=== PATIENT | female | born 1965 | race Caucasian/White ===

== ENCOUNTER → 2017-11-12 07:21 | Outpatient (CLI) | payer BC, SELFPAY ==
[2017-11-12 08:02] LABS: Absolute Lymphocyte Count 2.85 X10^3/ul (0.83-4.51); Absolute Neutrophil Count 4.4 X10^3/uL (2.0-7.7); Basophil# 0.03 X10^3/uL; Basophil% 0.4 % (0-1); Eosinophil# 0.11 X10^3/uL; Eosinophils% 1.4 % (0-5); Erythrocyte Sedimentation Rate 3 mm/hr (0-30); Hematocrit 36.1 % (37-47); Hemoglobin 11.1 g/dl (12.0-15.0); Lymphocyte # 2.85 X10^3/ul (4.0); Lymphocyte % 36.2 % (19-41); Mean Corp Hgb Conc 30.7 g/gl (32-36); Mean Corpuscular Volume 94.3 fL (81-99); Mean Platelet Vol. 9.6 fl (6.2-12.0); Monocyte# 0.49 X10^3/uL; Monocyte% 6.2 % (0-10); Neutrophil # 4.38 X10^3/uL (2.7-7.7); Neutrophil % 55.7 % (47-70); Platelet Count 258 K/mm3 (150-450); RBC Distribution Width CV 15.3 % (11.6-14.6); RBC Distribution Width SD 52.6 fl (35.1-43.9); Red Blood Count 3.83 M/mm3 (4.2-5.4); White Blood Count 7.9 K/mm3 (4.4-11.0)
[2017-11-12 08:04] LABS: POSITIVE COUNT NO; POSITIVE DIFFERENTIAL NO; POSITIVE MORPHOLOGY NO
[2017-11-12 08:12] LABS: Urea Nitrogen, Urine 1184 mg/dL (NO RANGE EST.)
[2017-11-12 08:36] LABS: AST(SGOT) 23 U/L (15-37); Alanine Aminotransfer ALT/SGPT 21 U/L (13-56); Albumin, Serum 3.6 g/dL (3.2-5.0); CRP < 2.90 mg/L (0.0-3.0); Creatinine, Serum 0.86 mg/dL (0.55-1.02); EST Glomerular Filtration Rate 73 mL/min (>60); Est Glom Filt Rate - Afr Amer 89 mL/min (>60)
[2017-11-13 10:38] LABS: BUN 12 mg/dL (7-18)
== END ==
PROVIDERS: Family Provider Family Medicine Geriatric Medicine; PCP Family Medicine Geriatric Medicine; Visit Provider Internal Medicine Rheumatology
DX: M30.0 Polyarteritis nodosa (principal)
CPT/HCPCS: 36415; 82040; 82565; 84450; 84460; 84520; 84540; 85025; 85652; 86140

== ENCOUNTER → 2017-12-04 16:24 | Outpatient (CLI) | payer BC, SELFPAY ==
[2017-12-04 16:50] LABS: Absolute Lymphocyte Count 1.26 X10^3/ul (0.83-4.51); Absolute Neutrophil Count 5.3 X10^3/uL (2.0-7.7); Basophil# 0.02 X10^3/uL; Basophil% 0.3 % (0-1); Eosinophil# 0.03 X10^3/uL; Eosinophils% 0.4 % (0-5); Hematocrit 36.9 % (37-47); Hemoglobin 11.3 g/dl (12.0-15.0); Lymphocyte # 1.26 X10^3/ul (4.0); Lymphocyte % 17.4 % (19-41); Mean Corp Hgb Conc 30.6 g/gl (32-36); Mean Corpuscular Hgb 28.6 pg (27.0-32.0); Mean Corpuscular Volume 93.4 fL (81-99); Mean Platelet Vol. 9.4 fl (6.2-12.0); Monocyte# 0.63 X10^3/uL; Monocyte% 8.7 % (0-10); Neutrophil # 5.29 X10^3/uL (2.7-7.7); Neutrophil % 73.2 % (47-70); Platelet Count 274 K/mm3 (150-450); RBC Distribution Width CV 15.4 % (11.6-14.6); RBC Distribution Width SD 52.7 fl (35.1-43.9); Red Blood Count 3.95 M/mm3 (4.2-5.4); White Blood Count 7.2 K/mm3 (4.4-11.0)
[2017-12-04 16:51] LABS: POSITIVE COUNT NO; POSITIVE DIFFERENTIAL NO; POSITIVE MORPHOLOGY NO
[2017-12-04 17:04] LABS: ALB/GLOB Ratio 1.1 RATIO (0.9-2.4); AST(SGOT) 20 U/L (15-37); Alanine Aminotransfer ALT/SGPT 21 U/L (13-56); Albumin, Serum 3.6 g/dL (3.2-5.0); Alkaline Phosphatase 74 U/L (45-117); Amylase 48 U/L (25-115); Anion Gap 10 (5-15); BUN 13 mg/dL (7-18); BUN/Creat Ratio 14.1 RATIO (10-20); Calcium,Total 8.8 mg/dL (8.5-10.1); Chloride 108 mmol/L (98-107); Creatinine, Serum 0.92 mg/dL (0.55-1.02); EST Glomerular Filtration Rate 68 mL/min (>60); Est Glom Filt Rate - Afr Amer 82 mL/min (>60); Globulin 3.4 g/dL (2.2-4.2); Glucose 95 mg/dL (74-106); Lipase 138 U/L (73-393); Potassium 4.1 mmol/L (3.5-5.1); Sodium Level 144 mmol/L (136-145)
== END ==
PROVIDERS: Family Provider Family Medicine Geriatric Medicine; PCP Family Medicine Geriatric Medicine; Visit Provider Family Medicine Geriatric Medicine
DX: R10.9 Unspecified abdominal pain (principal)
CPT/HCPCS: 36415; 80053; 82150; 83690; 85025

== ENCOUNTER → 2017-12-04 16:46 | Outpatient (CLI) | payer BC, SELFPAY | PROVIDERS: Family Provider Family Medicine Geriatric Medicine; PCP Family Medicine Geriatric Medicine; Visit Provider Family Medicine Geriatric Medicine | DX: R10.9 Unspecified abdominal pain (principal) | CPT/HCPCS: 74177; Q9967 ==

== ENCOUNTER → 2018-03-06 07:13 | Outpatient (CLI) | payer BC, SELFPAY ==
[2018-01-08 14:00] VITALS: BMI 31.7
[2018-03-06 09:00] LABS: Absolute Lymphocyte Count 2.29 X10^3/ul (0.83-4.51); Absolute Neutrophil Count 4.9 X10^3/uL (2.0-7.7); Basophil# 0.03 X10^3/uL; Basophil% 0.4 % (0-1); Eosinophil# 0.14 X10^3/uL; Eosinophils% 1.8 % (0-5); Lymphocyte # 2.29 X10^3/ul (4.0); Lymphocyte % 28.8 % (19-41); Mean Corp Hgb Conc 30.6 g/gl (32-36); Mean Corpuscular Hgb 29.3 pg (27.0-32.0); Mean Corpuscular Volume 95.7 fL (81-99); Mean Platelet Vol. 8.8 fl (6.2-12.0); Monocyte# 0.56 X10^3/uL; Neutrophil # 4.92 X10^3/uL (2.7-7.7); Neutrophil % 61.9 % (47-70); Platelet Count 315 K/mm3 (150-450); RBC Distribution Width CV 16.3 % (11.6-14.6); RBC Distribution Width SD 56.4 fl (35.1-43.9); Red Blood Count 3.76 M/mm3 (4.2-5.4)
[2018-03-06 09:04] LABS: POSITIVE COUNT NO; POSITIVE DIFFERENTIAL NO; POSITIVE MORPHOLOGY NO
[2018-03-06 09:20] LABS: BUN 15 mg/dL (7-18); Creatinine, Serum 0.84 mg/dL (0.55-1.02)
[2018-03-06 09:21] LABS: AST(SGOT) 22 U/L (15-37); Alanine Aminotransfer ALT/SGPT 22 U/L (13-56); Albumin, Serum 3.7 g/dL (3.2-5.0); EST Glomerular Filtration Rate 75 mL/min (>60); Est Glom Filt Rate - Afr Amer 91 mL/min (>60)
--- OUTSIDE RECORDS SUMMARY | 2018-05-01 11:48 | XMS RPT_ITS ---
:1965 Author Organization OHIP Care Team Providers Name Role Phone Jd Gonzalez Attending Unavailable Jd Gonzalez Referring Unavailable Clement, Shaw Chi Primary Care Unavailable Clement, Shaw Chi Attending Unavailable Clement, Shaw Chi Primary Care Unavailable Clement, Shaw Chi Attending Unavailable Clement, Shaw Chi Referring Unavailable Clement, Shaw Chi Primary Care Unavailable Terrence Garcia Attending Unavailable Inez, Fabiana Referring Unavailable Jd Gonzalez Attending Unavailable Jd Gonzalez Referring Unavailable Miedel, Fabiana Primary Care Unavailable PROBLEMS PROBLEMS DATE TYPE CONDITION / CODE ATTENDING STATUS SOURCE 01/08/2018 Unknown K28.7 - Chronic [place], Active [place] gastrojejunal ulcer [facility] without hemorrhage Hospital or perforation / Repository K28.7(ICD-10) 12/07/2017 Unknown R10.9 - Unspecified Clement, Shaw Chi Active [facility] abdominal pain / Community R10.9(ICD-10) Hospital Repository 11/12/2017 Unknown 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 / Hospital 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3 LAB L100.1820 35.1-43.9 fl High RDW SD 56.4 LAB L100.1900 150-450 K/mm3 Normal PLT 315 LAB L100.2000 6.2-12.0 fl Normal MPV 8.8 LAB L100.2100 47-70 % Normal NEUT% 61.9 LAB L100.2200 19-41 % Normal LY% 28.8 LAB L100.2300 0-10 % Normal MONO% 7.0 LAB L100.2400 0-5 % Normal EO% 1.8 LAB L100.2500 0-1 % Normal BASO% 0.4 LAB L100.2550 0.0-0.9 % Normal IM GRAN % 0.100 Result Comment: IG% - Immature Granulocytes (promyelocytes, myelocytes and metamyelocytes) > 1% indicates that a LEFT SHIFT is Present. LAB L100.2620 2.0-7.7 X10 3/uL Normal Absolute Neut 4.9 LAB L100.2720 0.83-4.51 X10 3/ul Normal Absolute Lymph 2.29 Performed By: #### L100.0100 #### [facility] [address] [place], [address] BUN Collected: 03/06/2018 Status: F Source: [place] 7:19 AM [facility] REPOSITORY TYPE CODE TESTS RESULT OUT OF RANGE REFERENCE UNITS LAB L501.1000 7-18 mg/dL Normal BUN 15 Performed By: #### L501.1000, L501.1105, L501.1800, L501.4100, L501.4405 #### [facility] [address] [place], [place], [address] SERUM CREATININE AND Collected: 03/06/2018 Status: F Source: [place] GFR 7:19 AM [facility] REPOSITORY TYPE CODE TESTS RESULT OUT OF RANGE REFERENCE UNITS LAB L501.1100 0.55-1.02 mg/dL Normal 0.84 CREAT,SERUM Result Comment: The validity of the calculated GFR AND GFRAA in patients over 70 years has not been determined. Clinical correlation is essential. LAB L501.1110 >60 mL/min Normal EST GFR 75 Result Comment: Non- GFR Calc LAB L501.1115 >60 mL/min Normal EST GFR - AA 91 Result Comment: GFR Calc Performed By: #### L501.1000, L501.1105, L501.1800, L501.4100, L501.4405 #### [facility] [address] [place], [address] ALBUMIN, SERUM Collected: 03/06/2018 Status: F Source: [place] 7:19 AM [facility] REPOSITORY TYPE CODE TESTS RESULT OUT OF RANGE REFERENCE UNITS LAB L501.1800 3.2-5.0 g/dL Normal ALB 3.7 Performed By: #### L501.1000, L501.1105, L501.1800, L501.4100, L501.4405 #### [facility] [address] [place], [address] AST(SGOT) Collected: 03/06/2018 Status: F Source: [place] 7:19 AM [facility] REPOSITORY TYPE CODE TESTS RESULT OUT OF RANGE REFERENCE UNITS LAB L501.4100 15-37 U/L Normal AST 22 Performed By: #### L501.1000, L501.1105, L501.1800, L501.4100, L501.4405 #### [facility] [address] [place], [address] ALANINE AMINOTRANSFERAS Collected: 03/06/2018 Status: F Source: [place] (SGPT) 7:19 AM [facility] REPOSITORY TYPE CODE TESTS RESULT OUT OF RANGE REFERENCE UNITS LAB L501.4405 13-56 U/L Normal ALT 22 Performed By: #### L501.1000, L501.1105, L501.1800, L501.4100, L501.4405 #### [facility] [address] [place], [address] SURGERY VISIT REPORT Observed: 01/08/2018 Status: F Source: [place] 2:29 PM [facility] REPOSITORY [facility] [address] [place] [address] OFFICE VISIT Date of Service: 01/08/18 MR#: [id number] Acct: [id number] Name: LAILA HENSLEY Joy Rep #: [id number] : 1965 Provider: Terrence Garcia MD Age/Sex: 52/F Location: [facility] Status: Signed Intake Vital Signs01/08/18 Height 5 ft 4 in 01/08/18 Weight: 185 lb 01/08/18 Body Mass Index (BMI) 31.7 Intake Visit Reasons: Gastric Ulcer/CT [facility] 12/04 Cutter Hand Required: No Is patient in pain?: Yes (epigsatric) Allergies No Known Allergies Allergy (Verified 01/08/18 14:01) Medications Multivitamin [Daily Multiple Vitamin] 1 ea PO DAILY 08/09/15 [History Confirmed 01/08/18] Plexus Biocleanse 2 tab PO DAILY 08/09/15 [History Confirmed 01/08/18] Plexus Probio 1 tab PO DAILY 08/09/15 [History Confirmed 01/08/18] Plexus Slim 1 PO DAILY 08/09/15 [History Confirmed 01/08/18] Premium Ultra Pure 3 tab PO DAILY 08/09/15 [History Confirmed 01/08/18] azathioprine 50 mg tablet 50 mg PO DAILY 01/08/18 [History Confirmed 01/08/18] colchicine 0.6 mg tablet 0.6 mg PO BID 01/08/18 [History Confirmed 01/08/18] dexlansoprazole 60 mg capsule,biphase delayed release 60 mg PO DAILY 01/08/18 [History Confirmed 01/08/18] prednisone 2.5 mg tablet 5 mg PO DAILY tab 01/08/18 [History Confirmed 01/08/18] PFSH Medical History Gastric ulcer (Acute) Vasculitis of skin (Acute) Surgical History Heel spur (Acute) S/P gastric bypass (Acute) S/P hammer toe correction (Acute) Family History Mother Hypertension Thyroid disorder Brother Seizures Social History Smoking Status: Never smoker alcohol intake: current alcohol intake frequency: holidays/special occasions only HPI HPI HPI: LAILA HENSLEY, is a 52 F who presents to the office today for epigastric pain. The patient reports that she had epigastric pain a long time ago and was noted to have a ulcer on upper GI. She has been on Dexilant for over a year. She reports the pain has been waxing and waning but got worse a month ago and had a repeat CT. The patient reports that when she has an empty stomach the pain is worse. ROS General General: Yes fatigue Cardio Cardiovascular: No murmur, pacemaker, heart disease, atrial fibrillation, high blood pressure, heart attack, heart stent, palpitations, shortness of breat with exertion or chest pain Psych Psychiatric: Yes depression and anxiety Resp Respiratory: No shortness of breath, Yes sleep apnea, No cough, No COPD, No asthma, No emphysema, No wheezing Gastro Gastrointestinal: Yes abdominal pain, No nausea or vomiting, No diarrhea, Yes constipation, No blood in stool, No acid reflux, Yes hemorrhoids, Yes ulcers, No gallbladder problem, No black,tarry stools Reginaldo Hematologic: No blood thinners Exam Const General: cooperative Orientation: alert, oriented x3 Resp Effort AND Inspection: normal respiratory effort Auscultation: clear to auscultation bilaterally Cardio Rate: regular rate Rhythm: regular rhythm Heart Sounds: no murmurs GI Inspection: non-distended Palpation: soft, nontender Assessment AND Plan Problems 1. 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 The patient had upper GI in 2017 which showed a marginal ulcer at her gastrojejunal anastomosis. She has been on a PPI but she is still having epigastric pain. She is on chronic steroids daily. 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 He says while the steroids her legs are severely exacerbated. 2. I recommend continuing PPI and she will fill the prescription Dr. Vaughan gave her for a barrier medication. 3. I advised her that I would be able to do an EGD but this would be a diagnostic procedure only. If she would require any surgery I would send her back to her bariatric surgeon Dr. Mcmullen at [facility]. At this time the patient does not want an EGD if it will not help her symptoms. I believe if she were to come off of her steroids completely this would heal. 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 01/08/18 1429 <Electronically signed by Terrence Garcia MD> Date Terrence Garcia MD Cosigner Signature: Date (if applicable) CC: Fabiana Wiley MD ABDOMEN/PELVIS WITH Observed: 12/04/2017 Status: F Source: [place] CONTRAST 4:51 PM [facility] REPOSITORY [facility] Imaging Services [address] [place] [address] [place] [address] Abdomen/Pelvis WITH Contrast MR#: [id number] Acct: [id number] Name: LAILA HENSLEY Rep #: [id number] : 1965 F 51 From: Azael Gutierrez MD PCP: Shaw Vaughan MD, Chi Status: REG CLI Study: Abdomen/Pelvis WITH Contrast Date of Exam: 12/04/17 Exam# [id number] Ordering Dr: Shaw Vaughan MD STUDY: CT ABDOMEN AND PELVIS WITH CONTRAST REASON FOR EXAM: Female, 51 years old. Mid abdominal pain times several months, status post gastric bypass surgery 2012 RADIATION DOSAGE (If Supplied By Facility): CTDIvol = ( 19.21 ) mGy, DLP = ( 1075.99 ) mGycm TECHNIQUE: Transaxial images were obtained from the dome of the diaphragm to the symphysis pubis with oral contrast. 100ML ml of Isovue 300 contrast was administered. Sagittal and coronal images were reconstructed. Individualized dose optimization techniques were used for this CT. COMPARISON: Prior study of June 06, 2016 FINDINGS: The visualized lung bases are unremarkable. The visualized portions of the heart are within normal limits. Normal liver. Normal gallbladder and extrahepatic biliary system. Normal spleen. Normal pancreas. Normal bilateral adrenal glands. Normal right kidney. There is a 1.3 cm hypodensity of the lower pole of left kidney indeterminate for solid versus cystic structure. This is stable in the interval. Status post gastric surgical changes are noted. There is a small hiatal hernia. Normal small intestine. Normal colon. The appendix is visualized and appears normal. There are calcified plaques of the abdominal aorta. Normal inferior vena cava. Normal retroperitoneum. Normal urinary bladder. The uterus and adnexal structures appear normal. Normal abdominal wall. There mild diffuse degenerative changes of the visualized thoracolumbar spine. CT/Abdomen/Pelvis WITH Contrast IMPRESSION: 1. 1.3 cm hypodensity of the lower pole of left kidney indeterminate for solid versus cystic structure, stable in the interval. This most likely represents a cyst. Ultrasound correlation is recommended. 2. Status post gastric surgical changes are noted. There is a small hiatal hernia. 3. Mild diffuse degenerative changes of the visualized thoracolumbar spine. 4. There is no evidence of free intra-abdominal or intrapelvic air, fluid, or inflammatory process. Electronically Signed: Azael Gutierrez MD at 19:35 EDT , Service support , CC: Shaw Vaughan MD Terrazzo Polisher Helper: Signed CBC W/DIFF, AUTOMATED Collected: 12/04/2017 Status: F Source: [place] 4:26 PM [facility] REPOSITORY TYPE CODE TESTS RESULT OUT OF RANGE REFERENCE UNITS LAB L100.1000 4.4-11.0 K/mm3 Normal WBC 7.2 LAB L100.1200 4.2-5.4 M/mm3 Low RBC 3.95 LAB L100.1300 12.0-15.0 g/dl Low HGB 11.3 LAB L100.1400 37-47 % Low HCT 36.9 LAB L100.1500 81-99 fL Normal MCV 93.4 LAB L100.1600 27.0-32.0 pg Normal MCH 28.6 LAB L100.1700 32-36 g/gl Low MCHC 30.6 LAB L100.1810 11.6-14.6 % High RDW CV 15.4 LAB L100.1820 35.1-43.9 fl High RDW SD 52.7 LAB L100.1900 150-450 K/mm3 Normal PLT 274 LAB L100.2000 6.2-12.0 fl Normal MPV 9.4 LAB L100.2100 47-70 % High NEUT% 73.2 LAB L100.2200 19-41 % Low LY% 17.4 LAB L100.2300 0-10 % Normal MONO% 8.7 LAB L100.2400 0-5 % Normal EO% 0.4 LAB L100.2500 0-1 % Normal BASO% 0.3 LAB L100.2550 0.0-0.9 % Normal IM GRAN % 0.000 Result Comment: IG% - Immature Granulocytes (promyelocytes, myelocytes and metamyelocytes) > 1% indicates that a LEFT SHIFT is Present. LAB L100.2620 2.0-7.7 X10 3/uL Normal Absolute Neut 5.3 LAB L100.2720 0.83-4.51 X10 3/ul Normal Absolute Lymph 1.26 Performed By: #### L100.0100 #### [facility] [address] [place], [address] COMPREHENSIVE METABOLIC Collected: 12/04/2017 Status: F Source: [place] [facility] 4:26 PM [facility] REPOSITORY TYPE CODE TESTS RESULT OUT OF RANGE REFERENCE UNITS LAB L501.0100 74-106 mg/dL Normal GLU 95 Result Comment: Please note revised GLUCOSE reference range effective 2017. LAB L501.1000 7-18 mg/dL Normal BUN 13 LAB L501.1100 0.55-1.02 mg/dL Normal CREAT,SERUM 0.92 Result Comment: The validity of the calculated GFR AND GFRAA in patients over 70 years has not been determined. Clinical correlation is essential. LAB L501.1110 >60 mL/min Normal EST GFR 68 Result Comment: Non- GFR Calc LAB L501.1115 >60 mL/min Normal EST GFR - AA 82 Result Comment: GFR Calc LAB L501.1300 10-20 RATIO Normal BUN/CRE 14.1 LAB L501.1500 6.4-8.2 g/dL T Normal PROT 7.0 LAB L501.1800 3.2-5.0 g/dL Normal ALB 3.6 LAB L501.1950 2.2-4.2 g/dL Normal GLOB 3.4 LAB L501.2000 0.9-2.4 RATIO Normal A/G 1.1 LAB L501.2200 8.5-10.1 mg/dL CA Normal 8.8 LAB L501.4100 15-37 U/L Normal AST 20 LAB L501.4305 45-117 U/L Normal ALK P 74 LAB L501.4405 13-56 U/L Normal ALT 21 LAB L501.4600 0.20-1.00 mg/dL T Normal BILI 0.50 LAB L501.5300 136-145 mmol/L NA Normal 144 LAB L501.5600 3.5-5.1 mmol/L K Normal 4.1 LAB L501.5900 98-107 mmol/L High CL 108 LAB L501.6100 21.0-32.0 mmol/L Normal CO2 26.0 LAB L501.6200 5-15 Normal GAP 10 Performed By: #### L500.4050, L501.2400, L501.2450 #### [facility] [address] [place], [address] AMYLASE Collected: 12/04/2017 Status: F Source: [place] 4:26 PM [facility] REPOSITORY TYPE CODE TESTS RESULT OUT OF RANGE REFERENCE UNITS LAB L501.2400 25-115 U/L Normal JOSE MIGUEL 48 Performed By: #### L500.4050, L501.2400, L501.2450 #### [facility] [address] [place], [address] LIPASE Collected: 12/04/2017 Status: F Source: [place] 4:26 PM [facility] REPOSITORY TYPE CODE TESTS RESULT OUT OF RANGE REFERENCE UNITS LAB L501.2450 73-393 U/L Normal LIPASE 138 Performed By: #### L500.4050, L501.2400, L501.2450 #### [facility] [address] [place], [address] ERYTHROCYTE SED RATE Collected: 11/12/2017 Status: F Source: [place] 7:26 AM [facility] REPOSITORY TYPE CODE TESTS RESULT OUT OF RANGE REFERENCE UNITS LAB L102.0000 0-30 mm/hr Normal SED RATE 3 Performed By: #### L101.9900, L100.0100 #### [facility] [address] [place], [address] CBC W/DIFF, AUTOMATED Collected: 11/12/2017 Status: F Source: [place] 7:26 AM [facility] REPOSITORY TYPE CODE TESTS RESULT OUT OF RANGE REFERENCE UNITS LAB L100.1000 4.4-11.0 K/mm3 Normal WBC 7.9 LAB L100.1200 4.2-5.4 M/mm3 Low RBC 3.83 LAB L100.1300 12.0-15.0 g/dl Low HGB 11.1 LAB L100.1400 37-47 % Low HCT 36.1 LAB L100.1500 81-99 fL Normal MCV 94.3 LAB L100.1600 27.0-32.0 pg Normal MCH 29.0 LAB L100.1700 32-36 g/gl Low MCHC 30.7 LAB L100.1810 11.6-14.6 % High RDW CV 15.3 LAB L100.1820 35.1-43.9 fl High RDW SD 52.6 LAB L100.1900 150-450 K/mm3 Normal PLT 258 LAB L100.2000 6.2-12.0 fl Normal MPV 9.6 LAB L100.2100 47-70 % Normal NEUT% 55.7 LAB L100.2200 19-41 % Normal LY% 36.2 LAB L100.2300 0-10 % Normal MONO% 6.2 LAB L100.2400 0-5 % Normal EO% 1.4 LAB L100.2500 0-1 % Normal BASO% 0.4 LAB L100.2550 0.0-0.9 % Normal IM GRAN % 0.100 Result Comment: IG% - Immature Granulocytes (promyelocytes, myelocytes and metamyelocytes) > 1% indicates that a LEFT SHIFT is Present. LAB L100.2620 2.0-7.7 X10 3/uL Normal Absolute Neut 4.4 LAB L100.2720 0.83-4.51 X10 3/ul Normal Absolute Lymph 2.85 Performed By: #### L101.9900, L100.0100 #### [facility] [address] [place], [address] UREA NITROGEN, URINE Collected: 11/12/2017 Status: F Source: [place] 7:26 AM [facility] REPOSITORY TYPE CODE TESTS RESULT OUT OF RANGE REFERENCE UNITS LAB L502.0715 NO RANGE EST. mg/dL Normal URINE 1184 UREA Performed By: #### L502.0715 #### [facility] [address] [place], [address] SERUM CREATININE AND Collected: 11/12/2017 Status: F Source: [place] GFR 7:26 AM [facility] REPOSITORY Order Comment: PLEASE ADD BUN TO BLOOD FROM 11-12-17 TYPE CODE TESTS RESULT OUT OF RANGE REFERENCE UNITS LAB L501.1100 0.55-1.02 mg/dL Normal 0.86 CREAT,SERUM Result Comment: The validity of the calculated GFR AND GFRAA in patients over 70 years has not been determined. Clinical correlation is essential. LAB L501.1110 >60 mL/min Normal EST GFR 73 Result Comment: Non- GFR Calc LAB L501.1115 >60 mL/min Normal EST GFR - AA 89 Result Comment: GFR Calc Performed By: #### L501.1105, L501.1800, L501.4100, L501.4405, L501.6710, L501.1000 #### [facility] [address] [place], [place], [address] ALBUMIN, SERUM Collected: 11/12/2017 Status: F Source: [place] 7:26 AM [facility] REPOSITORY Order Comment: PLEASE ADD BUN TO BLOOD FROM 11-12-17 TYPE CODE TESTS RESULT OUT OF RANGE REFERENCE UNITS LAB L501.1800 3.2-5.0 g/dL Normal ALB 3.6 Performed By: #### L501.1105, L501.1800, L501.4100, L501.4405, L501.6710, L501.1000 #### [facility] [address] [place], [address] AST(SGOT) Collected: 11/12/2017 Status: F Source: [place] 7:26 AM [facility] REPOSITORY Order Comment: PLEASE ADD BUN TO BLOOD FROM 11-12-17 TYPE CODE TESTS RESULT OUT OF RANGE REFERENCE UNITS LAB L501.4100 15-37 U/L Normal AST 23 Performed By: #### L501.1105, L501.1800, L501.4100, L501.4405, L501.6710, L501.1000 #### [facility] [address] [place], [address] ALANINE AMINOTRANSFERAS Collected: 11/12/2017 Status: F Source: [place] (SGPT) 7:26 AM [facility] REPOSITORY Order Comment: PLEASE ADD BUN TO BLOOD FROM 11-12-17 TYPE CODE TESTS RESULT OUT OF RANGE REFERENCE UNITS LAB L501.4405 13-56 U/L Normal ALT 21 Performed By: #### L501.1105, L501.1800, L501.4100, L501.4405, L501.6710, L501.1000 #### [facility] [address] [place], [place], [address] CRP Collected: 11/12/2017 Status: F Source: [place] 7:26 AM [facility] REPOSITORY Order Comment: PLEASE ADD BUN TO BLOOD FROM 818 TYPE CODE TESTS RESULT OUT OF RANGE REFERENCE UNITS LAB L501.6710 0.0-3.0 mg/L Normal < 2.90 C-REACTIVE PROT Result Comment: C-Reactive Protein (CRP) provides useful information for the diagnosis, therapy and monitoring of inflammatory processes and associated diseases. For the evaluation of Relative Risk for Cardiovascular Disease, a High Sensitivity CRP (HSCRP) should be ordered. Performed By: #### L501.1105, L501.1800, L501.4100, L501.4405, L501.6710, L501.1000 #### [facility] [address] [place], [address] BUN Collected: 11/12/2017 Status: F Source: [place] 7:26 [facility] REPOSITORY Order Comment: PLEASE ADD BUN TO BLOOD FROM 818 TYPE CODE TESTS RESULT OUT OF RANGE REFERENCE UNITS LAB L501.1000 7-18 mg/dL Normal BUN 12 Performed By: #### L501.1105, L501.1800, L501.4100, L501.4405, L501.6710, L501.1000 #### [facility] [address] [place], [address] ALLERGIES ALLERGIES DATE TYPE / CODE NAME / CODE REACTION SEVERITY SOURCE 01/08/2018 Drug No Known Unknown [facility] Allergy/4160 Allergies/F00 [facility] 00974(SNOMED [id number](RXNOR Repository CT) M) ENCOUNTERS ENCOUNTERS ADMIT/DISCHARGE ACCOUNT ADMITTING ENCOUNTER LOCATION SOURCE NUMBER CLASS 03/06/2018 [id number] Ambulatory [address] ing:LAB Repository 01/08/2018/10/02 [id number] Ambulatory BMSBuilding:B [place] 8 0 [place].[facility] Repository 12/04/2017 [id number] Ambulatory [place] 9 [facility] ing:CT Repository 12/04/2017 [id number] Ambulatory [place] 2 [facility] ing:POLAB3 Repository 11/12/2017 [id number] Ambulatory [place] 7 [facility] ing:LAB Repository PAYERS PAYERS ENCOUNTER GUARANTOR PAYER SUBSCRIBER SOURCE 03/06/2018 LAILA A Primary LAILA A [place] [id number] JAVID Insurance:ANTHEMPolic TROYERDOB: [facility], y Number: [id number] [id number]: [id number] Repository Date:1221-79-32OZ [address] () [address], [place] [address]MK: 03/06/2018 Secondary NOT GIVENUNK [place] Insurance:SELF PAY [facility] Number: Effective Repository Date:2018-03-06 01/08/2018 LAILA A Primary LAILA A [place] [id number] JAVID Insurance:ANTHEMPolic TROYERDOB: [facility], y Number: [id number] [facility] Services [address]Oqo: [id number] Repository Date:3083-12-70UV [address] () [address], [place] [address]VP: 01/08/2018 Secondary NOT GIVENUNK [place] Insurance:SELF PAY [facility] Number: Effective Repository Date:2018-01-08 12/04/2017 Laila A Primary Laila A [place] [id number] Insurance:ANTHEMPolic TroyerDOB: [facility], y Number: [id number] Behavioral Health Services [id number]: [id number] Repository Date:3827-05-49YD [address] () [address], [place] [address]QJ: 12/04/2017 Secondary NOT GIVENUNK [place] Insurance:SELF PAY [facility] Number: Effective Repository Date:2017-12-04 12/04/2017 Laila Hamilton Primary Laila Hamilton [place] [id number] Javid Insurance:ANTHEMPolic TroyerDOB: [facility], y Number: [id number] Behavioral Health Services [id number]: [id number] Repository Date:8758-68-03YA [address] () [id number] [place] [address]QN: 12/04/2017 Secondary NOT GIVENUNK [place] Insurance:SELF PAY [facility] Number: Effective Repository Date:2017-12-04 11/12/2017 Laila Hamilton Primary Laila Dodgeoster [id number] Javid Insurance:ANTHEMPolic TroyerDOB: [facility], y Number: [id number] [facility]al [facility] Services [id number]: [id number] Repository Date:9421-57-82BB [address] () [address], [place] [address]LX: 11/12/2017 Secondary NOT GIVENUNK [place] Insurance:SELF PAY [facility] Number: Effective Repository Date:2017-11-12
== END ==
PROVIDERS: Family Provider Family Medicine; PCP Family Medicine; Referring Provider Internal Medicine Rheumatology; Visit Provider Internal Medicine Rheumatology
DX: M30.0 Polyarteritis nodosa (principal)
CPT/HCPCS: 36415; 82040; 82565; 84450; 84460; 84520; 85025

== ENCOUNTER 2018-06-03 07:10 | Outpatient (RCR) | payer BC, SELFPAY ==
[2018-06-03 08:37] LABS: Absolute Lymphocyte Count 1.77 X10^3/ul (0.83-4.51); Absolute Neutrophil Count 4.7 X10^3/uL (2.0-7.7); Basophil# 0.03 X10^3/uL; Basophil% 0.4 % (0-1); Eosinophil# 0.13 X10^3/uL; Eosinophils% 1.8 % (0-5); Hematocrit 35.9 % (37-47); Lymphocyte # 1.77 X10^3/ul (4.0); Lymphocyte % 24.5 % (19-41); Mean Corp Hgb Conc 30.6 g/gl (32-36); Mean Corpuscular Hgb 29.1 pg (27.0-32.0); Mean Platelet Vol. 9.6 fl (6.2-12.0); Monocyte# 0.58 X10^3/uL; Neutrophil # 4.68 X10^3/uL (2.7-7.7); Platelet Count 315 K/mm3 (150-450); RBC Distribution Width CV 15.3 % (11.6-14.6); RBC Distribution Width SD 50.3 fl (35.1-43.9); Red Blood Count 3.78 M/mm3 (4.2-5.4); White Blood Count 7.2 K/mm3 (4.4-11.0)
[2018-06-03 08:39] LABS: POSITIVE COUNT NO; POSITIVE DIFFERENTIAL NO; POSITIVE MORPHOLOGY NO
== END 2018-06-06 15:01 | disposition home or self-care (01) ==
LOC: LAB 07:10
PROVIDERS: Referring Provider Internal Medicine Rheumatology; Visit Provider Internal Medicine Rheumatology
DX: M30.0 Polyarteritis nodosa (principal); M79.3 Panniculitis, unspecified; Z79.899 Other long term (current) drug therapy
CPT/HCPCS: 36415; 85025

== ENCOUNTER → 2018-08-27 | Outpatient (CLI) | payer BC, SELFPAY ==
[2018-08-27 17:39] LABS: Absolute Lymphocyte Count 1.25 X10^3/ul (0.83-4.51); Absolute Neutrophil Count 4.9 X10^3/uL (2.0-7.7); Basophil# 0.02 X10^3/uL; Basophil% 0.3 % (0-1); Eosinophil# 0.07 X10^3/uL; Hematocrit 34.9 % (37-47); Hemoglobin 10.8 g/dl (12.0-15.0); Lymphocyte # 1.25 X10^3/ul (4.0); Lymphocyte % 18.5 % (19-41); Mean Corp Hgb Conc 30.9 g/gl (32-36); Mean Corpuscular Hgb 27.8 pg (27.0-32.0); Mean Corpuscular Volume 89.7 fL (81-99); Mean Platelet Vol. 9.6 fl (6.2-12.0); Monocyte% 7.4 % (0-10); Neutrophil # 4.92 X10^3/uL (2.7-7.7); Neutrophil % 72.7 % (47-70); Platelet Count 287 K/mm3 (150-450); RBC Distribution Width CV 15.9 % (11.6-14.6); RBC Distribution Width SD 51.7 fl (35.1-43.9); Red Blood Count 3.89 M/mm3 (4.2-5.4); White Blood Count 6.8 K/mm3 (4.4-11.0)
[2018-08-27 18:00] LABS: POSITIVE COUNT NO; POSITIVE DIFFERENTIAL NO; POSITIVE MORPHOLOGY NO; Vitamin B12 680 pg/mL (211-911)
[2018-08-27 18:05] LABS: Thyroid Stim Hormone (TSH) 2.45 uIU/mL (0.358-3.74)
== END | disposition home or self-care (01) ==
LOC: BFHLAB 15:42
PROVIDERS: Family Provider Family Medicine; PCP Family Medicine; Visit Provider Family Medicine
DX: F32.9 Major depressive disorder, single episode, unspecified (principal); R53.83 Other fatigue
CPT/HCPCS: 36415; 82607; 84443; 85025

== ENCOUNTER 2018-09-12 07:16 | Outpatient (RCR) | payer BC, SELFPAY ==
[2018-01-08 14:00] VITALS: BMI 31.7
[2018-09-12 07:57] LABS: Absolute Lymphocyte Count 2.47 X10^3/ul (0.83-4.51); Absolute Neutrophil Count 4.2 X10^3/uL (2.0-7.7); Basophil# 0.02 X10^3/uL; Basophil% 0.3 % (0-1); Eosinophil# 0.12 X10^3/uL; Eosinophils% 1.6 % (0-5); Hematocrit 33.8 % (37-47); Hemoglobin 10.4 g/dl (12.0-15.0); Lymphocyte # 2.47 X10^3/ul (4.0); Lymphocyte % 33.2 % (19-41); Mean Corp Hgb Conc 30.8 g/gl (32-36); Mean Corpuscular Hgb 27.5 pg (27.0-32.0); Mean Corpuscular Volume 89.4 fL (81-99); Mean Platelet Vol. 9.5 fl (6.2-12.0); Monocyte# 0.66 X10^3/uL; Monocyte% 8.9 % (0-10); Neutrophil # 4.15 X10^3/uL (2.7-7.7); Neutrophil % 55.7 % (47-70); Platelet Count 282 K/mm3 (150-450); RBC Distribution Width CV 15.9 % (11.6-14.6); RBC Distribution Width SD 51.4 fl (35.1-43.9); Red Blood Count 3.78 M/mm3 (4.2-5.4); White Blood Count 7.4 K/mm3 (4.4-11.0)
[2018-09-12 08:01] LABS: POSITIVE COUNT NO; POSITIVE DIFFERENTIAL NO; POSITIVE MORPHOLOGY NO
== END 2018-10-06 12:00 | disposition home or self-care (01) ==
LOC: LAB 07:16
PROVIDERS: Family Provider Family Medicine; PCP Family Medicine; Referring Provider Internal Medicine Rheumatology; Visit Provider Internal Medicine Rheumatology
DX: M30.0 Polyarteritis nodosa (principal); M79.3 Panniculitis, unspecified; Z79.899 Other long term (current) drug therapy
CPT/HCPCS: 36415; 85025

== ENCOUNTER → 2018-10-23 | Outpatient (CLI) | payer BC, SELFPAY ==
[2018-01-08 14:00] VITALS: BMI 31.7
[2018-10-23 16:35] LABS: Bacteria 0 SEEN /hpf (None Seen); Mucous, Urine 0 SEEN /hpf (<or=2+); Red Blood Cells-Urine 0 SEEN /hpf (0-5)
[2018-10-23 17:14] LABS: Absolute Lymphocyte Count 1.47 X10^3/uL (0.83-4.51); Basophil# 0.03 X10^3/uL; Basophil% 0.4 % (0-1); Eosinophil# 0.12 X10^3/uL; Eosinophils% 1.7 % (0-5); Hematocrit 35.8 % (37-47); Hemoglobin 10.7 g/dL (12.0-15.0); Lymphocyte # 1.47 X10^3/ul (4.0); Lymphocyte % 20.7 % (19-41); Mean Corp Hgb Conc 29.9 g/dL (32-36); Mean Corpuscular Hgb 27.4 pg (27.0-32.0); Mean Corpuscular Volume 91.8 fL (81-99); Mean Platelet Vol. 9.1 fl (6.2-12.0); Monocyte# 0.45 X10^3/uL; Monocyte% 6.3 % (0-10); NRBC Flagged by Analyzer 0 % (0-5); Neutrophil % 70.6 % (47-70); Platelet Count 261 K/mm3 (150-450); RBC Distribution Width CV 16.5 % (11.6-14.6); RBC Distribution Width SD 54.9 fl (35.1-43.9); White Blood Count 7.1 K/mm3 (4.4-11.0)
[2018-10-23 17:30] LABS: Erythrocyte Sedimentation Rate 7 mm/hr (0-30)
[2018-10-23 17:35] LABS: AST(SGOT) 15 U/L (15-37); Alanine Aminotransfer ALT/SGPT 14 U/L (13-56); Albumin, Serum 3.7 g/dL (3.2-5.0); BUN 13 mg/dL (7-18); CRP 4.29 mg/L (0.0-3.0); Creatinine, Serum 0.86 mg/dL (0.55-1.02); EST Glomerular Filtration Rate 73 mL/min (>60); Est Glom Filt Rate - Afr Amer 88 mL/min (>60); Iron 44 ug/dL (50-170)
[2018-10-23 17:39] LABS: Color, Urine Yellow (Yellow); Glucose, Dipstick Normal (Normal); Ketone-Dipstick Negative (Negative); Leukocyte Esterase-Dipstick Negative /ul (Negative); Nitrite-Dipstick Negative (Negative); Occult Blood-Urine Negative /ul (Negative); Protein-Dipstick Negative (Negative); Urine Bilirubin Dipstick Negative (Negative); Urine Clarity Clear (Clear); Urine Urobilinogen Normal (Normal)
[2018-10-23 17:42] LABS: Squamous Epithelial Cells - UA 0-5 SEEN /hpf (5-10); White Blood Cells 0-5 SEEN /hpf (0-5)
[2018-10-24 09:47] LABS: Iron Binding Capacity,Total 491 ug/dL (250-450)
== END | disposition home or self-care (01) ==
LOC: LAB 16:33
PROVIDERS: Family Provider Family Medicine; PCP Family Medicine; Referring Provider Internal Medicine Rheumatology; Visit Provider Internal Medicine Rheumatology
DX: M30.0 Polyarteritis nodosa (principal)
CPT/HCPCS: 36415; 81001; 82040; 82565; 83540; 83550; 84450; 84460; 84520; 85025; 85652; 86140

== ENCOUNTER → 2018-12-20 13:11 | Outpatient (CLI) | payer BC, SELFPAY ==
[2018-01-08 14:00] VITALS: BMI 31.7
[2018-12-20 14:55] LABS: Absolute Lymphocyte Count 1.31 X10^3/uL (0.83-4.51); Absolute Neutrophil Count 4.7 X10^3/uL (2.0-7.7); Basophil# 0.04 X10^3/uL; Basophil% 0.6 % (0-1); Eosinophil# 0.17 X10^3/uL; Eosinophils% 2.5 % (0-5); Hematocrit 35.6 % (37-47); Hemoglobin 10.5 g/dL (12.0-15.0); Lymphocyte # 1.31 X10^3/ul (4.0); Lymphocyte % 19.4 % (19-41); Mean Corp Hgb Conc 29.5 g/dL (32-36); Mean Corpuscular Hgb 27.2 pg (27.0-32.0); Mean Corpuscular Volume 92.2 fL (81-99); Mean Platelet Vol. 9.6 fl (6.2-12.0); Monocyte# 0.55 X10^3/uL; Monocyte% 8.1 % (0-10); NRBC Flagged by Analyzer 0 % (0-5); Neutrophil # 4.69 X10^3/uL (2.7-7.7); Neutrophil % 69.3 % (47-70); Platelet Count 287 K/mm3 (150-450); RBC Distribution Width CV 16.1 % (11.6-14.6); RBC Distribution Width SD 54.5 fl (35.1-43.9); Red Blood Count 3.86 M/mm3 (4.2-5.4); White Blood Count 6.8 K/mm3 (4.4-11.0)
[2018-12-20 15:22] LABS: AST(SGOT) 16 U/L (15-37); Alanine Aminotransfer ALT/SGPT 14 U/L (13-56); Albumin, Serum 3.7 g/dL (3.2-5.0); BUN 13 mg/dL (7-18); Creatinine, Serum 0.78 mg/dL (0.55-1.02); EST Glomerular Filtration Rate 81 mL/min (>60); Est Glom Filt Rate - Afr Amer 99 mL/min (>60)
== END ==
PROVIDERS: Family Provider Family Medicine; PCP Family Medicine; Referring Provider Internal Medicine Rheumatology; Visit Provider Internal Medicine Rheumatology
DX: M30.0 Polyarteritis nodosa (principal)
CPT/HCPCS: 36415; 82040; 82565; 84450; 84460; 84520; 85025

== ENCOUNTER → 2019-01-20 07:35 | Outpatient (CLI) | payer BC, SELFPAY ==
--- NOTE | 2019-01-20 07:38 | BI_ITS ---
MAMMOGRAPHY - BILATERAL SCREENING REASON FOR EXAM: Female, 53 years old. Routine annual screening examination. PERTINENT HISTORY: Non-contributory. TECHNIQUE: Digital bilateral breast casey (3D mammographic acquisition) in the CC and MLO projections. 2-D mediolateral oblique (MLO) and craniocaudad (CC) views of both breasts were obtained. CAD: Full Field Digital Mammography with Computer Added Detection was performed. COMPARISON: Comparison is made with prior study of February 01, 2017 and April 10, 2013. FINDINGS: Breast Composition: The breasts are almost entirely fatty. There are no dominant masses or suspicious calcifications. Benign-appearing fat-containing left axillary lymph node. No other significant abnormalities are identified. There has been no significant change since the prior study. BI/SCREEN MAMM (CAD) W/CASEY BILAT IMPRESSION: Stable bilateral screening mammogram. Yearly follow-up mammogram recommended. (A) ASSESSMENT CATEGORY: BIRADS Category 2: Benign. A letter regarding these results will be sent to the patient by the facility within 30 days. Approximately 10% of breast cancers are not detected by mammography. A normal mammogram should not delay biopsy of a clinically suspicious abnormality. [id number] Electronically Signed: Omari Salcido, at 8:48 EDT , Service support ,
== END ==
PROVIDERS: Family Provider Family Medicine; PCP Family Medicine; Referring Provider Family Medicine; Visit Provider Family Medicine
DX: Z12.31 Encounter for screening mammogram for malignant neoplasm of breast (principal)
CPT/HCPCS: 77063; 77067

== ENCOUNTER → 2019-02-07 15:50 | Outpatient (CLI) | payer BC, SELFPAY ==
[2019-02-07 19:01] LABS: Chlamydia Trachomatis by PCR Negative (Negative); Neisserai gonorrhoeae by PCR Negative (Negative); Probe Check PASS; Sample Adequacy Control PASS; Specimen Processing Control PASS
[2019-02-10 09:56] LABS: HIV - WCH Non-Reactive (Nonreactive); Hepatitis B Surface Antigen Non-Reactive (Nonreactive)
[2019-02-10 12:46] LABS: HSV 2 IgG < 0.91 index (0.00-0.90)
[2019-02-13 02:20] LABS: Rapid Plasmin Reagin (RPR) NONREACTIVE (NONREACTIVE)
== END ==
PROVIDERS: Family Provider Family Medicine; PCP Family Medicine; Visit Provider Family Medicine
DX: Z20.9 Contact with and (suspected) exposure to unspecified communicable disease (principal)
CPT/HCPCS: 36415; 86592; 86695; 86696; 86703; 87340; 87491; 87591

== ENCOUNTER 2019-03-31 15:29 | Outpatient (RCR) | payer BC, SELFPAY ==
[2018-01-08 14:00] VITALS: BMI 31.7
[2019-03-31 16:43] LABS: Absolute Lymphocyte Count 1.34 X10^3/uL (0.83-4.51); Absolute Neutrophil Count 5.6 X10^3/uL (2.0-7.7); Basophil# 0.04 X10^3/uL; Basophil% 0.5 % (0-1); Eosinophil# 0.06 X10^3/uL; Eosinophils% 0.8 % (0-5); Hematocrit 34.5 % (37-47); Hemoglobin 10.5 g/dL (12.0-15.0); Lymphocyte # 1.34 X10^3/ul (4.0); Lymphocyte % 17.8 % (19-41); Mean Corp Hgb Conc 30.4 g/dL (32-36); Mean Corpuscular Hgb 27.5 pg (27.0-32.0); Mean Corpuscular Volume 90.3 fL (81-99); Mean Platelet Vol. 9.5 fl (6.2-12.0); Monocyte# 0.45 X10^3/uL; NRBC Flagged by Analyzer 0 % (0-5); Neutrophil # 5.62 X10^3/uL (2.7-7.7); Neutrophil % 74.8 % (47-70); Platelet Count 302 K/mm3 (150-450); RBC Distribution Width CV 15.8 % (11.6-14.6); RBC Distribution Width SD 51.8 fl (35.1-43.9); Red Blood Count 3.82 M/mm3 (4.2-5.4); White Blood Count 7.5 K/mm3 (4.4-11.0)
[2019-03-31 17:03] LABS: AST(SGOT) 13 U/L (15-37); Alanine Aminotransfer ALT/SGPT 12 U/L (13-56); Albumin, Serum 3.8 g/dL (3.2-5.0); BUN 11 mg/dL (7-18); Creatinine, Serum 0.94 mg/dL (0.55-1.02); EST Glomerular Filtration Rate 66 mL/min (>60); Est Glom Filt Rate - Afr Amer 79 mL/min (>60)
== END 2019-03-31 18:00 | disposition home or self-care (01) ==
LOC: LAB 15:29
PROVIDERS: Family Provider Family Medicine; PCP Family Medicine; Referring Provider Internal Medicine Rheumatology; Visit Provider Internal Medicine Rheumatology
DX: M30.0 Polyarteritis nodosa (principal)
CPT/HCPCS: 36415; 82040; 82565; 84450; 84460; 84520; 85025

== ENCOUNTER → 2019-08-18 07:01 | Outpatient (CLI) | payer BC, SELFPAY ==
[2018-01-08 14:00] VITALS: BMI 31.7
[2019-08-18 07:13] LABS: Mucous, Urine 0 SEEN /hpf (<or=2+); Red Blood Cells-Urine 0 SEEN /hpf (0-5)
[2019-08-18 07:39] LABS: Absolute Neutrophil Count 5.2 X10^3/uL (2.0-7.7); Basophil# 0.03 X10^3/uL; Basophil% 0.4 % (0-1); Eosinophil# 0.07 X10^3/uL; Eosinophils% 0.9 % (0-5); Hematocrit 33.3 % (37-47); Hemoglobin 10.4 g/dL (12.0-15.0); Mean Corp Hgb Conc 31.2 g/dL (32-36); Mean Corpuscular Hgb 27.4 pg (27.0-32.0); Mean Corpuscular Volume 87.9 fL (81-99); Mean Platelet Vol. 8.9 fl (6.2-12.0); Monocyte# 0.41 X10^3/uL; Monocyte% 5.5 % (0-10); NRBC Flagged by Analyzer 0 % (0-5); Neutrophil # 5.18 X10^3/uL (2.7-7.7); Neutrophil % 70.1 % (47-70); Platelet Count 290 K/mm3 (150-450); RBC Distribution Width CV 16.7 % (11.6-14.6); RBC Distribution Width SD 53.2 fl (35.1-43.9); Red Blood Count 3.79 M/mm3 (4.2-5.4); White Blood Count 7.4 K/mm3 (4.4-11.0)
[2019-08-18 07:41] LABS: Color, Urine Yellow (Yellow); Glucose, Dipstick Normal (Normal); Ketone-Dipstick 5 mg/dl (Negative); Leukocyte Esterase-Dipstick 25 /ul (Negative); Nitrite-Dipstick Negative (Negative); Occult Blood-Urine Negative /ul (Negative); Protein-Dipstick Negative (Negative); Urine Bilirubin Dipstick Negative (Negative); Urine Clarity Sl. Cloudy (Clear); Urine Urobilinogen Normal (Normal)
[2019-08-18 07:47] LABS: Erythrocyte Sedimentation Rate 15 mm/hr (0-30)
[2019-08-18 07:50] LABS: Bacteria RARE /hpf (None Seen); Squamous Epithelial Cells - UA 0-5 SEEN /hpf (5-10); White Blood Cells 0-5 SEEN /hpf (0-5)
[2019-08-18 08:18] LABS: AST(SGOT) 16 U/L (15-37); Alanine Aminotransfer ALT/SGPT 13 U/L (13-56); Albumin, Serum 3.8 g/dL (3.2-5.0); BUN 20 mg/dL (7-18); CRP 3.42 mg/L (0.0-3.0); Creatinine, Serum 0.81 mg/dL (0.55-1.02); EST Glomerular Filtration Rate 78 mL/min (>60); Est Glom Filt Rate - Afr Amer 94 mL/min (>60); Rheumatoid Factor < 10.0 IU/mL (<15)
[2019-08-19 20:02] LABS: ANTINUCLEAR ANTIBODIES DIRECT Positive (Negative)
[2019-08-22 16:07] LABS: Cytoplasmic Ab (C-ANCA) <1:20 titer (Neg:<1:20)
[2019-08-22 18:11] LABS: CCP IgG Antibodies 8 units (0-19); Perinuclear Ab (P-ANCA) <1:20 titer (Neg:<1:20)
== END ==
PROVIDERS: PCP Family Medicine; Referring Provider Internal Medicine Rheumatology; Visit Provider Internal Medicine Rheumatology
DX: M30.0 Polyarteritis nodosa (principal)
CPT/HCPCS: 36415; 81001; 82040; 82565; 82595; 84450; 84460; 84520; 84550; 85025; 85652; 86038; 86140; 86200; 86256; 86431

== ENCOUNTER → 2019-12-10 09:04 | Outpatient (CLI) | payer BC, SELFPAY ==
[2018-01-08 14:00] VITALS: BMI 31.7
[2019-12-10 09:16] LABS: Bacteria 0 SEEN /hpf (None Seen); Mucous, Urine 0 SEEN /hpf (<or=2+); Red Blood Cells-Urine 0 SEEN /hpf (0-5); Squamous Epithelial Cells - UA 0 SEEN /hpf (5-10); White Blood Cells 0 SEEN /hpf (0-5)
[2019-12-10 09:59] LABS: Erythrocyte Sedimentation Rate 6 mm/hr (0-30)
[2019-12-10 10:01] LABS: Color, Urine Yellow (Yellow); Glucose, Dipstick Normal (Normal); Ketone-Dipstick Negative (Negative); Leukocyte Esterase-Dipstick 25 /ul (Negative); Nitrite-Dipstick Negative (Negative); Occult Blood-Urine Negative /ul (Negative); Protein-Dipstick Negative (Negative); Urine Bilirubin Dipstick Negative (Negative); Urine Clarity Clear (Clear); Urine Urobilinogen Normal (Normal)
[2019-12-10 10:02] LABS: Absolute Lymphocyte Count 1.34 X10^3/uL (0.83-4.51); Absolute Neutrophil Count 6.4 X10^3/uL (2.0-7.7); Basophil# 0.03 X10^3/uL; Basophil% 0.4 % (0-1); Eosinophil# 0.15 X10^3/uL; Eosinophils% 1.8 % (0-5); Hematocrit 33.1 % (37-47); Hemoglobin 9.9 g/dL (12.0-15.0); Lymphocyte # 1.34 X10^3/ul (4.0); Lymphocyte % 15.8 % (19-41); Mean Corp Hgb Conc 29.9 g/dL (32-36); Mean Corpuscular Hgb 26.7 pg (27.0-32.0); Mean Corpuscular Volume 89.2 fL (81-99); Mean Platelet Vol. 9.2 fl (6.2-12.0); Monocyte# 0.56 X10^3/uL; Monocyte% 6.6 % (0-10); NRBC Flagged by Analyzer 0 % (0-5); Neutrophil # 6.35 X10^3/uL (2.7-7.7); Platelet Count 298 K/mm3 (150-450); RBC Distribution Width CV 17.8 % (11.6-14.6); RBC Distribution Width SD 56.9 fl (35.1-43.9); Red Blood Count 3.71 M/mm3 (4.2-5.4); White Blood Count 8.5 K/mm3 (4.4-11.0)
[2019-12-10 10:08] LABS: AST(SGOT) 15 U/L (15-37); Alanine Aminotransfer ALT/SGPT 14 U/L (13-56); Albumin, Serum 3.7 g/dL (3.2-5.0); BUN 15 mg/dL (7-18); CRP < 2.90 mg/L (0.0-3.0); Creatinine, Serum 0.87 mg/dL (0.55-1.02); EST Glomerular Filtration Rate 72 mL/min (>60); Est Glom Filt Rate - Afr Amer 87 mL/min (>60)
[2019-12-11 16:08] LABS: Anti-Scleroderma-70 AB <0.2 AI (0.0-0.9); Complement C3 119 mg/dL (82-167); RNP Ab 2.4 AI (0.0-0.9); SJOGREN'S Anti-SS-A test < 0.2 AI (0.0-0.9); SJOGREN'S Anti-SS-B test < 0.2 AI (0.0-0.9); Smith Ab <0.2 AI (0.0-0.9)
[2019-12-11 20:01] LABS: ANTINUCLEAR ANTIBODIES DIRECT Positive (Negative); Anti-Mitochondrial AB <20.0 Units (0.0-20.0); Anti-Parietal Cell AB, QN 123.6 Units (0.0-20.0); Anti-Smooth Muscle ABS 5 Units (0-19); Anti-dsDNA Ab 2 IU/mL (0-9); Thyroid Peroxidase AB 322 IU/mL (0-34)
== END ==
PROVIDERS: PCP Family Medicine; Referring Provider Internal Medicine Rheumatology; Visit Provider Internal Medicine Rheumatology
DX: M30.0 Polyarteritis nodosa (principal)
CPT/HCPCS: 81001; 82040; 82565; 83516; 84450; 84460; 84520; 85025; 85652; 86038; 86140; 86160; 86225; 86235; 86376

== ENCOUNTER → 2020-03-09 10:07 | Outpatient (CLI) | payer BC, SELFPAY ==
[2018-01-08 14:00] VITALS: BMI 31.7
[2020-03-09 11:22] LABS: Absolute Lymphocyte Count 1.56 X10^3/uL (0.83-4.51); Absolute Neutrophil Count 3.8 X10^3/uL (2.0-7.7); Basophil# 0.04 X10^3/uL; Basophil% 0.7 % (0-1); Eosinophil# 0.15 X10^3/uL; Eosinophils% 2.6 % (0-5); Hematocrit 35.3 % (37-47); Hemoglobin 10.8 g/dL (12.0-15.0); Lymphocyte # 1.56 X10^3/ul (4.0); Lymphocyte % 26.5 % (19-41); Mean Corp Hgb Conc 30.6 g/dL (32-36); Mean Corpuscular Hgb 28.3 pg (27.0-32.0); Mean Corpuscular Volume 92.4 fL (81-99); Mean Platelet Vol. 9.4 fl (6.2-12.0); Monocyte# 0.28 X10^3/uL; Monocyte% 4.8 % (0-10); NRBC Flagged by Analyzer 0 % (0-5); Neutrophil # 3.84 X10^3/uL (2.7-7.7); Neutrophil % 65.2 % (47-70); Platelet Count 300 K/mm3 (150-450); RBC Distribution Width CV 16.5 % (11.6-14.6); RBC Distribution Width SD 56.1 fl (35.1-43.9); Red Blood Count 3.82 M/mm3 (4.2-5.4); White Blood Count 5.9 K/mm3 (4.4-11.0)
[2020-03-09 11:29] LABS: Erythrocyte Sedimentation Rate 7 mm/hr (0-30)
[2020-03-09 11:56] LABS: AST(SGOT) 13 U/L (15-37); Alanine Aminotransfer ALT/SGPT 13 U/L (13-56); Albumin, Serum 3.6 g/dL (3.2-5.0); BUN 11 mg/dL (7-18); CRP < 2.90 mg/L (0.0-3.0); Creatinine, Serum 0.87 mg/dL (0.55-1.02); EST Glomerular Filtration Rate 72 mL/min (>60); Est Glom Filt Rate - Afr Amer 87 mL/min (>60)
[2020-03-09 12:39] LABS: Vitamin B12 455 pg/mL (211-911)
== END ==
PROVIDERS: PCP Family Medicine; Referring Provider Internal Medicine Rheumatology; Visit Provider Internal Medicine Rheumatology
DX: M30.0 Polyarteritis nodosa (principal)
CPT/HCPCS: 36415; 82040; 82565; 82607; 82746; 84450; 84460; 84520; 85025; 85652; 86140

== ENCOUNTER → 2020-06-08 17:20 | Outpatient (CLI) | payer OTHER, SELFPAY ==
--- NOTE | 2020-06-08 17:05 | BI_ITS ---
MAMMOGRAPHY - BILATERAL SCREENING REASON FOR EXAM: Female, 54 years old. Routine annual screening examination. PERTINENT HISTORY: Non-contributory. TECHNIQUE: Digital bilateral breast casey (3D mammographic acquisition) in the CC and MLO projections. 2-D mediolateral oblique (MLO) and craniocaudad (CC) views of both breasts were obtained. CAD: Full Field Digital Mammography with Computer Added Detection was performed. COMPARISON: Comparison is made with prior study dated 01/20/2019 and 02/01/2017. FINDINGS: Breast Composition: The breasts are almost entirely fatty. There are no dominant masses or suspicious calcifications. Stable benign-appearing bilateral axillary lymph nodes. No other significant abnormalities are identified. There has been no significant change since the prior study. BI/SCRN MAMM (CAD)W/CASEY BILAT IMPRESSION: Stable bilateral screening mammogram. Yearly follow-up mammogram recommended. (A) ASSESSMENT CATEGORY: BIRADS Category 2: Benign. A letter regarding these results will be sent to the patient by the facility within 30 days. Approximately 10% of breast cancers are not detected by mammography. A normal mammogram should not delay biopsy of a clinically suspicious abnormality. [id number] Electronically Signed: Omari Salcido MD at 8:30 EST , Service support ,
== END ==
PROVIDERS: PCP Family Medicine; Referring Provider Family Medicine; Visit Provider Family Medicine
DX: Z12.31 Encounter for screening mammogram for malignant neoplasm of breast (principal)
CPT/HCPCS: 77063; 77067

== ENCOUNTER → 2020-08-05 11:12 | Outpatient (CLI) | payer OTHER, SELFPAY ==
[2020-08-05 11:36] LABS: Erythrocyte Sedimentation Rate 14 mm/hr (0-30)
[2020-08-05 11:39] LABS: Absolute Lymphocyte Count 1.08 X10^3/uL (0.83-4.51); Absolute Neutrophil Count 5.8 X10^3/uL (2.0-7.7); Basophil# 0.05 X10^3/uL; Basophil% 0.7 % (0-1); Eosinophil# 0.07 X10^3/uL; Eosinophils% 0.9 % (0-5); Hematocrit 37.7 % (37-47); Hemoglobin 11.4 g/dL (12.0-15.0); Lymphocyte # 1.08 X10^3/ul (0.83-4.51); Lymphocyte % 14.5 % (19-41); Mean Corp Hgb Conc 30.2 g/dL (32-36); Mean Corpuscular Hgb 27.9 pg (27.0-32.0); Mean Corpuscular Volume 92.4 fL (81-99); Mean Platelet Vol. 9.4 fl (6.2-12.0); Monocyte# 0.42 X10^3/uL; Monocyte% 5.6 % (0-10); NRBC Flagged by Analyzer 0 % (0-5); Neutrophil # 5.81 X10^3/uL (2.7-7.7); Platelet Count 269 K/mm3 (150-450); RBC Distribution Width CV 16.9 % (11.6-14.6); RBC Distribution Width SD 57.5 fl (35.1-43.9); Red Blood Count 4.08 M/mm3 (4.2-5.4); White Blood Count 7.5 K/mm3 (4.4-11.0)
[2020-08-05 11:56] LABS: AST(SGOT) 18 U/L (15-37); Alanine Aminotransfer ALT/SGPT 15 U/L (13-56); Albumin, Serum 3.5 g/dL (3.2-5.0); BUN 16 mg/dL (7-18); Creatinine, Serum 0.86 mg/dL (0.55-1.02); EST Glomerular Filtration Rate 73 mL/min (>60); Est Glom Filt Rate - Afr Amer 88 mL/min (>60)
== END ==
PROVIDERS: PCP Family Medicine; Visit Provider Internal Medicine Rheumatology
DX: M30.0 Polyarteritis nodosa (principal)
CPT/HCPCS: 36415; 82040; 82565; 84450; 84460; 84520; 85025; 85652; 86140

== ENCOUNTER → 2020-10-18 07:30 | Outpatient (CLI) | payer OTHER, SELFPAY ==
[2018-01-08 14:00] VITALS: BMI 31.7
[2020-10-18 08:49] LABS: AST(SGOT) 21 U/L (15-37); Alanine Aminotransfer ALT/SGPT 14 U/L (13-56); Albumin, Serum 3.8 g/dL (3.2-5.0); BUN 16 mg/dL (7-18); CRP 5.23 mg/L (0.0-3.0); Creatinine, Serum 0.83 mg/dL (0.55-1.02); EST Glomerular Filtration Rate 75 mL/min (>60); Est Glom Filt Rate - Afr Amer 91 mL/min (>60)
[2020-10-18 09:30] LABS: Erythrocyte Sedimentation Rate 11 mm/hr (0-30)
[2020-10-18 09:32] LABS: Absolute Lymphocyte Count 2.33 X10^3/uL (0.83-4.51); Absolute Neutrophil Count 5.1 X10^3/uL (2.0-7.7); Basophil# 0.03 X10^3/uL; Basophil% 0.4 % (0-1); Eosinophil# 0.11 X10^3/uL; Eosinophils% 1.3 % (0-5); Hematocrit 38.6 % (37-47); Hemoglobin 12.3 g/dL (12.0-15.0); Lymphocyte # 2.33 X10^3/ul (0.83-4.51); Lymphocyte % 28.2 % (19-41); Mean Corp Hgb Conc 31.9 g/dL (32-36); Mean Corpuscular Hgb 30.6 pg (27.0-32.0); Mean Platelet Vol. 9.3 fl (6.2-12.0); Monocyte# 0.64 X10^3/uL; Monocyte% 7.7 % (0-10); NRBC Flagged by Analyzer 0 % (0-5); Neutrophil # 5.12 X10^3/uL (2.7-7.7); Platelet Count 268 K/mm3 (150-450); RBC Distribution Width SD 60.2 fl (35.1-43.9); Red Blood Count 4.02 M/mm3 (4.2-5.4); White Blood Count 8.3 K/mm3 (4.4-11.0)
== END ==
PROVIDERS: PCP Family Medicine; Referring Provider Internal Medicine Rheumatology; Visit Provider Internal Medicine Rheumatology
DX: M30.0 Polyarteritis nodosa (principal)
CPT/HCPCS: 36415; 82040; 82565; 84450; 84460; 84520; 85025; 85652; 86140

== ENCOUNTER → 2021-01-28 17:01 | Outpatient (CLI) | payer OTHER, SELFPAY ==
[2021-01-28 17:35] LABS: Absolute Lymphocyte Count 1.46 X10^3/uL (0.83-4.51); Absolute Neutrophil Count 3.3 X10^3/uL (2.0-7.7); Basophil# 0.02 X10^3/uL; Basophil% 0.4 % (0-1); Eosinophil# 0.12 X10^3/uL; Eosinophils% 2.2 % (0-5); Hematocrit 40.1 % (37-47); Hemoglobin 12.8 g/dL (12.0-15.0); Lymphocyte # 1.46 X10^3/ul (0.83-4.51); Lymphocyte % 27.2 % (19-41); Mean Corp Hgb Conc 31.9 g/dL (32-36); Mean Corpuscular Hgb 32.7 pg (27.0-32.0); Mean Corpuscular Volume 102.3 fL (81-99); Mean Platelet Vol. 9.1 fl (6.2-12.0); Monocyte# 0.41 X10^3/uL; Monocyte% 7.6 % (0-10); NRBC Flagged by Analyzer 0 % (0-5); Neutrophil # 3.34 X10^3/uL (2.7-7.7); Neutrophil % 62.2 % (47-70); Platelet Count 220 K/mm3 (150-450); RBC Distribution Width CV 13.3 % (11.6-14.6); Red Blood Count 3.92 M/mm3 (4.2-5.4); White Blood Count 5.4 K/mm3 (4.4-11.0)
[2021-01-28 18:05] LABS: Erythrocyte Sedimentation Rate 5 mm/hr (0-30)
[2021-01-28 18:13] LABS: AST(SGOT) 25 U/L (15-37); Alanine Aminotransfer ALT/SGPT 19 U/L (13-56); Albumin, Serum 3.9 g/dL (3.2-5.0); BUN 17 mg/dL (7-18); CRP < 2.90 mg/L (0.0-3.0); Creatinine, Serum 0.78 mg/dL (0.55-1.02); EST Glomerular Filtration Rate 81 mL/min (>60); Est Glom Filt Rate - Afr Amer 98 mL/min (>60)
== END ==
PROVIDERS: PCP Family Medicine; Visit Provider Internal Medicine Rheumatology
DX: M30.0 Polyarteritis nodosa (principal)
CPT/HCPCS: 36415; 82040; 82565; 84450; 84460; 84520; 85025; 85652; 86140

== ENCOUNTER 2021-04-20 16:51 | Outpatient (RCR) | payer BC, SELFPAY ==
[2021-04-20 17:08] LABS: Mucous, Urine 0 SEEN /hpf (<or=2+); Red Blood Cells-Urine 0 SEEN /hpf (0-5)
[2021-04-20 17:44] LABS: Erythrocyte Sedimentation Rate 8 mm/hr (0-30)
[2021-04-20 17:46] LABS: Absolute Lymphocyte Count 1.79 X10^3/uL (0.83-4.51); Absolute Neutrophil Count 4.9 X10^3/uL (2.0-7.7); Basophil# 0.04 X10^3/uL; Basophil% 0.5 % (0-1); Eosinophil# 0.08 X10^3/uL; Eosinophils% 1.1 % (0-5); Hematocrit 39.2 % (37-47); Hemoglobin 12.8 g/dL (12.0-15.0); Lymphocyte # 1.79 X10^3/ul (0.83-4.51); Lymphocyte % 24.3 % (19-41); Mean Corp Hgb Conc 32.7 g/dL (32-36); Mean Corpuscular Hgb 32.8 pg (27.0-32.0); Mean Corpuscular Volume 100.5 fL (81-99); Mean Platelet Vol. 9.4 fl (6.2-12.0); Monocyte# 0.51 X10^3/uL; Monocyte% 6.9 % (0-10); NRBC Flagged by Analyzer 0 % (0-5); Neutrophil # 4.93 X10^3/uL (2.7-7.7); Neutrophil % 66.9 % (47-70); Platelet Count 283 K/mm3 (150-450); RBC Distribution Width CV 12.6 % (11.6-14.6); RBC Distribution Width SD 46.3 fl (35.1-43.9); White Blood Count 7.4 K/mm3 (4.4-11.0)
[2021-04-20 18:07] LABS: Color, Urine Yellow (Yellow); Glucose, Dipstick Normal (Normal); Ketone-Dipstick Negative (Negative); Leukocyte Esterase-Dipstick 100 /ul (Negative); Nitrite-Dipstick Negative (Negative); Occult Blood-Urine 10 /ul (Negative); Protein-Dipstick Negative (Negative); Specific Gravity, Urine 1.025 (1.002-1.030); Urine Bilirubin Dipstick Negative (Negative); Urine Clarity Clear (Clear); Urine Urobilinogen Normal (Normal)
[2021-04-20 18:27] LABS: Bacteria RARE /hpf (None Seen); Squamous Epithelial Cells - UA 0-5 SEEN /hpf (5-10); White Blood Cells 0-5 SEEN /hpf (0-5)
[2021-04-20 18:58] LABS: AST(SGOT) 16 U/L (15-37); Alanine Aminotransfer ALT/SGPT 20 U/L (13-56); Albumin, Serum 3.9 g/dL (3.2-5.0); BUN 21 mg/dL (7-18); CPK Total, Creatine Kinase 92 U/L (26-192); CRP 7.13 mg/L (0.0-3.0); Calcium,Total 8.8 mg/dL (8.5-10.1); Creatinine, Serum 0.86 mg/dL (0.55-1.02); EST Glomerular Filtration Rate 73 mL/min (>60); Est Glom Filt Rate - Afr Amer 88 mL/min (>60)
[2021-04-21 09:17] LABS: Hepatitis B Surface Antibody Reactive; Hepatitis B Surface Antigen Non-Reactive (Nonreactive); Hepatitis C Antibody Non-Reactive (Nonreactive); Vitamin B12 1213 pg/mL (211-911); Vitamin D,25 Hydroxy 30.6 ng/mL
[2021-04-23 00:06] LABS: PROEL- A/G Ratio 1.5 (0.7-1.7); PROEL- Albumin 4.3 g/dL (2.9-4.4); PROEL- Alpha-1 Globulin 0.2 g/dL (0.0-0.4); PROEL- Alpha-2 Globulin 0.8 g/dL (0.4-1.0); PROEL- Beta Globulin 1.1 g/dL (0.7-1.3); PROEL- Gamma Globulin 0.8 g/dL (0.4-1.8); PROEL- Globulin, Total 2.9 g/dL (2.2-3.9); PROEL- TOTAL PROTEIN 7.2 g/dL (6.0-8.5); QNTFERON TB Mitogen Value > 10.00 IU/mL (.); QNTFERON TB Nil Value 0 IU/mL (.); QNTFERON TB1+ Ag Value 0.01 IU/mL (.); QNTFERON TB2+ Ag Value 0.02 IU/mL (.)
[2021-04-23 16:18] LABS: Hepatitis B Core AB IgM Negative (Negative); QNTIFERON TB Positive Criteria Negative (Negative)
== END 2021-05-09 18:00 | disposition home or self-care (01) ==
LOC: LAB 16:51
PROVIDERS: PCP Family Medicine; Visit Provider Internal Medicine Rheumatology
DX: D50.9 Iron deficiency anemia, unspecified (principal); L95.9 Vasculitis limited to the skin, unspecified; Z79.899 Other long term (current) drug therapy
CPT/HCPCS: 36415; 81001; 82040; 82306; 82310; 82550; 82565; 82607; 82746; 84165; 84450; 84460; 84520; 85025; 85652; 86140; 86480; 86705; 86706; 86803; 87340

== ENCOUNTER 2021-06-10 09:54 | Observation (INO) | payer BC, SELFPAY ==
--- NOTE | 2021-06-06 15:59 | EKG12_ITS ---
Test Reason : PRE OP Blood Pressure : / mmHG Vent. Rate : 057 BPM Atrial Rate : 057 BPM P-R Int : 158 ms QRS Dur : 106 ms QT Int : 456 ms P-R-T Axes : 024 030 020 degrees QTc Int : 443 ms Sinus bradycardia Nonspecific T wave abnormality Abnormal ECG Confirmed by LAZARO LEVINE, ELZBIETA ([id number]), editorial director GUILLERMO ALFONSO ([id number]) on 06/07/2021 10:42:03 AM Referred By: Vicenta Yost Confirmed By:ELZBIETA WILLIS MD
[2021-06-06 17:07] LABS: Absolute Lymphocyte Count 1.67 X10^3/uL (0.83-4.51); Absolute Neutrophil Count 4.6 X10^3/uL (2.0-7.7); Basophil# 0.04 X10^3/uL; Basophil% 0.6 % (0-1); Eosinophils% 1.5 % (0-5); Hematocrit 37.2 % (37-47); Hemoglobin 12.5 g/dL (12.0-15.0); Lymphocyte # 1.67 X10^3/ul (0.83-4.51); Lymphocyte % 24.2 % (19-41); Mean Corp Hgb Conc 33.6 g/dL (32-36); Mean Corpuscular Hgb 33.7 pg (27.0-32.0); Mean Corpuscular Volume 100.3 fL (81-99); Mean Platelet Vol. 9.3 fl (6.2-12.0); Monocyte# 0.49 X10^3/uL; Monocyte% 7.1 % (0-10); NRBC Flagged by Analyzer 0 % (0-5); Neutrophil # 4.57 X10^3/uL (2.7-7.7); Neutrophil % 66.3 % (47-70); Platelet Count 251 K/mm3 (150-450); RBC Distribution Width CV 13.2 % (11.6-14.6); RBC Distribution Width SD 48.8 fl (35.1-43.9); Red Blood Count 3.71 M/mm3 (4.2-5.4); White Blood Count 6.9 K/mm3 (4.4-11.0)
[2021-06-06 17:36] LABS: ALB/GLOB Ratio 1.1 RATIO (0.9-2.4); AST(SGOT) 20 U/L (15-37); Alanine Aminotransfer ALT/SGPT 17 U/L (13-56); Albumin, Serum 3.7 g/dL (3.2-5.0); Alkaline Phosphatase 72 U/L (45-117); Anion Gap 3 (5-15); BUN 11 mg/dL (7-18); BUN/Creat Ratio 13.6 RATIO (10-20); Calcium,Total 8.9 mg/dL (8.5-10.1); Chloride 110 mmol/L (98-107); Creatinine, Serum 0.81 mg/dL (0.55-1.02); EST Glomerular Filtration Rate 78 mL/min (>60); Est Glom Filt Rate - Afr Amer 94 mL/min (>60); Globulin 3.3 g/dL (2.2-4.2); Glucose 92 mg/dL (74-106); Magnesium 2.1 mg/dL (1.6-2.6); Potassium 3.7 mmol/L (3.5-5.1); Sodium Level 140 mmol/L (136-145)
[2021-06-10] VITALS (14 sets, daily range): BP systolic 83–110; BP diastolic 48–79; PULSE 43–63; RESP 16; TEMP 36.1–36.8; O2SAT 92–100; BMI 35.1; BMI 34.9
--- NOTE | 2021-06-10 | HYST_PTH ---
PATIENT: LAILA HENSLEY LOC: [facility]3 U#:[id number] AGE/SX: 55/F ROOM: MT313 RE06/10/[address]: Dr. Vicenta Yost MD : 1965 BED: 1 DIS: 06/11/2021 SPEC #: [id number] RECD: 06/10/21 13:15 STATUS: KACIE PIÑA #: [id number] CE: 06/10/21 00:[address]: Vicenta Yost DEPT: SURGICAL PATHOLOGY RECD BY: Giovani Merida ENTERED: 06/13/21 09:10 SP TYPE: HYSTERECT OTHR DR: MD Dr. Jazmine Vieira MD Tissues: Uterus, NOS Procedures: Surgery Specimen Level V HEADER OPERATION: ERAS, laparoscopic assisted vaginal hysterectomy, bilateral salpingo-oophorectomy PRE-OP DIAGNOSIS: Cystocele TISSUE SUBMITTED: Cervix, uterus, bilateral fallopian tubes and ovaries MICROSCOPIC DIAGNOSIS Cervix, uterus, bilateral fallopian tubes and ovaries, vaginal hysterectomy and bilateral salpingo-oophorectomy: Cervix ? chronic inflammation. Endometrium ? proliferative endometrium. Myometrium ? intramural leiomyomas (largest measuring 1.5 cm in greatest dimension). - Adenomyosis. Bilateral fallopian tubes - no pathologic diagnosis. Bilateral ovaries ? serous cystadenoma (multiloculated). See comment. SJ:manda 06/14/2021 COMMENT Both ovaries are replaced by multiple simple cysts consistent with serous cystadenoma. Case has been reviewed in consultation with Dr. Crouch who concurs with the above diagnosis. IDC:AM MICROSCOPIC DESCRIPTION Slides are reviewed. GROSS DESCRIPTION Received in fixative is one container labeled with the patient's name and designated cervix, uterus, bilateral fallopian tubes and bilateral ovaries. The specimen consists of a hysterectomy specimen consisting of detached bilateral fallopian tubes and ovaries. The uterus with cervix weighs 87 gm and measures 10 x 5 x 5 cm. The serosal surface is smooth. The ectocervical mucosa is unremarkable. The external os is oval in contour. The endocervical canal measures 4 cm in length and the endocervical mucosa is whitmore, glistening and unremarkable. The triangular endometrial cavity measures up to 4 cm in length and up to 3 cm in width. The endometrium is congested, focally hemorrhagic and measures <0.1 cm in thickness. Sections of the uterine wall reveal multiple nodular masses. The largest mass measures 1.5 cm in greatest dimension. Sections of these masses reveal whitmore whorled cut surfaces without areas of hemorrhage, necrosis or cystic degeneration. The uninvolved uterine wall measures up to 2.5 cm in thickness. One of the detached fallopian tubes measure 3.5 cm in length and 0.5 cm in diameter. The fimbrial end is identified. Sections reveal unremarkable cut surfaces. One ovary, detached and measures 4 x 2 x 1.5 cm. Sections reveal multiple cysts filled with clear fluid. The largest cyst measures 1.5 cm in greatest dimension. The cyst de la torre are thin. The second fallopian tube measures 6 cm in length and 0.6 cm in diameter. The fimbrial end is identified. Focal tubo-ovarian adhesions are noted. The adjacent soft to cystic second ovary measures 6 x 3 x 3 cm. The outer surface is inked with black ink. Sections reveal multiple cysts filled with clear fluid. The?largest cyst measures up to 3.5 cm in greatest dimension. The cyst de la torre are thin without any papillations. Automobile Or Truck Rental Dispatcher sections are submitted in 14 cassettes as follows: 1 - anterior cervix, 2??posterior cervix, 3 & 4 - anterior uterine wall, 5 & 6 - posterior uterine wall, 7 & 8 - nodular masses, 9?&?10 - detached one fallopian tube and detached ovary, detached (9 contains fallopian tube and ovary, 10 contains ovary), 11-14 - second fallopian tube and adjacent ovary showing tubo-ovarian adhesions (11 ? fallopian tube and ovary, 12-14 - ovary). / CHEVY:manda 06/13/2021 TC:1 CPT: 04755
--- NOTE | 2021-06-10 05:59 | HP.PCM_ITS ---
History and Physical Date of Admission: 06/10/21 Vital Signs 05/23/21 14:21 Height 5 ft 4.5 in Weight: 207 lb BMI 34.9 Intake Visit Reasons: DIANA REFERRAL Chief Complaint: diana referral combo case Archeology Faculty Member Required: No Is patient in pain?: No Allergies No Known Allergies Allergy (Verified 01/08/18 14:01) Medications multivitamin 1 ea PO DAILY 08/09/15 [History Confirmed 01/08/18] azathioprine 50 mg tablet 50 mg PO DAILY 01/08/18 [History Confirmed 05/23/21] prednisone 2.5 mg tablet 5 mg PO DAILY tab 01/08/18 [History Confirmed 05/23/21] omeprazole 40 mg capsule,delayed release 40 mg PO DAILY 05/23/21 [History Confirmed 05/23/21] Is last menstrual period known: No Post menopausal: Yes Patient : No : No PFSH Medical History (Updated 05/23/21 @ 15:[address] Vicenta Yost MD) Depression Gastric ulcer Vasculitis of skin Surgical History (Updated 05/23/21 @ 14:[address] 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 she has bladder prolapse and has been evaluated by dr zamora and is planning a bladder repair. she feels vaginal bulge and pressure and was recommend to have surgeyr for that. she has symptoms when she uses the bathroom and sees a bulge and feels it coming out which is worse than it has been in the past. she denies any bleeding or discharge. Female Reproductive History Questions: metorrhagia: No, sexually active: Yes, dyspareunia: No and PCB: No Menopausal Symptoms: No hot flashes, No night sweats, No weight change, No mood changes, No difficulty concentrating, No sleep problems and No change in libido Pregancy History 2 Elective abortions Hx Para 2 Spontaneous abortions Hx # Term Pregnancies Ectopic pregnancies Hx # Pregnancies Multiple births # of living children ROS Const Constitutional: Denies fatigue, night sweats, weight gain or weight loss ENT ENT: Reports system reviewed and no additional complaints, except as documented Cardio Card: Denies chest pain Resp Resp: Denies cough or dyspnea GI GI: Reports as per HPI; Denies constipation, nausea or vomiting : Reports as per HPI; Denies hot flashes, nipple discharge, vaginal discharge, vaginal dryness, vaginal odor or vaginal pruritus Musc Musc: Denies arthralgias, back pain or muscle weakness Skin Skin/Breast: Denies alopecia, change in hair, dry skin, breast mass, breast pain, breast skin changes or nipple discharge Neuro Neuro: Reports system reviewed and no additional complaints, except as documented Psych Psych: Reports system reviewed and no additional complaints, except as documented; Denies change in libido or difficulty concentrating Endo Endo: Denies cold intolerance, excessive sweating, heat intolerance or polydipsia Reginaldo/Lymph Hematologic/Lymphatic: Denies easy bleeding, Denies easy bruising and Denies lymphadenopathy Exam Const General: cooperative, healthy appearing, comfortable, no acute distress and well developed Orientation: alert [facility] Head: normal to inspection and normocephalic Ears: hearing grossly normal bilaterally and external ears normal Nose: external nose normal and nares normal Face and sinus: normal facial exam Neck Neck: normal visual inspection and no lymphadenopathy Thyroid: thyroid normal Chest Chest palpation & inspection: normal inspection of the chest Resp Effort & Inspection: normal respiratory effort Auscultation: clear to auscultation bilaterally Cardio Rate: regular rate Rhythm: regular rhythm Heart Sounds: S1 normal and S2 normal GI Inspection: normal to inspection and non-distended Palpation: soft and no hepatosplenomegaly General: bladder normal to palpation External Female Exam: normal external appearance and normal appearance of the urethra Urethra: normal appearance of the urethra, normal palpation and no discharge Speculum Exam - Vagina: normal appearance of the vagina and normal vaginal discharge Speculum Exam - Cervix: normal appearance of the cervix and nontender Bimanual Exam- Vagina & Uterus: normal bimanual exam, uterine size normal, bladder normal to palpation, uterine shape normal, No tender, uterine mobility normal, consistency normal, normal palpation and non-tender Bimanual Exam- Adnexa, other: normal adnexae, adnexae mobile and no masses Pelvic Support: cystocele severe (grade III), rectocele (enlarged introitus) moderate (II) and vaginal apex descent moderate (II) Musc Other: gross motor intact no deficits, full bilateral strength Skin General: no rashes or lesions noted Neuro General: patient alert, patient awake, moves all extremities and no focal motor deficits Motor: muscle tone normal throughout Extrem General: normal to inspection and no pedal edema Psych Appearance: grossly normal Mental Status: mental status grossly normal Affect: normal affect Speech and Movement: speech and movement normal Coding Level of Care Code Off vis,new,level 5 Diagnoses Cystocele Assessment and Plan Assessment and Plan (1) Cystocele: Status: Acute Comment: plan TVHBSO combo case [facility] Plan - Dr. Vicenta Yost MD: After discussing the patient's diagnosis and treatment plan options, patient wishes to proceed with surgical management. I have discussed with the patient the risks, benefits, and alternatives of the procedure which include but are not limited to risks of anesthesia, bleeding, infection, possible damage to bowel, bladder, or surrounding vasculature which could lead to additional surgery to evaluate any complications. Patient agrees to procedure and wishes to proceed. ACOG/uptodate references given for additional information regarding procedure. UPDATE- I have seen the patient and performed any clinically relevant updates to the history and physical exam. Vicenta Yost MD
[2021-06-10 06:41] LABS: Bedside Glucose 77 mg/dL (74-106)
[2021-06-10] MEDS: Lactated Ringers 1,000 ML 40 ML IV (06:48)
[2021-06-10] MEDS: Celecoxib 200 MG Capsule 400 MG PO (06:50)
[2021-06-10] MEDS: Acetaminophen 500 MG Tablet 1000 MG PO (06:50)
[2021-06-10] MEDS: Enoxaparin 40 MG/0.4 ML Syringe SC ×2 (06:51→17:25)
[2021-06-10] MEDS: Gabapentin 600 MG Tablet PO (06:51)
[2021-06-10] MEDS: dexAMETHasone 10 MG/ML Vial 8 MG IV (06:51)
[2021-06-10] MEDS: Scopolamine 1mg/72hr Patch 1 PATCH TD (06:53)
[2021-06-10] MEDS: Cefazolin 2 GM in 0.9% Normal Saline 100 ML IV (07:58)
--- NOTE | 2021-06-10 09:47 | PCM.OPRPT ---
Problems Associated Problem List Diagnoses (1) Cystocele: (2) CLAUDETTE (stress urinary incontinence, female): Report of Operation Date of Procedure: 06/10/21 Pre-Operative Diagnosis: Incomplete uterovaginal prolapse, stress urinary incontinence Post-Operative Diagnosis: Same Surgery/Procedure Performed:: Anterior repair with dermis, bilateral sacrospinous ligament fixation, mid urethral sling insertion, posterior repair, cystoscopy with bilateral ureteral stent insertion Surgeon: Jazmine Stacy Type of Anesthesia: General Specimen's removed: none Drains: Stafford catheter Estimated Blood Loss (mL): 25cc Description of Procedure: The patient is a 55-year-old female with pelvic organ prolapse and stress urinary incontinence that presents for surgical intervention after a work-up with urodynamics and cystoscopy in the office. Informed consent was obtained. The patient was taken to the operating room and placed on the operating room table. Anesthesia monitored the head, neck, airway, IV access and vital signs throughout the case. Once anesthesia was appropriately administered, the patient was prepped and draped in usual sterile fashion. Her Stafford catheter was inserted in sterile condition. Dr. Yost performed her portion of the case and close the vaginal cuff. At this time I took over the case. Her anterior vaginal wall was isolated and injected submucosally with vasopressin for hydrostatic dissection and hemostatic control. A vertical incision approximately 2 cm in length was then made in the midline. Sharp and blunt dissection was performed on either side until the ischial spines were isolated and the sacrospinous ligaments were dissected free from surrounding tissues. The Capio device was then used to pass an Ethibond suture through the ligament, through the dermis and through full-thickness vaginal mucosa at the apex. On the left side the ureter was palpable along the sacrospinous ligament and care was taken to avoid placing the suture to close to the ureter. The dermis was cut to fit and sutured into position bilaterally at the area of the white line and in the tissues around the bladder neck. It was also attached at the apex using Vicryl. Once the dermis was well secured, the midline incision was closed using running interlocking 2-0 Vicryl. At this time the Ethibond sutures were tied into position effectively reducing the apical prolapse. The posterior wall also had a significant defect and support distally. The submucosa was once again injected with vasopressin for hydrostatic dissection and hemostatic control. Sharp and blunt dissection was performed on either side until the fascia rectovaginal fascia was identified. It was brought together in a 2 layer closure using 2-0 Vicryl interrupted sutures. The mucosa was then closed over it using running interlocking 2-0 Vicryl. The mid urethra was isolated and injected submucosally. An incision vertically in the midline of the urethra was made approximately 1.5 cm in length. Sharp and blunt dissection was performed on either side of the urethra with care being taken to avoid entry into the urethra. At this time using the trochars for the sling, the mesh was positioned into the obturator complexes bilaterally. The tensioning suture was used to position the mesh against the urethra without tension. Once it was positioned appropriately, the tensioning suture was cut. The midline incision was closed using running interlocking 2-0 Vicryl. At this time the Stafford catheter was removed and the cystoscope was inserted through the urethra under direct visualization into the urinary bladder. The bladder mucosa and the urethral mucosa were visualized and found to be without evidence of injury, hemorrhage or foreign body. Each ureteral orifice was intubated with a 5 Angolan whistle-tip catheter which extended to 20 cm without evidence of obstruction or injury. At this time the cystoscope was removed and the Stafford catheter was replaced. 10 cc were placed into the Stafford balloon. The vagina was then packed with vaginal cream and packing. The patient was awakened and taken to the recovery room in good condition. There were no complications during this procedure. Grafts/Implants Used: Dermis, Altis mid urethral sling Complications None Admit VTE Documentation VTE Present on Admission: Yes VTE Mechan Device Prophylaxis: SCD's VTE Pharm Prophylaxis ordered?: Yes
--- NOTE | 2021-06-10 09:59 | PCM.DC ---
Discharge Instructions Diet Discharge Diet: No restrictions Activity Discharge Activity: May Not Drive (for 2 weeks) and May Shower May resume sexual activity in: 8 weeks Lifting Restrictions: No lifting over 5 pounds Additional Activity Instructions:: No strenuous activity, no exercise, no sexual activity, no swimming, no tub bathing, no hot tubs Dressing / Incision Call your doctor if your incision/area has: Continuous Slow Oozing, Sudden Increased Bleeding, Increased Pain/ Swelling, Increased Redness, Foul Smelling Discharge and Swelling at the incision site Call your doctor if you observe: Fever of 101 or Higher, Inability to urinate and Inability to have a bowel movement Follow Up Care Please Follow Up With: Jazmine Stacy MD When: In 2 weeks, call the office for appointment Test Results: Test results from this visit will be discussed in further detail at your follow-up appointment, if applicable. Discharge Plan Admission Attending Provider: Vicenta Yost Primary Care Provider: Fabiana Wiley Consulting Providers: Jazmine Stacy Discharge Orders/Prescriptions Prescriptions: New oxycodone-acetaminophen [oxycodone-acetaminophen] 1 TABLET tablet 2 tab PO Q8H PRN PRN (Reason: Pain) 7 Days Qty: 20 RF: 0 cephalexin [cephalexin] 500 MG capsule 500 mg PO Q12 3 Days Qty: 6 RF: 0 Continued azathioprine [Imuran] 50 mg tablet 50 mg PO DAILY RF: 0 multivitamin 1 EACH tablet 1 ea PO DAILY RF: 0 prednisone 2.5 mg tablet 2.5 mg PO DAILY RF: 0 esomeprazole magnesium 20 mg capsule,delayed release(DR/EC) 20 mg PO DAILY RF: 0 Referrals / Follow Up: Fabiana Wiley MD [Primary Care Provider] - Disposition Disposition (needs filled in before D/C Order can be placed): Home, Self Care
[2021-06-10] MEDS: Estrogens,Conj. 1 Tube 1 DOSE (10:39)
[2021-06-10] MEDS: Vasopressin 20 UNITS/ML Vial (12:31)
[2021-06-10] MEDS: Ondansetron 4 MG/2 ML Vial IV (12:35)
[2021-06-10] MEDS: Dextrose 5%-Lactated Ringers 1,000 ML 100 ML IV ×2 (13:26→18:02)
[2021-06-10] MEDS: Lactated Ringers 1,000 ML 999 ML IV (16:23)
--- NOTE | 2021-06-10 16:36 | OP.PCM_ITS ---
Problems Associated Problem List Diagnoses (1) Ovarian cyst, complex: (2) Cystocele: (3) S/P laparoscopic assisted vaginal hysterectomy (LAVH): Report of Operation Pre-Operative Diagnosis: see PL Post-Operative Diagnosis: same Surgery/Procedure Performed:: LAVH BSO Description of Surgical Findings:: nl uterus tubes complex cystic ovaries right larger than left encased in right ovarian fossa Type of Anesthesia: General Specimen's removed: uterus, tubes, ovaries Drains: thompson Fluids Replaced: crystalloid Description of Procedure: Patient was taken to the operating room and was placed under general anesthesia was prepped and draped in normal sterile fashion in the dorsal lithotomy position. Preoperative antibiotics and SCDs and Thompson catheter was placed inside the bladder. Weighted speculum was placed in the vagina and the anterior and posterior lip of the cervix was grasped with 2 Mishel clamps and circumferentially injected with dilute vasopressin. A circumferential incision was made with a scalpel and the posterior cul-de-sac was entered into sharply and a longneck speculum was placed. The anterior cul-de-sac was also dissected down and entered into sharply and the uterosacral ligaments were clamped cut and suture ligated bilaterally followed by the cardinal ligaments which were Clamped cut and suture ligated bilaterally with 0 Monocryl. The uterus serially descended and progressive bites were taken bilaterally up to the level of the utero-ovarian ligament bilaterally which was clamped transected and double ligated with 0 Monocryl suture and 0 Vicryl free tie. Clamped at the base and transected and tied with 0 Vicryl. The right ovary was then visualized and noted to be enlarged and complex in 6 stuck with a very wide base and encased in the ovarian fossa. Decision was then made to convert to laparoscopic to be able to remove it completely. At this time I spoke with her sister about the decision to remove 1 versus both ovaries and I first choice was to remove both ovaries due to the likelihood of having bilateral abnormalities. I think the most likely diagnosis is a serous cystadenoma which can be bilateral in many cases. Recent evidence there is no significant benefit leaving both of the ovaries when there is an abnormality seen, Sobia gave consent for me to remove both of them. Patient was sterilely prepped and draped for the laparoscopic portion of the procedure. The Veress needle was entered into the abdomen and the umbilical site and a 5 mm ports were dropped replaced in the right and left lower quadrant after the umbilical port was placed. Using the LigaSure device the left ovary was removed by transecting across the infundibulopelvic ligament and then the right ovary was dissected out carefully on the ovarian fossa bluntly and sharply using the ligasure device and the scissors in it. Visuali zation of the bilateral ureters were made and noted to be inferior lateral to the area of transection. Hemostasis was noted. Attention was then paid back to the vaginal portion of the procedure. Ovaries were removed through the vagina and the posterior peritoneal edge was reapproximated with 2-0 Vicryl and then the vaginal cuff was reapproximated with 0 Vicryl pop-off interrupted [id number] sutures. Attention was then paid back to the abdominal portion and abdomen was reinsufflated to check for hemostasis. The left IP ligament was noted to have some oozing which was treated with the LigaSure device. Some additional oozing was noted over the cuff which was treated with the LigaSure device and then Darrell and FloSeal. Pressure was taken off multiple times in the area was checked and excellent hemostasis noted. All port sites were removed and Dr. Stacy began her portion of the procedure. port sites were Closed by the SOLAR ENERGY SYSTEMS ENGINEER with 4-[address] Stacy finished her portion of the procedure. Grafts/Implants Used: none Complications none Admit VTE Documentation VTE Present on Admission: No VTE Mechan Device Prophylaxis: SCD's VTE Pharm Prophylaxis ordered?: Yes Multi Select Codes Urinary/Genital Urinary/Genital CPT Codes: 43178 LAVH+BS/O <250gr Uterus
[2021-06-10 16:59] LABS: Absolute Lymphocyte Count 0.51 X10^3/uL (0.83-4.51); Absolute Neutrophil Count 10.7 X10^3/uL (2.0-7.7); Basophil# 0.01 X10^3/uL; Basophil% 0.1 % (0-1); Hemoglobin 12.1 g/dL (12.0-15.0); Lymphocyte # 0.51 X10^3/ul (0.83-4.51); Lymphocyte % 4.4 % (19-41); Mean Corp Hgb Conc 32.7 g/dL (32-36); Mean Corpuscular Hgb 32.9 pg (27.0-32.0); Mean Corpuscular Volume 100.5 fL (81-99); Monocyte# 0.21 X10^3/uL; Monocyte% 1.8 % (0-10); NRBC Flagged by Analyzer 0 % (0-5); Neutrophil # 10.71 X10^3/uL (2.7-7.7); Neutrophil % 93.4 % (47-70); POSITIVE DIFFERENTIAL YES; Platelet Count 202 K/mm3 (150-450); RBC Distribution Width CV 13.2 % (11.6-14.6); RBC Distribution Width SD 48.8 fl (35.1-43.9); Red Blood Count 3.68 M/mm3 (4.2-5.4); White Blood Count 11.5 K/mm3 (4.4-11.0)
--- NOTE | 2021-06-10 17:09 | PCM.DC ---
Discharge Instructions Diet Discharge Diet: No restrictions Activity May resume sexual activity in: 8 weeks Weight Bearing Status: Full weight bearing Additional Activity Instructions:: No strenuous activity, no exercise, no sexual activity, no swimming, no tub bathing, no hot tubs Dressing / Incision Call your doctor if your incision/area has: Continuous Slow Oozing, Sudden Increased Bleeding, Increased Pain/ Swelling, Increased Redness, Foul Smelling Discharge and Swelling at the incision site Call your doctor if you observe: Fever of 101 or Higher, Inability to urinate and Inability to have a bowel movement Suture Line Care: Avoid Pulling/Pushing and Avoid Pinching/Bending Remove Dressing in: 1 week (if present) Cleanse incision/area with: Soap & Water and Keep Dressing Clean & Dry Follow Up Care Please Follow Up With: Jazmine Stacy MD When: Call to make an appointment with your doctor for a postop visit in 2 and 6 weeks. Test Results: Test results from this visit will be discussed in further detail at your follow-up appointment, if applicable. Discharge Plan Admission Admit Date/Time: 06/10/21 09:54 Attending Provider: Vicenta Yost Primary Care Provider: Fabiana Wiley Consulting Providers: Jazmine Stacy Discharge Orders/Prescriptions Prescriptions: New oxycodone-acetaminophen [oxycodone-acetaminophen] 1 TABLET tablet 2 tab PO Q8H PRN PRN (Reason: Pain) 7 Days Qty: 20 RF: 0 cephalexin [cephalexin] 500 MG capsule 500 mg PO Q12 3 Days Qty: 6 RF: 0 Continued azathioprine [Imuran] 50 mg tablet 50 mg PO DAILY RF: 0 multivitamin 1 EACH tablet 1 ea PO DAILY RF: 0 prednisone 2.5 mg tablet 2.5 mg PO DAILY RF: 0 esomeprazole magnesium 20 mg capsule,delayed release(DR/EC) 20 mg PO DAILY RF: 0 Referrals / Follow Up: Fabiana Wiley MD [Primary Care Provider] -
[2021-06-10 17:13] LABS: Differential Indicated SCAN CRITERIA MET
[2021-06-10] MEDS: Cephalexin 500 MG Capsule PO ×2 (17:16→21:15)
[2021-06-10] MEDS: Docusate Sodium 100 MG Capsule PO ×2 (17:16→21:15)
[2021-06-10] MEDS: azaTHIOprine 50 MG Tablet PO (17:16)
[2021-06-10] MEDS: Pantoprazole Sodium 20 MG Tablet PO (17:17)
[2021-06-10 17:50] LABS: Anisocytosis 1+; Macrocytosis 1+; Ovalocyte RARE; Platelet Estimate ADEQUATE (ADEQ); Red Cell Morphology N CHROM NORMAL (NORM C&C)
[2021-06-10] MEDS: Hydrocortisone Sod Succinate 100 MG/2 ML Vial IV (17:54)
[2021-06-11 03:53] VITALS: BP 108/48; PULSE 53; RESP 16; TEMP 36.8; O2SAT 95
[2021-06-11] MEDS: Dextrose 5%-Lactated Ringers 1,000 ML 100 ML IV (04:04)
[2021-06-11] MEDS: Hydrocortisone Sod Succinate 100 MG/2 ML Vial IV (05:31)
[2021-06-11] MEDS: HYDROcodone Bitartrate/Apap 5/325 Tablet PO (05:37)
--- NOTE | 2021-06-11 07:02 | PCM.PN.GU ---
Subjective Subjective Awake in bed. Feeling well, no specific complaints except dry mouth. Ate soup and some grilled cheese for dinner, passing gas. Sat up last night, not yet ambulating. No dizziness, headache or nausea. Objective Data Objective Data Vital Signs: Vital Signs Temp Pulse Resp BP Pulse Ox 98.3 F 53 L 16 108/48 L 95 06/11/21 03:53 06/11/21 03:53 06/11/21 03:53 06/11/21 03:53 06/11/21 03:53 Oxygen Flow Rate (L/min) 4 Oxygen Delivery Method Room Air Weight: 92.71 kg Body Mass Index (BMI) 34.9 Intake & Output: Intake and Output for Last 24 Hours 06/09/21 06/10/21 06/11/21 23:59 23:59 23:59 Intake Total 4763.83 / 4763.83 1000 / 1000 Output Total 300 / 1300 1600 / 1600 Balance 4463.83 / 3463.83 -600 / -600 Lab / Micro Data Result Diagrams: 06/10/21 16:42 06/06/21 16:15 Labs: Laboratory Results - last 24 hr 06/10/21 16:42: WBC 11.5 H, RBC 3.68 L, Hgb 12.1, Hct 37.0, MCV 100.5 H, MCH 32.9 H, MCHC 32.7, RDW Std Deviation 48.8 H, RDW Coeff of Lorie 13.2, Plt Count 202, MPV 9.0, Immature Gran % (Auto) 0.300, Neut % (Auto) 93.4 H, Lymph % (Auto) 4.4 L, [place] % (Auto) 1.8, Eos % (Auto) 0.0, Baso % (Auto) 0.1, Absolute Neuts (auto) 10.7 H, Absolute Lymphs (auto) 0.51 L, Nucleated RBC % 0, Differential Comment SEE COMMENT, Platelet Estimate ADEQUATE, RBC Morphology N CHROM, Anisocytosis 1+, Macrocytosis 1+, Ovalocytes RARE Physical Exam Narrative alert, oriented, no distress Resp normal respiratory effort, normal air movement, no retractions and no use of accessory muscles Effort and Inspection: able to speak in complete sentences and symmetric chest movement Cardio regular rhythm Cardio Narrative: mild bradycardia GI soft to palpation, non-tender and non-distended no CVA tenderness Narrative: thompson catheter and packing removed. urine clear yellow Extremity normal to inspection Extremity Narrative: SCD's in place Skin no rashes or lesions noted, skin turgor normal, no jaundice, no petechiae and no mottling Neuro oriented x3, CN's II-XII intact bilaterally and moves all extremities Psych mental status grossly normal, thought process normal, cooperative and affect normal Assessment & Plan Assessment/Plan (1) S/P laparoscopic assisted vaginal hysterectomy (LAVH): (2) Ovarian cyst, complex: (3) CLAUDETTE (stress urinary incontinence, female): (4) Cystocele: PLAN: saline lock IV, ambulation trial of void continue steroid stress dose as ordered planning discharge after lunch and voiding, with or without thompson depending on voiding
--- NOTE | 2021-06-11 07:33 | PCM.PN.OB ---
Subjective Subjective Patient doing well without complaints. Tolerating PO. sitting up without difficulty, will ambulate today. Denies chest pain, shortness of breath, calf pain/swelling, fevers, chills, lightheadedness. Objective Data Objective Data Vital Signs: Vital Signs Temp Pulse Resp BP Pulse Ox 98.3 F 53 L 16 108/48 L 95 06/11/21 03:53 06/11/21 03:53 06/11/21 03:53 06/11/21 03:53 06/11/21 03:53 Oxygen Flow Rate (L/min) 4 Oxygen Delivery Method Room Air Weight: 204 lb 6.249 oz Body Mass Index (BMI) 34.9 Intake & Output: Intake and Output for Last 24 Hours 06/09/21 06/10/21 06/11/21 23:59 23:59 23:59 Intake Total 4763.83 / 4763.83 1000 / 1000 Output Total 300 / 1300 1600 / 1600 Balance 4463.83 / 3463.83 -600 / -600 Lab / Micro Data Result Diagrams: 06/10/21 16:42 06/06/21 16:15 Labs: Laboratory Results - last 24 hr 06/10/21 16:42: WBC 11.5 H, RBC 3.68 L, Hgb 12.1, Hct 37.0, MCV 100.5 H, MCH 32.9 H, MCHC 32.7, RDW Std Deviation 48.8 H, RDW Coeff of Lorie 13.2, Plt Count 202, MPV 9.0, Immature Gran % (Auto) 0.300, Neut % (Auto) 93.4 H, Lymph % (Auto) 4.4 L, [place] % (Auto) 1.8, Eos % (Auto) 0.0, Baso % (Auto) 0.1, Absolute Neuts (auto) 10.7 H, Absolute Lymphs (auto) 0.51 L, Nucleated RBC % 0, Differential Comment SEE COMMENT, Platelet Estimate ADEQUATE, RBC Morphology N CHROM, Anisocytosis 1+, Macrocytosis 1+, Ovalocytes RARE ROS Constitutional Constitutional: Reports systems reviewed and no addt'l complaints, except as documented Cardiovascular Cardiovascular: Reports systems reviewed and no addt'l complaints, except as documented Respiratory/Chest Respiratory/Chest: Reports systems reviewed and no addt'l complaints, except as documented Gastrointestinal Gastrointestinal: Reports systems reviewed and no addt'l complaints, except as documented Physical Exam Const alert, oriented x3 and no apparent distress HEENT Head and Scalp: atraumatic Resp normal respiratory effort GI soft to palpation and non-tender Assessment & Plan (1) S/P laparoscopic assisted vaginal hysterectomy (LAVH): COMMENT: initial TVH turned laparoscopic for ovarian removal due to ovarian pathology (2) Ovarian cyst, complex: COMMENT: decision to proceed with laparoscopic BSO at time of hysterectomy due to abnormal appearance of right ovary. discussed with Sobia her sister and permission given for removal. PLAN: patient is s/p lavhbso POD 1 1. routine ERAS protocol postop care- increase ambulation, encourage oral intake and oral control of pain. lovenox and scds for dvt prophylaxis, patient stable for discharge to home.
[2021-06-11 08:18] VITALS: BP 99/52; PULSE 56; RESP 18; TEMP 36.9; O2SAT 95
[2021-06-11] MEDS: Docusate Sodium 100 MG Capsule PO (10:17)
[2021-06-11] MEDS: azaTHIOprine 50 MG Tablet PO (10:18)
[2021-06-11] MEDS: 0.9% Saline Lock 10 ML Syringe IV (10:18)
[2021-06-11] MEDS: Cephalexin 500 MG Capsule PO (10:19)
[2021-06-11] MEDS: Pantoprazole Sodium 20 MG Tablet PO (10:19)
[2021-06-11] MEDS: Enoxaparin 40 MG/0.4 ML Syringe SC (10:19)
[2021-06-11 11:02] VITALS: BP 106/58; PULSE 62; RESP 18; TEMP 36.6; O2SAT 95
== END 2021-06-11 11:02 | disposition home or self-care (01) ==
LOC: MS3 06-11 07:02
PROVIDERS: Admitting Provider Obstetrics & Gynecology; PCP Family Medicine; Referring Provider Obstetrics & Gynecology; Visit Provider Obstetrics & Gynecology
PROC: (CPT 58260; principal; 2021-06-10 07:40)
DX: N81.2 Incomplete uterovaginal prolapse (principal); N39.46 Mixed incontinence; D27.0 Benign neoplasm of right ovary; D25.1 Intramural leiomyoma of uterus; D27.1 Benign neoplasm of left ovary; N95.2 Postmenopausal atrophic vaginitis; N32.81 Overactive bladder; Z79.899 Other long term (current) drug therapy; Z98.84 Bariatric surgery status; Z79.52 Long term (current) use of systemic steroids
CPT/HCPCS: 58550; 57288; 00840; 57260; 36415; 80053; 82962; 83735; 85025; 86850; 86900; 86901; 88307; 93005; 96361; 96372; 96374; 96376; 99218; 99251; J7120; A4216; C1758; G0378; G0463; J2405

== ENCOUNTER 2021-07-14 17:00 | Outpatient (CLI) | payer BC, SELFPAY ==
--- NOTE | 2021-07-14 16:48 | BI_ITS ---
MAMMOGRAPHY - BILATERAL SCREENING REASON FOR EXAM: Female, 55 years old. Routine annual screening examination. PERTINENT HISTORY: Non-contributory. TECHNIQUE: Digital bilateral breast casey (3D mammographic acquisition) in the CC and MLO projections. 2-D mediolateral oblique (MLO) and craniocaudad (CC) views of both breasts were obtained. CAD: Full Field Digital Mammography with Computer Added Detection was performed. COMPARISON: Comparison is made with prior study 06/08/2020 and 01/20/2019. FINDINGS: Breast Composition: There are scattered areas of fibroglandular density. There are no dominant masses or suspicious calcifications. Stable fat-containing lymph node in the left axilla. No other significant abnormalities are identified. There has been no significant change since the prior study. BI/SCRN MAMM (CAD)W/CASEY BILAT IMPRESSION: Stable bilateral screening mammogram. Yearly follow-up mammogram recommended. (A) ASSESSMENT CATEGORY: BIRADS Category 2: Benign. A letter regarding these results will be sent to the patient by the facility within 30 days. Approximately 10% of breast cancers are not detected by mammography. A normal mammogram should not delay biopsy of a clinically suspicious abnormality. [id number] Electronically Signed: Omari Salcido MD at 8:43 EDT ,
== END 2021-07-14 23:59 | disposition home or self-care (01) ==
LOC: OPBI 07-15 07:47
PROVIDERS: PCP Family Medicine; Visit Provider Family Medicine
DX: Z12.31 Encounter for screening mammogram for malignant neoplasm of breast (principal)
CPT/HCPCS: 77063; 77067

== ENCOUNTER 2021-07-19 15:25 | Outpatient (CLI) | payer BC, SELFPAY ==
[2021-07-19 15:37] LABS: Mucous, Urine 0 SEEN /hpf (<or=2+)
[2021-07-19 15:53] LABS: Absolute Lymphocyte Count 1.92 X10^3/uL (0.83-4.51); Absolute Neutrophil Count 5.4 X10^3/uL (2.0-7.7); Basophil# 0.04 X10^3/uL; Basophil% 0.5 % (0-1); Eosinophil# 0.13 X10^3/uL; Eosinophils% 1.6 % (0-5); Hematocrit 40.8 % (37-47); Hemoglobin 13.1 g/dL (12.0-15.0); Lymphocyte # 1.92 X10^3/ul (0.83-4.51); Lymphocyte % 24.1 % (19-41); Mean Corp Hgb Conc 32.1 g/dL (32-36); Mean Corpuscular Hgb 32.2 pg (27.0-32.0); Mean Corpuscular Volume 100.2 fL (81-99); Mean Platelet Vol. 9.3 fl (6.2-12.0); Monocyte# 0.49 X10^3/uL; Monocyte% 6.1 % (0-10); NRBC Flagged by Analyzer 0 % (0-5); Neutrophil # 5.36 X10^3/uL (2.7-7.7); Neutrophil % 67.3 % (47-70); Platelet Count 281 K/mm3 (150-450); RBC Distribution Width CV 13.1 % (11.6-14.6); RBC Distribution Width SD 48.5 fl (35.1-43.9); Red Blood Count 4.07 M/mm3 (4.2-5.4)
[2021-07-19 15:57] LABS: Color, Urine Yellow (Yellow); Glucose, Dipstick Normal (Normal); Ketone-Dipstick 5 mg/dl (Negative); Leukocyte Esterase-Dipstick 500 /ul (Negative); Nitrite-Dipstick Negative (Negative); Occult Blood-Urine 25 /ul (Negative); Protein-Dipstick 30 mg/dl (Negative); Specific Gravity, Urine 1.025 (1.002-1.030); Urine Bilirubin Dipstick Negative (Negative); Urine Clarity Cloudy (Clear); Urine Urobilinogen 1 mg/dl (Normal)
[2021-07-19 16:05] LABS: Erythrocyte Sedimentation Rate 15 mm/hr (0-30)
[2021-07-19 16:14] LABS: White Blood Cells 50-100 SEEN /hpf (0-5)
[2021-07-19 16:15] LABS: Bacteria 1+ /hpf (None Seen); Red Blood Cells-Urine 0-5 SEEN /hpf (0-5); Squamous Epithelial Cells - UA 10-25 SEEN /hpf (5-10)
[2021-07-19 16:24] LABS: AST(SGOT) 18 U/L (15-37); Alanine Aminotransfer ALT/SGPT 19 U/L (13-56); BUN 15 mg/dL (7-18); CRP 5.15 mg/L (0.0-3.0); Creatinine, Serum 0.82 mg/dL (0.55-1.02); EST Glomerular Filtration Rate 76 mL/min (>60); Est Glom Filt Rate - Afr Amer 92 mL/min (>60)
== END 2021-07-19 23:59 | disposition home or self-care (01) ==
PROVIDERS: PCP Family Medicine; Referring Provider Internal Medicine Rheumatology; Visit Provider Internal Medicine Rheumatology
DX: Z79.899 Other long term (current) drug therapy (principal)
CPT/HCPCS: 36415; 81001; 82565; 84450; 84460; 84520; 85025; 85652; 86140

== ENCOUNTER 2021-10-13 15:41 | Outpatient (RCR) | payer BC, SELFPAY ==
[2021-10-13 15:47] LABS: Bacteria 0 SEEN /hpf (None Seen); Mucous, Urine 0 SEEN /hpf (<or=2+)
[2021-10-13 17:16] LABS: Absolute Lymphocyte Count 1.83 X10^3/uL (0.83-4.51); Absolute Neutrophil Count 4.5 X10^3/uL (2.0-7.7); Basophil# 0.03 X10^3/uL; Basophil% 0.4 % (0-1); Eosinophil# 0.09 X10^3/uL; Eosinophils% 1.3 % (0-5); Hematocrit 37.4 % (37-47); Hemoglobin 12.3 g/dL (12.0-15.0); Lymphocyte # 1.83 X10^3/ul (0.83-4.51); Lymphocyte % 26.1 % (19-41); Mean Corp Hgb Conc 32.9 g/dL (32-36); Mean Corpuscular Hgb 31.8 pg (27.0-32.0); Mean Corpuscular Volume 96.6 fL (81-99); Mean Platelet Vol. 9.6 fl (6.2-12.0); Monocyte# 0.51 X10^3/uL; Monocyte% 7.3 % (0-10); NRBC Flagged by Analyzer 0 % (0-5); Neutrophil # 4.54 X10^3/uL (2.7-7.7); Neutrophil % 64.6 % (47-70); Platelet Count 273 K/mm3 (150-450); RBC Distribution Width CV 14.1 % (11.6-14.6); RBC Distribution Width SD 49.4 fl (35.1-43.9); Red Blood Count 3.87 M/mm3 (4.2-5.4)
[2021-10-13 17:37] LABS: Color, Urine Yellow (Yellow); Glucose, Dipstick Normal (Normal); Ketone-Dipstick 5 mg/dl (Negative); Leukocyte Esterase-Dipstick 25 /ul (Negative); Nitrite-Dipstick Negative (Negative); Occult Blood-Urine Negative /ul (Negative); Protein-Dipstick 15 mg/dl (Negative); Specific Gravity, Urine 1.025 (1.002-1.030); Urine Bilirubin Dipstick Negative (Negative); Urine Clarity Clear (Clear); Urine Urobilinogen 1 mg/dl (Normal)
[2021-10-13 17:46] LABS: Red Blood Cells-Urine 0-5 SEEN /hpf (0-5); Squamous Epithelial Cells - UA 0-5 SEEN /hpf (5-10); White Blood Cells 0-5 SEEN /hpf (0-5)
[2021-10-13 18:25] LABS: AST(SGOT) 17 U/L (15-37); Alanine Aminotransfer ALT/SGPT 16 U/L (13-56); Albumin, Serum 3.9 g/dL (3.2-5.0); BUN 18 mg/dL (7-18); CRP 3.57 mg/L (0.0-3.0); Creatinine, Serum 0.76 mg/dL (0.55-1.02); EST Glomerular Filtration Rate 83 mL/min (>60); Est Glom Filt Rate - Afr Amer 100 mL/min (>60)
[2021-10-13 19:40] LABS: Erythrocyte Sedimentation Rate 9 mm/hr (0-30)
== END 2021-11-06 03:12 | disposition home or self-care (01) ==
LOC: LAB 15:41
PROVIDERS: PCP Family Medicine; Visit Provider Internal Medicine Rheumatology
DX: D50.9 Iron deficiency anemia, unspecified (principal); L95.9 Vasculitis limited to the skin, unspecified; Z79.899 Other long term (current) drug therapy
CPT/HCPCS: 36415; 81001; 82040; 82565; 84450; 84460; 84520; 85025; 85652; 86140

== ENCOUNTER → 2022-02-03 | Outpatient (CLI) | payer BC, SELFPAY ==
[2022-02-03 15:52] LABS: Bacteria 0 SEEN /hpf (None Seen); Mucous, Urine 0 SEEN /hpf (<or=2+)
[2022-02-03 17:22] LABS: Color, Urine Yellow (Yellow); Glucose, Dipstick Normal (Normal); Ketone-Dipstick 5 mg/dl (Negative); Leukocyte Esterase-Dipstick 500 /ul (Negative); Nitrite-Dipstick Negative (Negative); Occult Blood-Urine 10 /ul (Negative); Protein-Dipstick Negative (Negative); Urine Bilirubin Dipstick Negative (Negative); Urine Clarity Clear (Clear); Urine Urobilinogen 1 mg/dl (Normal)
[2022-02-03 17:23] LABS: Erythrocyte Sedimentation Rate 12 mm/hr (0-30)
[2022-02-03 17:34] LABS: Absolute Lymphocyte Count 1.56 X10^3/uL (0.83-4.51); Basophil# 0.03 X10^3/uL; Basophil% 0.4 % (0-1); Eosinophil# 0.15 X10^3/uL; Eosinophils% 2.1 % (0-5); Hematocrit 37.9 % (37-47); Hemoglobin 12.5 g/dL (12.0-15.0); Lymphocyte # 1.56 X10^3/ul (0.83-4.51); Lymphocyte % 21.4 % (19-41); Mean Corpuscular Hgb 32.4 pg (27.0-32.0); Mean Corpuscular Volume 98.2 fL (81-99); Mean Platelet Vol. 9.5 fl (6.2-12.0); Monocyte# 0.54 X10^3/uL; Monocyte% 7.4 % (0-10); NRBC Flagged by Analyzer 0 % (0-5); Neutrophil # 5.01 X10^3/uL (2.7-7.7); Neutrophil % 68.6 % (47-70); Platelet Count 256 K/mm3 (150-450); RBC Distribution Width CV 13.5 % (11.6-14.6); RBC Distribution Width SD 48.3 fl (35.1-43.9); Red Blood Count 3.86 M/mm3 (4.2-5.4); White Blood Count 7.3 K/mm3 (4.4-11.0)
[2022-02-03 17:51] LABS: Red Blood Cells-Urine 0-5 SEEN /hpf (0-5); Squamous Epithelial Cells - UA 0-5 SEEN /hpf (5-10); White Blood Cells 10-25 SEEN /hpf (0-5)
[2022-02-03 18:07] LABS: AST(SGOT) 19 U/L (15-37); Alanine Aminotransfer ALT/SGPT 18 U/L (13-56); BUN 20 mg/dL (7-18); CRP < 2.90 mg/L (0.0-3.0); Creatinine, Serum 0.69 mg/dL (0.55-1.02); EST Glomerular Filtration Rate 94 mL/min (>60); Est Glom Filt Rate - Afr Amer 113 mL/min (>60)
== END | disposition home or self-care (01) ==
LOC: LAB 15:44
PROVIDERS: PCP Family Medicine
DX: Z79.899 Other long term (current) drug therapy (principal)
CPT/HCPCS: 36415; 81001; 81002; 82565; 84450; 84460; 84520; 85025; 85652; 86140

== ENCOUNTER → 2022-03-21 | Outpatient (CLI) | payer BC, SELFPAY ==
--- NOTE | 2022-03-21 16:00 | BD_ITS ---
STUDY: DUAL ENERGY X-RAY ABSORPTIOMETRY / DXA REASON FOR EXAM: Female, 56 years old. M85.88 TECHNIQUE: Bone Mineral Density (BMD) measurements of lumbar spine and bilateral hips were obtained. COMPARISON: Comparison is made with prior study dated 08/01/2016. FINDINGS: Lumbar Spine (L1-L4): g/cm2 (0.869) / T-score (-1.4) / Z-score (-0.1) Findings are suggestive of osteopenia with a low fracture risk. Left Femur Total: g/cm2 (0.965) / T-score (0.2) / Z-score (1.0) Left Femoral Neck: g/cm2 (0.790) / T-score (-0.5) / Z-score (0.7) Right Femur Total: g/cm2 (0.945) / T-score (0.0) / Z-score (0.9) Right Femoral Neck: g/cm2 (0.745) / T-score (-0.9) / Z-score (0.3) The T-Scores on the most recent prior examination were: Lumbar Spine (L1-L4): There has been worsening of bone density since the previous examination. Left Femur Total: which represents a worsening of 2.9%. Right Femur Total: which represents a worsening of 3.7%. BD/Dexa Bone Density Study IMPRESSION: The patient is considered osteopenic as outlined below according to World [place] Organization (WHO) criteria with a low fracture risk. There has been worsening of bone density since the previous examination. Reference Information: The T-score is the number of standard deviations above or below the standard which is normal for young adults at their peak bone mineral density. The World Health Organization (WHO) interprets the T-scores as follows: Above -1 Normal bone density Between -1 and -2.5 Osteopenia Equal to / or below -2.5 Osteoporosis As a practical clinical guideline, osteopenia may be graded as follows: Mild -1 through -1.5 Moderate -1.6 through -2.0 Severe -2.1 through -2.4 The Z-score is the number of standard deviations above or below age-matched controls. A Z-score of less than -1.5 would be considered abnormal. References: 1. NIH Osteoporosis and Related Bone Diseases www osteo.org 2. International Society for Clinical Densitometry www iscd.org 3. National Osteoporosis Foundation www nof.org Electronically Signed: Omari Salcido MD at 9:26 EST ,
== END | disposition home or self-care (01) ==
LOC: OPBD 15:53
PROVIDERS: PCP Family Medicine; Referring Provider Internal Medicine Rheumatology; Visit Provider Internal Medicine Rheumatology
DX: M85.88 Other specified disorders of bone density and structure, other site (principal)
CPT/HCPCS: 77080

== ENCOUNTER → 2022-06-14 | Outpatient (CLI) | payer BC, SELFPAY ==
[2022-06-14 15:59] LABS: Bacteria 0 SEEN /hpf (None Seen); Mucous, Urine 0 SEEN /hpf (<or=2+); Red Blood Cells-Urine 0 SEEN /hpf (0-5); Squamous Epithelial Cells - UA 0 SEEN /hpf (5-10)
[2022-06-14 16:39] LABS: Absolute Lymphocyte Count 2.05 X10^3/uL (0.83-4.51); Absolute Neutrophil Count 6.9 X10^3/uL (2.0-7.7); Basophil# 0.03 X10^3/uL; Basophil% 0.3 % (0-1); Eosinophil# 0.09 X10^3/uL; Eosinophils% 0.9 % (0-5); Hematocrit 37.3 % (37-47); Hemoglobin 12.1 g/dL (12.0-15.0); Lymphocyte # 2.05 X10^3/ul (0.83-4.51); Lymphocyte % 21.1 % (19-41); Mean Corp Hgb Conc 32.4 g/dL (32-36); Mean Corpuscular Hgb 30.4 pg (27.0-32.0); Mean Corpuscular Volume 93.7 fL (81-99); Mean Platelet Vol. 9.2 fl (6.2-12.0); Monocyte# 0.62 X10^3/uL; Monocyte% 6.4 % (0-10); NRBC Flagged by Analyzer 0 % (0-5); Neutrophil # 6.91 X10^3/uL (2.7-7.7); Platelet Count 297 K/mm3 (150-450); RBC Distribution Width CV 14.3 % (11.6-14.6); RBC Distribution Width SD 49.2 fl (35.1-43.9); Red Blood Count 3.98 M/mm3 (4.2-5.4); White Blood Count 9.7 K/mm3 (4.4-11.0)
[2022-06-14 16:49] LABS: Color, Urine Yellow (Yellow); Glucose, Dipstick Normal (Normal); Ketone-Dipstick 5 mg/dl (Negative); Leukocyte Esterase-Dipstick 25 /ul (Negative); Nitrite-Dipstick Negative (Negative); Occult Blood-Urine Negative /ul (Negative); Protein-Dipstick 15 mg/dl (Negative); Specific Gravity, Urine 1.025 (1.002-1.030); Urine Bilirubin Dipstick Negative (Negative); Urine Clarity Clear (Clear); Urine Urobilinogen Normal (Normal)
[2022-06-14 16:54] LABS: Erythrocyte Sedimentation Rate 9 mm/hr (0-30)
[2022-06-14 17:17] LABS: White Blood Cells 0-5 SEEN /hpf (0-5)
[2022-06-14 17:25] LABS: AST(SGOT) 17 U/L (15-37); Alanine Aminotransfer ALT/SGPT 18 U/L (13-56); BUN 24 mg/dL (7-18); CRP < 2.90 mg/L (0.0-3.0); Creatinine, Serum 0.77 mg/dL (0.55-1.02); EST Glomerular Filtration Rate 82 mL/min (>60); Est Glom Filt Rate - Afr Amer 99 mL/min (>60)
== END | disposition home or self-care (01) ==
LOC: LAB 15:56
PROVIDERS: PCP Family Medicine; Referring Provider Internal Medicine Rheumatology; Visit Provider Internal Medicine Rheumatology
DX: Z79.899 Other long term (current) drug therapy (principal)
CPT/HCPCS: 36415; 81001; 82565; 84450; 84460; 84520; 85025; 85652; 86140

== ENCOUNTER 2022-09-11 15:42 | Outpatient (RCR) | payer BC, SELFPAY ==
[2022-09-11 16:33] LABS: Absolute Lymphocyte Count 2.01 X10^3/uL (0.83-4.51); Absolute Neutrophil Count 6.1 X10^3/uL (2.0-7.7); Basophil# 0.04 X10^3/uL; Basophil% 0.4 % (0-1); Eosinophils% 1.1 % (0-5); Hematocrit 36.5 % (37-47); Hemoglobin 11.5 g/dL (12.0-15.0); Lymphocyte # 2.01 X10^3/ul (0.83-4.51); Lymphocyte % 22.6 % (19-41); Mean Corp Hgb Conc 31.5 g/dL (32-36); Mean Corpuscular Hgb 29.8 pg (27.0-32.0); Mean Corpuscular Volume 94.6 fL (81-99); Monocyte# 0.62 X10^3/uL; NRBC Flagged by Analyzer 0 % (0-5); Neutrophil % 68.7 % (47-70); Platelet Count 274 K/mm3 (150-450); RBC Distribution Width CV 15.1 % (11.6-14.6); RBC Distribution Width SD 51.5 fl (35.1-43.9); Red Blood Count 3.86 M/mm3 (4.2-5.4); White Blood Count 8.9 K/mm3 (4.4-11.0)
[2022-09-11 16:41] LABS: Erythrocyte Sedimentation Rate 9 mm/hr (0-30)
[2022-09-11 17:16] LABS: AST(SGOT) 16 U/L (15-37); Alanine Aminotransfer ALT/SGPT 17 U/L (13-56); BUN 23 mg/dL (7-18); CRP < 2.90 mg/L (0.0-3.0); Creatinine, Serum 0.78 mg/dL (0.55-1.02); EST Glomerular Filtration Rate 80 mL/min (>60); Est Glom Filt Rate - Afr Amer 97 mL/min (>60)
== END 2022-09-11 18:00 | disposition home or self-care (01) ==
LOC: LAB 15:42
PROVIDERS: PCP Family Medicine
DX: M30.0 Polyarteritis nodosa (principal); Z79.899 Other long term (current) drug therapy
CPT/HCPCS: 36415; 82565; 84450; 84460; 84520; 85025; 85652; 86140

== ENCOUNTER → 2023-01-01 | Outpatient (CLI) | payer BC, SELFPAY ==
[2023-01-01 16:28] LABS: Absolute Lymphocyte Count 2.03 X10^3/uL (0.83-4.51); Absolute Neutrophil Count 6.3 X10^3/uL (2.0-7.7); Basophil# 0.04 X10^3/uL; Basophil% 0.4 % (0-1); Eosinophil# 0.05 X10^3/uL; Eosinophils% 0.5 % (0-5); Hematocrit 39.2 % (37-47); Lymphocyte # 2.03 X10^3/ul (0.83-4.51); Lymphocyte % 22.1 % (19-41); Mean Corp Hgb Conc 30.6 g/dL (32-36); Mean Corpuscular Hgb 29.8 pg (27.0-32.0); Mean Corpuscular Volume 97.3 fL (81-99); Mean Platelet Vol. 9.1 fl (6.2-12.0); Monocyte# 0.69 X10^3/uL; Monocyte% 7.5 % (0-10); NRBC Flagged by Analyzer 0 % (0-5); Neutrophil # 6.34 X10^3/uL (2.7-7.7); Neutrophil % 69.3 % (47-70); Platelet Count 307 K/mm3 (150-450); RBC Distribution Width CV 15.8 % (11.6-14.6); Red Blood Count 4.03 M/mm3 (4.2-5.4); White Blood Count 9.2 K/mm3 (4.4-11.0)
[2023-01-01 16:57] LABS: AST(SGOT) 18 U/L (15-37); Alanine Aminotransfer ALT/SGPT 20 U/L (13-56); BUN 19 mg/dL (7-18); CRP < 2.90 mg/L (0.0-3.0); Creatinine, Serum 0.71 mg/dL (0.55-1.02); EST Glomerular Filtration Rate 90 mL/min (>60); Est Glom Filt Rate - Afr Amer 109 mL/min (>60)
[2023-01-01 17:11] LABS: Erythrocyte Sedimentation Rate 7 mm/hr (0-30)
== END | disposition home or self-care (01) ==
LOC: LAB 15:43
PROVIDERS: PCP Family Medicine; Referring Provider Internal Medicine Rheumatology; Visit Provider Internal Medicine Rheumatology
DX: M30.0 Polyarteritis nodosa (principal)
CPT/HCPCS: 36415; 82565; 84450; 84460; 84520; 85025; 85652; 86140

== ENCOUNTER 2023-05-11 15:55 | Outpatient (RCR) | payer BC, SELFPAY ==
[2023-05-11 16:06] LABS: Mucous, Urine 0 SEEN /hpf (<or=2+)
[2023-05-11 16:19] LABS: Absolute Lymphocyte Count 1.98 X10^3/uL (0.83-4.51); Absolute Neutrophil Count 4.8 X10^3/uL (2.0-7.7); Basophil# 0.03 X10^3/uL; Basophil% 0.4 % (0-1); Eosinophils% 1.3 % (0-5); Hematocrit 36.3 % (37-47); Hemoglobin 11.3 g/dL (12.0-15.0); Lymphocyte # 1.98 X10^3/ul (0.83-4.51); Lymphocyte % 26.5 % (19-41); Mean Corp Hgb Conc 31.1 g/dL (32-36); Mean Corpuscular Hgb 29.4 pg (27.0-32.0); Mean Corpuscular Volume 94.3 fL (81-99); Mean Platelet Vol. 8.7 fl (6.2-12.0); Monocyte# 0.54 X10^3/uL; Monocyte% 7.2 % (0-10); NRBC Flagged by Analyzer 0 % (0-5); Neutrophil # 4.77 X10^3/uL (2.7-7.7); Neutrophil % 64.1 % (47-70); Platelet Count 307 K/mm3 (150-450); RBC Distribution Width SD 51.2 fl (35.1-43.9); Red Blood Count 3.85 M/mm3 (4.2-5.4); White Blood Count 7.5 K/mm3 (4.4-11.0)
[2023-05-11 16:20] LABS: Color, Urine Yellow (Yellow); Glucose, Dipstick Normal (Normal); Ketone-Dipstick 5 mg/dl (Negative); Leukocyte Esterase-Dipstick 100 /ul (Negative); Nitrite-Dipstick Negative (Negative); Occult Blood-Urine 10 /ul (Negative); Protein-Dipstick 15 mg/dl (Negative); Specific Gravity, Urine 1.025 (1.002-1.030); Urine Bilirubin Dipstick Negative (Negative); Urine Clarity Sl. Cloudy (Clear); Urine Urobilinogen 1 mg/dl (Normal)
[2023-05-11 16:21] LABS: Dohle Bodies 7.5
[2023-05-11 16:26] LABS: Erythrocyte Sedimentation Rate 8 mm/hr (0-30)
[2023-05-11 16:27] LABS: Squamous Epithelial Cells - UA 0-5 SEEN /hpf (5-10); White Blood Cells 5-10 SEEN /hpf (0-5)
[2023-05-11 16:28] LABS: Bacteria RARE /hpf (None Seen); Red Blood Cells-Urine 0-5 SEEN /hpf (0-5)
[2023-05-11 16:59] LABS: AST(SGOT) 22 U/L (15-37); Alanine Aminotransfer ALT/SGPT 22 U/L (13-56); BUN 19 mg/dL (7-18); CRP < 2.90 mg/L (0.0-3.0); Creatinine, Serum 0.81 mg/dL (0.55-1.02); EST Glomerular Filtration Rate 77 mL/min (>60); Est Glom Filt Rate - Afr Amer 93 mL/min (>60)
== END 2023-06-07 18:00 | disposition home or self-care (01) ==
LOC: LAB 15:55
PROVIDERS: PCP Family Medicine; Referring Provider Internal Medicine Rheumatology; Visit Provider Internal Medicine Rheumatology
DX: Z79.899 Other long term (current) drug therapy (principal)
CPT/HCPCS: 36415; 81001; 82565; 84450; 84460; 84520; 85025; 85652; 86140

== ENCOUNTER → 2023-05-28 | Outpatient (CLI) | payer BC, SELFPAY ==
--- NOTE | 2023-05-28 15:52 | BI_ITS ---
MAMMOGRAPHY - BILATERAL SCREENING REASON FOR EXAM: Female, 57 years old. Routine annual screening examination. PERTINENT HISTORY: Non-contributory. TECHNIQUE: Digital bilateral breast casey (3D mammographic acquisition) in the CC and MLO projections. 2-D mediolateral oblique (MLO) and craniocaudad (CC) views of both breasts were obtained. CAD: Full Field Digital Mammography with Computer Added Detection was performed. COMPARISON: Comparison is made with prior study dated July 14, 2021 and June 08, 2020. FINDINGS: Breast Composition: There are scattered areas of fibroglandular density. There are no dominant masses or suspicious calcifications. Stable fat-containing lymph node in the left axillary region. No other significant abnormalities are identified. There has been no significant change since the prior study. BI/SCRN MAMM (CAD)W/CASEY BILAT IMPRESSION: Stable bilateral screening mammogram. Yearly follow-up mammogram recommended. (A) ASSESSMENT CATEGORY: BIRADS Category 2: Benign. A letter regarding these results will be sent to the patient by the facility within 30 days. Approximately 10% of breast cancers are not detected by mammography. A normal mammogram should not delay biopsy of a clinically suspicious abnormality. [id number] Electronically Signed: Omari Salcido MD at 8:20 EST ,
== END | disposition home or self-care (01) ==
LOC: OPBI 15:51
PROVIDERS: PCP Family Medicine; Referring Provider Family Medicine; Visit Provider Family Medicine
DX: Z12.31 Encounter for screening mammogram for malignant neoplasm of breast (principal)
CPT/HCPCS: 77063; 77067

== ENCOUNTER 2023-08-06 08:10 | Day surgery (SDC) | payer BC, SELFPAY ==
--- NOTE | 2023-08-06 | COLBX_PTH ---
PATIENT: LAILA HENSLEY LOC: EN U#:[id number] AGE/SX: 57/F ROOM: RE08/06/[address]: Dr. Amanda Robertson MD : 1965 BED: DIS: 08/06/2023 SPEC #: [id number] RECD: 08/06/23 12:50 STATUS: KACIE WANG #: [id number] CE: 08/06/23 00:[address]: Amanda Robertson DEPT: SURGICAL PATHOLOGY RECD BY: Giovani Merida ENTERED: 08/06/23 12:51 SP TYPE: COLON BX OTHR DR: Dr. Fabiana Wiley MD Tissues: A - Descending colon B - Sigmoid colon biopsy C - Rectum, NOS Procedures: Surgery Specimen Level IV HEADER OPERATION: Colonoscopy with biopsy PRE-OP DIAGNOSIS: Family history of colon cancer, history of colonic polyp TISSUE SUBMITTED: A- Descending colon polyp biopsy, B- Sigmoid colon polyp biopsy x2, C- Rectum polyp biopsy MICROSCOPIC DIAGNOSIS A. Descending colon polyp, biopsy: Colonic mucosa with focal hyperplastic change. B. Sigmoid colon polyp, biopsy: Fragment of tubular adenoma. Fragments of hyperplastic polyp. C. Rectal polyp, biopsy: Fragments of hyperplastic polyp. / 08/07/2023 MICROSCOPIC DESCRIPTION Slides are reviewed. GROSS DESCRIPTION A. Received in fixative is one container labeled with the patient's name and designated Descending colon polyp biopsy. The specimen consists of one irregular fragment of light whit[place] soft tissue that measures 0.25 x 0.25 x 0.25 cm. The specimen is totally submitted in one cassette. B. Received in fixative is one container labeled with the patient's name and designated Sigmoid colon polyp biopsy x2. The specimen consists of multiple irregular fragments of light whit[place] soft tissue that in aggregate measure 0.75 x 0.5 x 0.25 cm. The specimen is totally submitted in one cassette. C. Received in fixative is one container labeled with the patient's name and designated Rectum polyp biopsy. The specimen consists of two irregular fragments of light [place] soft tissue that in aggregate measure 0.75 x 0.25 x 0.25 cm. The specimen is totally submitted in one cassette. 08/06/2023 TC:5 CPT:80445c3
--- NOTE | 2023-08-06 08:21 | H&P.OPEN ---
HPI - General General Date of Service: 08/06/23 HPI Narrative LAILA HENSLEY, is a 57 F who presents for a surveillance colonoscopy due to history of colon polyps patient's last colonoscopy was in 2015. Patient had small polyp and hemorrhoids at that time?due in 2020. Patient's brother is also diagnosed with colon cancer?at age 55. Patient has bowel movements daily denies any blood. denies any chronic abdominal pain/nausea/vomiting/reflux. Patient does state that on one of her gluteal cheek she does have possible cyst as it does get smaller or larger patient denies any drainage. FORMERLY [facility], 1928–1983 Medical History (Updated 08/06/23 @ 08:[address] Amanda Robertson MD) Alcohol use Anxiety Cystocele Depression Depression Family hx of colon cancer Gastric reflux Gastric ulcer History of edema History of steroid therapy History of ulceration Hx of colonic polyp Injury of head and neck Leg cramps Nodular vasculitis Non-smoker Ovarian cyst, complex Post-menopausal Rheumatoid arthritis Shortness of breath on exertion CLAUDETTE (stress urinary incontinence, female) Vasculitis of skin Wears glasses Home Medications azathioprine 50 mg tablet (Imuran) 50 mg PO DAILY 01/08/18 [History Last Taken Unknown] prednisone 2.5 mg tablet 5 mg PO DAILY 01/08/18 [History Last Taken Unknown] esomeprazole magnesium 20 mg capsule,delayed release 20 mg PO DAILY 06/06/21 [History Last Taken Unknown] cholecalciferol (vitamin D3) 50 mcg (2,000 unit) capsule 50 mcg PO DAILY 05/25/23 [History Last Taken Unknown] multivitamin with minerals-folic acid 200 mcg chewable tablet 1 tab PO DAILY 05/25/23 [History Last Taken Unknown] venlafaxine 150 mg capsule,extended release 24 hr (Effexor XR) 150 mg PO DAILY 05/25/23 [History Last Taken Unknown] Allergy/AdvReac Type Severity Reaction Status Date / Time No Known Allergies Allergy Verified 08/06/23 08:27 Family History (Updated 05/25/23 @ 10:47 by Shea Sandoval) Mother Hypertension Thyroid disorder Brother Seizures Cerebral palsy Brother Colon cancer Surgical History (Updated 05/25/23 @ 10:46 by Shea Sandoval) Heel spur History of appendectomy History of ovarian cystectomy Hx of colonoscopy Hx of foot surgery S/P gastric bypass S/P hammer toe correction S/P laparoscopic assisted vaginal hysterectomy (LAVH) Social History (Updated 05/25/23 @ 10:48 by Shea Sandoval) household members: none current occupational status: employed current occupation: [employer] Smoking Status: Never smoker alcohol intake: current alcohol intake frequency: holidays/special occasions only substance use type: does not use caffeine: Yes do you feel safe at home: Yes 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 Past Medical/Surgical History Planned Operation Planned Operative Procedure/s: COLONOSCOPY S.O.S: No Previous Hospitalizations/Surgeries HX Hospitalizations: No HX of Surgeries: GASTRIC BYPASS 2012 HEEL SPURS BILAT CYST REMOVED FROM OVARY APPENDECTOMY WISDOM TEETH REMOVED HEMMORHOIDECTOMY COLONOSCOPY Any Problems With Anesthesia: No You/Your Family Experience Fever (Hyperthermia) With Anes: No Cholinesterase deficiency: No Cardiovascular Hx Chest Pain within Last 2 months: No Hx of Irregular Heartbeat and/or Afib: No Hx Heart Attack: No Hx Congestive Heart Failure: No Hx Rheumatic Fever: No Hx Hypertension: No Hx Internal Defibrillator: No Hx Pacemaker: No Hx Cardiac Catheterization: No Hx Cardiac Surgery/Stents/Etc.: No Hx Stress Test: Yes ([facility] 08/09/15) Hx Pain in Legs when Walking/Leg Cramps: Yes (LEFT LEG FROM NODULAR VASCULITIS) Respiratory Chronic Cough: No HX of Shortness of Breath: Yes (WITH EXERTION) Hoarseness: No Hx Chronic Obstructive Pulmonary Disease (COPD): No Hx Asthma: No Hx Emphysema: No Hx Sleep Apnea: No Hx Respiratory Tract Infection/Cold (presently): No Do You Snore Loudly (louder than talking or can be heard): No Do You Often Feel Tired/ Fatigued/ Sleepy Dring Daytime?: No Has Anyone Observed You Stop Breathing During Sleep?: No Result (for STOP score): Negative Hx Smoking: No Smoking Status: Never smoker Gastrointestinal Hx Gastrointestinal Disorders: No (HAD GASTRIC BYPASS 2012) Hx Gastrointestinal Bleed: No Hx Ulcer: No Hx Hiatal Hernia: No Difficulty Chewing/Swallowing: No Special diet followed at home: No Hx Unplanned Weight Loss of 20#: No HX Unplanned Weight Gain of 20#: No Neurological Hx Seizures: No HX Syncope/Blackout Spells/Unconsciousness: No Hx Transient Ischemic Attacks (TIA): No Hx Multiple Sclerosis: No Hx Parkinson's Disease: No Hx Head/Neck Injury: No Hx Headaches: No Hx Back Injury/Pain: No Recent Onset of Speech Difficulty: No Restless Legs: No Does patient have nerve stimulator: Yes (INSTRUCTED TO NOT WEAR DOS) Blood Disorder Hx Leukemia: No Bleeding Tendencies: No Hx Deep Vein Thrombosis: No Hx High Cholesterol: No Blood Transmitted Disease: No Hx Hepatitis: No Hx Cirrhosis: No Hx Anemia: No Hx Blood Disorders: No Reproduction : No Is Patient Lactating: No Hx Hysterectomy: No Hx Tubal Ligation: No Are You Post Menopause: Yes Genitourinary Hx Renal Disease: No Musculoskeletal Hx Arthritis: No Hx Rheumatoid Arthritis: No Hx Gout: No Recent Onset of an Orthopedic Problem: Yes (LEFT FOOT) Endocrine Hx Diabetes: No Thyroid Disease: No Hx Steroid Therapy: Yes (DAILY FOR NODULAR VASCULITIS) Psycho/Social Hx Substance Use: No Hx Alcohol Use: No Hx Anxiety: Yes Hx Depression: Yes Mental Illness: No Hx Dementia: No Miscellaneous Hx Cancer: No Recent Exposure to Contagious Disease: No Hx of C-Diff: No Any Loose Teeth: No Allergies No Known Allergies Allergy (Verified 08/06/23 08:27) Discharge Is Pt Admitted From a Intermediate, or a Retirement: No Who Could Help: FAMILY After D/C, Where Do you Plan to Go: Return Home Physical Exam Const alert, oriented x3 and no apparent distress HEENT normocephalic and head/scalp atraumatic Resp normal respiratory effort Cardio regular rate GI soft to palpation and non-tender; Negative for non-distended Palpation: Negative for guarding Extremity no clubbing, cyanosis or edema Skin no rashes or lesions noted Neuro CN's II-XII intact bilaterally Psych mental status grossly normal Assessment & Plan Assessment/Plan (1) Hx of colonic polyp: (2) Family hx of colon cancer: Surgery Risks - Colonoscopy I discussed with the patient the risks of the procedure: Yes Risks Include but are not Limited To: Risks include but are not limited to: Bleeding, perforation requiring further surgery, inability to complete colonoscopy requiring barium enema.
[2023-08-06] MEDS: Lactated Ringers 1,000 ML 15 ML IV (08:39)
[2023-08-06 08:41] VITALS: BP 133/87; PULSE 72; RESP 16; TEMP 37; O2SAT 98; BMI 35.5
[2023-08-06 09:28] VITALS: BP 111/75; BP 133/87; PULSE 69; RESP 16; TEMP 36.6; O2SAT 100
--- NOTE | 2023-08-06 09:30 | OP.COLON_ITS ---
Patient Name: Cori Fu Procedure Date: 08/06/2023 8:56 AM Date of : 1965 Age: 57 Procedure: Colonoscopy Indications: High risk colon cancer surveillance: Personal history of colonic polyps, Family history of colon cancer in a first-degree relative before age 60 years Providers: Amanda Robertson MD Medicines: Monitored Anesthesia Care Patient Profile: This is a 57 year old female. Last Colonoscopy: 2015. Complications: No immediate complications. Procedure: Pre-Anesthesia Assessment: - Prior to the procedure, a History and Physical was performed, and patient medications and allergies were reviewed. The patient's tolerance of previous anesthesia was also reviewed. The risks and benefits of the procedure and the sedation options and risks were discussed with the patient. All questions were answered, and informed consent was obtained. Prior Anticoagulants: The patient has taken no anticoagulant or antiplatelet agents. ASA Grade Assessment: Per anesthesia. After reviewing the risks and benefits, the patient was deemed in satisfactory condition to undergo the procedure. After I obtained informed consent, the scope was passed under direct vision. Throughout the procedure, the patient's blood pressure, pulse, and oxygen saturations were monitored continuously. The colonoscope was introduced through the anus and advanced to the cecum, identified by the appendiceal orifice, ileocecal valve and palpation. The colonoscopy was performed without difficulty. The patient tolerated the procedure well. The quality of the bowel preparation was good. Scope In: 9:05:36 AM Scope Withdrawal Time 0 hours 14 minutes 24 seconds Scope Out: 9:24:15 AM Total Procedure Duration Time 0 hours 18 minutes 39 seconds Findings: Hemorrhoids were found on perianal exam. Non-bleeding internal hemorrhoids were found. The hemorrhoids were Grade I (internal hemorrhoids that do not prolapse). Four sessile polyps were found in the rectum, sigmoid colon and descending colon. The polyps were less than 5 mm in size. These polyps were removed with a cold biopsy forceps. Resection and retrieval were complete. The exam was otherwise without abnormality. Impression: - Hemorrhoids found on perianal exam. - Non-bleeding internal hemorrhoids. - Four less than 5 mm polyps in the rectum, in the sigmoid colon and in the descending colon, removed with a cold biopsy forceps. Resected and retrieved. - The examination was otherwise normal. Recommendation: - Discharge patient to home. - Resume previous diet. - Continue present medications. - Await pathology results. - Repeat colonoscopy in 3 years for surveillance of multiple polyps. Procedure Code(s): --- Professional --- 81384, PT, Colonoscopy, flexible; with biopsy, single or multiple Diagnosis Code(s): --- Professional --- Z86.010, Personal history of colonic polyps K64.0, First degree hemorrhoids D12.8, Benign neoplasm of rectum D12.5, Benign neoplasm of sigmoid colon D12.4, Benign neoplasm of descending colon Z80.0, Family history of malignant neoplasm of digestive organs CPT copyright 2021 [employer]. All rights reserved. The codes documented in this report are preliminary and upon button machine operator review may be revised to meet current compliance requirements. MD Amanda Murphy MD 08/06/2023 9:29:40 AM This report has been signed electronically. Number of Addenda: 0 Note Initiated On: 08/06/2023 8:56 AM
--- NOTE | 2023-08-06 09:30 | OP.CCLET_ITS ---
08/06/2023 Fabiana Wiley [place] [id number] [address] Re : Colonoscopy procedure for Cori Fu Dear Dr. Wiley This procedure was performed on Sunday, August 06, 2023. My impressions and recommendations are as follows: Impressions : - Hemorrhoids found on perianal exam. - Non-bleeding internal hemorrhoids. - Four less than 5 mm polyps in the rectum, in the sigmoid colon and in the descending colon, removed with a cold biopsy forceps. Resected and retrieved. - The examination was otherwise normal. Recommendations : - Discharge patient to home. - Resume previous diet. - Continue present medications. - Await pathology results. - Repeat colonoscopy in 3 years for surveillance of multiple polyps. My findings are described in the full procedure note, which is enclosed. If I can be of further assistance, please feel free to contact me at Doctor phone number(s): , Work: . Sincerely, MD Amanda Murphy MD 08/06/2023 9:29:40 AM This report has been signed electronically.
[2023-08-06 09:35] VITALS: BP 117/77; BP 133/87; PULSE 61; RESP 16; O2SAT 96
[2023-08-06 09:40] VITALS: BP 127/80; BP 133/87; PULSE 59; RESP 16; TEMP 36.3; O2SAT 99
== END 2023-08-06 09:59 | disposition home or self-care (01) ==
LOC: EN 08:10 → AC 08:11
PROVIDERS: PCP Family Medicine; Referring Provider Family Medicine; Visit Provider Surgery
PROC: 0DJD8ZZ Inspection of Lower Intestinal Tract, Via Natural or Artificial Opening Endoscopic (ICD-10-PCS; CPT 45378; principal; 2023-08-06 09:40)
DX: Z12.11 Encounter for screening for malignant neoplasm of colon (principal); K64.0 First degree hemorrhoids; Z86.010 Personal history of colon polyps; Z80.0 Family history of malignant neoplasm of digestive organs; Z90.49 Acquired absence of other specified parts of digestive tract; D12.8 Benign neoplasm of rectum; D12.4 Benign neoplasm of descending colon; D12.5 Benign neoplasm of sigmoid colon; Z98.84 Bariatric surgery status
CPT/HCPCS: 45380; 88305; J7120

== ENCOUNTER 2023-08-13 15:42 | Outpatient (RCR) | payer BC, SELFPAY ==
[2023-08-13 15:54] LABS: Mucous, Urine 0 SEEN /hpf (<or=2+); Red Blood Cells-Urine 0 SEEN /hpf (0-5)
[2023-08-13 16:53] LABS: Absolute Lymphocyte Count 2.15 X10^3/uL (0.83-4.51); Absolute Neutrophil Count 5.9 X10^3/uL (2.0-7.7); Basophil# 0.02 X10^3/uL; Basophil% 0.2 % (0-1); Eosinophil# 0.09 X10^3/uL; Hematocrit 34.8 % (37-47); Hemoglobin 10.7 g/dL (12.0-15.0); Lymphocyte # 2.15 X10^3/ul (0.83-4.51); Lymphocyte % 24.5 % (19-41); Mean Corp Hgb Conc 30.7 g/dL (32-36); Mean Corpuscular Hgb 28.5 pg (27.0-32.0); Mean Corpuscular Volume 92.6 fL (81-99); Mean Platelet Vol. 8.8 fl (6.2-12.0); Monocyte# 0.64 X10^3/uL; Monocyte% 7.3 % (0-10); NRBC Flagged by Analyzer 0 % (0-5); Neutrophil # 5.86 X10^3/uL (2.7-7.7); Neutrophil % 66.7 % (47-70); Platelet Count 350 K/mm3 (150-450); RBC Distribution Width CV 15.3 % (11.6-14.6); Red Blood Count 3.76 M/mm3 (4.2-5.4); White Blood Count 8.8 K/mm3 (4.4-11.0)
[2023-08-13 17:12] LABS: Erythrocyte Sedimentation Rate 10 mm/hr (0-30)
[2023-08-13 17:17] LABS: Color, Urine Yellow (Yellow); Glucose, Dipstick Normal (Normal); Ketone-Dipstick 15 mg/dl (Negative); Leukocyte Esterase-Dipstick 100 /ul (Negative); Nitrite-Dipstick Negative (Negative); Occult Blood-Urine 10 /ul (Negative); Protein-Dipstick Negative (Negative); Urine Bilirubin Dipstick Negative (Negative); Urine Clarity Clear (Clear); Urine Urobilinogen Normal (Normal)
[2023-08-13 17:21] LABS: AST(SGOT) 24 U/L (15-37); Alanine Aminotransfer ALT/SGPT 19 U/L (13-56); BUN 20 mg/dL (7-18); CRP < 2.90 mg/L (0.0-3.0); Creatinine, Serum 0.77 mg/dL (0.55-1.02); EST Glomerular Filtration Rate 81 mL/min (>60); Est Glom Filt Rate - Afr Amer 98 mL/min (>60)
[2023-08-13 17:25] LABS: Bacteria RARE /hpf (None Seen); Squamous Epithelial Cells - UA 0-5 SEEN /hpf (5-10); White Blood Cells 0-5 SEEN /hpf (0-5)
== END 2023-08-13 18:00 | disposition home or self-care (01) ==
LOC: LAB 15:42
PROVIDERS: PCP Family Medicine; Referring Provider Internal Medicine Rheumatology; Visit Provider Internal Medicine Rheumatology
DX: Z79.899 Other long term (current) drug therapy (principal)
CPT/HCPCS: 36415; 81001; 81002; 82565; 84450; 84460; 84520; 85025; 85652; 86140

== ENCOUNTER 2023-10-03 17:46 | Outpatient (RCR) | payer BC, SELFPAY ==
--- NOTE | 2023-10-03 18:41 | HP.PTEVAL_ITS ---
Patient's Visit Information Visit Information Visit Information: LAILA HENSLEY is a 57 year old F referred to Physical Therapy by ELIZABETH RHODES with a diagnosis of Achilles Tendonitis. Date of Evaluation: 10/03/23 Physical Therapist: Deborah Torres DPT Visit Plan Frequency: 1x/Week Duration: 4 Weeks Plan: Hold 2-3 weeks- pt to get new shoes, stretch, compression stockings. Subjective Subjective: Left Achilles tendonitis- about 4 months- it started coming up the back- she started to wear heel lifts that helped a little bit then it started to swell and is now going all the way around to the other side. So she went to urgent care at the [facility] and had x-rays and they wanted her to do PT- she was doing exercises and then she did some without her shoes on and she had so much pain- so she went back to see the MD. She then saw the othro and put her in the air cast- she wears that to work everyday and see her in 4 weeks. She feels that the peroneal tendonitis is getting better but the one in the back is still sore. The pain is currently in the back. Worst: 7/10 Agg: being on it. Eases: rest, ice, stretches. Best: Ibuprofen. 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 She does not feel that its getting better its more just staying the same. Sometimes it worse in the AM sometimes its not. No pain that radiates up the leg- the pain is more sharp. No N/T in the achilles. Sleep: not disturbed. PMHx/Meds: see list in chart. Objective Objective: Posture: fair throughout Gait: pes planus Observation: pes planus in standing HR/TR: able with UE A SLS: increased pes planus- muscle activation- no pain Palpation: tender along Achilles Edema: moderate around left ankle ROM: DF: 8 degrees, PF/Inver/Ever: WNL Strength: Ankle: 5/5, Knee: 5/5 Flex: Gastroc:mod, Soleus: mod Balance/Special Test Scores Lower Extremity Functional Score: 55 Goals Goal 1:: Patient will be I with HEP and progression Goal Time Frame: 4-6 Weeks Rehabilitation Potential Physical Therapy Diagnosis: Patient presents with pes planus and decreased flexibility leading to increased pain with ADL's. Anticipated Interventions Patient/Client Instruction: Educate patient on: Benefits of Fitness Program Therapeutic Exercise to Include: Strength training, Endurance training, Balance training, Agility training, Body mechanics, Postural training, Flexibilty training, Gait and locomotor training, Neuromotor development, Dynamic Lumbar Stabilization and Scapular Strength/Stabilization Text: Thank you for the opportunity to evaluate your patient. For Medicare and Medicare HMO plans, please review the plan of care and approve it. It will need to be FAXED BACK to us at [phone] for Medicare purposes. For Medicare only, by signing this I certify the plan of care. Please let me know if there are questions or concerns regarding this plan of care. Physician Signature: Date:
--- NOTE | 2023-12-11 18:07 | HP.PT.NRP ---
Patient Information Patient Information: LAILA HENSLEY was seen in my office for initial evaluation on 10/03/23. The following Plan of Care was established for this patient: POC Established Initial Frequency: 1x/Week Initial Duration: 4 Weeks Anticipated Interventions Patient/Client Instruction: Educate patient on: Benefits of Fitness Program Therapeutic Exercise to Include: Strength training, Endurance training, Balance training, Agility training, Body mechanics, Postural training, Flexibilty training, Gait and locomotor training, Neuromotor development, Dynamic Lumbar Stabilization and Scapular Strength/Stabilization Last Seen Last Seen: This patient was last seen in our office . Pertinent comments regarding their Physical therapy will appear below: Patient was to follow up after MRI- d/c at this time. At this point I will be discontinuing this patient from physical therapy. I would be happy to see this patient again in the future if found appropriate by the physician. Thank you! Deborah Torres, GLORIAT Balance/Gait/Functional tests Balance/Special Test Scores Lower Extremity Functional Score: 55
== END 2023-10-03 19:00 | disposition home or self-care (01) ==
LOC: PT 17:46
PROVIDERS: PCP Family Medicine
DX: M76.72 Peroneal tendinitis, left leg (principal); M76.62 Achilles tendinitis, left leg
CPT/HCPCS: 97162

== ENCOUNTER 2023-11-05 15:42 | Outpatient (RCR) | payer BC, SELFPAY ==
[2023-11-05 16:05] LABS: Bacteria 0 SEEN /hpf (None Seen); Mucous, Urine 0 SEEN /hpf (<or=2+); Red Blood Cells-Urine 0 SEEN /hpf (0-5); Squamous Epithelial Cells - UA 0 SEEN /hpf (5-10)
[2023-11-05 16:40] LABS: Absolute Lymphocyte Count 1.94 X10^3/uL (0.83-4.51); Absolute Neutrophil Count 6.2 X10^3/uL (2.0-7.7); Basophil# 0.06 X10^3/uL; Basophil% 0.7 % (0-1); Eosinophil# 0.14 X10^3/uL; Eosinophils% 1.6 % (0-5); Hematocrit 34.2 % (37-47); Hemoglobin 10.5 g/dL (12.0-15.0); Lymphocyte # 1.94 X10^3/ul (0.83-4.51); Lymphocyte % 21.7 % (19-41); Mean Corp Hgb Conc 30.7 g/dL (32-36); Mean Corpuscular Hgb 26.9 pg (27.0-32.0); Mean Corpuscular Volume 87.7 fL (81-99); Mean Platelet Vol. 8.9 fl (6.2-12.0); Monocyte# 0.62 X10^3/uL; Monocyte% 6.9 % (0-10); NRBC Flagged by Analyzer 0 % (0-5); Neutrophil # 6.17 X10^3/uL (2.7-7.7); Neutrophil % 68.8 % (47-70); Platelet Count 301 K/mm3 (150-450); RBC Distribution Width CV 16.5 % (11.6-14.6); RBC Distribution Width SD 52.8 fl (35.1-43.9)
[2023-11-05 16:48] LABS: Color, Urine Yellow (Yellow); Glucose, Dipstick Normal (Normal); Ketone-Dipstick Negative (Negative); Leukocyte Esterase-Dipstick 100 /ul (Negative); Nitrite-Dipstick Negative (Negative); Occult Blood-Urine Negative /ul (Negative); Protein-Dipstick Negative (Negative); Specific Gravity, Urine 1.025 (1.002-1.030); Urine Bilirubin Dipstick Negative (Negative); Urine Clarity Clear (Clear); Urine Urobilinogen Normal (Normal)
[2023-11-05 16:53] LABS: Urea Nitrogen, Urine 1357 mg/dL (NO RANGE EST.)
[2023-11-05 16:54] LABS: White Blood Cells 0-5 SEEN /hpf (0-5)
[2023-11-05 16:56] LABS: AST(SGOT) 23 U/L (15-37); Alanine Aminotransfer ALT/SGPT 19 U/L (13-56); CRP < 2.90 mg/L (0.0-3.0); Creatinine, Serum 0.79 mg/dL (0.55-1.02); EST Glomerular Filtration Rate 79 mL/min (>60); Est Glom Filt Rate - Afr Amer 96 mL/min (>60)
[2023-11-05 17:00] LABS: Erythrocyte Sedimentation Rate 3 mm/hr (0-30)
[2023-11-07 09:34] LABS: BUN 23 mg/dL (7-18)
== END 2023-11-07 18:00 | disposition home or self-care (01) ==
LOC: LAB 15:42
PROVIDERS: PCP Family Medicine; Referring Provider Internal Medicine Rheumatology; Visit Provider Internal Medicine Rheumatology
DX: Z79.899 Other long term (current) drug therapy (principal)
CPT/HCPCS: 36415; 81001; 82565; 84450; 84460; 84520; 84540; 85025; 85652; 86140

== ENCOUNTER 2023-12-12 15:42 | Outpatient (RCR) | payer BC, SELFPAY ==
[2023-12-12 17:09] LABS: Color, Urine Yellow (Yellow); Glucose, Dipstick Normal (Normal); Ketone-Dipstick Negative (Negative); Leukocyte Esterase-Dipstick 100 /ul (Negative); Nitrite-Dipstick Negative (Negative); Occult Blood-Urine Negative /ul (Negative); Protein-Dipstick 15 mg/dl (Negative); Urine Bilirubin Dipstick Negative (Negative); Urine Clarity Clear (Clear); Urine Urobilinogen Normal (Normal)
[2023-12-12 17:12] LABS: Absolute Lymphocyte Count 1.88 X10^3/uL (0.83-4.51); Absolute Neutrophil Count 5.7 X10^3/uL (2.0-7.7); Basophil# 0.03 X10^3/uL; Basophil% 0.4 % (0-1); Eosinophils% 1.2 % (0-5); Hematocrit 33.6 % (37-47); Hemoglobin 10.4 g/dL (12.0-15.0); Lymphocyte # 1.88 X10^3/ul (0.83-4.51); Lymphocyte % 22.7 % (19-41); Mean Corpuscular Volume 87.3 fL (81-99); Monocyte# 0.56 X10^3/uL; Monocyte% 6.8 % (0-10); NRBC Flagged by Analyzer 0 % (0-5); Neutrophil % 68.7 % (47-70); Platelet Count 368 K/mm3 (150-450); RBC Distribution Width CV 16.8 % (11.6-14.6); RBC Distribution Width SD 53.3 fl (35.1-43.9); Red Blood Count 3.85 M/mm3 (4.2-5.4); White Blood Count 8.3 K/mm3 (4.4-11.0)
[2023-12-12 17:21] LABS: Erythrocyte Sedimentation Rate 6 mm/hr (0-30)
[2023-12-12 17:38] LABS: AST(SGOT) 16 U/L (15-37); Alanine Aminotransfer ALT/SGPT 14 U/L (13-56); BUN 24 mg/dL (7-18); Creatinine, Serum 0.75 mg/dL (0.55-1.02); EST Glomerular Filtration Rate 84 mL/min (>60); Est Glom Filt Rate - Afr Amer 102 mL/min (>60)
== END 2023-12-12 18:00 | disposition home or self-care (01) ==
LOC: LAB 15:42
PROVIDERS: PCP Family Medicine; Referring Provider Internal Medicine Rheumatology; Visit Provider Internal Medicine Rheumatology
DX: Z79.899 Other long term (current) drug therapy (principal)
CPT/HCPCS: 36415; 81002; 82565; 84450; 84460; 84520; 85025; 85652; 86140

== ENCOUNTER 2024-03-10 15:42 | Outpatient (RCR) | payer BC, SELFPAY ==
[2024-03-10 15:50] LABS: Mucous, Urine 0 SEEN /hpf (<or=2+)
[2024-03-10 17:08] LABS: Absolute Lymphocyte Count 1.64 X10^3/uL (0.83-4.51); Absolute Neutrophil Count 6.2 X10^3/uL (2.0-7.7); Basophil# 0.02 X10^3/uL; Basophil% 0.2 % (0-1); Eosinophil# 0.08 X10^3/uL; Eosinophils% 0.9 % (0-5); Hematocrit 35.2 % (37-47); Hemoglobin 10.7 g/dL (12.0-15.0); Lymphocyte # 1.64 X10^3/ul (0.83-4.51); Lymphocyte % 19.2 % (19-41); Mean Corp Hgb Conc 30.4 g/dL (32-36); Mean Corpuscular Volume 88.7 fL (81-99); Mean Platelet Vol. 8.9 fl (6.2-12.0); Monocyte% 5.8 % (0-10); NRBC Flagged by Analyzer 0 % (0-5); Neutrophil # 6.23 X10^3/uL (2.7-7.7); Neutrophil % 72.8 % (47-70); Platelet Count 340 K/mm3 (150-450); RBC Distribution Width SD 54.8 fl (35.1-43.9); Red Blood Count 3.97 M/mm3 (4.2-5.4); White Blood Count 8.6 K/mm3 (4.4-11.0)
[2024-03-10 17:17] LABS: Erythrocyte Sedimentation Rate 9 mm/hr (0-30)
[2024-03-10 17:26] LABS: Color, Urine Yellow (Yellow); Glucose, Dipstick Normal (Normal); Ketone-Dipstick Negative (Negative); Leukocyte Esterase-Dipstick 25 /ul (Negative); Nitrite-Dipstick Negative (Negative); Occult Blood-Urine 10 /ul (Negative); Protein-Dipstick Negative (Negative); Specific Gravity, Urine 1.025 (1.002-1.030); Urine Bilirubin Dipstick Negative (Negative); Urine Clarity Clear (Clear); Urine Urobilinogen Normal (Normal)
[2024-03-10 17:34] LABS: AST(SGOT) 23 U/L (15-37); Alanine Aminotransfer ALT/SGPT 20 U/L (13-56); BUN 27 mg/dL (7-18); CRP 3.16 mg/L (0.0-3.0); Creatinine, Serum 0.92 mg/dL (0.55-1.02); EST Glomerular Filtration Rate 66 mL/min (>60); Est Glom Filt Rate - Afr Amer 80 mL/min (>60)
[2024-03-10 18:13] LABS: Red Blood Cells-Urine 0-5 SEEN /hpf (0-5); White Blood Cells 5-10 SEEN /hpf (0-5)
[2024-03-10 18:14] LABS: Hyaline Cast 0-5 SEEN /lpf (0-5); Squamous Epithelial Cells - UA 0-5 SEEN /hpf (5-10)
[2024-03-10 18:15] LABS: Bacteria 1+ /hpf (None Seen)
== END 2024-03-10 18:00 | disposition home or self-care (01) ==
LOC: LAB 15:42
PROVIDERS: PCP Family Medicine; Referring Provider Internal Medicine Rheumatology; Visit Provider Internal Medicine Rheumatology
DX: Z79.899 Other long term (current) drug therapy (principal)

== ENCOUNTER → 2024-03-25 | Outpatient (CLI) | payer BC, SELFPAY ==
--- NOTE | 2024-03-27 15:45 | BD_ITS ---
STUDY: DUAL ENERGY X-RAY ABSORPTIOMETRY / DXA REASON FOR EXAM: Female, 58 years old. [id number] TECHNIQUE: Bone Mineral Density (BMD) measurements of lumbar spine and bilateral hips were obtained. COMPARISON: Comparison is made with prior study dated March 21, 2022. FINDINGS: Lumbar Spine (L1-L4): g/cm2 (0.927) / T-score (-0.8) / Z-score (0.6) Findings are suggestive of normal bone density with a low fracture risk. Left Femur Total: g/cm2 (0.946) / T-score (0.0) / Z-score (1.0) Left Femoral Neck: g/cm2 (0.748) / T-score (-0.9) / Z-score (0.4) Right Femur Total: g/cm2 (0.921) / T-score (-0.2) / Z-score (0.8) Right Femoral Neck: g/cm2 (0.708) / T-score (-1.3) / Z-score (0.0) The T-Scores on the most recent prior examination were: Lumbar Spine (L1-L4): There has been improvement of bone density since the previous examination. Left Femur Total: which represents a worsening of 1.9%. Right Femur Total: which represents a worsening of 2.5%. BD/Dexa Bone Density Study IMPRESSION: The patient is considered osteopenic as outlined below according to World [place] Organization (WHO) criteria with a low fracture risk. There has been worsening of bone density since the previous examination. Reference Information: The T-score is the number of standard deviations above or below the standard which is normal for young adults at their peak bone mineral density. The World Health Organization (WHO) interprets the T-scores as follows: Above -1 Normal bone density Between -1 and -2.5 Osteopenia Equal to / or below -2.5 Osteoporosis As a practical clinical guideline, osteopenia may be graded as follows: Mild -1 through -1.5 Moderate -1.6 through -2.0 Severe -2.1 through -2.4 The Z-score is the number of standard deviations above or below age-matched controls. A Z-score of less than -1.5 would be considered abnormal. References: 1. NIH Osteoporosis and Related Bone Diseases www osteo.org 2. International Society for Clinical Densitometry www iscd.org 3. National Osteoporosis Foundation www nof.org Electronically Signed: Omari Salcido MD at 9:49 EST ,
== END | disposition home or self-care (01) ==
LOC: OPBD 15:47
PROVIDERS: PCP Family Medicine; Referring Provider Internal Medicine Rheumatology; Visit Provider Internal Medicine Rheumatology
DX: M85.88 Other specified disorders of bone density and structure, other site (principal)
CPT/HCPCS: 77080

== ENCOUNTER → 2024-03-27 | Outpatient (CLI) | payer BC, SELFPAY ==
[2024-03-27 16:41] LABS: Color, Urine Yellow (Yellow); Glucose, Dipstick Normal (Normal); Ketone-Dipstick Negative (Negative); Leukocyte Esterase-Dipstick 500 /ul (Negative); Nitrite-Dipstick Negative (Negative); Occult Blood-Urine 25 /ul (Negative); Protein-Dipstick Negative (Negative); Urine Bilirubin Dipstick Negative (Negative); Urine Clarity Clear (Clear); Urine Urobilinogen Normal (Normal)
[2024-03-27 17:00] LABS: Vitamin B12 743 pg/mL (211-911)
[2024-03-27 17:09] LABS: Ferritin 7 ng/mL (8-252); Iron 28 ug/dL (50-170); Iron Binding Capacity,Total 484 ug/dL (250-450); PERCENT IRON SATURATION 5.8 % (15.0-55.0)
== END | disposition home or self-care (01) ==
LOC: LAB 16:00
PROVIDERS: PCP Family Medicine; Referring Provider Family Medicine; Visit Provider Family Medicine
DX: D64.9 Anemia, unspecified (principal); R31.9 Hematuria, unspecified
CPT/HCPCS: 36415; 81002; 82306; 82607; 82728; 82746; 83540; 83550

== ENCOUNTER 2024-06-09 07:25 | Day surgery (SDC) | payer BC, SELFPAY ==
[2024-06-09] VITALS (7 sets, daily range): BP systolic 82–132; BP diastolic 59–80; PULSE 56–68; RESP 16; TEMP 36.2–37; O2SAT 93–98; BMI 34.3
--- NOTE | 2024-06-09 08:05 | PCM.PRE.AN2 ---
ASA Classification* ASA Classification ASA Classification: 2 Assessment & Plan Anesthesia* Anesthesia Assessment Anesthesia Assessment: Discussed sedation and/or anesthesia options, risks, benefits, and alternatives with patient/parents/legal guardian/POA. Questions invited. The patient/parents/legal guardian/POA seems to understand and agrees to proceed with anesthesia plan. Reviewed the physical assessment, medical history, allergy history and patient home medications list prior to surgery/procedure/anesthetic and documented any changes. Performed airway and anesthesia risk assessments. Anesthesia Type Anesthesia Type: MAC Anesthesia Focused Assessment* Airway Assessment Mouth opens: >3 cm Mallampati Score: II Focused Labs Anesthesia Preop lab: CBC WBC 8.6 K/mm3 (4.4-11.0) 03/10/24 15:48 03/10/24 RBC 3.97 M/mm3 (4.2-5.4) L 03/10/24 15:48 03/10/24 Hgb 10.7 g/dL (12.0-15.0) L 03/10/24 15:48 03/10/24 Hct 35.2 % (37-47) L 03/10/24 15:48 03/10/24 Plt Count 340 K/mm3 (150-450) 03/10/24 15:48 03/10/24 CHEMISTRY Potassium 3.7 mmol/L (3.5-5.1) 06/06/21 16:15 06/06/21 Sodium 140 mmol/L (136-145) 06/06/21 16:15 06/06/21 Magnesium 2.1 mg/dL (1.6-2.6) 06/06/21 16:15 06/06/21 BUN 27 mg/dL (7-18) H 03/10/24 15:48 03/10/24 Creatinine 0.92 mg/dL (0.55-1.02) 03/10/24 15:48 03/10/24 Glucose 92 mg/dL (74-106) 06/06/21 16:15 06/06/21 POC Glucose 77 mg/dL (74-106) 06/10/21 06:34 06/10/21 TSH 2.45 uIU/mL (0.358-3.74) 08/27/18 15:42 08/27/18 COAG Pre-Assessment Diagnosis/Proposed Procedure Planned Operative Procedure(s): EGD Anesthesia History 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 When Was Last Pacemaker Check QUESTION #4 FULL TEXT: You/Your Family Experience fever (hyperthermia) with Anesthesia Last Oral Intake Last Oral intake: Last Oral Intake NPO since Meds taken in AM with sips of water? Meds patient instructed to take am of surgery PONV PONV - water softener service supervisor: PONV - water softener service supervisor Female Yes 06/05/24 11:56 HX of Motion Sickness No 06/05/24 11:56 HX of N/V After Surgery No 06/05/24 11:56 Non-Smoker Yes 06/05/24 11:56 Duration of Surgery greater No 06/05/24 11:56 than 60 minutes Number of Risk Factors 2 06/05/24 11:56 PONV Score Moderate Risk 06/05/24 11:56 Height & Weight Height & Weight: Anesthesia: Height & Weight Height 5 ft 4 in 04/17/24 09:09 Respiratory Assessment Respiratory Assessment - water softener service supervisor: Respiratory Tract Infection Hx - water softener service supervisor Hx Respiratory Tract Infection No 06/05/24 11:56 STOP Sleep Apnea STOP Sleep Apnea - water softener service supervisor: STOP Sleep Apnea - water softener service supervisor Hx Hypertension No 06/05/24 11:56 Hx Sleep Apnea No 06/05/24 11:56 CPAP No 08/06/23 09:28 BIPAP Do you snore loudly (louder No 06/05/24 11:56 than talking or can be heard Do you often feel tired/ No 06/05/24 11:56 fatigued/ sleepy during daytime? Has anyone observed you stop No 06/05/24 11:56 breathing during sleep? STOP Results Negative 06/05/24 11:56 QUESTION #5 FULL TEXT : Do you snore loudly (louder than talking or can be heard through closed doors)? 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 Specify any problems Hx of Preganancy in last 3 No 06/05/24 11:56 Months Nurse Filling Out Transfusion MGRIFFITH 06/05/24 11:56 & Questions: Date: 06/05/24 06/05/24 11:56 Time: 11:58 06/05/24 11:56 Patient unable to answer at this time (ie. confused, unrespo /Reproduction History /Reproductive History - water softener service supervisor: /Reproductive Hx- water softener service supervisor Hx Now No 06/05/24 11:56 Gestational Age (in weeks): EDC: Hx Hx Para Hx Section SAB No 06/05/24 11:56 PFSH Medical History Low iron Easy bruising Acid reflux Link blood in stool Anemia Hemorrhoids Anxiety Rheumatoid arthritis History of ulceration Gastric reflux Non-smoker Family hx of colon cancer Hx of colonic polyp Ovarian cyst, complex CLAUDETTE (stress urinary incontinence, female) Wears glasses Post-menopausal Depression Alcohol use History of steroid therapy Injury of head and neck Shortness of breath on exertion Nodular vasculitis Cystocele Gastric ulcer Vasculitis of skin Home Medications ?Medication ?Instructions ?Recorded ?Last Taken ?Type prednisone 2.5 mg tablet 5 mg PO DAILY 01/08/18 Unknown History esomeprazole magnesium 20 mg 20 mg PO DAILY 06/06/21 06/09/24 05:00 History capsule,delayed release venlafaxine 150 mg 150 mg PO DAILY 05/25/23 Unknown History capsule,extended release 24 hr (Effexor XR) azathioprine 50 mg tablet 50 mg PO QDAY 04/17/24 Unknown History ferrous fumarate 324 mg (106 mg 324 mg PO QODAY 04/17/24 Unknown History iron) tablet phentermine 37.5 mg capsule 37.5 mg PO QDAY 04/17/24 04/15/24 History Held on 06/05/24. Instructions: on hold Allergy/AdvReac Type Severity Reaction Status Date / Time No Known Allergies Allergy Verified 06/09/24 07:56 Family History Mother Hypertension Thyroid disorder Brother Seizures Cerebral palsy Brother Colon cancer Surgical History History of bladder surgery H/O gastric bypass Hx of colonoscopy S/P laparoscopic assisted vaginal hysterectomy (LAVH) Hx of foot surgery History of appendectomy History of ovarian cystectomy Heel spur S/P hammer toe correction S/P gastric bypass Social History household members: none current occupational status: employed current occupation: [employer] Smoking Status: Never smoker alcohol intake: current alcohol intake frequency: holidays/special occasions only substance use type: does not use caffeine: Yes do you feel safe at home: Yes 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
--- NOTE | 2024-06-09 08:06 | H&P.OPEN ---
HPI - General General Date of Service: 06/09/24 HPI Narrative LAILA HENSLEY, is a 58 F who presents for an EGD due to reflux and epigastric discomfort. Patient states it has been well-controlled this weekend. Otherwise denies any changes. Office visit 04/17/2024 HPI HPI: 58-year-old female presents due to reflux and epigastric discomfort. Patient states she has had this for about a year patient has been on generic Nexium 20 mg daily and occasionally twice daily when she has symptoms. Patient denies having EGD however patient did have a gastric bypass in [address] [facility] with Dr. Dowling. Patient states she has bowel moods about every other day denies any blood. Patient did have a recent colonoscopy in July 2023-patient had several tubular adenomas of the recommended 3 years for history of colon cancer. [facility] Medical History Low iron Easy bruising Acid reflux Link blood in stool Anemia Hemorrhoids Anxiety Rheumatoid arthritis History of ulceration Gastric reflux Non-smoker Family hx of colon cancer Hx of colonic polyp Ovarian cyst, complex CLAUDETTE (stress urinary incontinence, female) Wears glasses Post-menopausal Depression Alcohol use History of steroid therapy Injury of head and neck Shortness of breath on exertion Nodular vasculitis Cystocele Gastric ulcer Vasculitis of skin Home Medications ?Medication ?Instructions ?Recorded ?Last Taken ?Type prednisone 2.5 mg tablet 5 mg PO DAILY 01/08/18 Unknown History esomeprazole magnesium 20 mg 20 mg PO DAILY 06/06/21 06/09/24 05:00 History capsule,delayed release venlafaxine 150 mg 150 mg PO DAILY 05/25/23 Unknown History capsule,extended release 24 hr (Effexor XR) azathioprine 50 mg tablet 50 mg PO QDAY 04/17/24 Unknown History ferrous fumarate 324 mg (106 mg 324 mg PO QODAY 04/17/24 Unknown History iron) tablet phentermine 37.5 mg capsule 37.5 mg PO QDAY 04/17/24 04/15/24 History Held on 06/05/24. Instructions: on hold Allergy/AdvReac Type Severity Reaction Status Date / Time No Known Allergies Allergy Verified 06/09/24 07:56 Family History Mother Hypertension Thyroid disorder Brother Seizures Cerebral palsy Brother Colon cancer Surgical History History of bladder surgery H/O gastric bypass Hx of colonoscopy S/P laparoscopic assisted vaginal hysterectomy (LAVH) Hx of foot surgery History of appendectomy History of ovarian cystectomy Heel spur S/P hammer toe correction S/P gastric bypass Social History household members: none current occupational status: employed current occupation: [employer] Smoking Status: Never smoker alcohol intake: current alcohol intake frequency: holidays/special occasions only substance use type: does not use caffeine: Yes do you feel safe at home: Yes 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 Past Medical/Surgical History Planned Operation Planned Operative Procedure(s): EGD S.O.S: No Previous Hospitalizations/Surgeries HX Hospitalizations: No HX of Surgeries: GASTRIC BYPASS 2012 HEEL SPURS BILAT CYST REMOVED FROM OVARY APPENDECTOMY WISDOM TEETH REMOVED HEMMORHOIDECTOMY COLONOSCOPY Any Problems With Anesthesia: No You/Your Family Experience Fever (Hyperthermia) With Anes: No Cholinesterase deficiency: No Cardiovascular Hx Chest Pain within Last 2 months: No Hx of Irregular Heartbeat and/or Afib: No Hx Heart Attack: No Hx Congestive Heart Failure: No Hx Rheumatic Fever: No Hx Hypertension: No Hx Internal Defibrillator: No Hx Pacemaker: No Hx Cardiac Catheterization: No Hx Cardiac Surgery/Stents/Etc.: No Hx Stress Test: Yes ([facility] 08/09/15) Hx Pain in Legs when Walking/Leg Cramps: Yes (LEFT LEG FROM NODULAR VASCULITIS) Respiratory Chronic Cough: No HX of Shortness of Breath: Yes (WITH EXERTION) Hoarseness: No Hx Chronic Obstructive Pulmonary Disease (COPD): No Hx Asthma: No Hx Emphysema: No Hx Sleep Apnea: No CPAP: No Hx Respiratory Tract Infection/Cold (presently): No Do You Snore Loudly (louder than talking or can be heard): No Do You Often Feel Tired/ Fatigued/ Sleepy Dring Daytime?: No Has Anyone Observed You Stop Breathing During Sleep?: No Result (for STOP score): Negative Hx Smoking: No Smoking Status: Never smoker Gastrointestinal Hx Gastrointestinal Disorders: No (HAD GASTRIC BYPASS 2012) Hx Gastrointestinal Bleed: No Hx Ulcer: No Hx Hiatal Hernia: No Difficulty Chewing/Swallowing: No Special diet followed at home: No Hx Unplanned Weight Loss of 20#: No HX Unplanned Weight Gain of 20#: No Neurological Hx Seizures: No HX Syncope/Blackout Spells/Unconsciousness: No Hx Transient Ischemic Attacks (TIA): No Hx Multiple Sclerosis: No Hx Parkinson's Disease: No Hx Head/Neck Injury: No Hx Headaches: No Hx Back Injury/Pain: No Recent Onset of Speech Difficulty: No Restless Legs: No Does patient have nerve stimulator: No Blood Disorder Hx Leukemia: No Bleeding Tendencies: No Hx Deep Vein Thrombosis: No Hx High Cholesterol: No Blood Transmitted Disease: No Hx Hepatitis: No Hx Cirrhosis: No Hx Anemia: No Hx Blood Disorders: No Reproduction : No Is Patient Lactating: No Hx Hysterectomy: No Hx Tubal Ligation: No Are You Post Menopause: Yes Genitourinary Hx Renal Disease: No Musculoskeletal Hx Arthritis: No Hx Rheumatoid Arthritis: No Hx Gout: No Recent Onset of an Orthopedic Problem: Yes (LEFT FOOT) Endocrine Hx Diabetes: No Thyroid Disease: No Hx Steroid Therapy: Yes (DAILY FOR NODULAR VASCULITIS) Psycho/Social Hx Substance Use: No Hx Alcohol Use: No Hx Anxiety: Yes Hx Depression: Yes Mental Illness: No Hx Dementia: No Miscellaneous Hx Cancer: No Recent Exposure to Contagious Disease: No Hx of C-Diff: No Any Loose Teeth: No Allergies No Known Allergies Allergy (Verified 06/09/24 07:56) Discharge Is Pt Admitted From a Halfway, or a Assisted: No Who Could Help: family After D/C, Where Do you Plan to Go: Return Home Vital Signs Vital Signs Vital Signs: 06/09/24 07:57 06/09/24 07:57 Temperature 98.6 F Temperature Source Temporal Pulse Rate 62 Respiratory Rate 16 Respiratory Pattern Normal Blood Pressure 132/80 H Blood Pressure Mean 97 Blood Pressure Source Monitor Blood Pressure Position Sitting Blood Pressure Location Left Arm Pulse Ox 98 Oxygen Delivery Method Room Air Weight Weight: 199 lb 15.348 oz Body Mass Index (BMI) 34.3 Physical Exam Const alert, oriented x3 and no apparent distress HEENT normocephalic and head/scalp atraumatic Resp normal respiratory effort Cardio regular rate GI soft to palpation and non-tender; Negative for non-distended Palpation: Negative for guarding Extremity no clubbing, cyanosis or edema Skin no rashes or lesions noted Neuro CN's II-XII intact bilaterally Psych mental status grossly normal Assessment & Plan Assessment/Plan (1) Acid reflux: (2) H/O gastric bypass: Surgery Risks - Colonoscopy I discussed with the patient the risks of the procedure: Yes Risks Include but are not Limited To: Plan for an EGD risks include but are not limited to: Bleeding, perforation requiring further surgery, inability to complete.
--- NOTE | 2024-06-09 08:45 | EGD_PTH ---
PATIENT: LAILA HENSLEY LOC: EN U#:[id number] AGE/SX: 58/F ROOM: RE06/09/[address]: Dr. Amanda Robertson MD : [id number] BED: DIS: 06/09/2024 SPEC #: [id number] RECD: 06/09/24 11:21 STATUS: KACIE WANG #: [id number] CE: 06/09/24 08:[address]: Amanda Robertson DEPT: SURGICAL PATHOLOGY RECD BY: Sobia Lazaro ENTERED: 06/09/24 11:49 SP TYPE: EGD BIOPSY DES DR: Dr. Fabiana Wiley MD Tissues: A - Gastric mucous membrane B - Gastric mucous membrane C - Gastric mucous membrane Procedures: Surgery Specimen Level IV HEADER OPERATION: EGD PRE-OP DIAGNOSIS: Acid reflux, history of gastric bypass TISSUE SUBMITTED: A- Antrum biopsy, B- Jejunal anastomosis biopsy *history of bypass*, C- Gastroesophageal junction biopsy MICROSCOPIC DIAGNOSIS A. Stomach, antrum, biopsy: * Chronic gastritis with features of reactive gastropathy. * IHC is negative for H pylori organisms. B. Jejunal anastomosis, biopsy: * Oxyntic gastric mucosa with features of reactive gastropathy. C. Esophagus, GE junction, biopsy: * Squamous mucosa with mild reactive change, negative for eosinophils. * Columnar mucosa with reactive change, negative for goblet cell metaplasia. * Negative for dysplasia. MICROSCOPIC DESCRIPTION Slides are reviewed. These tests were developed and their performance characteristics determined by [facility]. They may not have been cleared or approved by the U.S. Food and Drug Administration. The FDA has determined that such clearance or approval is not necessary. The above immunohistochemical/dualISH markers are ordered and reviewed by the Pathologist. GROSS DESCRIPTION A. Received in fixative is one container labeled with the patient's name and designated Antrum biopsy. The specimen consists of one irregular fragment of light whitmore soft tissue that measures 0.4 x 0.3 x 0.2 cm. The specimen is totally submitted in one cassette. B. Received in fixative is one container labeled with the patient's name and designated Jejunal anastomosis biopsy. The specimen consists of one irregular fragment of light whitmore soft tissue that measures 0.8 x 0.2 x 0.2 cm. The specimen is totally submitted in one cassette. C. Received in fixative is one container labeled with the patient's name and designated GE junction biopsy. The specimen consists of one irregular fragment of light whitmore soft tissue that measures 0.5 x 0.3 x 0.2 cm. The specimen is totally submitted in one cassette. LYSSA/ 06/09/2024 TC: CPT:26300z1, [id number]
--- NOTE | 2024-06-09 09:05 | PCM.POST.ANE ---
Anesthesia: Postop Eval I Current Vital Signs Temperature: 97.2 F Pulse Rate: 68 Blood Pressure: 82/59 Respiratory Rate: 16 Pulse Ox: 95 Oxygen Delivery Method: Room Air Assessment Airway patent: Yes Spontaneous unlabored respirations: Yes Mental status: Awake and Calm nausea: No Vomiting: No Anesthesia Complication: No Fluid Hydration Crystalloid volume administer (ml): 30 Total IV fluid infused: 30 Progress Note Anesthesia document: Postop Eval 1 completed: Yes
--- NOTE | 2024-06-09 09:07 | OP.CCLET_ITS ---
06/09/2024 Fabiana Wiley [place] [id number] [address] Re : Upper GI endoscopy procedure for Cori Nickie Dear Dr. Wiley This procedure was performed on Sunday, June 09, 2024. My impressions and recommendations are as follows: Impressions : - Z-line irregular, 44 cm from the incisors. Biopsied. - Erythematous mucosa in the gastric body. Biopsied. Recommendations : - Discharge patient to home. - Resume previous diet. - Continue present medications. - Await pathology results. My findings are described in the full procedure note, which is enclosed. If I can be of further assistance, please feel free to contact me at Doctor phone number(s): , Work: . Sincerely, MD Amanda Murphy MD 06/09/2024 9:06:42 AM This report has been signed electronically.
--- NOTE | 2024-06-09 09:07 | OP.EGD_ITS ---
Patient Name: Cori Fu Procedure Date: 06/09/2024 8:38 AM Date of : 1965 Age: 58 Procedure: Upper GI endoscopy Indications: Heartburn Providers: Amanda Robertson MD Medicines: Monitored Anesthesia Care Patient Profile: This is a 58 year old female. She is status post laparoscopic gastric bypass. Complications: No immediate complications. Procedure: Pre-Anesthesia Assessment: - Prior to the procedure, a History and Physical was performed, and patient medications and allergies were reviewed. The patient's tolerance of previous anesthesia was also reviewed. The risks and benefits of the procedure and the sedation options and risks were discussed with the patient. All questions were answered, and informed consent was obtained. Prior Anticoagulants: The patient has taken no anticoagulant or antiplatelet agents. ASA Grade Assessment: Per anesthesia. After reviewing the risks and benefits, the patient was deemed in satisfactory condition to undergo the procedure. After obtaining informed consent, the endoscope was passed under direct vision. Throughout the procedure, the patient's blood pressure, pulse, and oxygen saturations were monitored continuously. The gastroscope was introduced through the mouth, and advanced to the anastomosis site of gastric bypass. The upper GI endoscopy was accomplished without difficulty. The patient tolerated the procedure well. Scope In: 8:49:39 AM Scope Out: 8:54:29 AM Total Procedure Duration Time 0 hours 4 minutes 50 seconds Findings: The Z-line was irregular and was found 44 cm from the incisors. Biopsies were taken with a cold forceps for histology. Mildly erythematous mucosa without bleeding was found in the gastric body near jejunal anastomosis. Biopsies were taken with a cold forceps for histology. Biopsies were taken with a cold forceps for Helicobacter pylori cultures. Normal/patent jejunal limbs Impression: - Z-line irregular, 44 cm from the incisors. Biopsied. - Erythematous mucosa in the gastric body. Biopsied. Recommendation: - Discharge patient to home. - Resume previous diet. - Continue present medications. - Await pathology results. Procedure Code(s): --- Professional --- 64781, PT, Esophagogastroduodenoscopy, flexible, transoral; with biopsy, single or multiple Diagnosis Code(s): --- Professional --- K22.89, Other specified disease of esophagus K31.89, Other diseases of stomach and duodenum R12, Heartburn CPT copyright 2021 [employer]. All rights reserved. The codes documented in this report are preliminary and upon child day care center worker review may be revised to meet current compliance requirements. MD Amanda Murphy MD 06/09/2024 9:06:42 AM This report has been signed electronically. Number of Addenda: 1 Note Initiated On: 06/09/2024 8:38 AM Addendum Number: 1 Addendum Date: 06/09/2024 9:07:28 AM Patient was noted to have a small marginal ulcer biopsy was taken of this area with cold forceps. Will also place on Carafate x 2 weeks MD Amanda Murphy MD 06/09/2024 9:08:01 AM This report has been signed electronically.
--- NOTE | 2024-06-09 10:39 | PCM.POSTANE2 ---
Anesthesia Postop Eval I Sum Postop Eval Completion status Anesthesia document: Postop Eval 1 completed: Yes Anesthesia Postop Eval I Summary Anesthesia Postop Eval I Summary: Anesthesia Postop Eval I: Assessment Summary Airway patent Yes 06/09/24 09:06 [email or web address] Spontaneous unlabored Yes 06/09/24 09:06 [email or web address] respirations Mental status Awake,Calm 06/09/24 09:06 [email or web address] nausea No 06/09/24 09:06 [email or web address] Vomiting No 06/09/24 09:06 [email or web address] Anesthesia Postop Eval I: Fluid Summary Crystalloid volume administer 30 06/09/24 09:06 [email or web address] (ml) Colloids volume administered ( ml) Blood Product volume administered (ml) Total IV fluid infused 30 06/09/24 09:06 [email or web address] Anesthesia Postop Eval I: Summary Notes Anesthesia Complication No 06/09/24 09:06 [email or web address] Anesthesia Complication Comment: Post-operative progress note Anesthesia: Postop Eval II Evaluation Mental status: Awake Pain Level: 0 nausea: No Vomiting: No
== END 2024-06-09 09:32 | disposition home or self-care (01) ==
LOC: EN 07:26 → AC 07:27
PROVIDERS: PCP Family Medicine; Referring Provider Family Medicine; Visit Provider Surgery
PROC: 0DJ08ZZ Inspection of Upper Intestinal Tract, Via Natural or Artificial Opening Endoscopic (ICD-10-PCS; CPT 43235; principal; 2024-06-09 08:40)
DX: K21.9 Gastro-esophageal reflux disease without esophagitis (principal); Z80.0 Family history of malignant neoplasm of digestive organs; K22.89 Other specified disease of esophagus; Z90.710 Acquired absence of both cervix and uterus; Z79.899 Other long term (current) drug therapy; Z86.0101 Personal history of adenomatous and serrated colon polyps; F32.A Depression, unspecified; F41.9 Anxiety disorder, unspecified; Z90.49 Acquired absence of other specified parts of digestive tract; Z90.6 Acquired absence of other parts of urinary tract; Z98.84 Bariatric surgery status; K31.89 Other diseases of stomach and duodenum; K29.50 Unspecified chronic gastritis without bleeding
CPT/HCPCS: 43239; 88305; 88342; A4216; J2405

== ENCOUNTER 2024-06-11 15:43 | Outpatient (RCR) | payer BC, SELFPAY ==
[2024-06-11 15:49] LABS: Bacteria 0 SEEN /hpf (None Seen); Mucous, Urine 0 SEEN /hpf (<or=2+)
[2024-06-11 16:05] LABS: Absolute Lymphocyte Count 2.46 X10^3/uL (0.83-4.51); Absolute Neutrophil Count 6.1 X10^3/uL (2.0-7.7); Basophil# 0.05 X10^3/uL; Basophil% 0.5 % (0-1); Eosinophil# 0.08 X10^3/uL; Eosinophils% 0.9 % (0-5); Hematocrit 37.1 % (37-47); Hemoglobin 11.7 g/dL (12.0-15.0); Lymphocyte # 2.46 X10^3/ul (0.83-4.51); Lymphocyte % 26.4 % (19-41); Mean Corp Hgb Conc 31.5 g/dL (32-36); Mean Corpuscular Hgb 28.5 pg (27.0-32.0); Mean Corpuscular Volume 90.3 fL (81-99); Mean Platelet Vol. 8.5 fl (6.2-12.0); Monocyte# 0.65 X10^3/uL; NRBC Flagged by Analyzer 0 % (0-5); Neutrophil # 6.05 X10^3/uL (2.7-7.7); Platelet Count 339 K/mm3 (150-450); RBC Distribution Width CV 17.8 % (11.6-14.6); Red Blood Count 4.11 M/mm3 (4.2-5.4); White Blood Count 9.3 K/mm3 (4.4-11.0)
[2024-06-11 16:06] LABS: Color, Urine Yellow (Yellow); Glucose, Dipstick Normal (Normal); Ketone-Dipstick Negative (Negative); Leukocyte Esterase-Dipstick 100 /ul (Negative); Nitrite-Dipstick Negative (Negative); Occult Blood-Urine 10 /ul (Negative); Protein-Dipstick 15 mg/dl (Negative); Specific Gravity, Urine 1.025 (1.002-1.030); Urine Bilirubin Dipstick Negative (Negative); Urine Clarity Clear (Clear); Urine Urobilinogen Normal (Normal)
[2024-06-11 16:13] LABS: Erythrocyte Sedimentation Rate 8 mm/hr (0-30)
[2024-06-11 16:19] LABS: Red Blood Cells-Urine 0-5 SEEN /hpf (0-5); Squamous Epithelial Cells - UA 0-5 SEEN /hpf (5-10); White Blood Cells 5-10 SEEN /hpf (0-5)
[2024-06-11 16:45] LABS: AST(SGOT) 20 U/L (<=31); Alanine Aminotransfer ALT/SGPT 14 U/L (<=34); BUN 31 mg/dL (4-19); Creatinine, Serum 0.88 mg/dL (0.70-1.20); EST Glomerular Filtration Rate 75 (>60)
[2024-06-11 19:33] LABS: CRP < 3.00 mg/L (0.0-3.0)
== END 2024-06-11 18:00 | disposition home or self-care (01) ==
LOC: LAB 15:43
PROVIDERS: PCP Family Medicine; Referring Provider Internal Medicine Rheumatology; Visit Provider Internal Medicine Rheumatology
DX: Z79.899 Other long term (current) drug therapy (principal); M30.0 Polyarteritis nodosa
CPT/HCPCS: 36415; 81001; 82565; 84450; 84460; 84520; 85025; 85652; 86140

== ENCOUNTER 2024-09-09 15:43 | Outpatient (RCR) | payer BC, SELFPAY ==
[2024-09-09 15:54] LABS: Bacteria 0 SEEN /hpf (None Seen); Mucous, Urine 0 SEEN /hpf (<or=2+)
[2024-09-09 16:46] LABS: Color, Urine Straw (Yellow); Glucose, Dipstick Normal (Normal); Ketone-Dipstick Negative (Negative); Leukocyte Esterase-Dipstick Negative /ul (Negative); Nitrite-Dipstick Negative (Negative); Occult Blood-Urine Negative /ul (Negative); Protein-Dipstick Negative (Negative); Urine Bilirubin Dipstick Negative (Negative); Urine Clarity Clear (Clear); Urine Urobilinogen Normal (Normal)
[2024-09-09 16:53] LABS: Absolute Lymphocyte Count 1.85 X10^3/uL (0.83-4.51); Absolute Neutrophil Count 4.5 X10^3/uL (2.0-7.7); Basophil# 0.04 X10^3/uL; Basophil% 0.6 % (0-1); Eosinophil# 0.13 X10^3/uL; Eosinophils% 1.9 % (0-5); Hematocrit 35.1 % (37-47); Hemoglobin 11.3 g/dL (12.0-15.0); Lymphocyte # 1.85 X10^3/ul (0.83-4.51); Lymphocyte % 26.5 % (19-41); Mean Corp Hgb Conc 32.2 g/dL (32-36); Mean Corpuscular Hgb 29.8 pg (27.0-32.0); Mean Corpuscular Volume 92.6 fL (81-99); Mean Platelet Vol. 9.6 fl (6.2-12.0); Monocyte# 0.47 X10^3/uL; Monocyte% 6.7 % (0-10); NRBC Flagged by Analyzer 0 % (0-5); Neutrophil # 4.48 X10^3/uL (2.7-7.7); Neutrophil % 64.2 % (47-70); Platelet Count 280 K/mm3 (150-450); RBC Distribution Width CV 17.1 % (11.6-14.6); RBC Distribution Width SD 58.1 fl (35.1-43.9); Red Blood Count 3.79 M/mm3 (4.2-5.4)
[2024-09-09 16:55] LABS: Erythrocyte Sedimentation Rate 3 mm/hr (0-30)
[2024-09-09 17:09] LABS: AST(SGOT) 23 U/L (<=31); Alanine Aminotransfer ALT/SGPT 13 U/L (<=34); BUN 19 mg/dL (4-19); EST Glomerular Filtration Rate 85 (>60)
[2024-09-09 17:11] LABS: CRP < 3.00 mg/L (0.0-3.0)
[2024-09-09 17:36] LABS: Red Blood Cells-Urine 0-5 SEEN /hpf (0-5); Squamous Epithelial Cells - UA 5-10 SEEN /hpf (5-10); White Blood Cells 0-5 SEEN /hpf (0-5)
== END 2024-09-09 18:00 | disposition home or self-care (01) ==
LOC: LAB 15:43
PROVIDERS: PCP Family Medicine; Referring Provider Internal Medicine Rheumatology; Visit Provider Internal Medicine Rheumatology
DX: M30.0 Polyarteritis nodosa (principal); Z79.899 Other long term (current) drug therapy
CPT/HCPCS: 36415; 81001; 82565; 84450; 84460; 84520; 85025; 85652; 86140; 87086; 87088

== ENCOUNTER → 2024-11-10 | Outpatient (CLI) | payer BC, SELFPAY ==
[2024-11-10 16:27] LABS: Hematocrit 35.9 % (37-47); Hemoglobin 11.7 g/dL (12.0-15.0); Mean Corp Hgb Conc 32.6 g/dL (32-36); Mean Corpuscular Volume 92.8 fL (81-99); Mean Platelet Vol. 8.8 fl (6.2-12.0); Platelet Count 328 K/mm3 (150-450); RBC Distribution Width CV 16.1 % (11.6-14.6); RBC Distribution Width SD 55.3 fl (35.1-43.9); Red Blood Count 3.87 M/mm3 (4.2-5.4); White Blood Count 8.2 K/mm3 (4.4-11.0)
[2024-11-10 17:20] LABS: Cholesterol 176 mg/dL (<=200); Low Density Lipoprotein Calc. 95 mg/dL; Triglycerides 113 mg/dL; Very Low Density Lipoprotein 23 mg/dL (5-40); cholesterol:hdl ratio screen 3.03
[2024-11-10 17:29] LABS: AST(SGOT) 25 U/L (<=31); Alanine Aminotransfer ALT/SGPT 15 U/L (<=34); Albumin, Serum 4.4 g/dL (3.4-4.8); Alkaline Phosphatase 73 U/L (35-104); Anion Gap 11 (5-15); BUN 23 mg/dL (4-19); BUN/Creat Ratio 26.7 RATIO (10-20); Calcium,Total 9.4 mg/dL (7.6-11.0); Carbon Dioxide 23.7 mmol/L (21.0-32.0); Chloride 104 mmol/L (98-108); Ferritin 9 ng/mL (22-378); Globulin 2.5 g/dL (2.2-4.2); Glucose 104 mg/dL (70-99); Iron 27 ug/dL (50-170); Magnesium 2.4 mg/dL (1.5-2.2); Potassium 4.7 mmol/L (3.3-5.1); Vitamin B12 1606 pg/mL (180-914); Vitamin D,25 Hydroxy 35.7 ng/mL (30-100)
[2024-11-10 17:31] LABS: FOLATES,SERUM (FOLIC ACID) 18.40 ng/mL (4.60-34.80)
[2024-11-14 23:07] LABS: Vitamin B1, Thiamine 94.3 nmol/L (66.5-200.0); Zinc, Plasma or Serum 62 ug/dL (44-115)
== END | disposition home or self-care (01) ==
LOC: LAB 15:47
PROVIDERS: PCP Family Medicine
DX: Z98.84 Bariatric surgery status (principal)
CPT/HCPCS: 36415; 80053; 80061; 82306; 82607; 82728; 82746; 83540; 83735; 84425; 84630; 85027

== ENCOUNTER → 2024-11-20 | Outpatient (CLI) | payer BC, SELFPAY ==
--- NOTE | 2024-11-20 07:01 | US_ITS ---
PROCEDURE: ABDOMEN COMPLETE 11/20/2024 REASON FOR EXAM: RUQ PAIN TECHNIQUE: ABDOMEN COMPLETE COMPARISON: None FINDINGS: Liver: Hepatomegaly. The liver measures 18.4 cm. Normal echotexture. Gallbladder: No stones sludge wall thickening or tenderness. Common bile duct: Normal measuring 4 mm . Pancreas: Normal Kidneys: The right kidney measures 10.9 cm 5.3 cm 4.4 cm. The left kidney measures 11.5 cm 5.6 cm 5.8 cm. Renal parenchymal thicknesses and echotextures are preserved. No hydronephrosis. Spleen: Normal in size and echotexture measuring . Aorta: Visualized abdominal aorta is of normal size. IVC: Visualized inferior vena cava is unremarkable. Peritoneal Findings: No ascites identified. US/Abdomen Complete IMPRESSION: Mild hepatomegaly. Reading Location: [place] [id number]
--- OUTSIDE RECORDS SUMMARY | 2024-11-20 07:01 | XMS RPT_ITS | CCD ---
Author Organization [facility] Care Team Providers Care Plate Straightener Name Role Phone Dr. Fabiana Wiley Primary Care Provider [phone] Dr. Fabiana Wiley Referring Provider Dr. Vicenta Yost Attending Provider Dr. Vicenta Yost Referring Provider Dr. Vicenta Yost Other Provider Dr. Jazmine Stacy Other Provider Dr. Vicenta Yost Admit Provider Dr. Fabiana Wiley Primary Care Provider [phone] Shea Sandoval Attending Provider Unavailable Dr. Fabiana Wiley Primary Care Provider [phone] Shea Sandoval Attending Provider Unavailable Dr. Fabiana Wiley Referring Provider Dr. Amanda Robertson Attending Provider Dr. Amanda Robertson Other Provider Dr. Fabiana Wiley MD Primary Care Provider SANJUANA GERMAN MD Attending Provider SANJUANA GERMAN MD Referring Provider Dr. Fabiana Wiley MD Attending Provider Dr. Fabiana Wiley MD Referring Provider Dr. Amanda Robertson MD Attending Provider Dr. Amanda Robertson MD Other Provider Dr. Fabiana Wiley MD Primary Care Provider Dr. Fabiana Wiley MD Referring Provider Dr. Amanda Robertson MD Attending Provider SANJUANA GERMAN MD Attending Provider SANJUANA GERMAN MD Referring Provider Inez LEVINE, Fabiana Primary Care Provider CHRISTY PEACOCK Attending Unavailable MIEDEL, FABIANA Primary Care Unavailable MONSERRAT, RALLIS Attending Unavailable MONSERRAT, RALLIS Referring Unavailable Miedel, Fabiana Primary Care Unavailable MONSERRAT, RALLIS Attending Unavailable MONSERRAT, RALLIS Referring Unavailable Miedel, Fabiana Primary Care Unavailable MONSERRAT, RALLIS Attending Unavailable MONSERRAT, RALLIS Referring Unavailable Miedel, Fabiana Primary Care Unavailable MONSERRAT, RALLIS Attending Unavailable MONSERRAT, RALLIS Referring Unavailable Miedel, Fabiana Primary Care Unavailable VOSLER MAR Attending Unavailable VOSLER, MAR Referring Unavailable Miedel, Fabiana Primary Care Unavailable VOSLER, MAR Attending Unavailable VOSLER, MAR Referring Unavailable Miedel, Fabiana Primary Care Unavailable Robotham, Amanda Attending Unavailable Miedel, Fabiana Referring Unavailable Miedel, Fabiana Primary Care Unavailable Robotham, Amanda Consulting Unavailable MONSERRAT, RALLIS Attending Unavailable MONSERRAT, RALLIS Referring Unavailable Miedel, Fabiana Primary Care Unavailable Miedel, Fabiana Attending Unavailable Miedel, Fabiana Primary Care Unavailable Miedel, Fabiana Referring Unavailable MONSERRAT, RALLIS Attending Unavailable MONSERRAT, RALLIS Referring Unavailable Miedel, Fabiana Primary Care Unavailable Robotham, Amanda Attending Unavailable Miedel, Fabiana Primary Care Unavailable Miedel, Fabiana Referring Unavailable MONSERRAT, RALLIS Attending Unavailable MONSERRAT, RALLIS Referring Unavailable Miedel, Fabiana Primary Care Unavailable Robotham, Amanda Attending Unavailable Miedel, Fabiana Referring Unavailable Miedel, Fabiana Primary Care Unavailable Miedel MD, Dr. Jung Primary Care Provider SANJUANA GERMAN MD Attending Provider SANJUANA GERMAN MD Referring Provider Regis LEVINE, Dr. Lucero Attending Provider CHRISTY PEACOCK Attending Provider CHRISTY PEACOCK Referring Provider Medications Current Medications Medication Drug Class(es) Dates Sig (Normalized) Sig (Original) azaTHIOprine 50 mg oral tablet (17 sources) Purine Antimetabolite Start: 01-08-2018 End: 04-17-2024 take 1 tablet by mouth once daily Azathioprine 50 mg tablet Active 50 mg PO daily April 17, 2024 1:00am take 1 tablet by mouth twice daniel ly azaTHIOprine (Imuran) 50 MG tablet Indications: nodular vascilitis Take 50 mg by mouth 2 times daily. Active esomeprazole 20 mg delayed release oral capsule (14 sources) Proton Pump Inhibitor Start: 06-06-2021 take 1 capsule by mouth once daily Esomeprazole Magnesium 20 mg capsule,delayed release(DR/EC) Active 20 mg PO DAILY June 06, 2021 1:00am ferrous fumarate 324 mg oral tablet (3 sources) Start: 04-17-2024 take 1 tablet by mouth every other day Ferrous Fumarate 324 mg (106 mg iron) tablet Active 324 mg PO EVERY OTHER DAY April 17, 2024 1:00am Multivit With Min-Folic Acid (3 sources) Start: 05-25-2023 take 1 tablet by mouth once daily Multivit With Min-Folic Acid Active 1 TABLET PO DAILY May 25, 2023 1:00am GUMMY Start: 05-25-2023 take 1 tablet by mouth once Mu ltivit With Min-Folic Acid Active TABLET PO May 25, 2023 12:00am GUMMY Multivitamin preparation (9 sources) Start: 08-09-2015 Multivitamin A ctive 1 EACH PO DAILY August 09, 2015 9:43am Start: 08-09-2015 End: 05-25-2023 Multivitamin Discontinued 1 EACH PO DAILY August 09, 2015 12:00am May 25, 2023 11:57am Start: 08-09-2015 End: 05-25-2023 Multivitamin Discontinued 1 EACH PO DAILY August 08, 2015 11:00pm May 25, 2023 10:57am Start: 08-09-2015 Multivitamin A ctive 1 EACH PO DAILY August 08, 2015 11:00pm Start: 08-09-2015 Multivitamin A ctive 1 EACH PO DAILY August 09, 2015 12:00am phentermine hydrochloride 37.5 mg oral capsule (3 sources) Sympathomimetic Amine Anorectic Start: 04-17-2024 take 1 capsule by mouth once daily 30 minutes after breakfast Phentermine 37.5 mg capsule Active 37.5 mg PO daily April 17, 2024 1:00am must administer 30 minutes before or 1-2 hours after breakfast sucralfate 1000 mg oral tablet (3 sources) Aluminum Complex Start: 06-09-2024 take 1 tablet by mouth four times daily 1 hour(s) before bedtime Sucralfate 1 gram tablet Active 1 g PO 4 TIMES DAILY 56 0 June 09, 2024 1:00am Take 1 hour before meals and at bedtime 24 hr venlafaxine 150 mg extended release oral capsule (8 sources) Serotonin and Norepinephrine Reuptake Inhibitor Start: 05-25-2023 take 1 capsule by mouth once daily Venlafaxine (Effexor Xr) 150 mg capsule,extended release 24hr Active 150 mg PO DAILY May 25, 2023 1:00am Completed/Discontinued Medications Medication Drug Class(es) Dates Sig (Normalized) Sig (Original) acetaminophen 300 mg / HYDROcodone bitartrate 5 mg oral tablet (12 sources) Opioid Agonist Start: 08-13-2015 End: 01-08-2018 Hydrocodone-Acetami nophen 1 EACH tablet Discontinued 1 - 2 {tbl} PO EVERY 6 HOURS NEEDED as needed for Pain August 13, 2015 12:00am January 08, 2018 2:02pm Start: 08-13-2015 End: 01-08-2018 take 1 tablet by mouth every six hours as needed Hydrocodone-Acetaminophen Discontinued 1 - 2 TABLET PO EVERY 6 HOURS NEEDED August 13, 2015 12:00am January 08, 2018 2:02pm acetaminophen 325 mg / oxyCODONE hydrochloride 5 mg oral tablet (12 sources) Opioid Agonist Start: 06-10-2021 End: 03-17-2022 Oxycodone-Acetaminophen 1 TABLET tablet Discontinued 2 {tbl} PO EVERY 8 HOURS NEEDED as needed for Pain 20 7 0 June 10, 2021 June 23, 2021 2:47pm Stress incontinence in female Cystocele Stress incontinence (female) (male) Start: 06-10-2021 End: 06-23-2021 take 2 tablets by mouth every eight hours as needed Oxycodone-Acetaminophen Discontinued 2 TABLET PO EVERY 8 HOURS NEEDED 20 7 June 10, 2021 June 23, 2021 2:47pm alendronic acid 70 mg oral tablet (12 sources) Bisphosphonate Start: 08-09-2015 End: 01-08-2018 take 1 tablet by mouth every week Alendronate 70 MG tablet Discontinued 70 mg PO Q7D@0700 August 09, 2015 12:00am January 08, 2018 2:01pm cephalexin 500 mg oral capsule (12 sources) Cephalosporin Antibacterial Start: 06-10-2021 End: 06-23-2021 take 1 capsule by mouth every twelve hours Cephalexin 500 MG capsule Discontinued 500 mg PO EVERY 12 HOURS 6 3 0 June 10, 2021 1:00am June 23, 2021 2:46pm post-operative cholecalciferol 0.05 mg oral capsule (6 sources) Vitamin D Start: 05-25-2023 End: 04-17-2024 take 1 capsule by mouth once daily Cholecalciferol (Vitamin D3) 50 mcg (2,000 unit) capsule Discontinued 50 ug PO DAILY May 25, 2023 1:00am April 17, 2024 10:11am GUMMY clobetasol propionate 0.5 mg/ml topical lotion (6 sources) Corticosteroid Start: 05-25-2023 End: 08-03-2023 Clobetasol 0.05 % lotion Discontinued 1 NMA TOPICAL AT BEDTIME May 25, 2023 1:00am August 03, 2023 11:38am Start: 05-25-2023 End: 08-03-2023 Clobetasol Discontinued 1 AP PLIC TOPICAL AT BEDTIME May 25, 2023 1:00am August 03, 2023 11:38am colchicine 0.6 mg oral tablet (12 sources) Start: 01-08-2018 End: 05-23-2021 take 1 tablet by mouth twice daily Colchicine 0.6 mg tablet Discontinued 0.6 mg PO TWICE A DAY January 08, 2018 12:00am May 23, 2021 3:24pm dapsone 100 mg oral tablet (12 sources) Sulfone Start: 08-09-2015 End: 01-08-2018 take 1 tablet by mouth once daily Dapsone 100 MG tablet Discontinued 100 mg PO DAILY August 09, 2015 12:00am January 08, 2018 2:02pm dexlansoprazole 60 mg delayed release oral capsule (12 sources) Proton Pump Inhibitor Start: 01-08-2018 End: 05-23-2021 take 1 capsule by mouth once daily Dexlansoprazole (Dexilant) 60 mg capsule,biphase delayed releas Discontinued 60 mg PO DAILY January 08, 2018 12:00am May 23, 2021 3:23pm docusate sodium 50 mg oral capsule (6 sources) Start: 05-25-2023 End: 08-03-2023 take 2 capsules by mouth once daily Docusate Sodium 50 mg capsule Discontinued 100 mg PO DAILY May 25, 2023 1:00am August 03, 2023 11:38am Start: 05-25-2023 End: 08-03-2023 take 100 mg by mouth once daily Docusate Sodium Discontinued 100 MG PO DAILY May 25, 2023 1:00am August 03, 2023 11:38am ergocalciferol 1.25 mg oral capsule (12 sources) Provitamin D2 Compound Start: 08-09-2015 End: 01-08-2018 Ergocalciferol (Vitamin D2) 50,000 UNIT capsule Discontinued 65703 U PO EVERY MONTH August 09, 2015 12:00am January 08, 2018 2:02pm FLUoxetine 20 mg oral capsule (6 sources) Serotonin Reuptake Inhibitor Start: 05-25-2023 End: 06-18-2023 take 3 capsules by mouth once daily Fluoxetine (Prozac) 20 mg capsule Discontinued 60 mg PO DAILY May 25, 2023 1:00am June 18, 2023 11:29am Multivit With Min-Folic Acid 200 mcg tablet,chewable (3 sources) Start: 05-25-2023 End: 04-17-2024 Multivit With Min-Folic Acid 200 mcg tablet,chewable Discontinued 1 {tbl} PO DAILY May 25, 2023 1:00am April 17, 2024 10:13am GUMMY Multivitamin 1 EACH tablet (3 sources) Start: 08-09-2015 End: 05-25-2023 Multivitamin 1 EACH tablet Discontinued 1 NMA PO DAILY August 09, 2015 12:00am May 25, 2023 11:57am Plexus Biocleanse (12 sources) Start: 08-09-2015 End: 05-23-2021 take 2 tablets by mouth once daily Plexus Biocleanse Discontinued 2 TABLET PO DAILY August 09, 2015 9:43am May 23, 2021 3:23pm Start: 08-09-2015 End: 05-23-2021 Plexus Biocleanse Discontinu ed 2 {tbl} PO DAILY August 09, 2015 12:00am May 23, 2021 3:23pm Start: 08-09-2015 End: 05-23-2021 take 2 tablets by mouth once daily Plexus Biocleanse Discontinued 2 TABLET PO DAILY August 08, 2015 11:00pm May 23, 2021 2:23pm Start: 08-09-2015 End: 05-23-2021 take 2 tablets by mouth once daily Plexus Biocleanse Discontinued 2 TABLET PO DAILY August 09, 2015 12:00am May 23, 2021 3:23pm Plexus Probio (12 sources) Start: 08-09-2015 End: 05-23-2021 take 1 tablet by mouth once daily Plexus Probio Discontinued 1 TABLET PO DAILY August 09, 2015 9:43am May 23, 2021 3:23pm Start: 08-09-2015 End: 05-23-2021 Plexus Probio Discontinued 1 {tbl} PO DAILY August 09, 2015 12:00am May 23, 2021 3:23pm Start: 08-09-2015 End: 05-23-2021 take 1 tablet by mouth once daily Plexus Probio Discontinued 1 TABLET PO DAILY August 08, 2015 11:00pm May 23, 2021 2:23pm Start: 08-09-2015 End: 05-23-2021 take 1 tablet by mouth once daily Plexus Probio Discontinued 1 TABLET PO DAILY August 09, 2015 12:00am May 23, 2021 3:23pm Plexus Slim (12 sources) Start: 08-09-2015 End: 05-23-2021 Plexus Slim Discontinued 1 P O DAILY August 09, 2015 9:43am May 23, 2021 3:23pm Start: 08-09-2015 End: 05-23-2021 Plexus Slim Discontinued 1 P O DAILY August 08, 2015 11:00pm May 23, 2021 2:23pm Start: 08-09-2015 End: 05-23-2021 Plexus Slim Discontinued 1 P O DAILY August 09, 2015 12:00am May 23, 2021 3:23pm predniSONE 10 mg oral tablet (20 sources) Start: 06-10-2021 End: 06-23-2021 Prednisone 10 mg tablet Discontinued 10 mg PO EVERY OTHER DAY 3 0 June 10, 2021 1:00am June 23, 2021 2:47pm take 20 mg one day and then 10 mg the next day and then back to your daily dose 2.5 mg daily from then on Start: 01-08-2018 take 2 tablets by mo uth once daily Prednisone 2.5 mg tablet Active 5 mg PO DAILY January 08, 2018 2:02pm Start: 01-08-2018 take 2.5 mg by mouth once michael y Prednisone Active 2.5 MG PO DAILY January 08, 2018 1:02pm Start: 01-08-2018 take 5 mg by mouth once daily Prednisone Active 5 MG PO DAILY January 08, 2018 2:02pm Start: 08-09-2015 End: 01-08-2018 take 4 mg by mouth once daily Prednisone 2.5 MG tablet Discontinued 4 mg PO DAILY August 09, 2015 12:00am January 08, 2018 2:04pm Start: 08-09-2015 End: 01-08-2018 take 4 mg by mouth once daily Prednisone Discontinued 4 MG PO DAILY August 09, 2015 12:00am January 08, 2018 2:04pm Premium Ultra Pure (12 sources) Start: 08-09-2015 End: 05-23-2021 take 3 tablets by mouth once daily Premium Ultra Pure Discontinued 3 TABLET PO DAILY August 09, 2015 9:43am May 23, 2021 3:23pm Start: 08-09-2015 End: 05-23-2021 Premium Ultra Pure Discontin ued 3 {tbl} PO DAILY August 09, 2015 12:00am May 23, 2021 3:23pm Start: 08-09-2015 End: 05-23-2021 take 3 tablets by mouth once daily Premium Ultra Pure Discontinued 3 TABLET PO DAILY August 08, 2015 11:00pm May 23, 2021 2:23pm Start: 08-09-2015 End: 05-23-2021 take 3 tablets by mouth once daily Premium Ultra Pure Discontinued 3 TABLET PO DAILY August 09, 2015 12:00am May 23, 2021 3:23pm 72 hr scopolamine 0.0139 mg/hr transdermal system (6 sources) Anticholinergic Start: 05-25-2023 End: 08-03-2023 Scopolamine Base (Transderm-Scop) 1 mg over 3 days patch 3 day Discontinued 1 NMA TD Every 3 Days as needed May 25, 2023 1:00am August 03, 2023 11:39am sertraline 100 mg oral tablet (12 sources) Serotonin Reuptake Inhibitor Start: 08-09-2015 End: 01-08-2018 take 1 tablet by mouth once daily Sertraline 100 MG tablet Discontinued 100 mg PO DAILY August 09, 2015 12:00am January 08, 2018 2:02pm vitamin b12 1 mg extended release oral tablet (12 sources) Vitamin B12 Start: 08-09-2015 End: 01-08-2018 take 1 tablet by mouth once daily Cyanocobalamin (Vitamin B-12) 1,000 MCG tablet extended release Discontinued 1000 ug PO DAILY August 09, 2015 12:00am January 08, 2018 2:02pm vitamin e 180 mg oral capsule (12 sources) Start: 08-09-2015 End: 01-08-2018 take 1 capsule by mouth twice daily Vitamin E 400 UNIT capsule Discontinued 400 U PO TWICE A DAY August 09, 2015 12:00am January 08, 2018 2:02pm Problems Active Problems Problem Classification Problem Date Documented Da te Episodic/Chronic Abdominal pain (9 sources) Epigastric pain; Translations: [Epigastric pain] Onset: 5 11-07-2024 Episodic Deficiency and other anemia (3 sources) Anemia; Translations: [Anemia, unspecified] 04-17-2024 Episodic Esophageal disorders (8 sources) Gastroesophageal reflux disease; Translations: [Gastro-esophageal reflux disease without esophagitis] Onset: 5 04-17-2024 Chronic Gastrointestinal hemorrhage (3 sources) Hematochezia; Translations: [Melena] 04-17-2024 Episodic Genitourinary symptoms and ill-defined conditions (13 sources) Female stress incontinence; Translations: [Stress incontinence (female) (male)] Chronic Hemorrhoids (3 sources) Hemorrhoids; Translations: [Unspecified hemorrhoids] 04-17-2024 Episodic Other aftercare (1 source) Other fci (current) drug therapy; Translations: [Other fci (current) drug therapy] Onset: Episodic Other and unspecified benign neoplasm (4 sources) History of polyp of colon; Translations: [Personal history of colonic polyps] 08-06-2023 Episodic Other and unspecified benign neoplasm (1 source) Personal history of colonic polyps; Translations: [Personal history of colonic polyps] 08-06-2023 Episodic Other congenital anomalies (3 sources) Herniated urinary bladder 06-13-2021 Chronic Comment on above: plan TVHBSO combo ca se stacy Other gastrointestinal disorders (8 sources) History of bypass of stomach; Translations: [Bariatric surgery status] 04-17-2024 Episodic Comment on above: 2013 at [facility] Other gastrointestinal disorders (3 sources) Bariatric surgery status; Translations: [Bariatric surgery status] Onset: Episodic Other nutritional; endocrine; and metabolic disorders (2 sources) Obesity caused by energy imbalance; Translations: [Class 1 obesity due to excess calories without serious comorbidity with body mass index (BMI) of 34.0 to 34.9 in adult] 11-07-2024 Chronic Other nutritional; endocrine; and metabolic disorders (2 sources) Other obesity due to excess calories; Translations: [Other obesity due to excess calories] Onset: Chronic Other nutritional; endocrine; and metabolic disorders (2 sources) Body mass index (BMI) 34.0-34.9, adult; Translations: [Body mass index (BMI) 34.0-34.9, adult] Onset: Chronic Other screening for suspected conditions (not mental disorders or infectious disease) (6 sources) Patient encounter status; Translations: [Encounter for screening for malignant neoplasm of colon] 05-25-2023 Episodic Ovarian cyst (12 sources) Complex ovarian cyst; Translations: [Other ovarian cyst, unspecified side] 06-13-2021 Episodic Comment on above: decision to proceed with laparoscopic BSO at time of hysterectomy due to abnormal appearance of right ovary. discussed with Sobia her sister and permission given for removal. Residual codes; unclassified (12 sources) History of vaginal hysterectomy; Translations: [Acquired absence of both cervix and uterus] 06-13-2021 Episodic Comment on above: initial TVH turned l aparoscopic for ovarian removal due to ovarian pathology Residual codes; unclassified (4 sources) Family history of cancer of colon; Translations: [Family history of malignant neoplasm of digestive organs] 08-06-2023 Episodic Residual codes; unclassified (1 source) Family history of malignant neoplasm of digestive organs; Translations: [Family history of malignant neoplasm of gastrointestinal tract] 08-06-2023 Episodic Systemic lupus erythematosus and connective tissue disorders (1 source) Polyarteritis nodosa; 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: 5 Chronic Unclassified (1 source) Obesity, class 1; Translations: [Obesity, class 1] Onset: 5 Past or Other Problems Problem Classification Problem Date Documented Da te Episodic/Chronic Deficiency and other anemia (1 source) Anemia, unspecified; Translations: [Anemia, unspecified] Onset: 05-01-2024 Episodic Other bone disease and musculoskeletal deformities (1 source) Other specified disorders of bone density and structure, other site; Translations: [Other specified disorders of bone density and structure, other site] Onset: 04-25-2024 Episodic Unclassified (9 sources) Herniated urinary bladder; Translations: [Cystocele] 06-13-2021 Unclassified (1 source) Obesity, class 1; Translations: [Obesity, class 1] Onset: 11-07-2024 Results Test Name Value Interpretation Reference Range Facility Vitamin B1, Thiamineon 11-14 VIT B1 THIAMINE 94.3 nmol/L Normal 66.5-200.0 [facility] Comment on above: Order Comment: Test( s) [id number]. B1, Whole Bloodwas developed and its performance characteristicsdetermined by [email or web address]. It has not been cleared or approvedby the Food and Drug Administration. Performed By: #### L [id number], L503.6030, L503.0105, L506.0250, L400.2011, L506.1000 #### [facility] [place], [address] Zinc, Plasma or Serumon ZINC,PLASMA/SER 62 ug/dL Normal 44-115 [facility] Comment on above: Order Comment: Test( s) [id number]. B1, Whole Bloodwas developed and its performance characteristicsdetermined by [facility]. It has not been cleared or approvedby the Food and Drug Administration. Result Comment: Dete ction Limit = 5 Performed at: [address] [id number] [place] Driver: Celina Anne MD, Phone: [phone] Performed By: #### L [id number], L503.6030, L503.0105, L506.0250, L400.2010, L506.1000 #### [facility] [address] [place], [place], [address] Anion gap in Serum or Plasma on 11-10-2024 Anion gap [Moles/Vol] 11 mmol/L 5-15 [facility] BUN/creatinine ratioon 11-10 Urea nitrogen/Creatinine [Mass ratio] 26.7 mg/mg High 10- [facility] Comment on above: Previous reported re sult: 26.3 RATIOEdited by: ROGERIO on 11/10/24:1729 AMENDED REPORT 11/10/24 1729 BUN/CRE previously reported as: 26.3 H RATIO Bilirubin, totalon Bilirubin [Mass/Vol] 0.16 mg/dL 0.00-1.30 [facility] CBC-Complete Blood Cnt No Di ffon 11-10-2024 Erythrocyte distribution width (RBC) [Ratio] 16.1 % High 11.6-14.6 [facility] Comment on above: Performed By: #### L [id number], [id number], L503.0105, L506.0250, L400.2010, L506.1000 #### [facility] [address] [place], [address] Hematocrit (Bld) [Volume fraction] 35.9 % Low 37-47 [facility] Comment on above: Performed By: #### L [id number], [id number], L503.0105, L506.0250, L400.2010, L506.1000 #### [facility] [address] [place], [address] Hemoglobin (Bld) [Mass/Vol] 11.7 g/dL Low 12.0-15.0 [facility] Comment on above: Performed By: #### L [id number], [id number], L503.0105, L506.0250, L400.2010, L506.1000 #### [facility] [address] [place], [address] MCH (RBC) [Entitic mass] 30.2 pg Normal 27.0-32.0 [facility] Comment on above: Performed By: #### L [id number], [id number], L503.0105, L506.0250, L400.2010, L506.1000 #### [facility] [address] [place], [address] MCHC (RBC) [Mass/Vol] 32.6 g/dL Normal 32-36 [facility] Comment on above: Performed By: #### L [id number], [id number], L503.0105, L506.0250, L400.2010, L506.1000 #### [facility] [address] [place], [address] MCV (RBC) [Entitic vol] 92.8 fL Normal 81-99 [facility] Comment on above: Performed By: #### L [id number], L503.6030, L503.0105, L506.0250, L400.2010, L506.1000 #### [facility] [address] [place], [address] Platelet mean volume (Bld) [Entitic vol] 8.8 fL Normal 6.2-12.0 [facility] Comment on above: Performed By: #### L [id number], [id number], L503.0105, L506.0250, L400.2010, L506.1000 #### [facility] [address] [place], [address] Platelets (Bld) [#/Vol] 328 10*3/uL Normal 150-450 [facility] Comment on above: Performed By: #### L [id number], [id number], L503.0105, L506.0250, L400.2010, L506.1000 #### [facility] [address] [place], [address] RBC (Bld) [#/Vol] 3.87 10*6/uL Low 4.2-5.4 [facility] Comment on above: Performed By: #### L [id number], L503.6030, L503.0105, L506.0250, L400.2010, L506.1000 #### [facility] [address] [place], [address] RDW SD 55.3 fl High 35.1-43.9 [facility] Comment on above: Performed By: #### L [id number], [id number], L503.0105, L506.0250, L400.2010, L506.1000 #### [facility] [address] [place], [address] WBC (Bld) [#/Vol] 8.2 10*3/uL Normal 4.4-11.0 [facility] Comment on above: Performed By: #### L [id number], [id number], L503.0105, L506.0250, L400.2010, L506.1000 #### [facility] [address] [place], [address] Calculated very low density lipoprotein (VLDL) cholesterol measurementon 11-10-2024 Calculated very low density lipoprotein (VLDL) cholesterol measurement 23 mg/dL 5-40 [facility] Carbon dioxide, total [Moles /volume] in Central venous bloodon 11-10-2024 CO2 [Moles/Vol] 23.7 mmol/L 21.0-32.0 [facility] Chloride assayon 11-10-2024 Chloride [Moles/Vol] 104 mmol/L 98-108 [facility] Comprehensive Metabolic Prof ilon 11-10-2024 Albumin [Mass/Vol] 4.4 g/dL Normal 3.4-4.8 [facility] Comment on above: Result Comment: AMENDED REPORT 11/10/241728 ALB previously reported as: 4.3 g/dL Performed By: #### L [id number], L503.6030, L503.0105, L506.0250, L400, L506.1000 #### [facility] [address] [place], [address] Albumin/Globulin [Mass ratio] 1.8 {ratio} Normal 0.9-2.4 [facility] Comment on above: Performed By: #### L [id number], [id number], L503.0105, L506.0250, L400.2010, L506.1000 #### [facility] [address] [place], [address] ALK PHOS 73 U/L Normal 35-104 [facility] Comment on above: Performed By: #### L 503.6550, L503.6030, L503.0105, L506.0250, L400.2010, L506.1000 #### [facility] [address] [place], [address] ALT [Catalytic activity/Vol] 15 U/L Normal <=34 [facility] Comment on above: Result Comment: AMENDED REPORT 11/10/241728 ALT previously reported as: 16 U/L Performed By: #### L 503.6550, L503.6030, L503.0105, L506.0250, L400, L506.1000 #### [facility] [address] [place], [address] AST [Catalytic activity/Vol] 25 U/L Normal <=31 [facility] Comment on above: Result Comment: AMENDED REPORT 11/10/241728 AST previously reported as: 24 U/L Performed By: #### L 503.6550, L503.6030, L503.0105, L506.0250, L400.2010, L506.1000 #### [facility] [address] [place], [address] Bilirubin [Mass/Vol] 0.16 mg/dL Normal 0.00-1.30 [facility] Comment on above: Performed By: #### L 503.6550, L503.6030, L503.0105, L506.0250, L400.2010, L506.1000 #### [facility] [address] [place], [address] BUN/CRE 26.7 RATIO High 10-20 [facility] Comment on above: Result Comment: AMENDED REPORT 11/10/241728 BUN/CRE previously reported as: 26.3 H RATIO Performed By: #### L 503.6550, L503.6030, L503.0105, L506.0250, L400.2010, L506.1000 #### [facility] [address] [place], [address] Calcium [Mass/Vol] 9.4 mg/dL Normal 7.6-11.0 [facility] Comment on above: Result Comment: AMENDED REPORT 11/10/241728 CA previously reported as: 9.5 mg/dL Performed By: #### L 503.6550, L503.6030, L503.0105, L506.0250, L400.2010, L506.1000 #### [facility] [address] [place], [address] Chloride [Moles/Vol] 104 mmol/L Normal 98-108 [facility] Comment on above: Performed By: #### L 503.6550, L503.6030, L503.0105, L506.0250, L400.2010, L506.1000 #### [facility] [address] [place], [address] CO2 [Moles/Vol] 23.7 mmol/L Normal 21.0-32.0 [facility] Comment on above: Performed By: #### L 503.6550, L503.6030, L503.0105, L506.0250, L400.2010, L506.1000 #### [facility] [address] [place], [address] Creatinine [Mass/Vol] 0.87 mg/dL Normal 0.70-1.20 [facility] Comment on above: Result Comment: AMENDED REPORT 11/10/24 1729 CREAT,SERUM previously reported as: 0.84 mg/dL Performed By: #### L 503.6550, L503.6030, L503.0105, L506.0250, L400.2010, L506.1000 #### [facility] [address] [place], [address] GAP 11 Normal 5-15 [facility] Comment on above: Performed By: #### L 503.6550, L503.6030, L503.0105, L506.0250, L400.2010, L506.1000 #### [facility] [address] [place], [address] Globulin (S) [Mass/Vol] 2.5 g/dL Normal 2.2-4.2 [facility] Comment on above: Performed By: #### L 503.6550, L503.6030, L503.0105, L506.0250, L400.2010, L506.1000 #### [facility] [address] [place], [address] Glucose [Mass/Vol] 104 mg/dL High 70-99 [facility] Comment on above: Performed By: #### L 503.6550, L503.6030, L503.0105, L506.0250, L400.2010, L506.1000 #### [facility] [address] [place], [address] Potassium [Moles/Vol] 4.7 mmol/L Normal 3.3-5.1 [facility] Comment on above: Performed By: #### L 503.6550, L503.6030, L503.0105, L506.0250, L400.2010, L506.1000 #### [facility] [address] [place], [address] Sodium [Moles/Vol] 139 mmol/L Normal 133-145 [facility] Comment on above: Performed By: #### L 503.6550, L503.6030, L503.0105, L506.0250, L400.2010, L506.1000 #### [facility] [address] [place], [address] T PROT 6.9 g/dL Normal 5.9-8.4 [facility] Comment on above: Performed By: #### L 503.6550, L503.6030, L503.0105, L506.0250, L4.2010, L506.1000 #### [facility] [address] [place], [address] Urea nitrogen [Mass/Vol] 23 mg/dL High 4-19 [facility] Comment on above: Result Comment: AMENDED REPORT 11/10/24 1729 BUN previously reported as: 22 H mg/dL Performed By: #### L 503.6550, L503.6030, L503.0105, L506.0250, L400.2010, L506.1000 #### [facility] [address] [place], [place], [address] Erythrocyte distribution wid th ratioon 11-10-2024 Erythrocyte distribution width (RBC) [Ratio] 16.1 % High 11.6-14.6 [facility] Erythrocyte distribution wid th standard deviationon 11-10-2024 Erythrocyte distribution width (RBC) [Ratio] 55.3 fl High 35.1-43.9 [facility] Ferritinon 11-10-2024 Ferritin [Mass/Vol] 9 ng/mL Low 22-378 [facility] Comment on above: Performed By: #### L 503.6550, L503.6030, L503.0105, L506.0250, L400.2010, L506.1000 #### [facility] [address] [place], [place], [address] Folate [Mass/volume] in Seru m or Plasmaon 11-10-2024 Folate [Mass/Vol] 18.40 ng/mL 4.60-34.80 [facility] Comment on above: Hemolysis, Results w ill be affected, Requires Recollection. Folates,Serum (Folic Acid)on 11-10-2024 FOLATES,SERUM 18.40 ng/mL Normal 4.60-34.80 [facility] Comment on above: Order Comment: N Result Comment: Hemo lysis, Results will be affected, Requires Recollection. Performed By: #### L 503.6550, L503.6030, L503.0105, L506.0250, L400.2010, L506.1000 #### [facility] [address] [place], [place], [address] Glomerular filtration rate ( GFR) estimation/1.73 sq m using serum, plasma, or whole bon 11-10-2024 GFR/1.73 sq M.predicted among non-blacks MDRD (S/P/Bld) [Vol rate/Area] 80 mL/min/{1.73_m2} >60 [facility] Comment on above: mL/min/1.73m2 CKD-EP I Creatinine Equation (2020) Hematocrit Auto (Bld) [Volum e fraction]on 08-04-2025 Hematocrit (Bld) [Volume fraction] 35.9 % Low 37-47 [facility] Hemoglobin measurementon Hemoglobin (Bld) [Mass/Vol] 11.7 g/dL Low 12.0-15.0 [facility] Ironon 11-10-2024 Iron [Mass/Vol] 27 ug/dL Low 50-170 [facility] Comment on above: Performed By: #### L 503.6550, L503.6030, L503.0105, L506.0250, L400.2010, L506.1000 #### [facility] [address] [place], [address] Iron measurement (mass/mass) on 11-10-2024 Iron (Unsp spec) [Mass/Mass] 27 ug/dL Low 50-170 [facility] LDL calc ser/plason 11-11-19 25 Cholesterol in LDL [Mass/Vol] 95 mg/dL [facility] Comment on above: Lgwodvjwzj=571-445 m g/dL & Higher Igri=625 mg/dL or greaterFriedwald Equation for LDL-C Laboratory - Chemistry and C hemistry - challengeon 11-10-2024 AST [Catalytic activity/Vol] 25 U/L <32 [facility] Comment on above: Previous reported re sult: 24 U/LEdited by: ROGERIO on 11/10/24:1729 AMENDED REPORT 11/10/24 1729 AST previously reported as: 24 U/L Lipid Profileon 11-10-2024 CHOL:HDL 3.03 Normal [facility] Comment on above: Performed By: #### L 503.6550, L503.6030, L503.0105, L506.0250, L400.2010, L506.1000 #### [facility] [address] [place], [address] Cholesterol [Mass/Vol] 176 mg/dL Normal <=200 [facility] Comment on above: Result Comment: Chol esterol level, Desirable <200 mg/dL Borderline high cholesterol 200-239 mg/dL High cholesterol >=240 mg/dL Recommendations of the NCEP Adult Treatment Panel for the following risk-cutoff thresholds for the [place] population. Performed By: #### L 503.6550, L503.6030, L503.0105, L506.0250, L4.2010, L506.1000 #### [facility] [address] [place], [address] Cholesterol in HDL [Mass/Vol] 58 mg/dL Normal [facility] Comment on above: Result Comment: Rand onal Cholesterol Education Program (NCEP) guidelines: <40 mg/dL: Low HDL-cholesterol (major risk factor for CHD) >= 60 mg/dL: High HDL-cholesterol (negative risk factor for CHD) HDL-cholesterol is affected by a number of factors, e.g. smoking, exercise, hormones, sex and age. Performed By: #### L 503.6550, L503.6030, L503.0105, L506.0250, L4, L506.1000 #### [facility] [address] [place], [address] Cholesterol in LDL [Mass/Vol] 95 mg/dL Normal [facility] Comment on above: Result Comment: Bord qcojpx=502-292 mg/dL Higher Ohzm=736 mg/dL or greater Friedwald Equation for LDL-C Performed By: #### L 503.6550, L503.6030, L503.0105, L506.0250, L4.2010, L506.1000 #### [facility] [address] [place], [address] Cholesterol in VLDL [Mass/Vol] 23 mg/dL Normal 5-40 [facility] Comment on above: Performed By: #### L 503.6550, L503.6030, L503.0105, L506.0250, L400.2010, L506.1000 #### [facility] [address] [place], [address] Triglyceride [Mass/Vol] 113 mg/dL Normal [facility] Comment on above: Result Comment: The drugs N-Acetylcysteine and Metamizole may falsely depress this assay. Normal range: <150 mg/dL Borderline High: 150-199 mg/dL High: 200-499 mg/dL Very High: >500 mg/dL Performed By: #### L 503.6550, L503.6030, L503.0105, L506.0250, L400.2010, L506.1000 #### [facility] [address] [place], [address] MCV (mean corpuscular volume ) determinationon 11-10-2024 MCV (RBC) [Entitic vol] 92.8 fL 81-99 [facility] Magnesiumon 11-10-2024 Magnesium [Mass/Vol] 2.4 mg/dL High 1.5-2.2 [facility] Comment on above: Performed By: #### L 503.6550, L503.6030, L503.0105, L506.0250, L400, L506.1000 #### [facility] [address] [place], [place], [address] Magnesium measurement (mass/ volume)on 11-10-2024 Magnesium (Unsp spec) [Mass/Vol] 2.4 mg/dL High 1.5-2.2 [facility] Mean corpuscular hemoglobin (MCH) determinationon 11-10-2024 MCH (RBC) [Entitic mass] 30.2 pg 27.0-32.0 [facility] Mean corpuscular hemoglobin concentration (MCHC) determinationon 11-10-2024 MCHC (RBC) [Mass/Vol] 32.6 g/dL 32-36 [facility] Mean platelet volume determi nationon 11-10-2024 Platelet mean volume (Bld) [Entitic vol] 8.8 fL 6.2-12.0 [facility] Platelet counton 11-10-2024 Platelets (Bld) [#/Vol] 328 10*3/uL 150-450 [facility] Potassium measurement (mass/ volume)on 11-10-2024 Potassium (Unsp spec) [Mass/Vol] 4.7 mmol/L 3.3-5.1 [facility] RBC Auto (Bld) [#/Vol]on RBC (Bld) [#/Vol] 3.87 10*6/uL Low 4.2-5.4 [facility] Screening total cholesterol/ high density lipoprotein (HDL) cholesterol ratioon 11-10-2024 Cholesterol.total/Cho lesterol in HDL [Mass ratio] 3.03 {ratio} [facility] Serum creatinine measurement (mass/volume)on 11-10-2024 Creatinine [Mass/Vol] 0.87 mg/dL 0.70-1.20 [facility] Comment on above: Previous reported re sult: 0.84 mg/dLEdited by: ROGERIO on 11/10/24:1729 AMENDED REPORT 11/10/241728 CREAT,SERUM previously reported as: 0.84 mg/dL Serum globulin measurementon 11-10-2024 Globulin (S) [Mass/Vol] 2.5 g/dL 2.2-4.2 [facility] Serum glucose measurement (m ass/volume)on 11-10-2024 Glucose [Mass/Vol] 104 mg/dL High 70-99 [facility] Serum or plasma alanine zafar otransferase (ALT) measurementon 11-10-2024 ALT [Catalytic activity/Vol] 15 U/L <35 [facility] Comment on above: Previous reported re sult: 16 U/LEdited by: ROGERIO on 11/10/24:1729 AMENDED REPORT 11/10/241728 ALT previously reported as: 16 U/L Serum or plasma albumin jose urement (mass/volume)on 11-10-2024 Albumin [Mass/Vol] 4.4 g/dL 3.4-4.8 [facility] Comment on above: Previous reported re sult: 4.3 g/dLEdited by: ROGERIO on 11/10/24:1729 AMENDED REPORT 11/10/241728 ALB previously reported as: 4.3 g/dL Serum or plasma albumin/glob ulin mass ratioon 11-10-2024 Albumin/Globulin [Mass ratio] 1.8 {ratio} 0.9-2.4 [facility] Serum or plasma alkaline mendoza sphatase measurementon 08-04-2025 ALP [Catalytic activity/Vol] 73 U/L 35-104 [facility] Serum or plasma calcium jose urement (mass/volume)on 11-10-2024 Calcium [Mass/Vol] 9.4 mg/dL 7.6-11.0 [facility] Comment on above: Previous reported re sult: 9.5 mg/dLEdited by: AUTOINS on 11/10/24:1729 AMENDED REPORT 11/10/241728 CA previously reported as: 9.5 mg/dL Serum or plasma cholesterol in HDL measurement (mass/volume)on 11-10-2024 Cholesterol in HDL [Mass/Vol] 58 mg/dL >40 [facility] Comment on above: National Cholesterol Education Program (NCEP) guidelines:<40 mg/dL: Low HDL-cholesterol (major risk factor for CHD)>= 60 mg/dL: High HDL-cholesterol (negative risk factor for CHD)HDL-cholesterol is affected by a number of factors, e.g. smoking, exercise, hormones, sex and age. Serum or plasma cholesterol measurement (mass/volume)on 11-10-2024 Cholesterol [Mass/Vol] 176 mg/dL <201 [facility] Comment on above: Cholesterol level, D esirable <200 mg/dLBorderline high cholesterol 200-239 mg/dLHigh cholesterol >=240 mg/dLRecommendations of the NCEP Adult Treatment Panel for the following risk-cutoff thresholds for the [place] population. Serum or plasma ferritin esteban surement (mass/volume)on 11-10-2024 Ferritin [Mass/Vol] 9 ng/mL Low 22-378 [facility] Serum or plasma thiamine esteban surement (mass/volume)on 11-10-2024 Thiamine [Mass/Vol] 94.3 nmol/L 66.5-200.0 [facility] Serum or plasma urea nitroge n measurement (mass/volume)on 11-10-2024 Urea nitrogen [Mass/Vol] 23 mg/dL High 4-19 [facility] Comment on above: Previous reported re sult: 22 mg/dLEdited by: AUTOINS on 11/10/24:1729 AMENDED REPORT 11/10/241728 BUN previously reported as: 22 H mg/dL Serum or plasma zinc measure ment (mass/volume)on 11-10-2024 Zinc [Mass/Vol] 62 ug/dL 44-115 [facility] Comment on above: Detection Limit = 5P erformed at: [facility] [place] [address] [place], [place] [id number] Director: Celina Anne MD, Phone: [phone] Sodium levelon 11-10-2024 Sodium [Moles/Vol] 139 mmol/L 133-145 [facility] Total proteinon 11-10-2024 Protein [Mass/Vol] 6.9 g/dL 5.9-8.4 [facility] Triglycerides measurementon 11-10-2024 Triglyceride [Mass/Vol] 113 mg/dL <199 [facility] Comment on above: The drugs N-Acetylcy steine and Metamizole may falsely depress this assay. Normal range: <150 mg/dLBorderline High: 150-199 mg/dLHigh: 200-499 mg/dLVery High: >500 mg/dL Vitamin B12on 11-10-2024 Cobalamin (Vitamin B12) [Mass/Vol] 1606 pg/mL High 180-914 [facility] Comment on above: Result Comment: AMENDED REPORT 11/10/24 172 Vitamin B12 previously reported as: 1720 H pg/mL Performed By: #### L 503.6550, L503.6030, L503.0105, L506.0250, L400.2011, L506.1000 #### [facility] [address] [place] [address], [address] Vitamin B12 ser/plason 11-10 Cobalamin (Vitamin B12) [Mass/Vol] 1606 pg/mL High 180-914 [facility] Comment on above: Previous reported re sult: 1720 pg/mLEdited by: ROGERIO on 11/10/24:1729 AMENDED REPORT 11/10/24 1729 Vitamin B12 previously reported as: 1720 H pg/mL Vitamin D,25 Hydroxyon 11-10 Vitamin D 25-OH 35.7 ng/mL Normal 30-100 [facility] Comment on above: Result Comment: Ester min D Status Deficiency: <20 ng/mL (50nmol/L) Insufficiency: 20-30 ng/mL (50-75 nmol/L) Sufficiency: 30-100 ng/mL (75-250 nmol/L) Toxicity: >100 ng/mL (>250 nmol/L) AMENDED REPORT 11/10/24 1729 Vitamin D 25-OH previously reported as: 34.7 ng/mL Vitamin D Status Deficiency: <20 ng/mL (50nmol/L) Insufficiency: 20-30 ng/mL (50-75 nmol/L) Sufficiency: 30-100 ng/mL (75-250 nmol/L) Toxicity: >100 ng/mL (>250 nmol/L) Performed By: #### L 503.6550, L503.6030, L503.0105, L506.0250, L400.2010, L506.1000 #### [facility] [address] [place], [address] White blood cell (WBC) count on 11-10-2024 WBC (Bld) [#/Vol] 8.2 10*3/uL 4.4-11.0 [facility] Office Visiton 11-07-2024 Follow-up visit [id number] Cori Fu 1965 F Date Provider Department Center 11/07/2024 9485-[facility] None Family History Problem Relation Age of Onset High Blood Pressure Father Prostate cancer Brother Family Status - Relation Status Age at Mother Alive Father Sister Alive Brother Alive Level of Service:12037 [place] OFFICE/OUTPATIENT ESTABLISHED LOW MDM 20 MIN Reason for Visit and Comments: Bariatrics Post Op Follow-up [884] - Possible ulcer Normal [facility] Progress Noteon 11-07-2024 Progress Note HPI, PHYSICAL EXAMIN ATION & PLAN Post-Op HPI: Patient here for possible ulcer in stomach. Patient has history of gastric bypass 2012. Medications verified with patient this visit. She is taking oral steroid daily, for nodular vasculitis. She noted she has epigastric discomfort, she has to vomit to feel better. She does vomit food. This occurs with eating any kind of meat. She notes pain sometime to right upper quadrant to back as well. Review of Systems Constitutional: Negative. HENT: Negative. Respiratory: Negative. Cardiovascular: Negative. Gastrointestinal: Positive for abdominal pain. Negative for abdominal distention, anal bleeding, blood in stool, constipation, diarrhea, nausea, rectal pain and vomiting. Genitourinary: Negative. Musculoskeletal: Negative. Skin: Negative. Psychiatric/Behavioral: Negative. Physical Examination: BP 129/82 Pulse 72 Temp 36.4 ?C (97.5 ?F) Resp 16 Ht 5' 3 (1.6 m) Comment: bcc Wt 195 lb 3.2 oz (88.5 kg) BMI 34.58 kg/m? Physical Exam Constitutional: Appearance: Normal appearance. HENT: Head: Normocephalic and atraumatic. Cardiovascular: Comments: Denies chest pain Pulmonary: Comments: Denies shortness of breath Abdominal: Tenderness: There is abdominal tenderness. Comments: Epigastric abdominal pain radiating to right upper quadrant to back Musculoskeletal: General: Normal range of motion. Skin: General: Skin is warm. Neurological: General: No focal deficit present. Mental Status: She is alert and oriented to person, place, and time. Mental status is at baseline. Psychiatric: Mood and Affect: Mood normal. Behavior: Behavior normal. Thought Content: Thought content normal. Judgment: Judgment normal. Assessment: tenderness felt on exam. Patient to have ultrasound for right upper quadrant pain. Ordered UGI for epigastric pain. Plan: offered medical weight loss this visit. No orders of the defined types were placed in this encounter. Medications ordered during this encounter: Encounter Medications[1] Visit Diagnoses: No diagnosis found. Current Medications: Patient's Medications New Prescriptions No medications on file Previous Medications AZATHIOPRINE (IMURAN) 50 MG TABLET Take 50 mg by mouth 2 times daily. ESOMEPRAZOLE (NEXIUM) [address] CAPSULE Take 20 mg by mouth every morning (before breakfast). Do not open capsule. PREDNISONE (DELTASONE) 2.5 MG TABLET Take 2.5 mg by mouth daily. VENLAFAXINE XR (EFFEXOR XR) 150 MG 24 HR CAPSULE Take 150 mg by mouth daily. Do not crush or chew. Modified Medications No medications on file Discontinued Medications No medications on file [1] Outpatient Encounter Medications as of 11/07/2024 Medication Sig Dispense Refill ? azaTHIOprine (Imuran) 50 MG tablet Take 50 mg by mouth 2 times daily. ? esomeprazole (NexIUM) [address] capsule Take 20 mg by mouth every morning (before breakfast). Do not open capsule. ? predniSONE (Deltasone) 2.5 MG tablet Take 2.5 mg by mouth daily. ? venlafaxine XR (Effexor XR) 150 MG 24 hr capsule Take 150 mg by mouth daily. Do not crush or chew. No facility-administered encounter medications on file as of 11/07/2024. [facility] 36on 10-29-2024 36 Late entry: Pt did call back and left message that surgery was gastric bypass by [facility]. Pt states she is having abdominal pain and wants to be seen by [facility] for an EGD. Message already sent to ET and [facility] for scheduling. [place] [address] Spoke with this irma ent who has been scheduled on 11.07. [place] [address] Attempted to contact pt and left message for return call. Pt will need appt w ET to re est and eval for possible ulcer. Please bring copies of any testing that has been completed w her to appt for review. If any CT was done, will need to bring disk to the office for uploading. [facility] 36 Hx states gastric by pass in Mar 2013 but does not indicate who or where. Unable to locate this hx in [place] or [place]. [facility] 36on 10-28-2024 36 Name of Caller: Cori Contact Reason for Appointment: Patient called in requesting to get an appointment scheduled with Dr. Dowling regarding their stomach and states that they believe they have an ulcer but they would like to see if they can be checked out with a scope. Patient states that they have previously seen Dr. Dowling with [facility] and this was around 2012. Patient is requesting a call back and states they prefer to be reached after 3:30 PM. Please advise. Office Name: [facility] Medication Refills need, if any: N/A Medication Name: N/A [facility] Urine Cultureon 09-11-2024 URC Mixed Gram Pos Gram Neg Org [place] Count 25,000-50,000 MIXC Mixed contaminants. Submit a new specimen if indicated. Normal [facility] Comment on above: Performed By: #### L 503.6550, L503.6030, L503.0105, L506.0250, L400.2010, L506.1000 #### [facility] [address] [place], [address] AST(SGOT)on 09-09-2024 AST [Catalytic activity/Vol] 23 U/L Normal <=31 [facility] Comment on above: Performed By: #### L 503.6550, L503.6030, L503.0105, L506.0250, L400.2010, L506.1000 #### [facility] [address] [place], [address] Absolute lymphocyte countOrd ered By: SANJUANA GERMAN on 09-09-2024 Lymphocytes Auto (Unsp spec) [#/Vol] 1.85 10*3/uL 0.83-4.51 [facility] Absolute neutrophil countOrd ered By: SANJUANA GERMAN on 09-09-2024 Neutrophils (Bld) [#/Vol] 4.5 10*3/uL 2.0-7.7 [facility] Alanine Aminotransferas (SGP T)on 09-09-2024 ALT [Catalytic activity/Vol] 13 U/L Normal <=34 [facility] Comment on above: Performed By: #### L 503.6550, L503.6030, L503.0105, L506.0250, L400.2010, L506.1000 #### [facility] [address] [place], [address] Automated lymphocyte count a s percentage of total leukocytesOrdered By: SANJUANA GERMAN on 09-09-2024 Lymphocytes/100 WBC Auto (Unsp spec) 26.5 % 19-41 [facility] BUNon 09-09-2024 Urea nitrogen [Mass/Vol] 19 mg/dL Normal 4-19 [facility] Comment on above: Performed By: #### L 503.6550, L503.6030, L503.0105, L506.0250, L400.2010, L506.1000 #### [facility] [address] [place], [address] Basophil percentageOrdered B y: SANJUANA RUIZAN on 09-09-2024 Basophils/100 WBC (Bld) 0.6 % 0-1 [facility] Bilirubin Test strip Ql (U)O rdered By: SANJUANA RUIZAN on 09-09-2024 Bilirubin Ql (U) Negative Negative [facility] CBC W/Diff, Automatedon Absolute Lymph 1.85 X10 3/uL Normal 0.83-4.51 [facility] Comment on above: Performed By: #### L 503.6550, L503.6030, L503.0105, L506.0250, L400.2010, L506.1000 #### [facility] [address] [place], [address] Absolute Neut 4.5 X10 3/uL Normal 2.0-7.7 [facility] Comment on above: Performed By: #### L 503.6550, L503.6030, L503.0105, L506.0250, L400.2010, L506.1000 #### [facility] [address] [place], [address] Basophils/100 WBC (Bld) 0.6 % Normal 0-1 [facility] Comment on above: Performed By: #### L 503.6550, L503.6030, L503.0105, L506.0250, L400.2010, L506.1000 #### [facility] [address] [place], [address] Eosinophils/100 WBC (Bld) 1.9 % Normal 0-5 [facility] Comment on above: Performed By: #### L 503.6550, L503.6030, L503.0105, L506.0250, L400.2010, L506.1000 #### [facility] [address] [place], [address] Erythrocyte distribution width (RBC) [Ratio] 17.1 % High 11.6-14.6 [facility] Comment on above: Performed By: #### L 503.6550, L503.6030, L503.0105, L506.0250, L400.2010, L506.1000 #### [facility] [address] [place], [address] Hematocrit (Bld) [Volume fraction] 35.1 % Low 37-47 [facility] Comment on above: Performed By: #### L 503.6550, L503.6030, L503.0105, L506.0250, L4, L506.1000 #### [facility] [address] [facility] [place], [address] Hemoglobin (Bld) [Mass/Vol] 11.3 g/dL Low 12.0-15.0 [facility] Comment on above: Performed By: #### L 503.6550, L503.6030, L503.0105, L506.0250, L4.2010, L506.1000 #### [facility] [address] [place], [address] IG% 0.100 Normal 0.0-0.9 [facility] Comment on above: Result Comment: IG% - Immature Granulocytes (promyelocytes, myelocytes and metamyelocytes) > 1% indicates that a LEFT SHIFT is Present. Performed By: #### L 503.6550, L503.6030, L503.0105, L506.0250, L400.2010, L506.1000 #### [facility] [address] [place], [address] Lymphocytes/100 WBC (Bld) 26.5 % Normal 19-41 [facility] Comment on above: Performed By: #### L 503.6550, L503.6030, L503.0105, L506.0250, L400.2010, L506.1000 #### [facility] [address] [place], [address] MCH (RBC) [Entitic mass] 29.8 pg Normal 27.0-32.0 [facility] Comment on above: Performed By: #### L 503.6550, L503.6030, L503.0105, L506.0250, L400.2010, L506.1000 #### [facility] [address] [place], [address] MCHC (RBC) [Mass/Vol] 32.2 g/dL Normal 32-36 [facility] Comment on above: Performed By: #### L 503.6550, L503.6030, L503.0105, L506.0250, L400.2010, L506.1000 #### [facility] [address] [place], [address] MCV (RBC) [Entitic vol] 92.6 fL Normal 81-99 [facility] Comment on above: Performed By: #### L 503.6550, L503.6030, L503.0105, L506.0250, L4.2010, L506.1000 #### [facility] [address] [place], [address] Monocytes/100 WBC (Bld) 6.7 % Normal 0-10 [facility] Comment on above: Performed By: #### L 503.6550, L503.6030, L503.0105, L506.0250, L400.2010, L506.1000 #### [facility] [address] [place], [address] Neutrophils/100 WBC (Bld) 64.2 % Normal 47-70 [facility] Comment on above: Performed By: #### L 503.6550, L503.6030, L503.0105, L506.0250, L400.2010, L506.1000 #### [facility] [address] [place], [address] Nucleated RBC (Bld) [#/Vol] 0 10*3/uL Normal 0-5 [facility] Comment on above: Performed By: #### L 503.6550, L503.6030, L503.0105, L506.0250, L400.2010, L506.1000 #### [facility] [address] [place], [address] Platelet mean volume (Bld) [Entitic vol] 9.6 fL Normal 6.2-12.0 [facility] Comment on above: Performed By: #### L 503.6550, L503.6030, L503.0105, L506.0250, L400.2010, L506.1000 #### [facility] [address] [place], [address] Platelets (Bld) [#/Vol] 280 10*3/uL Normal 150-450 [facility] Comment on above: Performed By: #### L 503.6550, L503.6030, L503.0105, L506.0250, L400.2010, L506.1000 #### [facility] [address] [place], [address] RBC (Bld) [#/Vol] 3.79 10*6/uL Low 4.2-5.4 [facility] Comment on above: Performed By: #### L 503.6550, L503.6030, L503.0105, L506.0250, L400.2010, L506.1000 #### [facility] [address] [place], [address] RDW SD 58.1 fl High 35.1-43.9 [facility] Comment on above: Performed By: #### L 503.6550, L503.6030, L503.0105, L506.0250, L400.2010, L506.1000 #### [facility] [address] [place], [address] WBC (Bld) [#/Vol] 7.0 10*3/uL Normal 4.4-11.0 [facility] Comment on above: Performed By: #### L 503.6550, L503.6030, L503.0105, L506.0250, L400.2010, L506.1000 #### [facility] [address] [place], [address] CRPon 09-09-2024 C-REACTIVE PROT < 3.00 Normal 0.0-3.0 [facility] Comment on above: Performed By: #### L 503.6550, L503.6030, L503.0105, L506.0250, L400.2010, L506.1000 #### [facility] [address] [place], [address] Eosinophil percentageOrdered By: SANJUANA GERMAN on 09-09-2024 Eosinophils/100 WBC (Bld) 1.9 % 0-5 [facility] Erythrocyte Sed Rateon 09-09 SED RATE 3 mm/hr Normal 0-30 [facility] Comment on above: Performed By: #### L 503.6550, L503.6030, L503.0105, L506.0250, L400.2010, L506.1000 #### [facility] [address] [place], [address] Erythrocyte distribution wid th ratioOrdered By: SANJUANA GERMAN on 09-09-2024 Erythrocyte distribution width (RBC) [Ratio] 17.1 % High 11.6-14.6 [facility] Erythrocyte distribution wid th standard deviationOrdered By: SANJUANA GERMAN on 09-09-2024 Erythrocyte distribution width (RBC) [Ratio] 58.1 fl High 35.1-43.9 [facility] Erythrocyte sedimentation ra teOrdered By: SANJUANA GERMAN on 09-09-2024 ESR (Bld) [Velocity] 3 mm/h 0-30 [facility] Glomerular filtration rate ( GFR) estimation/1.73 sq m using serum, plasma, or whole bOrdered By: SANJUANA GERMAN on 09-09-2024 GFR/1.73 sq M.predicted among non-blacks MDRD (S/P/Bld) [Vol rate/Area] 85 mL/min/{1.73_m2} >60 [facility] Comment on above: mL/min/1.73m2 CKD-EP I Creatinine Equation (2020) Hematocrit Auto (Bld) [Volum e fraction]Ordered By: SANJUANA GERMAN on 09-09-2024 Hematocrit (Bld) [Volume fraction] 35.1 % Low 37-47 [facility] Hemoglobin measurementOrdere d By: SANJUANA GERMAN on 09-09-2024 Hemoglobin (Bld) [Mass/Vol] 11.3 g/dL Low 12.0-15.0 [facility] Immature granulocytes/100 WB C Auto (Bld)Ordered By: SANJUANA GERMAN on 09-09-2024 Immature granulocytes/100 WBC (Bld) 0.100 % 0.0-0.9 [facility] Comment on above: IG% - Immature Granu locytes (promyelocytes, myelocytes and metamyelocytes) > 1% indicates that a LEFT SHIFT is Present. Ketones Test strip Ql (U)Ord ered By: SANJUANA GERMAN on 09-09-2024 Ketones Ql (U) Negative Negative [facility] - Chemistry and C hemistry - challengeOrdered By: SANJUANA GERMAN on 09-09-2024 AST [Catalytic activity/Vol] 23 U/L <32 [facility] MCV (mean corpuscular volume ) determinationOrdered By: SANJUANA GERMAN on 09-09-2024 MCV (RBC) [Entitic vol] 92.6 fL 81-99 [facility] Mean corpuscular hemoglobin (MCH) determinationOrdered By: SANJUANA GERMAN on 09-09-2024 MCH (RBC) [Entitic mass] 29.8 pg 27.0-32.0 [facility] Mean corpuscular hemoglobin concentration (MCHC) determinationOrdered By: SANJUANA GERMAN on 09-09-2024 MCHC (RBC) [Mass/Vol] 32.2 g/dL 32-36 [facility] Mean platelet volume determi nationOrdered By: SAJNUANA GERMAN on 09-09-2024 Platelet mean volume (Bld) [Entitic vol] 9.6 fL 6.2-12.0 [facility] Microscopic analysis of urin e for red blood cells (RBC)Ordered By: SANJUANA GERMAN on 09-09-2024 Microscopic analysis of urine for red blood cells (RBC) 0-5 SEEN /hpf 0-5 [facility] Monocyte percentageOrdered B y: SANJUANA GERMAN on 09-09-2024 Monocytes/100 WBC (Bld) 6.7 % 0-10 [facility] Mucus LM Ql (Urine sed)Order ed By: SANJUANA GERMAN on 09-09-2024 Mucus Ql (Urine sed) 0 SEEN /hpf [facility] Neutrophil percentageOrdered By: SANJUANA GERMAN on 09-09-2024 Neutrophils/100 WBC (Bld) 64.2 % 47-70 [facility] Nitrite Test strip Ql (U)Ord ered By: SANJUANA GERMAN on 09-09-2024 Nitrite Ql (U) Negative Negative [facility] Nucleated red blood cell per centageOrdered By: SANJUANA GERMAN on 09-09-2024 Nucleated RBC/100 WBC (Bld) [Ratio] 0 % 0-5 [facility] Platelet countOrdered By: RA WAQAR GERMAN on 09-09-2024 Platelets (Bld) [#/Vol] 280 10*3/uL 150-450 [facility] Protein Test strip Ql (U)Ord ered By: SANJUANA GERMAN on 09-09-2024 Protein Ql (U) Negative Negative [facility] RBC Auto (Bld) [#/Vol]Ordere d By: SANJUANA GERMAN on 09-09-2024 RBC (Bld) [#/Vol] 3.79 10*6/uL Low 4.2-5.4 [facility] Serum Creatinine AND GFRon 0 09-09-2024 Creatinine [Mass/Vol] 0.80 mg/dL Normal 0.70-1.20 [facility] Comment on above: Performed By: #### L 503.6550, L503.6030, L503.0105, L506.0250, L400.2010, L506.1000 #### [facility] [address] [place], [address] GFR/1.73 sq M.predicted among non-blacks MDRD (S/P/Bld) [Vol rate/Area] 85 mL/min/{1.73_m2} Normal >60 [facility] Comment on above: Result Comment: mL/m in/1.73m2 CKD-EPI Creatinine Equation (2020) Performed By: #### L 503.6550, L503.6030, L503.0105, L506.0250, L400.2010, L506.1000 #### [facility] [address] [facility]. [place], [place], [id number] Serum creatinine measurement (mass/volume)Ordered By: SANJUANA GERMAN on 09-09-2024 Creatinine [Mass/Vol] 0.80 mg/dL 0.70-1.20 [facility] Serum or plasma C reactive p rotein measurement (mass/volume)Ordered By: SANJUANA GERMAN on 09-09-2024 CRP [Mass/Vol] mg/L 0.0-3.0 [facility] Serum or plasma alanine zafar otransferase (ALT) measurementOrdered By: SANJUANA GERMAN on 09-09-2024 ALT [Catalytic activity/Vol] 13 U/L <35 [facility] Serum or plasma urea nitroge n measurement (mass/volume)Ordered By: SANJUANA GERMAN on 09-09-2024 Urea nitrogen [Mass/Vol] 19 mg/dL 4-19 [facility] Squamous epithelial cells de tection in urine sediment by light microscopyOrdered By: SANJUANA GERMAN on 09-09-2024 Epithelial cells.squamous LM Ql (Urine sed) 5-10 SEEN /hpf 5-10 [facility] Urinalysis, Completeon 09-09 EPI,SQUAMOUS 5-10 SEEN Normal 5-10 [facility] Comment on above: Order Comment: CLEAN CATCH Performed By: #### L 503.6550, L503.6030, L503.0105, L506.0250, L400.2010, L506.1000 #### [facility] [address] [place], [address] RBC 0-5 SEEN Normal 0-5 [facility] Comment on above: Order Comment: CLEAN CATCH Performed By: #### L 503.6550, L503.6030, L503.0105, L506.0250, L400.2010, L506.1000 #### [facility] [address] [place], [address] WBC 0-5 SEEN Normal 0-5 [facility] Comment on above: Order Comment: CLEAN CATCH Performed By: #### L 503.6550, L503.6030, L503.0105, L506.0250, L400.2010, L506.1000 #### [facility] [address] [place], [address] BACTERIA 0 SEEN Normal None Seen [facility] Comment on above: Order Comment: CLEAN CATCH Performed By: #### L 503.6550, L503.6030, L503.0105, L506.0250, L400.2010, L506.1000 #### [facility] [address] [place], [address] Mucus Ql (Urine sed) 0 SEEN Normal [facility] Comment on above: Order Comment: CLEAN CATCH Performed By: #### L 503.6550, L503.6030, L503.0105, L506.0250, L400.2010, L506.1000 #### [facility] [address] [place], [address] Urine clarityOrdered By: MITCHELL GERMAN on 09-09-2024 Clarity (U) Clear Clear [facility] Urine color determinationOrd ered By: SANJUANA GERMAN on 09-09-2024 Color (U) Straw Yellow [facility] Urine cultureOrdered By: MITCHELL GERMAN on 09-09-2024 Bacteria identified Cx Nom (U) Mixed Gram Pos & Gram Neg Org Abnormal [facility] Urine glucose detectionOrder ed By: SANJUANA GERMAN on 09-09-2024 Glucose Ql (U) Normal mg/dl Normal [facility] Urine leukocyte esterase det ection by dipstickOrdered By: SANJUANA GERMAN on 09-09-2024 Leukocyte esterase Test strip Ql (U) Negative Negative [facility] Urine pHOrdered By: SANJUANA GRAHAM on 09-09-2024 pH (U) 6.0 [pH] 5.0 - 8.0 [facility] Urine sediment bacteria coun t by microscopy (number/high power field)Ordered By: SANJUANA GERMAN on 09-09-2024 Bacteria LM.HPF (Urine sed) [#/Area] 0 /[HPF] None Seen [facility] Urine specific gravity measu rementOrdered By: SANJUANA GERMAN on 09-09-2024 Specific gravity (U) [Rel density] 1.010 1.002-1.030 [facility] Urine urobilinogen measureme ntOrdered By: SANJUANA GERMAN on 09-09-2024 Urobilinogen Ql (U) Normal mg/dl Normal [facility] White blood cell (WBC) count Ordered By: SANJUANA GERMAN on 09-09-2024 WBC (Bld) [#/Vol] 7.0 10*3/uL 4.4-11.0 [facility] White blood cell countOrdere d By: SANJUANA GERMAN on 09-09-2024 White blood cell count 0-5 SEEN /hpf 0-5 [facility] AST(SGOT)on 06-11-2024 AST [Catalytic activity/Vol] 20 U/L Normal <=31 [facility] Comment on above: Performed By: #### L 501.6710, L101.9900, L501.1105, L501.1000, L501.4405, L100.0100, L501.4100, L400.0001 ####[facility] [address] [place], [address] Absolute lymphocyte countOrd ered By: SANJUANA GERMAN on 06-11-2024 Lymphocytes Auto (Unsp spec) [#/Vol] 2.46 10*3/uL 0.83-4.51 [facility] Absolute neutrophil countOrd ered By: SANJUANA GERMAN on 06-11-2024 Neutrophils (Bld) [#/Vol] 6.1 10*3/uL 2.0-7.7 [facility] Alanine Aminotransferas (SGP T)on 06-11-2024 ALT [Catalytic activity/Vol] 14 U/L Normal <=34 [facility] Comment on above: Performed By: #### L 501.6710, L101.9900, L501.1105, L501.1000, L501.4405, L100.0100, L501.4100, L400.0001 ####[facility] [id number] [place], [place], [id number] Automated lymphocyte count a s percentage of total leukocytesOrdered By: SANJUANA GERMAN on 06-11-2024 Lymphocytes/100 WBC Auto (Unsp spec) 26.4 % 19-41 [facility] BUNon 06-11-2024 Urea nitrogen [Mass/Vol] 31 mg/dL High 4-19 [facility] Comment on above: Performed By: #### L 501.6710, L101.9900, L501.1105, L501.1000, L501.4405, L100.0100, L501.4100, L400.0001 ####[facility] [address] [place], [address] Basophil percentageOrdered B y: SANJUANA GERMAN on 06-11-2024 Basophils/100 WBC (Bld) 0.5 % 0-1 [facility] Bilirubin Test strip Ql (U)O rdered By: SANJUANA GERMAN on 06-11-2024 Bilirubin Ql (U) Negative Negative [facility] CBC W/Diff, Automatedon Absolute Lymph 2.46 X10 3/uL Normal 0.83-4.51 [facility] Comment on above: Performed By: #### L 501.6710, L101.9900, L501.1105, L501.1000, L501.4405, L100.0100, L501.4100, L400.0001 #### [facility] [address] [place], [address] Absolute Neut 6.1 X10 3/uL Normal 2.0-7.7 [facility] Comment on above: Performed By: #### L 501.6710, L101.9900, L501.1105, L501.1000, L501.4405, L100.0100, L501.4100, L400.0001 #### [facility] [address] [place], [address] Basophils/100 WBC (Bld) 0.5 % Normal 0-1 [facility] Comment on above: Performed By: #### L 501.6710, L101.9900, L501.1105, L501.1000, L501.4405, L100.0100, L501.4100, L400.0001 #### [facility] [address] [place], [address] Eosinophils/100 WBC (Bld) 0.9 % Normal 0-5 [facility] Comment on above: Performed By: #### L 501.6710, L101.9900, L501.1105, L501.1000, L501.4405, L100.0100, L501.4100, L400.0001 #### [facility] [address] [place], [address] Erythrocyte distribution width (RBC) [Ratio] 17.8 % High 11.6-14.6 [facility] Comment on above: Performed By: #### L 501.6710, L101.9900, L501.1105, L501.1000, L501.4405, L100.0100, L501.4100, L400.0001 #### [facility] [address] [place], [address] Hematocrit (Bld) [Volume fraction] 37.1 % Normal 37-47 [facility] Comment on above: Performed By: #### L 501.6710, L101.9900, L501.1105, L501.1000, L501.4405, L100.0100, L501.4100, L400.0001 #### [facility] [address] [place], [address] Hemoglobin (Bld) [Mass/Vol] 11.7 g/dL Low 12.0-15.0 [facility] Comment on above: Performed By: #### L 501.6710, L101.9900, L501.1105, L501.1000, L501.4405, L100.0100, L501.4100, L400.0001 #### [facility] [address] [facility] [place], [address] IG% 0.200 Normal 0.0-0.9 [facility] Comment on above: Result Comment: IG% - Immature Granulocytes (promyelocytes, myelocytes and metamyelocytes) > 1% indicates that a LEFT SHIFT is Present. Performed By: #### L 501.6710, L101.9900, L501.1105, L501.1000, L501.4405, L100.0100, L501.4100, L400.0001 #### [facility] [address] [facility] [address] [place], [address] Lymphocytes/100 WBC (Bld) 26.4 % Normal 19-41 [facility] Comment on above: Performed By: #### L 501.6710, L101.9900, L501.1105, L501.1000, L501.4405, L100.0100, L501.4100, L400.0001 #### [facility] [address] [facility] [address] [place], [address] MCH (RBC) [Entitic mass] 28.5 pg Normal 27.0-32.0 [facility] Comment on above: Performed By: #### L 501.6710, L101.9900, L501.1105, L501.1000, L501.4405, L100.0100, L501.4100, L400.0001 #### [facility] [address] [place], [address] MCHC (RBC) [Mass/Vol] 31.5 g/dL Low 32-36 [facility] Comment on above: Performed By: #### L 501.6710, L101.9900, L501.1105, L501.1000, L501.4405, L100.0100, L501.4100, L400.0001 #### [facility] [address] [place], [address] MCV (RBC) [Entitic vol] 90.3 fL Normal 81-99 [facility] Comment on above: Performed By: #### L 501.6710, L101.9900, L501.1105, L501.1000, L501.4405, L100.0100, L501.4100, L400.0001 #### [facility] [address] [place], [address] Monocytes/100 WBC (Bld) 7.0 % Normal 0-10 [facility] Comment on above: Performed By: #### L 501.6710, L101.9900, L501.1105, L501.1000, L501.4405, L100.0100, L501.4100, L400.0001 #### [facility] [address] [place], [address] Neutrophils/100 WBC (Bld) 65.0 % Normal 47-70 [facility] Comment on above: Performed By: #### L 501.6710, L101.9900, L501.1105, L501.1000, L501.4405, L100.0100, L501.4100, L400.0001 #### [facility] [address] [place], [address] Nucleated RBC (Bld) [#/Vol] 0 10*3/uL Normal 0-5 [facility] Comment on above: Performed By: #### L 501.6710, L101.9900, L501.1105, L501.1000, L501.4405, L100.0100, L501.4100, L400.0001 #### [facility] [address] [place], [address] Platelet mean volume (Bld) [Entitic vol] 8.5 fL Normal 6.2-12.0 [facility] Comment on above: Performed By: #### L 501.6710, L101.9900, L501.1105, L501.1000, L501.4405, L100.0100, L501.4100, L400.0001 #### [facility] [address] [place], [address] Platelets (Bld) [#/Vol] 339 10*3/uL Normal 150-450 [facility] Comment on above: Performed By: #### L 501.6710, L101.9900, L501.1105, L501.1000, L501.4405, L100.0100, L501.4100, L400.0001 #### [facility] [address] [place], [address] RBC (Bld) [#/Vol] 4.11 10*6/uL Low 4.2-5.4 [facility] Comment on above: Performed By: #### L 501.6710, L101.9900, L501.1105, L501.1000, L501.4405, L100.0100, L501.4100, L400.0001 #### [facility] [address] [place], [address] RDW SD 59.0 fl High 35.1-43.9 [facility] Comment on above: Performed By: #### L 501.6710, L101.9900, L501.1105, L501.1000, L501.4405, L100.0100, L501.4100, L400.0001 #### [facility] [address] [facility] [place], [place], [id number] WBC (Bld) [#/Vol] 9.3 10*3/uL Normal 4.4-11.0 [facility] Comment on above: Performed By: #### L 501.6710, L101.9900, L501.1105, L501.1000, L501.4405, L100.0100, L501.4100, L400.0001 #### [facility] [address] [facility] [place], [address] CRPon 06-11-2024 C-REACTIVE PROT < 3.00 Normal 0.0-3.0 [facility] Comment on above: Performed By: #### L 501.6710, L101.9900, L501.1105, L501.1000, L501.4405, L100.0100, L501.4100, L400.0001 ####[facility] [address] [facility] [place], [address] CRP [Mass/Vol]Ordered By: RA WAQAR GERMAN on 06-11-2024 C-Reactive Protein Extended Range < 3.00 mg/L 0.0-3.0 [facility] Eosinophil percentageOrdered By: SANJUANA GERMAN on 06-11-2024 Eosinophils/100 WBC (Bld) 0.9 % 0-5 [facility] Epithelial cells.squamous LM Ql (Urine sed)Ordered By: SANJUANA GERMAN on 06-11-2024 Epithelial cells.squamous LM.HPF (Urine sed) [#/Area] 0 /[HPF] 5-10 [facility] Erythrocyte Sed Rateon 06-11 SED RATE 8 mm/hr Normal 0-30 [facility] Comment on above: Performed By: #### L 501.6710, L101.9900, L501.1105, L501.1000, L501.4405, L100.0100, L501.4100, L400.0001 ####[facility] [address] [place], [place], [id number] Erythrocyte distribution wid th ratioOrdered By: SANJUANA GERMAN on 06-11-2024 Erythrocyte distribution width (RBC) [Ratio] 17.8 % High 11.6-14.6 [facility] Erythrocyte distribution wid th standard deviationOrdered By: SANJUANA GERMAN on 06-11-2024 Erythrocyte distribution width (RBC) [Entitic vol] 59.0 fL High 35.1-43.9 [facility] Erythrocyte distribution width (RBC) [Ratio] 59.0 fl High 35.1-43.9 [facility] Erythrocyte sedimentation ra teOrdered By: SANJUANA GERMAN on 06-11-2024 ESR (Bld) [Velocity] 8 mm/h 0-30 [facility] GFR/1.73 sq M.predicted skyla g non-blacks MDRD (S/P/Bld) [Vol rate/Area]Ordered By: SANJUANA GERMAN on 06-11-2024 Estimated GFR (MDRD) Non-Af Amer 75 >60 [facility] Comment on above: mL/min/1.73m2 CKD-EP I Creatinine Equation (2020) Glomerular filtration rate ( GFR) estimation/1.73 sq m using serum, plasma, or whole bOrdered By: SANJAUNA GERMAN on 06-11-2024 GFR/1.73 sq M.predicted among non-blacks MDRD (S/P/Bld) [Vol rate/Area] 75 mL/min/{1.73_m2} >60 [facility] Comment on above: mL/min/1.73m2 CKD-EP I Creatinine Equation (2020) Glucose Ql (U)Ordered By: RA WAQAR GERMAN on 06-11-2024 Urine Glucose (UA) Normal mg/dl Normal [facility] Hematocrit Auto (Bld) [Volum e fraction]Ordered By: SANJUANA GERMAN on 06-11-2024 Hematocrit (Bld) [Volume fraction] 37.1 % 37-47 [facility] Hemoglobin measurementOrdere d By: SANJUANA GERMAN on 06-11-2024 Hemoglobin (Bld) [Mass/Vol] 11.7 g/dL Low 12.0-15.0 [facility] Immature granulocytes/100 WB C Auto (Bld)Ordered By: SANJUANA GERMAN on 06-11-2024 Immature granulocytes/100 WBC (Bld) 0.200 % 0.0-0.9 [facility] Comment on above: IG% - Immature Granu locytes (promyelocytes, myelocytes and metamyelocytes) > 1% indicates that a LEFT SHIFT is Present. Ketones Test strip Ql (U)Ord ered By: SANJUANA GERMAN on 06-11-2024 Ketones Ql (U) Negative Negative [facility] - Chemistry and C hemistry - challengeOrdered By: SANJUANA GERMAN on 06-11-2024 AST [Catalytic activity/Vol] 20 U/L <32 [facility] Lymphocytes Auto (Unsp spec) [#/Vol]Ordered By: SANJUANA GERMAN on 06-11-2024 Lymphocytes (Bld) [#/Vol] 2.46 10*3/uL 0.83-4.51 [facility] Lymphocytes/100 WBC Auto (Un sp spec)Ordered By: SANJUANA GERMAN on 06-11-2024 Lymphocytes/100 WBC (Bld) 26.4 % 19-41 [facility] MCV (mean corpuscular volume ) determinationOrdered By: SANJUANA GERMAN on 06-11-2024 MCV (RBC) [Entitic vol] 90.3 fL 81-99 [facility] Mean corpuscular hemoglobin (MCH) determinationOrdered By: SANJUANA GERMAN on 06-11-2024 MCH (RBC) [Entitic mass] 28.5 pg 27.0-32.0 [facility] Mean corpuscular hemoglobin concentration (MCHC) determinationOrdered By: SANJUANA GERMAN on 06-11-2024 MCHC (RBC) [Mass/Vol] 31.5 g/dL Low 32-36 [facility] Mean platelet volume determi nationOrdered By: SANJUANA GERMAN on 06-11-2024 Platelet mean volume (Bld) [Entitic vol] 8.5 fL 6.2-12.0 [facility] Microscopic analysis of urin e for red blood cells (RBC)Ordered By: SANJUANA GERMAN on 06-11-2024 Microscopic analysis of urine for red blood cells (RBC) 0-5 SEEN /hpf 0-5 [facility] Urine RBC 0-5 SEEN /hpf 0-5 [facility] Monocyte percentageOrdered B y: SANJUANA GERMAN on 06-11-2024 Monocytes/100 WBC (Bld) 7.0 % 0-10 [facility] Mucus LM Ql (Urine sed)Order ed By: SANJUANA GERMAN on 06-11-2024 Mucus Ql (Urine sed) 0 SEEN /hpf [facility] Neutrophil percentageOrdered By: SANJUANA GERMAN on 06-11-2024 Neutrophils/100 WBC (Bld) 65.0 % 47-70 [facility] Nitrite Test strip Ql (U)Ord ered By: SANJUANA GERMAN on 06-11-2024 Nitrite Ql (U) Negative Negative [facility] Nucleated red blood cell per centageOrdered By: SANJUANA GERMAN on 06-11-2024 Nucleated RBC/100 WBC (Bld) [Ratio] 0 % 0-5 [facility] Platelet countOrdered By: RA WAQAR GERMAN on 06-11-2024 Platelets (Bld) [#/Vol] 339 10*3/uL 150-450 [facility] Protein Test strip Ql (U)Ord ered By: SANJUANA GERMAN on 06-11-2024 Protein Ql (U) 15 mg/dl High Negative [facility] RBC Auto (Bld) [#/Vol]Ordere d By: SANJUANA GERMAN on 06-11-2024 RBC (Bld) [#/Vol] 4.11 10*6/uL Low 4.2-5.4 [facility] Serum Creatinine AND GFRon 0 06-11-2024 Creatinine [Mass/Vol] 0.88 mg/dL Normal 0.70-1.20 [facility] Comment on above: Performed By: #### L 501.6710, L101.9900, L501.1105, L501.1000, L501.4405, L100.0100, L501.4100, L400.0001 ####[facility] [address] [place], [place], [id number] GFR/1.73 sq M.predicted among non-blacks MDRD (S/P/Bld) [Vol rate/Area] 75 mL/min/{1.73_m2} Normal >60 [facility] Comment on above: Result Comment: mL/m in/1.73m2 CKD-EPI Creatinine Equation (2020) Performed By: #### L 501.6710, L101.9900, L501.1105, L501.1000, L501.4405, L100.0100, L501.4100, L400.0001 ####[facility] [address] [place], [place], [address] Serum creatinine measurement (mass/volume)Ordered By: SANJUANA GERMAN on 06-11-2024 Creatinine [Mass/Vol] 0.88 mg/dL 0.70-1.20 [facility] Serum or plasma C reactive p rotein measurement (mass/volume)Ordered By: SANJUANA GERMAN on 06-11-2024 CRP [Mass/Vol] mg/L 0.0-3.0 [facility] Serum or plasma alanine zafar otransferase (ALT) measurementOrdered By: SANJUANA GERMAN on 06-11-2024 ALT [Catalytic activity/Vol] 14 U/L <35 [facility] Serum or plasma urea nitroge n measurement (mass/volume)Ordered By: SANJUANA GERMAN on 06-11-2024 Urea nitrogen [Mass/Vol] 31 mg/dL High 4-19 [facility] Squamous epithelial cells de tection in urine sediment by light microscopyOrdered By: SANJUANA GERMAN on 06-11-2024 Epithelial cells.squamous LM Ql (Urine sed) 0-5 SEEN /hpf 5-10 [facility] Urinalysis, Completeon 06-11 EPI,SQUAMOUS 0-5 SEEN Normal 5-10 [facility] Comment on above: Order Comment: PER O RDER-UA MACROSCOPIC MICROSCOPIC Urine, Random Performed By: #### L 501.6710, L101.9900, L501.1105, L501.1000, L501.4405, L100.0100, L501.4100, L400.0001 #### [facility] [address] [place], [address] RBC 0-5 SEEN Normal 0-5 [facility] Comment on above: Order Comment: PER O RDER-UA MACROSCOPIC MICROSCOPIC Urine, Random Performed By: #### L 501.6710, L101.9900, L501.1105, L501.1000, L501.4405, L100.0100, L501.4100, L400.0001 #### [facility] [address] [place], [address] WBC 5-10 SEEN Normal 0-5 [facility] Comment on above: Order Comment: PER O RDER-UA MACROSCOPIC MICROSCOPIC Urine, Random Performed By: #### L 501.6710, L101.9900, L501.1105, L501.1000, L501.4405, L100.0100, L501.4100, L400.0001 #### [facility] [address] [place], [address] BACTERIA 0 SEEN Normal None Seen [facility] Comment on above: Order Comment: PER O RDER-UA MACROSCOPIC MICROSCOPIC Urine, Random Performed By: #### L 501.6710, L101.9900, L501.1105, L501.1000, L501.4405, L100.0100, L501.4100, L400.0001 #### [facility] [address] [place], [place], [address] (363) Mucus Ql (Urine sed) 0 SEEN Normal [facility] Comment on above: Order Comment: PER O RDER-UA MACROSCOPIC MICROSCOPIC Urine, Random Performed By: #### L 501.6710, L101.9900, L501.1105, L501.1000, L501.4405, L100.0100, L501.4100, L400.0001 #### [facility] [address] [place], [address] Urine blood detectionOrdered By: SANJUANA GERMAN on 06-11-2024 Urine Occult Blood 10 /ul High Negative [facility] Urine clarityOrdered By: MITCHELL GERMAN on 06-11-2024 Clarity (U) Clear Clear [facility] Urine color determinationOrd ered By: SANJUANA GERMAN on 06-11-2024 Color (U) Yellow Yellow [facility] Urine glucose detectionOrder ed By: SANJUANA GERMAN on 06-11-2024 Glucose Ql (U) Normal mg/dl Normal [facility] Urine leukocyte esterase det ection by dipstickOrdered By: SANJUANA GERMAN on 06-11-2024 Leukocyte esterase Test strip Ql (U) 100 /ul High Negative [facility] Urine pHOrdered By: SANJUANA GRAHAM on 06-11-2024 pH (U) 5.0 [pH] 5.0 - 8.0 [facility] Urine sediment bacteria coun t by microscopy (number/high power field)Ordered By: SANJUANA GERMAN on 06-11-2024 Bacteria LM.HPF (Urine sed) [#/Area] 0 /[HPF] None Seen [facility] Urine specific gravity measu rementOrdered By: SANJUANA GERMAN on 06-11-2024 Specific gravity (U) [Rel density] 1.025 1.002-1.030 [facility] Urine urobilinogen measureme ntOrdered By: SANJUANA GERMAN on 06-11-2024 Urobilinogen Ql (U) Normal mg/dl Normal [facility] Urobilinogen Ql (U)Ordered B y: SANJUANA GERMAN on 06-11-2024 Urine Urobilinogen Normal mg/dl Normal [facility] White blood cell (WBC) count Ordered By: SANJUANA GERMAN on 06-11-2024 WBC (Bld) [#/Vol] 9.3 10*3/uL 4.4-11.0 [facility] White blood cell countOrdere d By: SANJUANA GERMAN on 06-11-2024 Urine WBC 5-10 SEEN /hpf 0-5 [facility] White blood cell count 5-10 SEEN /hpf 0-5 [facility] EGD Reporton 06-09-2024 EGD Report [facility] Medical Records Department [address] [place] [address] EGD Report MR#: [id number] Acct: [id number] Name: CORI FU Rep #: [id number] : 1965 58 From: Amanda Robertson MD PCP: Dr. Fabiana Wiley MD Status:[facility] Patient Name: Cori Fu Procedure Date: 06/09/2024 8:38 AM Date of : 1965 Age: 58 Procedure: Upper GI endoscopy Indications: Heartburn Providers: Amanda Robertson MD Medicines: Monitored Anesthesia Care Patient Profile: This is a 58 year old female. She is status post laparoscopic gastric bypass. Complications: No immediate complications. Procedure: Pre-Anesthesia Assessment: - Prior to the procedure, a History and Physical was performed, and patient medications and allergies were reviewed. The patient's tolerance of previous anesthesia was also reviewed. The risks and benefits of the procedure and the sedation options and risks were discussed with the patient. All questions were answered, and informed consent was obtained. Prior Anticoagulants: The patient has taken no anticoagulant or antiplatelet agents. ASA Grade Assessment: Per anesthesia. After reviewing the risks and benefits, the patient was deemed in satisfactory condition to undergo the procedure. After obtaining informed consent, the endoscope was passed under direct vision. Throughout the procedure, the patient's blood pressure, pulse, and oxygen saturations were monitored continuously. The gastroscope was introduced through the mouth, and advanced to the anastomosis site of gastric bypass. The upper GI endoscopy was accomplished without difficulty. The patient tolerated the procedure well. Scope In: 8:49:39 AM Scope Out: 8:54:29 AM Total Procedure Duration Time 0 hours 4 minutes 50 seconds Findings: The Z-line was irregular and was found 44 cm from the incisors. Biopsies were taken with a cold forceps for histology. Mildly erythematous mucosa without bleeding was found in the gastric body near jejunal anastomosis. Biopsies were taken with a cold forceps for histology. Biopsies were taken with a cold forceps for Helicobacter pylori cultures. Normal/patent jejunal limbs Impression: - Z-line irregular, 44 cm from the incisors. Biopsied. - Erythematous mucosa in the gastric body. Biopsied. Recommendation: - Discharge patient to home. - Resume previous diet. - Continue present medications. - Await pathology results. Procedure Code(s): --- Professional --- 02253, PT, Esophagogastroduodenoscopy, flexible, transoral; with biopsy, single or multiple Diagnosis Code(s): --- Professional --- K22.89, Other specified disease of esophagus K31.89, Other diseases of stomach and duodenum R12, Heartburn CPT copyright 2021 [employer]. All rights reserved. The codes documented in this report are preliminary and upon sandwich board carrier review may be revised to meet current compliance requirements. MD Amanda Murphy MD 06/09/2024 9:06:42 AM This report has been signed electronically. Number of Addenda: 1 Note Initiated On: 06/09/2024 8:38 AM Addendum Number: 1 Addendum Date: 06/09/2024 9:07:28 AM Patient was noted to have a small marginal ulcer biopsy was taken of this area with cold forceps. Will also place on Carafate x 2 weeks MD Amanda Murphy MD 06/09/2024 9:08:01 AM This report has been signed electronically. 06/09/24907 Date Amanda Robertson MD Cosignmariza Signature: Date (if indicated) CC: Dr. Fabiana Wiley MD; Dr. Amanda Robertson MD Date Dictated: 06/09/24837 Date Transcribed: Scholarship Counselor: TR Signed [facility] MR/POSTOP.[facility] Medical Records Department [address] [place] [address] Anesthesia Postop Eval I 06/09/24 09 MR#: [id number] Acct: [id number] Name: CORI FU Rep #: [id number] : 1965 58 From: Palomo Granda PCP: Dr. Fabiana Wiley MD Status:REG SDC Y Race: C Location: [place] [address] Anesthesia: Postop Eval I Current Vital Signs Temperature: 97.2 F Pulse Rate: 68 Blood Pressure: 82/59 Respiratory Rate: 16 Pulse Ox: 95 Oxygen Delivery Method: Room Air Assessment Airway patent: Yes Spontaneous unlabored respirations: Yes Mental status: Awake and Calm nausea: No Vomiting: No Anesthesia Complication: No Fluid Hydration Crystalloid volume administer (ml): 30 Total IV fluid infused: 30 Progress Note Anesthesia document: Postop Eval 1 completed: Yes 06/09/24905 Date Palomo Granda Cosigner Signature: Date CC: Signed Normal [facility] MR/[id number] 06-09-2024 [facility] Medical Records Department [address] [place] [address] Anesthesia Postop Eval II 06/09/24 1039 MR#: [id number] Acct: [id number] Name: CORI FU Rep #: [id number] : 1965 58 From: Kristopher Calvillo MD PCP: Dr. Fabiana Wiley MD Status:REG SDC Y Race: C Location: [place] [address] Anesthesia Postop Eval I Sum Postop Eval Completion status Anesthesia document: Postop Eval 1 completed: Yes Anesthesia Postop Eval I Summary Anesthesia Postop Eval I Summary: Anesthesia Postop Eval I: Assessment Summary Airway patent Yes 06/09/24 09:06 [email or web address] Spontaneous unlabored Yes 06/09/24 09:06 [email or web address] respirations Mental status Awake,Calm 06/09/24 09:06 [email or web address] nausea No 06/09/24 09:06 [email or web address] Vomiting No 06/09/24 09:06 [email or web address] Anesthesia Postop Eval I: Fluid Summary Crystalloid volume administer 30 06/09/24 09:06 [email or web address] (ml) Colloids volume administered ( ml) Blood Product volume administered (ml) Total IV fluid infused 30 06/09/24 09:06 [email or web address] Anesthesia Postop Eval I: Summary Notes Anesthesia Complication No 06/09/24 09:06 [email or web address] Anesthesia Complication Comment: Post-operative progress note Anesthesia: Postop Eval II Evaluation Mental status: Awake Pain Level: 0 nausea: No Vomiting: No 06/09/24 1039 Date Kristopher Pan Signature: Date CC: Signed Normal [facility] Surgery Specimen Level Gab 06-09-2024 Surgery Specimen Level IV Patient Age/Sex Location Account Attending Physician CORI FU 58/F EN [id number] Dr. Amanda Robertson MD Specimen: [id number] Received: 06/09/24 Status: KACIE Hernandez Num: [id number] Spec Type: EGD BIOPSY Subm Dr: Dr. Amanda Robertson MD HEADER OPERATION: EGD PRE-OP DIAGNOSIS: Acid reflux, history of gastric bypass TISSUE SUBMITTED: A- Antrum biopsy, B- Jejunal anastomosis biopsy *history of bypass*, C- Gastroesophageal junction biopsy MICROSCOPIC DIAGNOSIS A. Stomach, antrum, biopsy: * Chronic gastritis with features of reactive gastropathy. * IHC is negative for H pylori organisms. B. Jejunal anastomosis, biopsy: * Oxyntic gastric mucosa with features of reactive gastropathy. C. Esophagus, GE junction, biopsy: * Squamous mucosa with mild reactive change, negative for eosinophils. * Columnar mucosa with reactive change, negative for goblet cell metaplasia. * Negative for dysplasia. MICROSCOPIC DESCRIPTION Slides are reviewed. GROSS DESCRIPTION A. Received in fixative is one container labeled with the patient's name and designated Antrum biopsy. The specimen consists of one irregular fragment of light whitmore soft tissue that measures 0.4 x 0.3 x 0.2 cm. The specimen is totally submitted in one cassette. B. Received in fixative is one container labeled with the patient's name and designated Jejunal anastomosis biopsy. The specimen consists of one irregular fragment of light whitmore soft tissue that measures 0.8 x 0.2 x 0.2 cm. The specimen is totally submitted in one cassette. C. Received in fixative is one container labeled with the patient's name and designated GE junction biopsy. The specimen consists of one irregular fragment of light whitmore soft tissue that measures 0.5 x 0.3 x 0.2 cm. The specimen is totally submitted in one cassette. LYSSA/mr 06/09/2024 TC: CPT:95692p2, 84782 Patient Age/Sex Location Account Attending Physician CORI FU 58/F EN [id number] Dr. Amanda Robertson MD Signed (signature on file) Dr. Trupti Bryant MD 06/10/24 1647 [facility] Comment on above: Performed By: #### L 503.6550, L503.6030, L503.0105, L506.0250, L400.2011, L506.1000 #### [facility] [address] [place], [address] Surgery Visit Reporton 04-17 Surgery Visit Report [facility] [address] [place] [address] OFFICE VISIT Date of Service: 04/17/24 MR#: [id number] Acct: [id number] Name: CORI FU Rep #: [id number] : 1965 Provider: Dr. Amanda cruz MD Age/Sex: 58/F Location: [facility] Status: Signed Intake Vital Signs 08/06/23 08:41 04/17/24 09:09 Height 5 ft 4 in 5 ft 4 in Weight: 200 lb BMI 34.3 BP 124/82 H Blood Pressure Location Rt brachial Position Sitting Respiration 18 Pulse 65 Pulse Source Monitor Temp 97.5 F L Temp Source Temporal Pulse Oximetry (%) 98 Oxygen Delivery Method room air Intake Visit Reasons: Esophagogastroduodenoscopy Chief Complaint: EGD Is patient in pain?: No Allergies No Known Allergies Allergy (Verified 08/06/23 08:27) Medications ???Medication ???Instructions ???Recorded ???Confirmed ???Type prednisone 2.5 mg tablet 5 mg PO DAILY 01/08/18 04/17/24 History esomeprazole magnesium 20 mg 20 mg PO DAILY 06/06/21 04/17/24 History capsule,delayed release venlafaxine 150 mg 150 mg PO DAILY 05/25/23 04/17/24 History capsule,extended release 24 hr (Effexor XR) azathioprine 50 mg tablet 50 mg PO QDAY 04/17/24 04/17/24 History ferrous fumarate 324 mg (106 mg 324 mg PO QDAY 04/17/24 04/17/24 History iron) tablet [facility] Medical History (Updated 04/17/24 @ 09:09 by Vernell Pope LPN) Acid reflux Link blood in stool Anemia Hemorrhoids Anxiety Rheumatoid arthritis History of ulceration Gastric reflux Non-smoker Leg cramps History of edema Family hx of colon cancer Hx of colonic polyp Ovarian cyst, complex CLAUDETTE (stress urinary incontinence, female) Wears glasses Post-menopausal Depression Alcohol use History of steroid therapy Injury of head and neck Shortness of breath on exertion Nodular vasculitis Cystocele Depression Gastric ulcer Vasculitis of skin Surgical History (Updated 04/17/24 @ 11:[address] Amanda Robertson MD) H/O gastric bypass Hx of colonoscopy S/P laparoscopic assisted vaginal hysterectomy (LAVH) Hx of foot surgery History of appendectomy History of ovarian cystectomy Heel spur S/P hammer toe correction S/P gastric bypass Family History Mother Hypertension Thyroid disorder Brother Seizures Cerebral palsy Brother Colon cancer Social History household members: none current occupational status: employed current occupation: [employer] Smoking Status: Never smoker alcohol intake: current alcohol intake frequency: holidays/special occasions only substance use type: does not use caffeine: Yes do you feel safe at home: Yes 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 HPI HPI HPI: 58-year-old female presents due to reflux and epigastric discomfort. Patient states she has had this for about a year patient has been on generic Nexium 20 mg daily and occasionally twice daily when she has symptoms. Patient denies having EGD however patient did have a gastric bypass in 2012 at [facility] with Dr. Dowling. Patient states she has bowel moods about every other day denies any blood. Patient did have a recent colonoscopy in July 2023-patient had several tubular adenomas of the recommended 3 years for history of colon cancer. ROS General General: Yes weight change (loss) HEENT HEENT: No difficulty swallowing, eye injury, eye surgery, swollen glands or hoarseness Endo Endocrine: No thyroid disease, diabetes mellitus, thyroid cancer, Hair loss, heat intolerance or cold intolerance Skin Skin: No rash or changing moles Musc Musculoskeletal: Yes arthritis; No back problems, rheumatoid arthritis, gout or joint pain Cardio Cardiovascular: No murmur, pacemaker, heart disease, atrial fibrillation, high blood pressure, heart attack, heart stent, palpitations, shortness of breat with exertion or chest pain Psych Psychiatric: Yes depression and anxiety; No hearing voices Resp Respiratory: No shortness of breath, No sleep apnea, Yes cough, No COPD, No asthma, No emphysema and No wheezing Gastro Gastrointestinal: No abdominal pain, Yes nausea or vomiting, No diarrhea, Yes constipation, Yes blood in stool, Yes acid reflux, Yes hemorrhoids, Yes ulcers, No gallbladder problem and No black,tarry stools Reginaldo Hematologic: No blood thinners, No blood disorders, No bleeding, Yes anemia and No blood clots Neuro Neurologic: No numbness and No tingling Exam Const General: cooperative, healthy appearing, comfortable and no acute distress [facility] Head: normocephalic and atraumatic Neck Neck: supple Resp Effort Inspection: normal respiratory effort Cardio Rate: r (more content not included)... Normal [facility] [id number] DOrdered By: Dedra Wiley on 03-27-2024 Vitamin D 25-Hydroxy 50.0 ng/mL [facility] Comment on above: Vitamin D 25(OH) Sta tus Range Deficiency <20 ng/mL (50nmol/L) Insufficiency 20 - 30 ng/mL (50 - 75 nmol/L) Sufficiency 30 - 100 ng/mL (75 - 250 nmol/L) Toxicity >100 ng/mL (>250 nmol/L) Bilirubin Test strip Ql (U)O rdered By: Fabiana Wiley on 03-27-2024 Bilirubin Ql (U) Negative Negative [facility] Dexa Bone Density Studyon Dexa Bone Density Study [facility] Imaging Services [address] [place] [address] Dexa Bone Density Study MR#: [id number] Acct: [id number] Name: CORI FU Rep #: [id number] : 1965 F 58 From: Omari ch MD PCP: Dr. Fabiana Wiley MD Status: REG CLI Study: Dexa Bone Density Study Date of Exam: 03/27/24 Exam# [id number] Ordering Dr: SANJUANA GERMAN MD [id number] STUDY: DUAL ENERGY X-RAY ABSORPTIOMETRY / DXA REASON FOR EXAM: Female, 58 years old. [id number] TECHNIQUE: Bone Mineral Density (BMD) measurements of lumbar spine and bilateral hips were obtained. COMPARISON: Comparison is made with prior study dated March 21, 2022. FINDINGS: Lumbar Spine (L1-L4): g/cm2 (0.927) / T-score (-0.8) / Z-score (0.6) Findings are suggestive of normal bone density with a low fracture risk. Left Femur Total: g/cm2 (0.946) / T-score (0.0) / Z-score (1.0) Left Femoral Neck: g/cm2 (0.748) / T-score (-0.9) / Z-score (0.4) Right Femur Total: g/cm2 (0.921) / T-score (-0.2) / Z-score (0.8) Right Femoral Neck: g/cm2 (0.708) / T-score (-1.3) / Z-score (0.0) The T-Scores on the most recent prior examination were: Lumbar Spine (L1-L4): There has been improvement of bone density since the previous examination. Left Femur Total: which represents a worsening of 1.9%. Right Femur Total: which represents a worsening of 2.5%. BD/Dexa Bone Density Study IMPRESSION: The patient is considered osteopenic as outlined below according to World [place] Organization (WHO) criteria with a low fracture risk. There has been worsening of bone density since the previous examination. Reference Information: The T-score is the number of standard deviations above or below the standard which is normal for young adults at their peak bone mineral density. The World Health Organization (WHO) interprets the T-scores as follows: Above -1 Normal bone density Between -1 and -2.5 Osteopenia Equal to / or below -2.5 Osteoporosis As a practical clinical guideline, osteopenia may be graded as follows: Mild -1 through -1.5 Moderate -1.6 through -2.0 Severe -2.1 through -2.4 The Z-score is the number of standard deviations above or below age-matched controls. A Z-score of less than -1.5 would be considered abnormal. References: 1. NIH Osteoporosis and Related Bone Diseases www osteo.org 2. International Society for Clinical Densitometry www iscd.org 3. National Osteoporosis Foundation www nof.org Electronically Signed: Omari Salcido MD at 9:49 EST , CC: Dr. Fabiana Wiley MD; SANJUANA GERMAN MD Scholarship Counselor: Signed Normal [facility] Ferritinon 03-27-2024 Ferritin [Mass/Vol] 7 ng/mL Low 8-252 [facility] Comment on above: Order Comment: N Performed By: #### L 503.6550, L503.6030, L503.0105, L506.0250, L400.2010, L506.1000 #### [facility] [address] [place], [place], [id number] Ferritin measurementOrdered By: Fabiana Wiley on 03-27-2024 Ferritin [Mass/Vol] 7 ng/mL Low 8-252 [facility] Folates, (Folic Acid)on 03-09 FOLATES 11.80 ng/mL Normal 3.1-55.4 [facility] Comment on above: Order Comment: N Performed By: #### L 503.6550, L503.6030, L503.0105, L506.0250, L400.2010, L506.1000 #### [facility] [address] [place], [place], [address] Folic acid measurementOrdere d By: Fabiana Wiley on 03-27-2024 Folate 11.80 ng/mL 3.1-55.4 [facility] Glucose Ql (U)Ordered By: Alvarado rasheed Inez on 03-27-2024 Urine Glucose (UA) Normal mg/dl Normal [facility] Iron (Unsp spec) [Mass/Mass] Ordered By: Fabianadedra Wiley on 03-27-2024 Iron [Mass/Vol] 28 ug/dL Low 50-170 [facility] Iron saturation [Mass fracti on]Ordered By: Fabiana Wiley on 03-27-2024 Iron Saturation 5.8 % Low 15.0-55.0 [facility] Iron+Iron Binding Capacityon 03-27-2024 Iron [Mass/Vol] 28 ug/dL Low 50-170 [facility] Comment on above: Order Comment: N Performed By: #### L 503.6550, L503.6030, L503.0105, L506.0250, L400.2010, L506.1000 #### [facility] [address] [place], [address] IRON SATURATION 5.8 Low 15.0-55.0 [facility] Comment on above: Order Comment: N Performed By: #### L 503.6550, L503.6030, L503.0105, L506.0250, L400.2010, L506.1000 #### [facility] [address] [place], [address] TIBC 484 ug/dL High 250-450 [facility] Comment on above: Order Comment: N Performed By: #### L 503.6550, L503.6030, L503.0105, L506.0250, L400.2010, L506.1000 #### [facility] [address] [place], [address] Ketones Test strip Ql (U)Ord ered By: Fabiana Wiley on 03-27-2024 Ketones Ql (U) Negative Negative [facility] Nitrite Test strip Ql (U)Ord ered By: Fabiana Wiley on 03-27-2024 Nitrite Ql (U) Negative Negative [facility] Protein Test strip Ql (U)Ord ered By: Fabiana Wiley on 03-27-2024 Protein Ql (U) Negative Negative [facility] TIBCOrdered By: Fabiana fox on 03-27-2024 Total Iron Binding Capacity 484 ug/dL High 250-450 [facility] Urinalysis, Routine (Dipstic k)on 03-27-2024 BILIRUBIN URINE Negative Normal Negative [facility] Comment on above: Order Comment: CLEAN CATCH Performed By: #### L 503.6550, L503.6030, L503.0105, L506.0250, L400.2010, L506.1000 #### [facility] [address] [place], [address] Clarity (U) Clear Normal Clear [facility] Comment on above: Order Comment: CLEAN CATCH Performed By: #### L 503.6550, L503.6030, L503.0105, L506.0250, L400.2010, L506.1000 #### [facility] [address] [place], [address] Color (U) Yellow Normal Yellow [facility] Comment on above: Order Comment: CLEAN CATCH Performed By: #### L 503.6550, L503.6030, L503.0105, L506.0250, L400.2010, L506.1000 #### [facility] [facility] [address] [place], [address] GLUCOSE, UR Normal Normal Normal [facility] Comment on above: Order Comment: CLEAN CATCH Performed By: #### L 503.6550, L503.6030, L503.0105, L506.0250, L400.2010, L506.1000 #### [facility] [address] [place], [address] KETONE UR Negative Normal Negative [facility] Comment on above: Order Comment: CLEAN CATCH Performed By: #### L 503.6550, L503.6030, L503.0105, L506.0250, L400.2010, L506.1000 #### [facility] [address] [place], [address] LEUK ESTERASE 500 /ul Abnormal Negative [facility] Comment on above: Order Comment: CLEAN CATCH Performed By: #### L 503.6550, L503.6030, L503.0105, L506.0250, L400.2010, L506.1000 #### [facility] [address] [place], [address] Nitrite Ql (U) Negative Normal Negative [facility] Comment on above: Order Comment: CLEAN CATCH Performed By: #### L 503.6550, L503.6030, L503.0105, L506.0250, L400.2010, L506.1000 #### [facility] [address] [place], [address] OCCULT BLOOD-UR 25 /ul Abnormal Negative [facility] Comment on above: Order Comment: CLEAN CATCH Performed By: #### L 503.6550, L503.6030, L503.0105, L506.0250, L400.2010, L506.1000 #### [facility] [address] [place], [address] pH UR 5.0 Normal 5.0 - 8.0 [facility] Comment on above: Order Comment: CLEAN CATCH Performed By: #### L 503.6550, L503.6030, L503.0105, L506.0250, L400.2010, L506.1000 #### [facility] [address] [place], [address] PROT DIPSTX Negative Normal Negative [facility] Comment on above: Order Comment: CLEAN CATCH Performed By: #### L 503.6550, L503.6030, L503.0105, L506.0250, L400.2010, L506.1000 #### [facility] [address] [place], [address] SP.GR. DIPSTX 1.020 Normal 1.002-1.030 [facility] Comment on above: Order Comment: CLEAN CATCH Performed By: #### L 503.6550, L503.6030, L503.0105, L506.0250, L400.2010, L506.1000 #### [facility] [address] [place], [address] UROBILI Normal Normal Normal [facility] Comment on above: Order Comment: CLEAN CATCH Performed By: #### L 503.6550, L503.6030, L503.0105, L506.0250, L400.2010, L506.1000 #### [facility] [address] [place], [address] Urine blood detectionOrdered By: Fabiana Wiley on 03-27-2024 Urine Occult Blood 25 /ul High Negative [facility] Urine clarityOrdered By: Oscar Wiley on 03-27-2024 Clarity (U) Clear Clear [facility] Urine color determinationOrd ered By: Fabiana Wiley on 03-27-2024 Color (U) Yellow Yellow [facility] Urine leukocyte esterase det ection by dipstickOrdered By: Fabiana Wiley on 03-27-2024 Leukocyte esterase Test strip Ql (U) 500 /ul High Negative [facility] Urine pHOrdered By: Fabiana adams on 03-27-2024 pH (U) 5.0 [pH] 5.0 - 8.0 [facility] Urine specific gravity measu rementOrdered By: Fabiana Wiley on 03-27-2024 Specific gravity (U) [Rel density] 1.020 1.002-1.030 [facility] Urobilinogen Ql (U)Ordered B y: Fabiana Wiley on 03-27-2024 Urine Urobilinogen Normal mg/dl Normal [facility] Vitamin B12 measurementOrder ed By: Fabiana Wiley on 03-27-2024 Cobalamin (Vitamin B12) [Mass/Vol] 743 pg/mL Normal 211-911 [facility] Comment on above: Performed By: #### L 503.6550, L503.6030, L503.0105, L506.0250, L400, L506.1000 #### [facility] [address] [place], [address] Vitamin D,25 Hydroxyon 03-27 Vitamin D 25-OH 50.0 ng/mL Normal [facility] Comment on above: Result Comment: Ester min D 25(OH) Status Range Deficiency <20 ng/mL (50nmol/L) Insufficiency 20 - 30 ng/mL (50 - 75 nmol/L) Sufficiency 30 - 100 ng/mL (75 - 250 nmol/L) Toxicity >100 ng/mL (>250 nmol/L) Performed By: #### L 503.6550, L503.6030, L503.0105, L506.0250, L4, L506.1000 #### [facility] [address] [place], [address] AST(SGOT)on 03-10-2024 AST [Catalytic activity/Vol] 23 U/L Normal 15-37 [facility] Comment on above: Performed By: #### L 503.6550, L503.6030, L503.0105, L506.0250, L4, L506.1000 #### [facility] [address] [place], [address] Absolute neutrophil countOrd ered By: SANJUANA GERMAN on 03-10-2024 Neutrophils (Bld) [#/Vol] 6.2 10*3/uL 2.0-7.7 [facility] Alanine Aminotransferas (SGP T)on 03-10-2024 ALT [Catalytic activity/Vol] 20 U/L Normal 13-56 [facility] Comment on above: Performed By: #### L 503.6550, L503.6030, L503.0105, L506.0250, L400, L506.1000 #### [facility] [address] [place], [address] BUNon 03-10-2024 Urea nitrogen [Mass/Vol] 27 mg/dL High 7-18 [facility] Comment on above: Performed By: #### L 503.6550, L503.6030, L503.0105, L506.0250, L400.2010, L506.1000 #### [facility] [address] [place], [address] Basophil percentageOrdered B y: SANJUANA GERMAN on 03-10-2024 Basophils/100 WBC (Bld) 0.2 % 0-1 [facility] Bilirubin Test strip Ql (U)O rdered By: SANJUANA GERMAN on 03-10-2024 Bilirubin Ql (U) Negative Negative [facility] C-reactive protein measureme nt by high sensitivity methodOrdered By: SANJUANA GERMAN on 03-10-2024 C-Reactive Protein Extended Range 3.16 mg/L High 0.0-3.0 [facility] Comment on above: C-Reactive Protein ( CRP) provides useful information for thediagnosis, therapy and monitoring of inflammatory processesand associated diseases. For the evaluation of Relative Riskfor Cardiovascular Disease, a High Sensitivity CRP (HSCRP)should be ordered. CBC W/Diff, Automatedon Absolute Lymph 1.64 X10 3/uL Normal 0.83-4.51 [facility] Comment on above: Performed By: #### L 503.6550, L503.6030, L503.0105, L506.0250, L400.2010, L506.1000 #### [facility] [address] [place], [address] Absolute Neut 6.2 X10 3/uL Normal 2.0-7.7 [facility] Comment on above: Performed By: #### L 503.6550, L503.6030, L503.0105, L506.0250, L400.2010, L506.1000 #### [facility] [address] [place], [address] Basophils/100 WBC (Bld) 0.2 % Normal 0-1 [facility] Comment on above: Performed By: #### L 503.6550, L503.6030, L503.0105, L506.0250, L400.2010, L506.1000 #### [facility] [address] [place], [address] Eosinophils/100 WBC (Bld) 0.9 % Normal 0-5 [facility] Comment on above: Performed By: #### L 503.6550, L503.6030, L503.0105, L506.0250, L400.2010, L506.1000 #### [facility] [address] [place], [address] Erythrocyte distribution width (RBC) [Ratio] 17.0 % High 11.6-14.6 [facility] Comment on above: Performed By: #### L 503.6550, L503.6030, L503.0105, L506.0250, L400.2010, L506.1000 #### [facility] [address] [place], [address] Hematocrit (Bld) [Volume fraction] 35.2 % Low 37-47 [facility] Comment on above: Performed By: #### L 503.6550, L503.6030, L503.0105, L506.0250, L400.2010, L506.1000 #### [facility] [address] [place], [address] Hemoglobin (Bld) [Mass/Vol] 10.7 g/dL Low 12.0-15.0 [facility] Comment on above: Performed By: #### L 503.6550, L503.6030, L503.0105, L506.0250, L400.2010, L506.1000 #### [facility] [address] [place], [address] IG% 1.100 High 0.0-0.9 [facility] Comment on above: Result Comment: IG% - Immature Granulocytes (promyelocytes, myelocytes and metamyelocytes) > 1% indicates that a LEFT SHIFT is Present. Performed By: #### L 503.6550, L503.6030, L503.0105, L506.0250, L400.2010, L506.1000 #### [facility] [address] [place], [address] Lymphocytes/100 WBC (Bld) 19.2 % Normal 19-41 [facility] Comment on above: Performed By: #### L 503.6550, L503.6030, L503.0105, L506.0250, L4.2010, L506.1000 #### [facility] [address] [place], [address] MCH (RBC) [Entitic mass] 27.0 pg Normal 27.0-32.0 [facility] Comment on above: Performed By: #### L 503.6550, L503.6030, L503.0105, L506.0250, L400.2010, L506.1000 #### [facility] [address] [place], [address] MCHC (RBC) [Mass/Vol] 30.4 g/dL Low 32-36 [facility] Comment on above: Performed By: #### L 503.6550, L503.6030, L503.0105, L506.0250, L4.2010, L506.1000 #### [facility] [address] [place], [address] MCV (RBC) [Entitic vol] 88.7 fL Normal 81-99 [facility] Comment on above: Performed By: #### L 503.6550, L503.6030, L503.0105, L506.0250, L400.2010, L506.1000 #### [facility] [address] [place], [address] Monocytes/100 WBC (Bld) 5.8 % Normal 0-10 [facility] Comment on above: Performed By: #### L 503.6550, L503.6030, L503.0105, L506.0250, L400.2010, L506.1000 #### [facility] [address] [place], [address] Neutrophils/100 WBC (Bld) 72.8 % High 47-70 [facility] Comment on above: Performed By: #### L 503.6550, L503.6030, L503.0105, L506.0250, L400.2010, L506.1000 #### [facility] [address] [place], [address] Nucleated RBC (Bld) [#/Vol] 0 10*3/uL Normal 0-5 [facility] Comment on above: Performed By: #### L 503.6550, L503.6030, L503.0105, L506.0250, L400.2010, L506.1000 #### [facility] [address] [place], [address] Platelet mean volume (Bld) [Entitic vol] 8.9 fL Normal 6.2-12.0 [facility] Comment on above: Performed By: #### L 503.6550, L503.6030, L503.0105, L506.0250, L400.2010, L506.1000 #### [facility] [address] [place], [address] Platelets (Bld) [#/Vol] 340 10*3/uL Normal 150-450 [facility] Comment on above: Performed By: #### L 503.6550, L503.6030, L503.0105, L506.0250, L400.2010, L506.1000 #### [facility] [address] [place], [address] RBC (Bld) [#/Vol] 3.97 10*6/uL Low 4.2-5.4 [facility] Comment on above: Performed By: #### L 503.6550, L503.6030, L503.0105, L506.0250, L400.2010, L506.1000 #### [facility] [address] [place], [address] RDW SD 54.8 fl High 35.1-43.9 [facility] Comment on above: Performed By: #### L 503.6550, L503.6030, L503.0105, L506.0250, L400.2010, L506.1000 #### [facility] [address] [place], [address] WBC (Bld) [#/Vol] 8.6 10*3/uL Normal 4.4-11.0 [facility] Comment on above: Performed By: #### L 503.6550, L503.6030, L503.0105, L506.0250, L4.2010, L506.1000 #### [facility] [address] [place], [address] CRPon 03-10-2024 C-REACTIVE PROT 3.16 mg/L High 0.0-3.0 [facility] Comment on above: Result Comment: C-Re active Protein (CRP) provides useful information for the diagnosis, therapy and monitoring of inflammatory processes and associated diseases. For the evaluation of Relative Risk for Cardiovascular Disease, a High Sensitivity CRP (HSCRP) should be ordered. Performed By: #### L 503.6550, L503.6030, L503.0105, L506.0250, L400.2010, L506.1000 #### [facility] [address] [place], [address] Eosinophil percentageOrdered By: SANJUANA GERMAN on 03-10-2024 Eosinophils/100 WBC (Bld) 0.9 % 0-5 [facility] Epithelial cells.squamous LM Ql (Urine sed)Ordered By: SANJUANA GERMAN on 03-10-2024 Epithelial cells.squamous LM.HPF (Urine sed) [#/Area] 0 /[HPF] 5-10 [facility] Erythrocyte Sed Rateon 03-10 SED RATE 9 mm/hr Normal 0-30 [facility] Comment on above: Performed By: #### L 503.6550, L503.6030, L503.0105, L506.0250, L400.2011, L506.1000 #### [facility] [address] [place], [address] Erythrocyte distribution wid th ratioOrdered By: SANJUANA GERMAN on 03-10-2024 Erythrocyte distribution width (RBC) [Ratio] 17.0 % High 11.6-14.6 [facility] Erythrocyte distribution wid th standard deviationOrdered By: SANJUANA GERMAN on 03-10-2024 Erythrocyte distribution width (RBC) [Entitic vol] 54.8 fL High 35.1-43.9 [facility] Erythrocyte sedimentation ra teOrdered By: SANJUANA GERMAN on 03-10-2024 ESR (Bld) [Velocity] 9 mm/h 0-30 [facility] Estimated glomerular filtrat ion rate (GFR) AmericanOrdered By: SANJUANA GERMAN on 03-10-2024 Estimated GFR (MDRD) Amer 80 mL/min >60 [facility] Comment on above: GFR Calc Glomerular filtration rate ( GFR) estimationOrdered By: SANJUANA GERMAN on 03-10-2024 Estimated GFR (MDRD) Non-Af Amer 66 mL/min >60 [facility] Comment on above: Non- GFR Calc Glucose Ql (U)Ordered By: RA WAQAR GERMAN on 03-10-2024 Urine Glucose (UA) Normal mg/dl Normal [facility] Hematocrit Auto (Bld) [Volum e fraction]Ordered By: SANJUANA GERMAN on 03-10-2024 Hematocrit (Bld) [Volume fraction] 35.2 % Low 37-47 [facility] Hemoglobin measurementOrdere d By: SANJUANA GERMAN on 03-10-2024 Hemoglobin (Bld) [Mass/Vol] 10.7 g/dL Low 12.0-15.0 [facility] Hyaline casts LM.LPF (Urine sed) [#/Area]Ordered By: SANJUANA GERMAN on 03-10-2024 Hyaline casts LM Ql (Urine sed) 0-5 SEEN /lpf 0-5 [facility] Immature granulocytes/100 WB C Auto (Bld)Ordered By: SANJUANA GERMAN on 03-10-2024 Immature granulocytes/100 WBC (Bld) 1.100 % High 0.0-0.9 [facility] Comment on above: IG% - Immature Granu locytes (promyelocytes, myelocytes and metamyelocytes) > 1% indicates that a LEFT SHIFT is Present. Ketones Test strip Ql (U)Ord ered By: SANJUANA GERMAN on 03-10-2024 Ketones Ql (U) Negative Negative [facility] - Chemistry and C hemistry - challengeOrdered By: SANJUANA GERMAN on 03-10-2024 AST [Catalytic activity/Vol] 23 U/L 15-37 [facility] Lymphocytes Auto (Unsp spec) [#/Vol]Ordered By: SANJUANA GERMAN on 03-10-2024 Lymphocytes (Bld) [#/Vol] 1.64 10*3/uL 0.83-4.51 [facility] Lymphocytes/100 WBC Auto (Un sp spec)Ordered By: SANJUANA GERMAN on 03-10-2024 Lymphocytes/100 WBC (Bld) 19.2 % 19-41 [facility] MCV (mean corpuscular volume ) determinationOrdered By: SANJUANA GERMAN on 03-10-2024 MCV (RBC) [Entitic vol] 88.7 fL 81-99 [facility] Mean corpuscular hemoglobin (MCH) determinationOrdered By: SANJUANA GERMAN on 03-10-2024 MCH (RBC) [Entitic mass] 27.0 pg 27.0-32.0 [facility] Mean corpuscular hemoglobin concentration (MCHC) determinationOrdered By: SANJUANA GERMAN on 03-10-2024 MCHC (RBC) [Mass/Vol] 30.4 g/dL Low 32-36 [facility] Mean platelet volume determi nationOrdered By: SANJUANA GERMAN on 03-10-2024 Platelet mean volume (Bld) [Entitic vol] 8.9 fL 6.2-12.0 [facility] Microscopic analysis of urin e for red blood cells (RBC)Ordered By: SANJUANA GERMAN on 03-10-2024 Urine RBC 0-5 SEEN /hpf 0-5 [facility] Monocyte percentageOrdered B y: SANJUANA GERMAN on 03-10-2024 Monocytes/100 WBC (Bld) 5.8 % 0-10 [facility] Mucus LM Ql (Urine sed)Order ed By: SANJUANA GERMAN on 03-10-2024 Mucus Ql (Urine sed) 0 SEEN /hpf [facility] Neutrophil percentageOrdered By: SANJUANA GERMAN on 03-10-2024 Neutrophils/100 WBC (Bld) 72.8 % High 47-70 [facility] Nitrite Test strip Ql (U)Ord ered By: SANJUANA GERMAN on 03-10-2024 Nitrite Ql (U) Negative Negative [facility] Nucleated red blood cell per centageOrdered By: SANJUANA GERMAN on 03-10-2024 Nucleated RBC/100 WBC (Bld) [Ratio] 0 % 0-5 [facility] Platelet countOrdered By: RA WAQAR GERMAN on 03-10-2024 Platelets (Bld) [#/Vol] 340 10*3/uL 150-450 [facility] Protein Test strip Ql (U)Ord ered By: SANJUANA GERMAN on 03-10-2024 Protein Ql (U) Negative Negative [facility] RBC Auto (Bld) [#/Vol]Ordere d By: SANJUANA GERMAN on 03-10-2024 RBC (Bld) [#/Vol] 3.97 10*6/uL Low 4.2-5.4 [facility] Serum Creatinine AND GFRon 1 05-11-2023 Creatinine [Mass/Vol] 0.92 mg/dL Normal 0.55-1.02 [facility] Comment on above: Result Comment: The validity of the calculated GFR GFRAA in patients over 70 years has not been determined. Clinical correlation is essential. Performed By: #### L 503.6530, L503.6030, L503.0105, L506.0250, L400.2010, L506.1000 #### [facility] [address] [place], [address] EST GFR - AA 80 mL/min Normal >60 [facility] Comment on above: Result Comment: Afri can [place]ine[place] GFR Calc Performed By: #### L 503.6550, L503.6030, L503.0105, L506.0250, L400.2010, L506.1000 #### [facility] [address] [place], [address] GFR/1.73 sq M.predicted among non-blacks MDRD (S/P/Bld) [Vol rate/Area] 66 mL/min/{1.73_m2} Normal >60 [facility] Comment on above: Result Comment: Non- GFR Calc Performed By: #### L 503.6550, L503.6030, L503.0105, L506.0250, L400.2010, L506.1000 #### [facility] [address] [place], [address] Serum or plasma alanine zafar otransferase (ALT) measurementOrdered By: SANJUANA GERMAN on 03-10-2024 ALT [Catalytic activity/Vol] 20 U/L 13-56 [facility] Serum or plasma creatinine m easurement (mass/volume)Ordered By: SANJUANA GERMAN on 03-10-2024 Creatinine [Mass/Vol] 0.92 mg/dL 0.55-1.02 [facility] Comment on above: The validity of the calculated GFR & GFRAA in patients over 70 years has not been determined. Clinical correlation is essential. Serum or plasma urea nitroge n measurement (mass/volume)Ordered By: SANJUANA GERMAN on 03-10-2024 Urea nitrogen [Mass/Vol] 27 mg/dL High 7-18 [facility] Urinalysis, Completeon 03-10 BACTERIA 1+ /hpf Normal None Seen [facility] Comment on above: Order Comment: CLEAN CATCH Performed By: #### L 503.6550, L503.6030, L503.0105, L506.0250, L400.2011, L506.1000 #### [facility] [address] [place], [address] CAST,HYALINE 0-5 SEEN Normal 0-5 [facility] Comment on above: Order Comment: CLEAN CATCH Performed By: #### L 503.6550, L503.6030, L503.0105, L506.0250, L400.2010, L506.1000 #### [facility] [address] [place], [address] EPI,SQUAMOUS 0-5 SEEN Normal 5-10 [facility] Comment on above: Order Comment: CLEAN CATCH Performed By: #### L 503.6550, L503.6030, L503.0105, L506.0250, L400.2010, L506.1000 #### [facility] [address] [place], [address] RBC 0-5 SEEN Normal 0-5 [facility] Comment on above: Order Comment: CLEAN CATCH Performed By: #### L 503.6550, L503.6030, L503.0105, L506.0250, L400.2010, L506.1000 #### [facility] [address] [place], [address] WBC 5-10 SEEN Normal 0-5 [facility] Comment on above: Order Comment: CLEAN CATCH Performed By: #### L 503.6550, L503.6030, L503.0105, L506.0250, L400.2010, L506.1000 #### [facility] [address] [place], [address] Mucus Ql (Urine sed) 0 SEEN Normal [facility] Comment on above: Order Comment: CLEAN CATCH Performed By: #### L 503.6550, L503.6030, L503.0105, L506.0250, L400.2010, L506.1000 #### [facility] [address] [place], [address] Urine blood detectionOrdered By: SANJUANA GERMAN on 03-10-2024 Urine Occult Blood 10 /ul High Negative [facility] Urine clarityOrdered By: MITCHELL GERMAN on 03-10-2024 Clarity (U) Clear Clear [facility] Urine color determinationOrd ered By: SANJUANA GERMAN on 03-10-2024 Color (U) Yellow Yellow [facility] Urine leukocyte esterase det ection by dipstickOrdered By: SANJUANA GERMAN on 03-10-2024 Leukocyte esterase Test strip Ql (U) 25 /ul High Negative [facility] Urine pHOrdered By: SANJUANA GRAHAM on 03-10-2024 pH (U) 5.0 [pH] 5.0 - 8.0 [facility] Urine sediment bacteria coun t by microscopy (number/high power field)Ordered By: SANJUANA GERMAN on 03-10-2024 Bacteria LM.HPF (Urine sed) [#/Area] 1 /[HPF] None Seen [facility] Urine specific gravity measu rementOrdered By: SANJUANA GERMAN on 03-10-2024 Specific gravity (U) [Rel density] 1.025 1.002-1.030 [facility] Urobilinogen Ql (U)Ordered B y: SANJUANA GERMAN on 03-10-2024 Urine Urobilinogen Normal mg/dl Normal [facility] White blood cell (WBC) count Ordered By: SANJUANA GERMAN on 03-10-2024 WBC (Bld) [#/Vol] 8.6 10*3/uL 4.4-11.0 [facility] White blood cell countOrdere d By: SANJUANA GERMAN on 03-10-2024 Urine WBC 5-10 SEEN /hpf 0-5 [facility] AST(SGOT)on 2023 AST [Catalytic activity/Vol] 16 U/L Normal 15-37 [facility] Comment on above: Performed By: #### L 503.6500, L503.6030, L503.0105, L506.0250, L400.2010, L506.1000 #### [facility] [address] [place], [address] Alanine Aminotransferas (SGP T)on 2023 ALT [Catalytic activity/Vol] 14 U/L Normal 13-56 [facility] Comment on above: Performed By: #### L 503.6550, L503.6030, L503.0105, L506.0250, L400.2010, L506.1000 #### [facility] [address] [place], [address] BUNon 2023 Urea nitrogen [Mass/Vol] 24 mg/dL High 7-18 [facility] Comment on above: Performed By: #### L 501.6710, L400.2010, L501.1000, L501.4100, L501.1105, L501.4405, L101.9900, L100.0100 ####[facility] [address] [place], [address] CBC W/Diff, Automatedon 09-0 Absolute Lymph 1.88 X10 3/uL Normal 0.83-4.51 [facility] Comment on above: Performed By: #### L 501.6710, L400.2010, L501.1000, L501.4100, L501.1105, L501.4405, L101.9900, L100.0100 ####[facility] [address] [place], [address] Absolute Neut 5.7 X10 3/uL Normal 2.0-7.7 [facility] Comment on above: Performed By: #### L 501.6710, L400.2010, L501.1000, L501.4100, L501.1105, L501.4405, L101.9900, L100.0100 ####[facility] [address] [place], [address] Basophils/100 WBC (Bld) 0.4 % Normal 0-1 [facility] Comment on above: Performed By: #### L 501.6710, L400.2010, L501.1000, L501.4100, L501.1105, L501.4405, L101.9900, L100.0100 ####[facility] [address] [place], [address] Eosinophils/100 WBC (Bld) 1.2 % Normal 0-5 [facility] Comment on above: Performed By: #### L 501.6710, L4, L501.1000, L501.4100, L501.1105, L501.4405, L101.9900, L100.0100 ####[facility] [address] [place], [address] Erythrocyte distribution width (RBC) [Ratio] 16.8 % High 11.6-14.6 [facility] Comment on above: Performed By: #### L 501.67, L4, L501.1000, L501.4100, L501.1105, L501.4405, L101.9900, L100.0100 ####[facility] [address] [place], [address] Hematocrit (Bld) [Volume fraction] 33.6 % Low 37-47 [facility] Comment on above: Performed By: #### L 501.6710, L4, L501.1000, L501.4100, L501.1105, L501.4405, L101.9900, L100.0100 ####[facility] [address] [place], [address] Hemoglobin (Bld) [Mass/Vol] 10.4 g/dL Low 12.0-15.0 [facility] Comment on above: Performed By: #### L 501.6710, L4, L501.1000, L501.4100, L501.1105, L501.4405, L101.9900, L100.0100 ####[facility] [address] [place], [address] IG% 0.200 Normal 0.0-0.9 [facility] Comment on above: Result Comment: IG% - Immature Granulocytes (promyelocytes, myelocytes and metamyelocytes) > 1% indicates that a LEFT SHIFT is Present. Performed By: #### L 501.6710, L4, L501.1000, L501.4100, L501.1105, L501.4405, L101.9900, L100.0100 ####[facility] [address] [place], [address] Lymphocytes/100 WBC (Bld) 22.7 % Normal 19-41 [facility] Comment on above: Performed By: #### L 501.67, L4, L501.1000, L501.4100, L501.1105, L501.4405, L101.9900, L100.0100 ####[facility] [address] [place], [address] MCH (RBC) [Entitic mass] 27.0 pg Normal 27.0-32.0 [facility] Comment on above: Performed By: #### L 501.6710, L4, L501.1000, L501.4100, L501.1105, L501.4405, L101.9900, L100.0100 ####[facility] [address] [place], [address] MCHC (RBC) [Mass/Vol] 31.0 g/dL Low 32-36 [facility] Comment on above: Performed By: #### L 501.6710, L4, L501.1000, L501.4100, L501.1105, L501.4405, L101.9900, L100.0100 ####[facility] [address] [place], [place], [address] MCV (RBC) [Entitic vol] 87.3 fL Normal 81-99 [facility] Comment on above: Performed By: #### L 501.6710, L4, L501.1000, L501.4100, L501.1105, L501.4405, L101.9900, L100.0100 ####[facility] [address] [place], [address] Monocytes/100 WBC (Bld) 6.8 % Normal 0-10 [facility] Comment on above: Performed By: #### L 501.6710, L4, L501.1000, L501.4100, L501.1105, L501.4405, L101.9900, L100.0100 ####[facility] [address] [place], [address] Neutrophils/100 WBC (Bld) 68.7 % Normal 47-70 [facility] Comment on above: Performed By: #### L 501.67, L4, L501.1000, L501.4100, L501.1105, L501.4405, L101.9900, L100.0100 ####[facility] [address] [place], [address] Nucleated RBC (Bld) [#/Vol] 0 10*3/uL Normal 0-5 [facility] Comment on above: Performed By: #### L 501.6710, L4, L501.1000, L501.4100, L501.1105, L501.4405, L101.9900, L100.0100 ####[facility] [address] [place], [address] Platelet mean volume (Bld) [Entitic vol] 9.0 fL Normal 6.2-12.0 [facility] Comment on above: Performed By: #### L 501.6710, L4, L501.1000, L501.4100, L501.1105, L501.4405, L101.9900, L100.0100 ####[facility] [address] [place], [address] Platelets (Bld) [#/Vol] 368 10*3/uL Normal 150-450 [facility] Comment on above: Performed By: #### L 501.6710, L400.2010, L501.1000, L501.4100, L501.1105, L501.4405, L101.9900, L100.0100 ####[facility] [address] [place], [address] RBC (Bld) [#/Vol] 3.85 10*6/uL Low 4.2-5.4 [facility] Comment on above: Performed By: #### L 501.6710, L4.2010, L501.1000, L501.4100, L501.1105, L501.4405, L101.9900, L100.0100 ####[facility] [address] [place], [address] RDW SD 53.3 fl High 35.1-43.9 [facility] Comment on above: Performed By: #### L 501.6710, L4.2010, L501.1000, L501.4100, L501.1105, L501.4405, L101.9900, L100.0100 ####[facility] [address] [place], [address] WBC (Bld) [#/Vol] 8.3 10*3/uL Normal 4.4-11.0 [facility] Comment on above: Performed By: #### L 501.6710, L4.2010, L501.1000, L501.4100, L501.1105, L501.4405, L101.9900, L100.0100 ####[facility] [address] [place], [address] CRPon 2023 C-REACTIVE PROT 4.50 mg/L High 0.0-3.0 [facility] Comment on above: Result Comment: C-Re active Protein (CRP) provides useful information for the diagnosis, therapy and monitoring of inflammatory processes and associated diseases. For the evaluation of Relative Risk for Cardiovascular Disease, a High Sensitivity CRP (HSCRP) should be ordered. Performed By: #### L 503.6550, L503.6030, L503.0105, L506.0250, L4, L506.1000 #### [facility] [address] [place], [address] Erythrocyte Sed Rateon 12-11 SED RATE 6 mm/hr Normal 0-30 [facility] Comment on above: Performed By: #### L 501.6710, L400.2010, L501.1000, L501.4100, L501.1105, L501.4405, L101.9900, L100.0100 ####[facility] [address] [place], [address] Serum Creatinine AND GFRon 0 2023 Creatinine [Mass/Vol] 0.75 mg/dL Normal 0.55-1.02 [facility] Comment on above: Result Comment: The validity of the calculated GFR GFRAA in patients over 70 years has not been determined. Clinical correlation is essential. Performed By: #### L 503.6550, L503.6030, L503.0105, L506.0250, L4, L506.1000 #### [facility] [address] [place], [address] EST GFR - AA 102 mL/min Normal >60 [facility] Comment on above: Result Comment: Afri can Guinean GFR Calc Performed By: #### L 503.6550, L503.6030, L503.0105, L506.0250, L400.2010, L506.1000 #### [facility] [address] [place], [address] GFR/1.73 sq M.predicted among non-blacks MDRD (S/P/Bld) [Vol rate/Area] 84 mL/min/{1.73_m2} Normal >60 [facility] Comment on above: Result Comment: Non- GFR Calc Performed By: #### L 503.6550, L503.6030, L503.0105, L506.0250, L400.2010, L506.1000 #### [facility] [address] [place], [address] Urinalysis, Routine (Dipstic k)on 2023 BILIRUBIN URINE Negative Normal Negative [facility] Comment on above: Order Comment: CLEAN CATCH Performed By: #### L 501.6710, L400.2010, L501.1000, L501.4100, L501.1105, L501.4405, L101.9900, L100.0100 ####[facility] [address] [place], [address] Clarity (U) Clear Normal Clear [facility] Comment on above: Order Comment: CLEAN CATCH Performed By: #### L 501.6710, L400.2010, L501.1000, L501.4100, L501.1105, L501.4405, L101.9900, L100.0100 ####[facility] [address] [place], [address] Color (U) Yellow Normal Yellow [facility] Comment on above: Order Comment: CLEAN CATCH Performed By: #### L 501.6710, L400.2010, L501.1000, L501.4100, L501.1105, L501.4405, L101.9900, L100.0100 ####[facility] [address] [place], [address] GLUCOSE, UR Normal Normal Normal [facility] Comment on above: Order Comment: CLEAN CATCH Performed By: #### L 501.6710, L4.2010, L501.1000, L501.4100, L501.1105, L501.4405, L101.9900, L100.0100 ####[facility] [address] [place], [address] KETONE UR Negative Normal Negative [facility] Comment on above: Order Comment: CLEAN CATCH Performed By: #### L 501.6710, L400.2010, L501.1000, L501.4100, L501.1105, L501.4405, L101.9900, L100.0100 ####[facility] [address] [place], [address] LEUK ESTERASE 100 /ul Abnormal Negative [facility] Comment on above: Order Comment: CLEAN CATCH Performed By: #### L 501.6710, L4, L501.1000, L501.4100, L501.1105, L501.4405, L101.9900, L100.0100 ####[facility] [address] [place], [address] Nitrite Ql (U) Negative Normal Negative [facility] Comment on above: Order Comment: CLEAN CATCH Performed By: #### L 501.6710, L4.2010, L501.1000, L501.4100, L501.1105, L501.4405, L101.9900, L100.0100 ####[facility] [address] [place], [address] OCCULT BLOOD-UR Negative Normal Negative [facility] Comment on above: Order Comment: CLEAN CATCH Performed By: #### L 501.6710, L4.2010, L501.1000, L501.4100, L501.1105, L501.4405, L101.9900, L100.0100 ####[facility] [address] [place], [address] pH UR 5.0 Normal 5.0 - 8.0 [facility] Comment on above: Order Comment: CLEAN CATCH Performed By: #### L 501.6710, L400.2010, L501.1000, L501.4100, L501.1105, L501.4405, L101.9900, L100.0100 ####[facility] [address] [place], [address] PROT DIPSTX 15 mg/dl Abnormal Negative [facility] Comment on above: Order Comment: CLEAN CATCH Performed By: #### L 501.6710, L400.2010, L501.1000, L501.4100, L501.1105, L501.4405, L101.9900, L100.0100 ####[facility] [address] [place], [address] SP.GR. DIPSTX 1.020 Normal 1.002-1.030 [facility] Comment on above: Order Comment: CLEAN CATCH Performed By: #### L 501.67, L4, L501.1000, L501.4100, L501.1105, L501.4405, L101.9900, L100.0100 ####[facility] [address] [place], [address] UROBILI Normal Normal Normal [facility] Comment on above: Order Comment: CLEAN CATCH Performed By: #### L 501.6710, L4, L501.1000, L501.4100, L501.1105, L501.4405, L101.9900, L100.0100 ####[facility] [address] [place], [address] Absolute lymphocyte countOrd ered By: MONSERRAT WEI on 05-11-2023 Lymphocytes Auto (Unsp spec) [#/Vol] 1.98 10*3/uL 0.83-4.51 [facility] Automated lymphocyte count a s percentage of total leukocytesOrdered By: MONSERRAT WEI on 05-11-2023 Lymphocytes/100 WBC Auto (Unsp spec) 26.5 % 19-41 [facility] Basophil percentageOrdered B y: MONSERRAT WEI on 05-11-2023 Basophil percentage 5-10 SEEN /hpf 0-5 [facility] Basophils/100 WBC (Bld) 0.4 % 0-1 [facility] Eosinophils/100 WBC (Bld) 1.3 % 0-5 [facility] Hemoglobin (Bld) [Mass/Vol] 11.3 g/dL 12.0-15.0 [facility] Monocytes/100 WBC (Bld) 7.2 % 0-10 [facility] Neutrophils (Bld) [#/Vol] 4.8 10*3/uL 2.0-7.7 [facility] Neutrophils/100 WBC (Bld) 64.1 % 47-70 [facility] WBC (Bld) [#/Vol] 7.5 10*3/uL 4.4-11.0 [facility] Bilirubin Test strip Ql (U)O rdered By: MONSERRAT WEI on 05-11-2023 Bilirubin Ql (U) Negative Negative [facility] Determination of erythrocyte mean corpuscular volume (MCV)Ordered By: MONSERRAT WEI on 05-11-2023 MCV (RBC) [Entitic vol] 94.3 fL 81-99 [facility] Dohle bodies detectionOrdere d By: MONSERRAT WEI on 05-11-2023 Dohle body LM Ql (Bld) 7.5 [facility] Erythrocyte distribution wid th ratioOrdered By: MONSERRAT WEI on 05-11-2023 Erythrocyte distribution width (RBC) [Ratio] 15.0 % 11.6-14.6 [facility] Erythrocyte distribution wid th standard deviationOrdered By: MONSERRAT WEI on 05-11-2023 Erythrocyte distribution width (RBC) [Entitic vol] 51.2 fL 35.1-43.9 [facility] Erythrocyte sedimentation ra teOrdered By: MONSERRAT WEI on 05-11-2023 ESR (Bld) [Velocity] 8 mm/h 0-30 [facility] Hematocrit Auto (Bld) [Volum e fraction]Ordered By: MONSERRAT WEI on 05-11-2023 Hematocrit (Bld) [Volume fraction] 36.3 % 37-47 [facility] Immature granulocytes/100 WB C Auto (Bld)Ordered By: MONSERRAT WEI on 05-11-2023 Immature granulocytes/100 WBC (Bld) 0.500 % 0.0-0.9 [facility] Comment on above: IG% - Immature Granu locytes (promyelocytes, myelocytes and metamyelocytes) > 1% indicates that a LEFT SHIFT is Present. Ketones Test strip Ql (U)Ord ered By: MONSERRAT WEI on 05-11-2023 Ketones Ql (U) 5 mg/dl Negative [facility] - Chemistry and C hemistry - challengeOrdered By: MONSERRTA WEI on 05-11-2023 ALT [Catalytic activity/Vol] 22 U/L 13-56 [facility] - Hematology and Cell countsOrdered By: MONSERRAT WEI on 05-11-2023 MCH (RBC) [Entitic mass] 29.4 pg 27.0-32.0 [facility] MCHC (RBC) [Mass/Vol] 31.1 g/dL 32-36 [facility] Nucleated RBC/100 WBC (Bld) [Ratio] 0 % 0-5 [facility] Platelets (Bld) [#/Vol] 307 10*3/uL 150-450 [facility] Mucus LM Ql (Urine sed)Order ed By: MONSERRAT WEI on 05-11-2023 Mucus Ql (Urine sed) 0 SEEN /hpf [facility] Nitrite Test strip Ql (U)Ord ered By: MONSERRAT WEI on 05-11-2023 Nitrite Ql (U) Negative Negative [facility] No Panel InformationOrdered By: MONSERRAT WEI on 05-11-2023 C-Reactive Protein Extended Range < 2.90 mg/L 0.0-3.0 [facility] Comment on above: C-Reactive Protein ( CRP) provides useful information for thediagnosis, therapy and monitoring of inflammatory processesand associated diseases. For the evaluation of Relative Riskfor Cardiovascular Disease, a High Sensitivity CRP (HSCRP)should be ordered. Estimated GFR (MDRD) Amer 93 mL/min >60 [facility] Comment on above: GFR Calc Estimated GFR (MDRD) Non-Af Amer 77 mL/min >60 [facility] Comment on above: Non- GFR Calc Urine RBC 0-5 SEEN /hpf 0-5 [facility] Platelet mean volume Brendan-Ec ker (Bld) [Entitic vol]Ordered By: MONSERRAT WEI on 05-11-2023 Platelet mean volume (Bld) [Entitic vol] 8.7 fL 6.2-12.0 [facility] Protein Test strip Ql (U)Ord ered By: MONSERRAT WEI on 05-11-2023 Protein Ql (U) 15 mg/dl Negative [facility] RBC Auto (Bld) [#/Vol]Ordere d By: MONSERRAT WEI on 05-11-2023 RBC (Bld) [#/Vol] 3.85 10*6/uL 4.2-5.4 [facility] Serum or plasma creatinine m easurement (mass/volume)Ordered By: MONSERRAT WEI on 05-11-2023 Creatinine [Mass/Vol] 0.81 mg/dL 0.55-1.02 [facility] Comment on above: The validity of the calculated GFR & GFRAA in patients over 70 years has not been determined. Clinical correlation is essential. Serum or plasma urea nitroge n measurement (mass/volume)Ordered By: MONSERRAT WEI on 05-11-2023 Urea nitrogen [Mass/Vol] 19 mg/dL 7-18 [facility] Squamous epithelial cells de tection in urine sediment by light microscopyOrdered By: MONSERRAT WEI on 05-11-2023 Epithelial cells.squamous LM Ql (Urine sed) 0-5 SEEN /hpf 5-10 [facility] Thin prep Papanicolaou smear with manual screeningOrdered By: MONSERRAT WEI on 05-11-2023 Thin prep Papanicolaou smear with manual screening 22 U/L 15-37 [facility] Urine blood detectionOrdered By: MONSERRAT WEI on 05-11-2023 RBC Ql (U) 10 /ul Negative [facility] Urine clarityOrdered By: SARA WEI on 05-11-2023 Clarity (U) Sl. Cloudy Clear [facility] Urine color determinationOrd ered By: MONSERRAT WEI on 05-11-2023 Color (U) Yellow Yellow [facility] Urine glucose detectionOrder ed By: MONSERRAT WEI on 05-11-2023 Glucose Ql (U) Normal mg/dl Normal [facility] Urine leukocyte esterase det ection by dipstickOrdered By: MONSERRAT EWI on 05-11-2023 Leukocyte esterase Test strip Ql (U) 100 /ul Negative [facility] Urine pHOrdered By: MONSERRAT ZAVALETA on 05-11-2023 pH (U) 5.0 [pH] 5.0 - 8.0 [facility] Urine sediment bacteria coun t by microscopy (number/high power field)Ordered By: MONSERRAT WEI on 05-11-2023 Bacteria LM.HPF (Urine sed) [#/Area] RARE /hpf None Seen [facility] Urine specific gravity measu rementOrdered By: MONSERRAT WEI on 05-11-2023 Specific gravity (U) [Rel density] 1.025 1.002-1.030 [facility] Urine urobilinogen measureme ntOrdered By: MONSERRAT WEI on 05-11-2023 Urobilinogen Ql (U) 1 mg/dl Normal [facility] Absolute lymphocyte counton 09-11-2022 Lymphocytes Auto (Unsp spec) [#/Vol] 2.01 10*3/uL 0.83-4.51 [facility] Basophil percentageon 2022 Basophils/100 WBC (Bld) 0.4 % 0-1 [facility] Eosinophils/100 WBC (Bld) 1.1 % 0-5 [facility] Neutrophils (Bld) [#/Vol] 6.1 10*3/uL 2.0-7.7 [facility] Neutrophils/100 WBC (Bld) 68.7 % 47-70 [facility] WBC (Bld) [#/Vol] 8.9 10*3/uL 4.4-11.0 [facility] Blood erythrocytes count (nu mber/volume)on 09-11-2022 RBC (Bld) [#/Vol] 3.86 10*6/uL 4.2-5.4 [facility] Blood hemoglobin measurement (mass/volume)on 09-11-2022 Hemoglobin (Bld) [Mass/Vol] 11.5 g/dL 12.0-15.0 [facility] Blood lymphocytes/100 leukoc yteson 09-11-2022 Lymphocytes/100 WBC (Bld) 22.6 % 19-41 [facility] Blood monocytes/100 leukocyt eson 09-11-2022 Monocytes/100 WBC (Bld) 7.0 % 0-10 [facility] Blood platelet mean volumeon 09-11-2022 Platelet mean volume (Bld) [Entitic vol] 9.0 fL 6.2-12.0 [facility] Determination of erythrocyte mean corpuscular volume (MCV)on 09-11-2022 MCV (RBC) [Entitic vol] 94.6 fL 81-99 [facility] Erythrocyte sedimentation ra minoo 09-11-2022 ESR (Bld) [Velocity] 9 mm/h 0-30 [facility] Hematocrit Auto (Bld) [Volum e fraction]on 09-11-2022 Hematocrit (Bld) [Volume fraction] 36.5 % 37-47 [facility] - Chemistry and C hemistry - challengeon 09-11-2022 ALT [Catalytic activity/Vol] 17 U/L 13-56 [facility] - Hematology and Cell countson 09-11-2022 Erythrocyte distribution width (RBC) [Entitic vol] 51.5 fL 35.1-43.9 [facility] Erythrocyte distribution width (RBC) [Ratio] 15.1 % 11.6-14.6 [facility] Immature granulocytes/100 WBC (Bld) 0.200 % 0.0-0.9 [facility] Comment on above: IG% - Immature Granu locytes (promyelocytes, myelocytes and metamyelocytes) > 1% indicates that a LEFT SHIFT is Present. MCH (RBC) [Entitic mass] 29.8 pg 27.0-32.0 [facility] Nucleated RBC/100 WBC (Bld) [Ratio] 0 % 0-5 [facility] MCHC Auto (RBC) [Mass/Vol]on 09-11-2022 MCHC (RBC) [Mass/Vol] 31.5 g/dL 32-36 [facility] No Panel Informationon 09-11 Estimated GFR (MDRD) Amer 97 mL/min >60 [facility] Comment on above: GFR Calc Estimated GFR (MDRD) Non-Af Amer 80 mL/min >60 [facility] Comment on above: Non- GFR Calc Miscellaneous Test See comment [facility] Comment on above: TEST RESULT LIMITSTh iopurine Methyltransferase TPMT Activity 19.7 Units/mL RBC Reference Range: Normal: 15.1 - 26.4 Heterozygous for low TPMT variant: 6.3 - 15.0 Homozygous for low TPMT variant: <6.3Interpretation: The above results can be interpreted as Normal for redblood cell Thiopurine Methyltransferase activity. Forpatients having an intrinsic low level of TPMT, recent RBCtransfusion can variably increase their assayed enzymaticactivity depending on the amount and circulating half-lifeof the transfused red blood cells.This test was developed and its performance characteristicsdetermined by [employer]. It has not been cleared or approvedby the Food and Drug Administration.This case has been reviewed, approved, interpreted andelectronically signed by James Li, PhD, [facility].Methodology Enzymatic Endpoint/Liquid Chromatography - Tandem Mass Spectrometry (LC-MS/MS) ___ TESTING PERFORMED AT [facility]. ORIGINAL REPORT ON FILE IN LAB CONTAINS ADDITIONAL TEST SITE INFORMATION. Platelets bldon 09-11-2022 Platelets (Bld) [#/Vol] 274 10*3/uL 150-450 [facility] Serum or plasma C reactive p rotein measurement (mass/volume)on 09-11-2022 CRP [Mass/Vol] mg/L 0.0-3.0 [facility] Comment on above: C-Reactive Protein ( CRP) provides useful information for thediagnosis, therapy and monitoring of inflammatory processesand associated diseases. For the evaluation of Relative Riskfor Cardiovascular Disease, a High Sensitivity CRP (HSCRP)should be ordered. Serum or plasma creatinine m easurement (mass/volume)on 09-11-2022 Creatinine [Mass/Vol] 0.78 mg/dL 0.55-1.02 [facility] Comment on above: The validity of the calculated GFR & GFRAA in patients over 70 years has not been determined. Clinical correlation is essential. Serum or plasma urea nitroge n measurement (mass/volume)on 09-11-2022 Urea nitrogen [Mass/Vol] 23 mg/dL 7-18 [facility] Thin prep Papanicolaou smear with manual screeningon 09-11-2022 Thin prep Papanicolaou smear with manual screening 16 U/L 15-37 [facility] Absolute lymphocyte countOrd ered By: MONSERRAT WEI on 06-14-2022 Lymphocytes Auto (Unsp spec) [#/Vol] 2.05 10*3/uL 0.83-4.51 [facility] Basophil percentageOrdered B y: MONSERRAT WEI on 06-14-2022 Basophil percentage 0-5 SEEN /hpf 0-5 [facility] Basophils/100 WBC (Bld) 0.3 % 0-1 [facility] Eosinophils/100 WBC (Bld) 0.9 % 0-5 [facility] Neutrophils (Bld) [#/Vol] 6.9 10*3/uL 2.0-7.7 [facility] Neutrophils/100 WBC (Bld) 71.0 % 47-70 [facility] WBC (Bld) [#/Vol] 9.7 10*3/uL 4.4-11.0 [facility] Bilirubin Test strip Ql (U)O rdered By: MONSERRAT WEI on 06-14-2022 Bilirubin Ql (U) Negative Negative [facility] Blood erythrocytes count (nu mber/volume)Ordered By: MONSERRAT WEI on 06-14-2022 RBC (Bld) [#/Vol] 3.98 10*6/uL 4.2-5.4 [facility] Blood hemoglobin measurement (mass/volume)Ordered By: MONSERRAT WEI on 06-14-2022 Hemoglobin (Bld) [Mass/Vol] 12.1 g/dL 12.0-15.0 [facility] Blood lymphocytes/100 leukoc ytesOrdered By: MONSERRAT WEI on 06-14-2022 Lymphocytes/100 WBC (Bld) 21.1 % 19-41 [facility] Blood monocytes/100 leukocyt esOrdered By: MONSERRAT WEI on 06-14-2022 Monocytes/100 WBC (Bld) 6.4 % 0-10 [facility] Blood platelet mean volumeOr dered By: MONSERRAT WEI on 06-14-2022 Platelet mean volume (Bld) [Entitic vol] 9.2 fL 6.2-12.0 [facility] Determination of erythrocyte mean corpuscular volume (MCV)Ordered By: MONSERRAT WEI on 06-14-2022 MCV (RBC) [Entitic vol] 93.7 fL 81-99 [facility] Erythrocyte sedimentation ra teOrdered By: MONSERRAT EWI on 06-14-2022 ESR (Bld) [Velocity] 9 mm/h 0-30 [facility] Hematocrit Auto (Bld) [Volum e fraction]Ordered By: MONSERRAT WEI on 06-14-2022 Hematocrit (Bld) [Volume fraction] 37.3 % 37-47 [facility] Ketones Test strip Ql (U)Ord ered By: MONSERRAT WEI on 06-14-2022 Ketones Ql (U) 5 mg/dl Negative [facility] - Chemistry and C hemistry - challengeOrdered By: MONSERRAT WEI on 06-14-2022 ALT [Catalytic activity/Vol] 18 U/L 13-56 [facility] - Hematology and Cell countsOrdered By: MONSERRAT WEI on 06-14-2022 Erythrocyte distribution width (RBC) [Entitic vol] 49.2 fL 35.1-43.9 [facility] Erythrocyte distribution width (RBC) [Ratio] 14.3 % 11.6-14.6 [facility] Immature granulocytes/100 WBC (Bld) 0.300 % 0.0-0.9 [facility] Comment on above: IG% - Immature Granu locytes (promyelocytes, myelocytes and metamyelocytes) > 1% indicates that a LEFT SHIFT is Present. MCH (RBC) [Entitic mass] 30.4 pg 27.0-32.0 [facility] Nucleated RBC/100 WBC (Bld) [Ratio] 0 % 0-5 [facility] MCHC Auto (RBC) [Mass/Vol]Or dered By: MONSERRAT WEI on 06-14-2022 MCHC (RBC) [Mass/Vol] 32.4 g/dL 32-36 [facility] Mucus LM Ql (Urine sed)Order ed By: MONSERRAT WEI on 06-14-2022 Mucus Ql (Urine sed) 0 SEEN /hpf [facility] Nitrite Test strip Ql (U)Ord ered By: MONSERRAT WEI on 06-14-2022 Nitrite Ql (U) Negative Negative [facility] No Panel InformationOrdered By: MONSERRAT WEI on 06-14-2022 Estimated GFR (MDRD) Amer 99 mL/min >60 [facility] Comment on above: GFR Calc Estimated GFR (MDRD) Non-Af Amer 82 mL/min >60 [facility] Comment on above: Non- GFR Calc Platelets bldOrdered By: SARA WEI on 06-14-2022 Platelets (Bld) [#/Vol] 297 10*3/uL 150-450 [facility] Protein Test strip Ql (U)Ord ered By: MONSERRAT WEI on 06-14-2022 Protein Ql (U) 15 mg/dl Negative [facility] Serum or plasma C reactive p rotein measurement (mass/volume)Ordered By: MONSERRAT WEI on 06-14-2022 CRP [Mass/Vol] mg/L 0.0-3.0 [facility] Comment on above: C-Reactive Protein ( CRP) provides useful information for thediagnosis, therapy and monitoring of inflammatory processesand associated diseases. For the evaluation of Relative Riskfor Cardiovascular Disease, a High Sensitivity CRP (HSCRP)should be ordered. Serum or plasma creatinine m easurement (mass/volume)Ordered By: MONSERRAT WEI on 06-14-2022 Creatinine [Mass/Vol] 0.77 mg/dL 0.55-1.02 [facility] Comment on above: The validity of the calculated GFR & GFRAA in patients over 70 years has not been determined. Clinical correlation is essential. Serum or plasma urea nitroge n measurement (mass/volume)Ordered By: MONSERRAT WEI on 06-14-2022 Urea nitrogen [Mass/Vol] 24 mg/dL 7-18 [facility] Squamous epithelial cells de tection in urine sediment by light microscopyOrdered By: MONSERRAT WEI on 06-14-2022 Epithelial cells.squamous LM Ql (Urine sed) 0 SEEN /hpf 5-10 [facility] Thin prep Papanicolaou smear with manual screeningOrdered By: MONSERRAT WEI on 06-14-2022 Thin prep Papanicolaou smear with manual screening 17 U/L 15-37 [facility] Urine blood detectionOrdered By: MONSERRAT WEI on 06-14-2022 RBC Ql (U) Negative Negative [facility] RBC Ql (U) 0 SEEN /hpf 0-5 [facility] Urine clarityOrdered By: SARA WEI on 06-14-2022 Clarity (U) Clear Clear [facility] Urine color determinationOrd ered By: MONSERRAT WEI on 06-14-2022 Color (U) Yellow Yellow [facility] Urine glucose detectionOrder ed By: MONSERRAT WEI on 06-14-2022 Glucose Ql (U) Normal mg/dl Normal [facility] Urine leukocyte esterase det ection by dipstickOrdered By: MONSERRAT WEI on 06-14-2022 Leukocyte esterase Test strip Ql (U) 25 /ul Negative [facility] Urine pHOrdered By: MONSERRAT ZAVALETA on 06-14-2022 pH (U) 5.0 [pH] 5.0 - 8.0 [facility] Urine sediment bacteria coun t by microscopy (number/high power field)Ordered By: MONSERRAT WEI on 06-14-2022 Bacteria LM.HPF (Urine sed) [#/Area] 0 /[HPF] None Seen [facility] Urine specific gravity measu rementOrdered By: MONSERRAT WEI on 06-14-2022 Specific gravity (U) [Rel density] 1.025 1.002-1.030 [facility] Urobilinogen Auto test strip Ql (U)Ordered By: MONSERRAT WEI on 06-14-2022 Urobilinogen Ql (U) Normal mg/dl Normal [facility] Absolute lymphocyte counton 02-03-2022 Lymphocytes Auto (Unsp spec) [#/Vol] 1.56 10*3/uL 0.83-4.51 [facility] Work Phone: Basophil percentageon 2021 Basophil percentage 10-25 SEEN /hpf 0-5 [facility] Work Phone: Basophils/100 WBC (Bld) 0.4 % 0-1 [facility] Work Phone: Eosinophils/100 WBC (Bld) 2.1 % 0-5 [facility] Work Phone: Neutrophils (Bld) [#/Vol] 5.0 10*3/uL 2.0-7.7 [facility] Work Phone: Neutrophils/100 WBC (Bld) 68.6 % 47-70 [facility] Work Phone: WBC (Bld) [#/Vol] 7.3 10*3/uL 4.4-11.0 [facility] Work Phone: Bilirubin Test strip Ql (U)o n 02-03-2022 Bilirubin Ql (U) Negative Negative [facility] Work Phone: Blood erythrocytes count (nu mber/volume)on 02-03-2022 RBC (Bld) [#/Vol] 3.86 10*6/uL 4.2-5.4 [facility] Work Phone: Blood hemoglobin measurement (mass/volume)on 02-03-2022 Hemoglobin (Bld) [Mass/Vol] 12.5 g/dL 12.0-15.0 [facility] Work Phone: Blood lymphocytes/100 leukoc yteson 02-03-2022 Lymphocytes/100 WBC (Bld) 21.4 % 19-41 [facility] Work Phone: Blood monocytes/100 leukocyt eson 02-03-2022 Monocytes/100 WBC (Bld) 7.4 % 0-10 [facility] Work Phone: Blood platelet mean volumeon 02-03-2022 Platelet mean volume (Bld) [Entitic vol] 9.5 fL 6.2-12.0 [facility] Work Phone: Determination of erythrocyte mean corpuscular volume (MCV)on 02-03-2022 MCV (RBC) [Entitic vol] 98.2 fL 81-99 [facility] Work Phone: [phone] Erythrocyte sedimentation ra minoo 02-03-2022 ESR (Bld) [Velocity] 12 mm/h 0-30 [facility] Work Phone: [phone] Hematocrit Auto (Bld) [Volum e fraction]on 02-03-2022 Hematocrit (Bld) [Volume fraction] 37.9 % 37-47 [facility] Work Phone: [phone] Ketones Test strip Ql (U)on 02-03-2022 Ketones Ql (U) 5 mg/dl Negative [facility] Work Phone: Laboratory - Chemistry and C hemistry - challengeon 02-03-2022 ALT [Catalytic activity/Vol] 18 U/L 13-56 [facility] Work Phone: Laboratory - Hematology and Cell countson 02-03-2022 Erythrocyte distribution width (RBC) [Entitic vol] 48.3 fL 35.1-43.9 [facility] Work Phone: [phone] Erythrocyte distribution width (RBC) [Ratio] 13.5 % 11.6-14.6 [facility] Work Phone: [phone] Immature granulocytes/100 WBC (Bld) 0.100 % 0.0-0.9 [facility] Work Phone: Comment on above: IG% - Immature Granu locytes (promyelocytes, myelocytes and metamyelocytes) > 1% indicates that a LEFT SHIFT is Present. MCH (RBC) [Entitic mass] 32.4 pg 27.0-32.0 [facility] Work Phone: [phone] Nucleated RBC/100 WBC (Bld) [Ratio] 0 % 0-5 [facility] Work Phone: [phone] MCHC Auto (RBC) [Mass/Vol]on 02-03-2022 MCHC (RBC) [Mass/Vol] 33.0 g/dL 32-36 [facility] Work Phone: Mucus LM Ql (Urine sed)on Mucus Ql (Urine sed) 0 SEEN /hpf [facility] Work Phone: Nitrite Test strip Ql (U)on 02-03-2022 Nitrite Ql (U) Negative Negative [facility] Work Phone: No Panel Informationon 02-03 Estimated GFR (MDRD) Amer 113 mL/min >60 [facility] Work Phone: Comment on above: GFR Calc Estimated GFR (MDRD) Non-Af Amer 94 mL/min >60 [facility] Work Phone: Comment on above: Non- GFR Calc Platelets bldon 02-03-2022 Platelets (Bld) [#/Vol] 256 10*3/uL 150-450 [facility] Work Phone: Protein Test strip Ql (U)on 02-03-2022 Protein Ql (U) Negative Negative [facility] Work Phone: Serum or plasma C reactive p rotein measurement (mass/volume)on 02-03-2022 CRP [Mass/Vol] mg/L 0.0-3.0 [facility] Work Phone: Comment on above: C-Reactive Protein ( CRP) provides useful information for thediagnosis, therapy and monitoring of inflammatory processesand associated diseases. For the evaluation of Relative Riskfor Cardiovascular Disease, a High Sensitivity CRP (HSCRP)should be ordered. Serum or plasma creatinine m easurement (mass/volume)on 02-03-2022 Creatinine [Mass/Vol] 0.69 mg/dL 0.55-1.02 [facility] Work Phone: Comment on above: The validity of the calculated GFR & GFRAA in patients over 70 years has not been determined. Clinical correlation is essential. Serum or plasma urea nitroge n measurement (mass/volume)on 02-03-2022 Urea nitrogen [Mass/Vol] 20 mg/dL 7-18 [facility] Work Phone: Squamous epithelial cells de tection in urine sediment by light microscopyon 02-03-2022 Epithelial cells.squamous LM Ql (Urine sed) 0-5 SEEN /hpf 5-10 [facility] Work Phone: Thin prep Papanicolaou smear with manual screeningon 02-03-2022 Thin prep Papanicolaou smear with manual screening 19 U/L 15-37 [facility] Work Phone: [phone] Urine blood detectionon 01-08 RBC Ql (U) 10 /ul Negative [facility] Work Phone: RBC Ql (U) 0-5 SEEN /hpf 0-5 [facility] Work Phone: [phone] Urine clarityon 02-03-2022 Clarity (U) Clear Clear [facility] Work Phone: Urine color determinationon 02-03-2022 Color (U) Yellow Yellow [facility] Work Phone: [phone] Urine glucose detectionon Glucose Ql (U) Normal mg/dl Normal [facility] Work Phone: [phone] Urine leukocyte esterase det ection by dipstickon 02-03-2022 Leukocyte esterase Test strip Ql (U) 500 /ul Negative [facility] Work Phone: [phone] Urine pHon 02-03-2022 pH (U) 6.0 [pH] 5.0 - 8.0 [facility] Work Phone: Urine sediment bacteria coun t by microscopy (number/high power field)on 02-03-2022 Bacteria LM.HPF (Urine sed) [#/Area] 0 /[HPF] None Seen [facility] Work Phone: [phone] Urine specific gravity measu rementon 02-03-2022 Specific gravity (U) [Rel density] 1.020 1.002-1.030 [facility] Work Phone: [phone] Urobilinogen Auto test strip Ql (U)on 02-03-2022 Urobilinogen Ql (U) 1 mg/dl Normal [facility] Work Phone: [phone] Absolute lymphocyte counton 10-13-2021 Lymphocytes Auto (Unsp spec) [#/Vol] 1.83 10*3/uL 0.83-4.51 [facility] Work Phone: Basophil percentageon 2021 Basophil percentage 0-5 SEEN /hpf 0-5 [facility] Work Phone: Basophils/100 WBC (Bld) 0.4 % 0-1 [facility] Work Phone: Eosinophils/100 WBC (Bld) 1.3 % 0-5 [facility] Work Phone: Neutrophils (Bld) [#/Vol] 4.5 10*3/uL 2.0-7.7 [facility] Work Phone: Neutrophils/100 WBC (Bld) 64.6 % 47-70 [facility] Work Phone: WBC (Bld) [#/Vol] 7.0 10*3/uL 4.4-11.0 [facility] Work Phone: Bilirubin Test strip Ql (U)o n 10-13-2021 Bilirubin Ql (U) Negative Negative [facility] Work Phone: Blood erythrocytes count (nu mber/volume)on 10-13-2021 RBC (Bld) [#/Vol] 3.87 10*6/uL 4.2-5.4 [facility] Work Phone: Blood hemoglobin measurement (mass/volume)on 10-13-2021 Hemoglobin (Bld) [Mass/Vol] 12.3 g/dL 12.0-15.0 [facility] Work Phone: Blood lymphocytes/100 leukoc yteson 10-13-2021 Lymphocytes/100 WBC (Bld) 26.1 % 19-41 [facility] Work Phone: Blood monocytes/100 leukocyt eson 10-13-2021 Monocytes/100 WBC (Bld) 7.3 % 0-10 [facility] Work Phone: Blood platelet mean volumeon 10-13-2021 Platelet mean volume (Bld) [Entitic vol] 9.6 fL 6.2-12.0 [facility] Work Phone: Determination of erythrocyte mean corpuscular volume (MCV)on 10-13-2021 MCV (RBC) [Entitic vol] 96.6 fL 81-99 [facility] Work Phone: Erythrocyte sedimentation ra minoo 10-13-2021 ESR (Bld) [Velocity] 9 mm/h 0-30 [facility] Work Phone: [phone] Hematocrit Auto (Bld) [Volum e fraction]on 10-13-2021 Hematocrit (Bld) [Volume fraction] 37.4 % 37-47 [facility] Work Phone: Ketones Test strip Ql (U)on 10-13-2021 Ketones Ql (U) 5 mg/dl Negative [facility] Work Phone: Laboratory - Chemistry and C hemistry - challengeon 10-13-2021 ALT [Catalytic activity/Vol] 16 U/L 13-56 [facility] Work Phone: Laboratory - Hematology and Cell countson 10-13-2021 Erythrocyte distribution width (RBC) [Entitic vol] 49.4 fL 35.1-43.9 [facility] Work Phone: [phone] Erythrocyte distribution width (RBC) [Ratio] 14.1 % 11.6-14.6 [facility] Work Phone: Immature granulocytes/100 WBC (Bld) 0.300 % 0.0-0.9 [facility] Work Phone: Comment on above: IG% - Immature Granu locytes (promyelocytes, myelocytes and metamyelocytes) > 1% indicates that a LEFT SHIFT is Present. MCH (RBC) [Entitic mass] 31.8 pg 27.0-32.0 [facility] Work Phone: [phone] Nucleated RBC/100 WBC (Bld) [Ratio] 0 % 0-5 [facility] Work Phone: MCHC Auto (RBC) [Mass/Vol]on 10-13-2021 MCHC (RBC) [Mass/Vol] 32.9 g/dL 32-36 [facility] Work Phone: Mucus LM Ql (Urine sed)on Mucus Ql (Urine sed) 0 SEEN /hpf [facility] Work Phone: Nitrite Test strip Ql (U)on 10-13-2021 Nitrite Ql (U) Negative Negative [facility] Work Phone: No Panel Informationon 10-13 Estimated GFR (MDRD) Amer 100 mL/min >60 [facility] Work Phone: Comment on above: GFR Calc Estimated GFR (MDRD) Non-Af Amer 83 mL/min >60 [facility] Work Phone: Comment on above: Non- GFR Calc Platelets bldon 10-13-2021 Platelets (Bld) [#/Vol] 273 10*3/uL 150-450 [facility] Work Phone: Protein Test strip Ql (U)on 10-13-2021 Protein Ql (U) 15 mg/dl Negative [facility] Work Phone: Serum or plasma C reactive p rotein measurement (mass/volume)on 10-13-2021 CRP [Mass/Vol] 3.57 mg/L 0.0-3.0 [facility] Work Phone: Comment on above: C-Reactive Protein ( CRP) provides useful information for thediagnosis, therapy and monitoring of inflammatory processesand associated diseases. For the evaluation of Relative Riskfor Cardiovascular Disease, a High Sensitivity CRP (HSCRP)should be ordered. Serum or plasma albumin jose urement (mass/volume)on 10-13-2021 Albumin [Mass/Vol] 3.9 g/dL 3.2-5.0 [facility] Work Phone: Serum or plasma creatinine m easurement (mass/volume)on 10-13-2021 Creatinine [Mass/Vol] 0.76 mg/dL 0.55-1.02 [facility] Work Phone: Comment on above: The validity of the calculated GFR & GFRAA in patients over 70 years has not been determined. Clinical correlation is essential. Serum or plasma urea nitroge n measurement (mass/volume)on 10-13-2021 Urea nitrogen [Mass/Vol] 18 mg/dL 7-18 [facility] Work Phone: Squamous epithelial cells de tection in urine sediment by light microscopyon 10-13-2021 Epithelial cells.squamous LM Ql (Urine sed) 0-5 SEEN /hpf 5-10 [facility] Work Phone: Thin prep Papanicolaou smear with manual screeningon 10-13-2021 Thin prep Papanicolaou smear with manual screening 17 U/L 15-37 [facility] Work Phone: Urine blood detectionon RBC Ql (U) Negative Negative [facility] Work Phone: RBC Ql (U) 0-5 SEEN /hpf 0-5 [facility] Work Phone: Urine clarityon 10-13-2021 Clarity (U) Clear Clear [facility] Work Phone: Urine color determinationon 10-13-2021 Color (U) Yellow Yellow [facility] Work Phone: Urine glucose detectionon Glucose Ql (U) Normal mg/dl Normal [facility] Work Phone: Urine leukocyte esterase det ection by dipstickon 10-13-2021 Leukocyte esterase Test strip Ql (U) 25 /ul Negative [facility] Work Phone: [phone] Urine pHon 10-13-2021 pH (U) 5.0 [pH] 5.0 - 8.0 [facility] Work Phone: Urine sediment bacteria coun t by microscopy (number/high power field)on 10-13-2021 Bacteria LM.HPF (Urine sed) [#/Area] 0 /[HPF] None Seen [facility] Work Phone: Urine specific gravity measu rementon 10-13-2021 Specific gravity (U) [Rel density] 1.025 1.002-1.030 [facility] Work Phone: Urobilinogen Auto test strip Ql (U)on 10-13-2021 Urobilinogen Ql (U) 1 mg/dl Normal [facility] Work Phone: Absolute lymphocyte counton 07-19-2021 Lymphocytes Auto (Unsp spec) [#/Vol] 1.92 10*3/uL 0.83-4.51 [facility] Work Phone: Basophil percentageon 2021 Basophil percentage 50-100 SEEN /hpf 0-5 [facility] Work Phone: Basophils/100 WBC (Bld) 0.5 % 0-1 [facility] Work Phone: Eosinophils/100 WBC (Bld) 1.6 % 0-5 [facility] Work Phone: Neutrophils (Bld) [#/Vol] 5.4 10*3/uL 2.0-7.7 [facility] Work Phone: Neutrophils/100 WBC (Bld) 67.3 % 47-70 [facility] Work Phone: WBC (Bld) [#/Vol] 8.0 10*3/uL 4.4-11.0 [facility] Work Phone: Bilirubin Test strip Ql (U)o n 07-19-2021 Bilirubin Ql (U) Negative Negative [facility] Work Phone: Blood erythrocytes count (nu mber/volume)on 07-19-2021 RBC (Bld) [#/Vol] 4.07 10*6/uL 4.2-5.4 [facility] Work Phone: Blood hemoglobin measurement (mass/volume)on 07-19-2021 Hemoglobin (Bld) [Mass/Vol] 13.1 g/dL 12.0-15.0 [facility] Work Phone: Blood lymphocytes/100 leukoc yteson 07-19-2021 Lymphocytes/100 WBC (Bld) 24.1 % 19-41 [facility] Work Phone: Blood monocytes/100 leukocyt eson 07-19-2021 Monocytes/100 WBC (Bld) 6.1 % 0-10 [facility] Work Phone: Blood platelet mean volumeon 07-19-2021 Platelet mean volume (Bld) [Entitic vol] 9.3 fL 6.2-12.0 [facility] Work Phone: [phone] Determination of erythrocyte mean corpuscular volume (MCV)on 07-19-2021 MCV (RBC) [Entitic vol] 100.2 fL 81-99 [facility] Work Phone: Erythrocyte sedimentation ra minoo 07-19-2021 ESR (Bld) [Velocity] 15 mm/h 0-30 [facility] Work Phone: Hematocrit Auto (Bld) [Volum e fraction]on 07-19-2021 Hematocrit (Bld) [Volume fraction] 40.8 % 37-47 [facility] Work Phone: [phone] Ketones Test strip Ql (U)on 07-19-2021 Ketones Ql (U) 5 mg/dl Negative [facility] Work Phone: [phone] Laboratory - Chemistry and C hemistry - challengeon 07-19-2021 ALT [Catalytic activity/Vol] 19 U/L 13-56 [facility] Work Phone: [phone] Laboratory - Hematology and Cell countson 07-19-2021 Erythrocyte distribution width (RBC) [Entitic vol] 48.5 fL 35.1-43.9 [facility] Work Phone: [phone] Erythrocyte distribution width (RBC) [Ratio] 13.1 % 11.6-14.6 [facility] Work Phone: [phone] Immature granulocytes/100 WBC (Bld) 0.400 % 0.0-0.9 [facility] Work Phone: [phone] Comment on above: IG% - Immature Granu locytes (promyelocytes, myelocytes and metamyelocytes) > 1% indicates that a LEFT SHIFT is Present. MCH (RBC) [Entitic mass] 32.2 pg 27.0-32.0 [facility] Work Phone: Nucleated RBC/100 WBC (Bld) [Ratio] 0 % 0-5 [facility] Work Phone: MCHC Auto (RBC) [Mass/Vol]on 07-19-2021 MCHC (RBC) [Mass/Vol] 32.1 g/dL 32-36 [facility] Work Phone: Mucus LM Ql (Urine sed)on Mucus Ql (Urine sed) 0 SEEN /hpf [facility] Work Phone: Nitrite Test strip Ql (U)on 07-19-2021 Nitrite Ql (U) Negative Negative [facility] Work Phone: No Panel Informationon 07-19 Estimated GFR (MDRD) Amer 92 mL/min >60 [facility] Work Phone: Comment on above: GFR Calc Estimated GFR (MDRD) Non-Af Amer 76 mL/min >60 [facility] Work Phone: Comment on above: Non- GFR Calc Miscellaneous Test See comment [facility] Work Phone: Comment on above: TEST RESULT LIMITSTh iopurine Methyltransferase TPMT Activity 18.9 Units/mL RBC Reference Range: Normal: 15.1 - 26.4 Heterozygous for low TPMT variant: 6.3 - 15.0 Homozygous for low TPMT variant: <6.3Interpretation: The above results can be interpreted as Normal for red blood cell Thiopurine Methyltransferase activity. For patients having an intrinsic low level of TPMT, recent RBC transfusion can variably increase their assayed enzymatic activity depending on the amount and circulating half-life of the transfused red blood cells. This test was developed and its performance characteristics determined by [employer]. It has not been cleared or approved by the Food and Drug Administration. This case has been reviewed, approved, interpreted and electronically signed by James Li, PhD, [facility]. Methodology Enzymatic Endpoint/Liquid Chromatography - Tandem Mass Spectrometry (LC-MS/MS) ___ TESTING PERFORMED AT [facility]. ORIGINAL REPORT ON FILE IN LAB CONTAINS ADDITIONAL TEST SITE INFORMATION. Platelets bldon 07-19-2021 Platelets (Bld) [#/Vol] 281 10*3/uL 150-450 [facility] Work Phone: Protein Test strip Ql (U)on 07-19-2021 Protein Ql (U) 30 mg/dl Negative [facility] Work Phone: Serum or plasma C reactive p rotein measurement (mass/volume)on 07-19-2021 CRP [Mass/Vol] 5.15 mg/L 0.0-3.0 [facility] Work Phone: Comment on above: C-Reactive Protein ( CRP) provides useful information for thediagnosis, therapy and monitoring of inflammatory processesand associated diseases. For the evaluation of Relative Riskfor Cardiovascular Disease, a High Sensitivity CRP (HSCRP)should be ordered. Serum or plasma creatinine m easurement (mass/volume)on 07-19-2021 Creatinine [Mass/Vol] 0.82 mg/dL 0.55-1.02 [facility] Work Phone: Comment on above: The validity of the calculated GFR & GFRAA in patients over 70 years has not been determined. Clinical correlation is essential. Serum or plasma urea nitroge n measurement (mass/volume)on 07-19-2021 Urea nitrogen [Mass/Vol] 15 mg/dL 7-18 [facility] Work Phone: Squamous epithelial cells de tection in urine sediment by light microscopyon 07-19-2021 Epithelial cells.squamous LM Ql (Urine sed) 10-25 SEEN /hpf 5-10 [facility] Work Phone: Thin prep Papanicolaou smear with manual screeningon 07-19-2021 Thin prep Papanicolaou smear with manual screening 18 U/L 15-37 [facility] Work Phone: [phone] Urine blood detectionon 07-08 RBC Ql (U) 25 /ul Negative [facility] Work Phone: RBC Ql (U) 0-5 SEEN /hpf 0-5 [facility] Work Phone: Urine clarityon 07-19-2021 Clarity (U) Cloudy Clear [facility] Work Phone: Urine color determinationon 07-19-2021 Color (U) Yellow Yellow [facility] Work Phone: Urine glucose detectionon Glucose Ql (U) Normal mg/dl Normal [facility] Work Phone: [phone] Urine leukocyte esterase det ection by dipstickon 07-19-2021 Leukocyte esterase Test strip Ql (U) 500 /ul Negative [facility] Work Phone: Urine pHon 07-19-2021 pH (U) 5.0 [pH] 5.0 - 8.0 [facility] Work Phone: [phone] Urine sediment bacteria coun t by microscopy (number/high power field)on 07-19-2021 Bacteria LM.HPF (Urine sed) [#/Area] 1 /[HPF] None Seen [facility] Work Phone: [phone] Urine specific gravity measu rementon 07-19-2021 Specific gravity (U) [Rel density] 1.025 1.002-1.030 [facility] Work Phone: [phone] Urobilinogen Auto test strip Ql (U)on 07-19-2021 Urobilinogen Ql (U) 1 mg/dl Normal [facility] Work Phone: [phone] Absolute lymphocyte counton 06-10-2021 Lymphocytes Auto (Unsp spec) [#/Vol] 0.51 10*3/uL 0.83-4.51 [facility] Work Phone: [phone] Basophil percentageon 03-04- 2022 Basophils/100 WBC (Bld) 0.1 % 0-1 [facility] Work Phone: Eosinophils/100 WBC (Bld) 0.0 % 0-5 [facility] Work Phone: Neutrophils (Bld) [#/Vol] 10.7 10*3/uL 2.0-7.7 [facility] Work Phone: Neutrophils/100 WBC (Bld) 93.4 % 47-70 [facility] Work Phone: WBC (Bld) [#/Vol] 11.5 10*3/uL 4.4-11.0 [facility] Work Phone: [phone] Blood erythrocytes count (nu mber/volume)on 06-10-2021 RBC (Bld) [#/Vol] 3.68 10*6/uL 4.2-5.4 [facility] Work Phone: [phone] Blood hemoglobin measurement (mass/volume)on 06-10-2021 Hemoglobin (Bld) [Mass/Vol] 12.1 g/dL 12.0-15.0 [facility] Work Phone: Blood lymphocytes/100 leukoc yteson 06-10-2021 Lymphocytes/100 WBC (Bld) 4.4 % 19-41 [facility] Work Phone: [phone] Blood manual differential co mment interpretation (narrative result)on 06-10-2021 Manual differential comment Elliott (Bld) [Interp] SEE COMMENT [facility] Work Phone: [phone] Comment on above: LYMPHOPENIA NOTED Blood monocytes/100 leukocyt eson 06-10-2021 Monocytes/100 WBC (Bld) 1.8 % 0-10 [facility] Work Phone: [phone] Blood platelet adequacy dete ction by light microscopyon 06-10-2021 Platelets LM Ql (Bld) ADEQUATE ADEQ [facility] Work Phone: [phone] Blood platelet mean volumeon 06-10-2021 Platelet mean volume (Bld) [Entitic vol] 9.0 fL 6.2-12.0 [facility] Work Phone: Determination of erythrocyte mean corpuscular volume (MCV)on 06-10-2021 MCV (RBC) [Entitic vol] 100.5 fL 81-99 [facility] Work Phone: Glucose Glucometer (BldC) [M ass/Vol]on 06-10-2021 Glucose [Mass/Vol] 77 mg/dL 74-106 [facility] Work Phone: Comment on above: MANAGEMENT OF PATIEN T CARE PER NURSING PROTOCOL Hematocrit Auto (Bld) [Volum e fraction]on 06-10-2021 Hematocrit (Bld) [Volume fraction] 37.0 % 37-47 [facility] Work Phone: Laboratory - Hematology and Cell countson 06-10-2021 Anisocytosis Ql (Bld) 1+ [facility] Work Phone: Erythrocyte distribution width (RBC) [Entitic vol] 48.8 fL 35.1-43.9 [facility] Work Phone: Erythrocyte distribution width (RBC) [Ratio] 13.2 % 11.6-14.6 [facility] Work Phone: Immature granulocytes/100 WBC (Bld) 0.300 % 0.0-0.9 [facility] Work Phone: Comment on above: IG% - Immature Granu locytes (promyelocytes, myelocytes and metamyelocytes) > 1% indicates that a LEFT SHIFT is Present. MCH (RBC) [Entitic mass] 32.9 pg 27.0-32.0 [facility] Work Phone: Nucleated RBC/100 WBC (Bld) [Ratio] 0 % 0-5 [facility] Work Phone: MCHC Auto (RBC) [Mass/Vol]on 06-10-2021 MCHC (RBC) [Mass/Vol] 32.7 g/dL 32-36 [facility] Work Phone: Macrocytes detectionon 06-10 Macrocytes Ql (Bld) 1+ [facility] Work Phone: Ovalocyte detectionon 2021 Ovalocytes LM Ql (Bld) RARE [facility] Work Phone: Platelets bldon 06-10-2021 Platelets (Bld) [#/Vol] 202 10*3/uL 150-450 [facility] Work Phone: RBC morphologyon 06-10-2021 RBC morphology finding Nom (Bld) N CHROM NORMAL NORM C&C [facility] Work Phone: Basophil percentageon 2021 Bilirubin [Mass/Vol] 0.40 mg/dL 0.20-1.00 [facility] Work Phone: Comment on above: For patients on eltr ombopag therapy, use of Dimension [place] TBIL is not recommended. Chloride [Moles/Vol] 110 mmol/L 98-107 [facility] Work Phone: Glucose [Mass/Vol] 92 mg/dL 74-106 [facility] Work Phone: Potassium [Moles/Vol] 3.7 mmol/L 3.5-5.1 [facility] Work Phone: Comment on above: Slight Hemolysis, Re sult may be falsely increased. Protein [Mass/Vol] 7.0 g/dL 6.4-8.2 [facility] Work Phone: Sodium [Moles/Vol] 140 mmol/L 136-145 [facility] Work Phone: Laboratory - Chemistry and C hemistry - challengeon 06-06-2021 ALP [Catalytic activity/Vol] 72 U/L 45-117 [facility] Work Phone: ALT [Catalytic activity/Vol] 17 U/L 13-56 [facility] Work Phone: CO2 [Moles/Vol] 27.0 mmol/L 21.0-32.0 [facility] Work Phone: Globulin (S) [Mass/Vol] 3.3 g/dL 2.2-4.2 [facility] Work Phone: Magnesium [Mass/Vol] 2.1 mg/dL 1.6-2.6 [facility] Work Phone: Comment on above: Slight Hemolysis, Re sult may be falsely increased. Urea nitrogen/Creatinine [Mass ratio] 13.6 mg/mg 10-20 [facility] Work Phone: No Panel Informationon 06-06 Estimated GFR (MDRD) Amer 94 mL/min >60 [facility] Work Phone: Comment on above: GFR Calc Estimated GFR (MDRD) Non-Af Amer 78 mL/min >60 [facility] Work Phone: Comment on above: Non- GFR Calc Serum or plasma albumin jose urement (mass/volume)on 06-06-2021 Albumin [Mass/Vol] 3.7 g/dL 3.2-5.0 [facility] Work Phone: Serum or plasma albumin/glob ulin mass ratioon 06-06-2021 Albumin/Globulin [Mass ratio] 1.1 {ratio} 0.9-2.4 [facility] Work Phone: Serum or plasma calcium jose urement (mass/volume)on 06-06-2021 Calcium [Mass/Vol] 8.9 mg/dL 8.5-10.1 [facility] Work Phone: Serum or plasma creatinine m easurement (mass/volume)on 06-06-2021 Creatinine [Mass/Vol] 0.81 mg/dL 0.55-1.02 [facility] Work Phone: Comment on above: The validity of the calculated GFR & GFRAA in patients over 70 years has not been determined. Clinical correlation is essential. Serum or plasma urea nitroge n measurement (mass/volume)on 06-06-2021 Urea nitrogen [Mass/Vol] 11 mg/dL 7-18 [facility] Work Phone: Thin prep Papanicolaou smear with manual screeningon 06-06-2021 Thin prep Papanicolaou smear with manual screening 20 U/L 15-37 [facility] Work Phone: Comment on above: Slight Hemolysis, Re sult may be falsely increased. Thin prep Papanicolaou smear with manual screening 3 5-15 [facility] Work Phone: Absolute lymphocyte counton 04-20-2021 Lymphocytes Auto (Unsp spec) [#/Vol] 1.79 10*3/uL 0.83-4.51 [facility] Work Phone: Basophil percentageon 2021 Basophil percentage 0-5 SEEN /hpf [facility] Work Phone: Basophils/100 WBC (Bld) 0.5 % 0-1 [facility] Work Phone: Eosinophils/100 WBC (Bld) 1.1 % 0-5 [facility] Work Phone: Neutrophils (Bld) [#/Vol] 4.9 10*3/uL 2.0-7.7 [facility] Work Phone: Neutrophils/100 WBC (Bld) 66.9 % 47-70 [facility] Work Phone: WBC (Bld) [#/Vol] 7.4 10*3/uL 4.4-11.0 [facility] Work Phone: [phone] Bilirubin Test strip Ql (U)o n 04-20-2021 Bilirubin Ql (U) Negative Negative [facility] Work Phone: Blood erythrocytes count (nu mber/volume)on 04-20-2021 RBC (Bld) [#/Vol] 3.90 10*6/uL 4.2-5.4 [facility] Work Phone: Blood hemoglobin measurement (mass/volume)on 04-20-2021 Hemoglobin (Bld) [Mass/Vol] 12.8 g/dL 12.0-15.0 [facility] Work Phone: Blood lymphocytes/100 leukoc yteson 04-20-2021 Lymphocytes/100 WBC (Bld) 24.3 % 19-41 [facility] Work Phone: Blood monocytes/100 leukocyt eson 04-20-2021 Monocytes/100 WBC (Bld) 6.9 % 0-10 [facility] Work Phone: Blood platelet mean volumeon 04-20-2021 Platelet mean volume (Bld) [Entitic vol] 9.4 fL 6.2-12.0 [facility] Work Phone: [phone] Determination of erythrocyte mean corpuscular volume (MCV)on 04-20-2021 MCV (RBC) [Entitic vol] 100.5 fL 81-99 [facility] Work Phone: [phone] Erythrocyte sedimentation ra minoo 04-20-2021 ESR (Bld) [Velocity] 8 mm/h 0-30 [facility] Work Phone: [phone] Hematocrit Auto (Bld) [Volum e fraction]on 04-20-2021 Hematocrit (Bld) [Volume fraction] 39.2 % 37-47 [facility] Work Phone: [phone] Ketones Test strip Ql (U)on 04-20-2021 Ketones Ql (U) Negative Negative [facility] Work Phone: [phone] Laboratory - Chemistry and C hemistry - challengeon 04-20-2021 Albumin [Mass/Vol] 4.3 g/dL [facility] Work Phone: [phone] ALT [Catalytic activity/Vol] 20 U/L 13-56 [facility] Work Phone: CK [Catalytic activity/Vol] 92 U/L 26-192 [facility] Work Phone: Cobalamin (Vitamin B12) [Mass/Vol] 1213 pg/mL 211-911 [facility] Work Phone: [phone] Laboratory - Hematology and Cell countson 04-20-2021 Erythrocyte distribution width (RBC) [Entitic vol] 46.3 fL 35.1-43.9 [facility] Work Phone: [phone] Erythrocyte distribution width (RBC) [Ratio] 12.6 % 11.6-14.6 [facility] Work Phone: Immature granulocytes/100 WBC (Bld) 0.300 % 0.0-0.9 [facility] Work Phone: Comment on above: IG% - Immature Granu locytes (promyelocytes, myelocytes and metamyelocytes) > 1% indicates that a LEFT SHIFT is Present. MCH (RBC) [Entitic mass] 32.8 pg 27.0-32.0 [facility] Work Phone: Nucleated RBC/100 WBC (Bld) [Ratio] 0 % 0-5 [facility] Work Phone: MCHC Auto (RBC) [Mass/Vol]on 04-20-2021 MCHC (RBC) [Mass/Vol] 32.7 g/dL 32-36 [facility] Work Phone: Mucus LM Ql (Urine sed)on Mucus Ql (Urine sed) 0 SEEN /hpf [facility] Work Phone: Nitrite Test strip Ql (U)on 04-20-2021 Nitrite Ql (U) Negative Negative [facility] Work Phone: No Panel Informationon 04-20 Addendum Document Comment [facility] Work Phone: Comment on above: Faint band in gamma region suspicious for monoclonalimmunoglobulin. This band may represent a benign spike asseen in older people or could be a paraprotein as seen inMultiple Myeloma, Waldenstrom's Macroglobulinemia orLymphoma. Depending on clinical circumstances, furtherdiagnostic studies may include serum immunofixation orserum free light chain quantitation. Wxpjn-0-Ifnszfzie 0.2 g/dL [facility] Work Phone: Wpivt-8-Vujvscshm 0.8 g/dL [facility] Work Phone: Estimated GFR (MDRD) Amer 88 mL/min >60 [facility] Work Phone: Comment on above: GFR Calc Estimated GFR (MDRD) Non-Af Amer 73 mL/min >60 [facility] Work Phone: Comment on above: Non- GFR Calc Gamma Globulins 0.8 g/dL [facility] Work Phone: Hepatitis B Core IgM Antibody Negative Negative [facility] Work Phone: Comment on above: Performed at: [address] [id number] Director: Kong Anderson PhD, Phone: [phone] Hepatitis B Surface Antigen Non-Reactive Nonreactive [facility] Work Phone: Hepatitis C Antibody Non-Reactive Nonreactive [facility] Work Phone: Comment on above: Non Reactive: < 0.8 Equivocal: >/= 0.8 to < 1.0 Reactive: >/= 1.0The [facility] recommends that a reactive/equivocal HCV antibody result be followed up by the HCV Nucleic Acid Amplificationtest (450847) Vitamin D 25-Hydroxy 30.6 ng/mL [facility] Work Phone: Comment on above: Vitamin D 25(OH) Sta tus Range Deficiency <20 ng/mL (50nmol/L) Insufficiency 20 - 30 ng/mL (50 - 75 nmol/L) Sufficiency 30 - 100 ng/mL (75 - 250 nmol/L) Toxicity >100 ng/mL (>250 nmol/L) Platelets bldon 04-20-2021 Platelets (Bld) [#/Vol] 283 10*3/uL 150-450 [facility] Work Phone: Protein Fractions Elph [Inte rp]on 04-20-2021 Protein Fractions [Interp] Comment [facility] Work Phone: Comment on above: Protein electrophore sis scan will follow via computer,mail, or automotive fuel systems converter delivery. Protein Test strip Ql (U)on 04-20-2021 Protein Ql (U) Negative Negative [facility] Work Phone: Qualitative QuantiFERON-TB g old in tube teston 04-20-2021 M. tuberculosis tuberculin stim IFN-g Ql (Bld) 0.01 IU/mL [facility] Work Phone: Serum albumin to globulin ra aníbal by protein electrophoresison 04-20-2021 Albumin/Globulin Elph [Mass ratio] 1.5 [facility] Work Phone: Serum globulin measurement ( mass/volume)on 04-20-2021 Globulin (S) [Mass/Vol] 2.9 g/dL [facility] Work Phone: Serum hepatitis B virus surf shawn antibody IgG detectionon 04-20-2021 HBV surface IgG Ql (S) Reactive [facility] Work Phone: Comment on above: Non Reactive: Incons istent with immunity less than <10 mIU/mL Reactive: Consistent with immunity greater than or equal to 10 mIU/mL Serum or plasma C reactive p rotein measurement (mass/volume)on 04-20-2021 CRP [Mass/Vol] 7.13 mg/L 0.0-3.0 [facility] Work Phone: Comment on above: C-Reactive Protein ( CRP) provides useful information for thediagnosis, therapy and monitoring of inflammatory processesand associated diseases. For the evaluation of Relative Riskfor Cardiovascular Disease, a High Sensitivity CRP (HSCRP)should be ordered. Serum or plasma albumin jose urement (mass/volume)on 04-20-2021 Albumin [Mass/Vol] 3.9 g/dL 3.2-5.0 [facility] Work Phone: Serum or plasma beta globuli n measurement by electrophoresis (mass/volume)on 04-20-2021 Beta globulin Elph [Mass/Vol] 1.1 g/dL [facility] Work Phone: Serum or plasma calcium jose urement (mass/volume)on 04-20-2021 Calcium [Mass/Vol] 8.8 mg/dL 8.5-10.1 [facility] Work Phone: Serum or plasma creatinine m easurement (mass/volume)on 04-20-2021 Creatinine [Mass/Vol] 0.86 mg/dL 0.55-1.02 [facility] Work Phone: Comment on above: The validity of the calculated GFR & GFRAA in patients over 70 years has not been determined. Clinical correlation is essential. Serum or plasma folate measu rement (mass/volume)on 04-20-2021 Folate [Mass/Vol] 26.40 ng/mL 3.1-55.4 [facility] Work Phone: Serum or plasma urea nitroge n measurement (mass/volume)on 04-20-2021 Urea nitrogen [Mass/Vol] 21 mg/dL 7-18 [facility] Work Phone: Squamous epithelial cells de tection in urine sediment by light microscopyon 04-20-2021 Epithelial cells.squamous LM Ql (Urine sed) 0-5 SEEN /hpf [facility] Work Phone: Thin prep Papanicolaou smear with manual screeningon 04-20-2021 Thin prep Papanicolaou smear with manual screening 16 U/L 15-37 [facility] Work Phone: Thin prep Papanicolaou smear with manual screening See comment [facility] Work Phone: Comment on above: Asymmetrical gamma Thin prep Papanicolaou smear with manual screening Comment [facility] Work Phone: Comment on above: The QuantiFERON-TB G old Plus result is determined bysubtracting the Nil value from either TB antigen (Ag) tube.The mitogen tube serves as a control for the test. Thin prep Papanicolaou smear with manual screening 0.02 IU/mL [facility] Work Phone: Thin prep Papanicolaou smear with manual screening 0 IU/mL [facility] Work Phone: Thin prep Papanicolaou smear with manual screening > 10.00 IU/mL [facility] Work Phone: Thin prep Papanicolaou smear with manual screening Negative Negative [facility] Work Phone: Comment on above: The specimen receive d for QuantiFERON testing was incubatedby the ordering institution. Specific procedures outlinedin our Directory of Services and in the package insert forthe QuantiFERON Gold (In Tube) test must be followed toenable for proper stimulation of cells for the productionof interferon gamma. Chemiluminescence immunoassaymethodology Total protein bloodon 2021 Protein [Mass/Vol] 7.2 g/dL [facility] Work Phone: [phone] Urine blood detectionon 04-09 RBC Ql (U) 10 /ul Negative [facility] Work Phone: [phone] RBC Ql (U) 0 SEEN /hpf [facility] Work Phone: [phone] Urine clarityon 04-20-2021 Clarity (U) Clear Clear [facility] Work Phone: Urine color determinationon 04-20-2021 Color (U) Yellow Yellow [facility] Work Phone: Urine glucose detectionon Glucose Ql (U) Normal mg/dl Normal [facility] Work Phone: [phone] Urine leukocyte esterase det ection by dipstickon 04-20-2021 Leukocyte esterase Test strip Ql (U) 100 /ul Negative [facility] Work Phone: [phone] Urine pHon 04-20-2021 pH (U) 5.0 [pH] [facility] Work Phone: Urine sediment bacteria coun t by microscopy (number/high power field)on 04-20-2021 Bacteria LM.HPF (Urine sed) [#/Area] RARE /hpf None Seen [facility] Work Phone: Urine specific gravity measu rementon 04-20-2021 Specific gravity (U) [Rel density] 1.025 [facility] Work Phone: Urobilinogen Auto test strip Ql (U)on 04-20-2021 Urobilinogen Ql (U) Normal mg/dl Normal [facility] Work Phone: Vital Signs Date Time Vital Sign Value Performing Clinician Facility 11-07-2024 15:13-0400 Body height 160 cm Christy Peacock [facility] Work Phone: [facility] Comment on above: [facility] 11-07-2024 15:13-0400 Body mass index (BMI) [Ratio] 34.58 kg/m2 Christy Peacock [employer] Work Phone: [facility] 11-07-2024 15:13-0400 Body temperature 97.5 [degF] Christy Peacock [employer] Work Phone: [facility] 11-07-2024 15:13-0400 Body weight 88.54 kg Christy Peacock [employer] Work Phone: [facility] 11-07-2024 15:13-0400 Diastolic blood pressure 82 mm[Hg] Christy Peacock [employer] Work Phone: [facility] 11-07-2024 15:13-0400 Heart rate 72 /min Christy Peacock [employer] Work Phone: [facility] 11-07-2024 15:13-0400 Respiratory rate 16 /min Christy Peacock [employer] Work Phone: [facility] 11-07-2024 15:13-0400 Systolic blood pressure 129 mm[Hg] Christy Peacock [employer] Work Phone: [facility] 06-09-2024 09:16-0500 Body temperature 98.3 [degF] Dr. Fabiana Wiley MD Work Phone: [facility] 06-09-2024 09:16-0500 Diastolic blood pressure 61 mm[Hg] Dr. Fabiana Wiley MD Work Phone: [facility] 06-09-2024 09:16-0500 Heart rate 56 /min Dr. Fabiana Wiley MD Work Phone: [facility] 06-09-2024 09:16-0500 Respiratory rate 16 /min Dr. Fabiana Wiley MD Work Phone: [facility] 06-09-2024 09:16-0500 SaO2% (BldA) [Mass fraction] 94 % Dr. Fabiana Wiley MD Work Phone: [facility] 06-09-2024 09:16-0500 Systolic blood pressure 91 mm[Hg] Dr. Fabiana Wiley MD Work Phone: [facility] 06-09-2024 07:57-0500 Body height 162.[address] Fabiana Wiley MD Work Phone: [facility] 06-09-2024 07:57-0500 Body mass index (BMI) [Ratio] 34.3 kg/m2 Dr. Fabiana Wiley MD Work Phone: [facility] 06-09-2024 07:57-0500 Body weight 90.[address] Fabiana Wiley MD Work Phone: [facility] 04-17-2024 09:09-0500 Body mass index (BMI) [Ratio] 34.3 kg/m2 Dr. Fabiana Wiley MD Work Phone: [facility] 04-17-2024 09:09-0500 Body temperature 97.5 [degF] Dr. Fabiana Wiley MD Work Phone: [facility] 04-17-2024 09:09-0500 Body weight 90.[address] Fabiana Wiley MD Work Phone: [facility] 04-17-2024 09:09-0500 Diastolic blood pressure 82 mm[Hg] Dr. Fabiana Wiley MD Work Phone: [facility] 04-17-2024 09:09-0500 Heart rate 65 /min Dr. Fabiana Wiley MD Work Phone: [facility] 04-17-2024 09:09-0500 Respiratory rate 18 /min Dr. Fabiana Wiley MD Work Phone: [facility] 04-17-2024 09:09-0500 SaO2% (BldA) [Mass fraction] 98 % Dr. Fabiana Wiley MD Work Phone: [facility] 04-17-2024 09:09-0500 Systolic blood pressure 124 mm[Hg] Dr. Fabiana Wiley MD Work Phone: [facility] 08-06-2023 09:40-0400 Body temperature 97.4 [degF] Dr. Fabiana Wiley Work Phone: [facility] 08-06-2023 09:40-0400 Diastolic blood pressure 80 mm[Hg] Dr. Fabiana Wiley Work Phone: [facility] 08-06-2023 09:40-0400 Heart rate 59 /min Dr. Fabiana Wiley Work Phone: [facility] 08-06-2023 09:40-0400 Respiratory rate 16 /min Dr. Fabiana Wiley Work Phone: [facility] 08-06-2023 09:40-0400 SaO2% (BldA) [Mass fraction] 99 % Dr. Fabiana Wiley Work Phone: [facility] 08-06-2023 09:40-0400 Systolic blood pressure 127 mm[Hg] Dr. Fabiana Wiley Work Phone: [facility] 08-06-2023 08:41-0400 Body height 162.[address] Fabiana Wiley Work Phone: [facility] 08-06-2023 08:41-0400 Body mass index (BMI) [Ratio] 35.5 kg/m2 Dr. Fabiana Wiley Work Phone: [facility] 08-06-2023 08:41-0400 Body weight 93.[address] Fabiana Wiley Work Phone: [facility] 05-25-2023 11:03-0500 Body height 162.[address] Fabiana Wiley Work Phone: [facility] 05-25-2023 11:03-0500 Body mass index (BMI) [Ratio] 34.3 kg/m2 Dr. Fabiana Wiley Work Phone: [facility] 05-25-2023 11:03-0500 Body weight 90.[address] Fabiana Wiley Work Phone: [facility] 03-21-2022 15:57-0500 Body height 163.83 cm [facility] 06-23-2021 14:46-0400 Body height 163.[address] Fabiana Wiley Work Phone: [facility] Work Phone: 06-23-2021 14:46-0400 Body mass index (BMI) [Ratio] 33.7 kg/m2 Dr. Fabiana Wiley Work Phone: [facility] Work Phone: 06-23-2021 14:46-0400 Body weight 90.[address] Fabiana Wiley Work Phone: [facility] Work Phone: 06-23-2021 14:46-0400 Diastolic blood pressure 64 mm[Hg] Dr. Fabiana Wiley Work Phone: [facility] Work Phone: 06-23-2021 14:46-0400 Systolic blood pressure 120 mm[Hg] Dr. Fabiana Wiley Work Phone: [facility] Work Phone: 06-11-2021 10:02-0500 Body temperature 97.8 [degF] Dr. Fabiana Wiley Work Phone: [facility] Work Phone: 06-11-2021 10:02-0500 Diastolic blood pressure 58 mm[Hg] Dr. Fabiana Wiley Work Phone: [facility] Work Phone: 06-11-2021 10:02-0500 Heart rate 62 /min Dr. Fabiana Wiley Work Phone: [facility] Work Phone: 06-11-2021 10:02-0500 Respiratory rate 18 /min Dr. Fabiana Wiley Work Phone: [facility] Work Phone: 06-11-2021 10:02-0500 SaO2% (BldA) [Mass fraction] 95 % Dr. Fabiana Wiley Work Phone: [facility] Work Phone: 06-11-2021 10:02-0500 Systolic blood pressure 106 mm[Hg] Dr. Fabiana Wiley Work Phone: [facility] Work Phone: 06-10-2021 14:53-0500 Body mass index (BMI) [Ratio] 34.9 kg/m2 Dr. Fabiana Wiley Work Phone: [facility] Work Phone: 06-10-2021 14:53-0500 Body weight 92.[address] Fabiana Wiley Work Phone: [facility] Work Phone: 05-23-2021 13:21-0500 Body mass index (BMI) [Ratio] 34.9 kg/m2 Dr. Fabiana Wiley Work Phone: [facility] Work Phone: 05-23-2021 13:21-0500 Body weight 93.[address] Fabiana Wiley Work Phone: [facility] Work Phone: Encounters Encounter Date Encounter Type Care Provider Facility Start: 11-20-2024 [facility] Facility:[facility] Start: 11-10-2024 End: 11-10-[address] Fabiana Wiley MD Work Phone: -Laboratory Work Phone: Start: 11-10-2024 End: 11-10-[address] [facility] Facility:[facility] Start: 11-07-2024 End: 11-07-2024 Office outpatient visit 15 minutes Christytimmy Gilbertjacque [employer]ICE [employer]ERK Work Phone: [facility] [place] Comment on above: Class 1 obesity due to excess calories without serious comorbidity with body mass index (BMI) of 34.0 to 34.9 in adult (Primary Dx); Status post gastric bypass for obesity; Epigastric pain; Right upper quadrant pain Start: 11-07-2024 End: 11-07-2024 ambulatory [facility] Start: 10-07-2024 ambulatory SANJUANA GERMAN Facility:[facility] Start: 10-07-2024 Non-patient / Non-visit Dr. Jazmine thompson MD -[facility] Work Phone: Start: 09-09-2024 End: 09-09-2024 Discharged Recurring SANJUANA GERMAN MD -Laboratory Work Phone: Start: 09-09-2024 End: 09-09-[address] Fabiana Wiley MD Work Phone: -Laboratory Start: 07-08-2024 ambulatory SANJUANA GERMAN Facility:[facility] Start: 06-11-2024 End: 06-11-2024 Discharged Recurring SANJUANA GERMAN MD -Laboratory Work Phone: Start: 06-11-2024 End: 06-11-[address] Fabiana Wiley MD Work Phone: [facility] Work Phone: Start: 06-09-2024 Non-patient / Non-visit Dr. Michael Robertson MD -[facility] Start: 06-09-2024 End: 06-09-2024 Admission to same day surgery center Dr. Amanda Robertson MD -Endoscopy Work Phone: Start: 06-09-2024 End: 06-09-2024 ambulatory [facility] Facility:[facility] Start: 04-17-2024 End: 04-17-[address] Amanda Robertson MD -[facility] Work Phone: Start: 04-17-2024 End: 04-17-2024 ambulatory [facility] [place] [place] Start: 03-27-2024 End: 03-27-[address] Fabiana Wiley MD -Laboratory Work Phone: Start: 03-27-2024 End: 03-27-2024 ambulatory Fabiana Wiley Facility:[facility] Start: 03-25-2024 End: 03-25-2024 Patient encounter procedure SANJUANA GERMAN MD -Outpatient Bone Densitometry Work Phone: Start: 03-25-2024 End: 03-25-2024 ambulatory SANJUANA GERMAN Facility:[facility] Start: 03-10-2024 End: 03-10-2024 Discharged Recurring SANJUANA GERMAN MD -Laboratory Work Phone: Start: 03-10-2024 End: 03-10-2024 ambulatory SANJUANA GERMAN Facility:[facility] Start: 2023 End: 2023 ambulatory SANJUANA GERMAN Facility:[facility] Start: 08-06-2023 Non-patient / Non-visit Dr. Alvarado Wiley Work Phone: [facility] Start: 08-06-2023 End: 08-06-2023 Admission to same day surgery center Dr. Fabiana Wiley Work Phone: [facility]-Endoscopy Work Phone: Start: 08-06-2023 End: 08-06-[address] Fabiana Wiley Work Phone: [facility] Work Phone: Start: 05-28-2023 End: 05-28-[address] Fabiana Wiley Work Phone: [facility] Work Phone: Start: 05-28-2023 End: 05-28-[address] Fabiana Wiley Work Phone: [facility]-Outpatient Breast Imaging Work Phone: Start: 05-25-2023 Non-patient / Non-visit Dr. Alvarado Wiley Work Phone: [facility] Work Phone: Start: 05-11-2023 End: 06-07-[address] Fabiana Wiley Work Phone: [facility] Work Phone: Start: 05-11-2023 End: 06-07-[address] Fabiana Wiley Work Phone: [facility]-Laboratory Work Phone: Start: 05-11-[address] Emma Wiley Work Phone: [facility]-Laboratory Work Phone: Start: 09-11-2022 End: 09-11-2022 ambulatory [facility] Work Phone: Start: 09-11-2022 End: 09-11-2022 Discharged Recurring [facility]Laboratory Work Phone: Start: 06-14-2022 End: 06-14-2022 ambulatory [facility] Work Phone: Start: 06-14-2022 End: 06-14-2022 Patient encounter procedure [facility]Laboratory Start: 03-21-2022 End: 03-21-2022 ambulatory [facility] Work Phone: Start: 03-21-2022 End: 03-21-2022 Patient encounter procedure [facility]-Outpatient Bone Densitometry Start: 02-03-2022 End: 02-03-2022 ambulatory [facility] Work Phone: Start: 02-03-2022 End: 02-03-2022 Patient encounter procedure [facility]-Laboratory Start: 10-13-2021 End: 11-06-2021 Discharged Recurring [facility]-Laboratory Start: 07-19-2021 End: 07-19-[address] Fabiana Wiley Work Phone: [facility]-Laboratory Start: 07-14-2021 End: 07-14-[address] Fabiana Wiley Work Phone: [facility]-Outpatient Breast Imaging Start: 06-23-2021 End: 06-23-[address] Fabiana Wiley Work Phone: [facility] Start: 06-11-2021 Non-patient / Non-visit Dr. Alvarado Wiley Work Phone: [facility] Start: 06-10-2021 End: 06-11-2021 Evaluation and management of inpatient [facility] Start: 06-10-2021 Non-patient / Non-visit Dr. Alvarado Wiley Work Phone: [facility] Start: 05-23-2021 End: 05-23-[address] Fabiana Wiley Work Phone: [facility] Start: 04-20-2021 End: 05-09-[address] Fabiana Wiley Work Phone: [facility]-Laboratory Procedures Date Procedure Procedure Detail Performing Clinician Start: 11-10-2024 Vitamin D, 25-hydrox y measurement Dr. Fabiana Wiley MD Work Phone: Comment on above: Vitamin D StatusDefi ciency: <20 ng/mL (50nmol/L)Insufficiency: 20-30 ng/mL (50-75 nmol/L)Sufficiency: 30-100 ng/mL (75-250 nmol/L)Toxicity: >100 ng/mL (>250 nmol/L)Previous reported result: 34.7 ng/mLEdited by: AUTOINChilango on 11/10/24:1729 AMENDED REPORT 11/10/241728 Vitamin D 25-OH previously reported as: 34.7 ng/mL Vitamin D StatusDeficiency: <20 ng/mL (50nmol/L)Insufficiency: 20-30 ng/mL (50-75 nmol/L)Sufficiency: 30-100 ng/mL (75-250 nmol/L)Toxicity: >100 ng/mL (>250 nmol/L) Start: 09-09-2024 Urnls dip stick/tabl et reagent auto microscopy Dr. Fabiana Wiley MD Work Phone: Start: 09-09-[address] Emma Wiley MD Work Phone: Start: 06-11-2024 Urnls dip stick/tabl et reagent auto microscopy Dr. Fabiana Wiley MD Work Phone: Start: 03-27-2024 Dual energy X-ray absorptiometry Dr. Fabiana Wiley MD Work Phone: Start: 08-06-[address] Fabiana Wiley Work Phone: Start: 05-28-2023 End: 05-28-[address] Fabiana Wiley Work Phone: Start: 03-21-2022 Dual energy X-ray absorptiometry Start: 07-14-2021 Screening mammography Jose Raul Wiley Work Phone: Plan of Treatment Date Care Activity Detail Author Start: 12-08-2024 Influenza vaccination Influenza Vacc ine (#1) [facility] Start: 11-07-2024 End: 11-07-2025 25-hydroxyvitamin D3 [Mass/volume] in Serum or Plasma Vitamin D Deficiency Screening (Vit D 25) Lab Routine Status post gastric bypass for obesity Expected: 11/07/2024, Expires: 11/07/2025 [facility] Comment on above: Expected: 11/07/2024 , Expires: 11/07/2025 Start: 11-07-2024 End: 11-07-2025 CBC panel - Blood by Automated count CBC Lab Routine Status post gastric bypass for obesity Expected: 11/07/2024, Expires: 11/07/2025 [facility] Comment on above: Expected: 11/07/2024 , Expires: 11/07/2025 Start: 11-07-2024 End: 11-07-2025 Cobalamin (Vitamin B12) [Mass/volume] in Serum or Plasma Vitamin B12 Lab Routine Status post gastric bypass for obesity Expected: 11/07/2024, Expires: 11/07/2025 [facility] Comment on above: Expected: 11/07/2024 , Expires: 11/07/2025 Start: 11-07-2024 End: 11-07-2025 Comprehensive metabolic 1998 panel - Serum or Plasma Comprehensive metabolic panel Lab Routine Status post gastric bypass for obesity Expected: 11/07/2024, Expires: 11/07/2025 [facility] Comment on above: Expected: 11/07/2024 , Expires: 11/07/2025 Start: 11-07-2024 End: 11-07-2025 Ferritin [Mass/volume] in Serum or Plasma Ferritin Lab Routine Status post gastric bypass for obesity Expected: 11/07/2024, Expires: 11/07/2025 [facility] Comment on above: Expected: 11/07/2024 , Expires: 11/07/2025 Start: 11-07-2024 End: 11-07-2025 Folate [Mass/volume] in Serum or Plasma Folate Lab Routine Status post gastric bypass for obesity Expected: 11/07/2024, Expires: 11/07/2025 [facility] Comment on above: Expected: 11/07/2024 , Expires: 11/07/2025 Start: 11-07-2024 End: 11-07-2025 Iron and Iron binding capacity panel - Serum or Plasma Iron Lab Routine Status post gastric bypass for obesity Expected: 11/07/2024, Expires: 11/07/2025 [employer] Comment on above: Expected: 11/07/2024 , Expires: 11/07/2025 Start: 11-07-2024 End: 11-07-2025 Lipid 1996 panel - Serum or Plasma Lipid panel Lab Routine Status post gastric bypass for obesity Expected: 11/07/2024, Expires: 11/07/2025 [employer] [facility] Comment on above: Expected: 11/07/2024 , Expires: 11/07/2025 Start: 11-07-2024 End: 11-07-2025 Magnesium [Mass/volume] in Serum or Plasma Magnesium Lab Routine Status post gastric bypass for obesity Expected: 11/07/2024, Expires: 11/07/2025 [employer] [facility] Comment on above: Expected: 11/07/2024 , Expires: 11/07/2025 Start: 11-07-2024 End: 11-07-2025 US Abdomen US abdomen complete Imaging Routine Right upper quadrant pain Expected: 11/07/2024, Expires: 11/07/2025 [employer] [facility] Comment on above: Expected: 11/07/2024 , Expires: 11/07/2025 Start: 11-07-2024 End: 11-07-2025 Vitamin B1, whole blood ([employer]) Vitamin B1, whole blood ([employer]) Lab Routine Status post gastric bypass for obesity Expected: 11/07/2024, Expires: 11/07/2025 [employer] [facility] Comment on above: Expected: 11/07/2024 , Expires: 11/07/2025 Start: 11-07-2024 End: 11-07-2025 XR Abdomen and RF Gastrointestinal tract upper W contrast PO FL upper GI w KUB Imaging Routine Epigastric pain Expected: 11/07/2024, Expires: 11/07/2025 [employer] Comment on above: Expected: 11/07/2024 , Expires: 11/07/2025 Start: 11-07-2024 End: 11-07-2025 Zinc Zinc Lab Routine Status post gastric bypass for obesity Expected: 11/07/2024, Expires: 11/07/2025 [facility] Work Phone: Comment on above: Expected: 11/07/2024 , Expires: 11/07/2025 Start: 06-09-2024 Egd transoral biopsy single/multiple EGD BIOPSY SINGLE/MULTIPLE [facility] Start: 06-09-2024 Patient discharge [facility] Start: 05-28-2024 Screening for malign ant neoplasm of breast Mammogram [facility] Start: 2023 RSV Immunization for Adults (1 - Risk 60-74 years 1-dose series) RSV Immunization for Adults (1 - Risk 60-74 years 1-dose series) [facility] Start: 08-06-2023 Patient discharge [facility] Start: 03-21-2022 Dual energy X-ray absorptiometry Dexa Bone Density Study [facility] Work Phone: Start: 03-21-2022 DXA Bone [Mass/Area] Bone density [facility] Work Phone: Start: 06-10-2021 Anesthesia intraperi toneal lower abd w/laps nos ANESTH SURG LOWER ABDOMEN [facility] Work Phone: Start: 06-10-2021 Cmbnd anterpost colporraphy w/cysto CMBN ANT PST COLPRHY [facility] Work Phone: Start: 06-10-2021 Laps vaginal hystere ctomy uterus 250 gm/< LAPARO-ASST VAG HYSTERECTOMY [facility] Work Phone: Start: 06-10-2021 Sling operation stre ss incontinence REPAIR BLADDER DEFECT [facility] Work Phone: Start: 01-21-2021 COVID-19 Vaccine (3 - Pfizer risk series) COVID-19 Vaccine (3 - Pfizer risk series) [facility] Start: 12-11-1993 Screening for malign ant neoplasm of cervix [facility] Start: 12-11-1984 Screening for malign ant neoplasm of cervix Pap Smear [facility] Start: 12-11-1982 DTaP/Tdap/Td Vaccine s (1 - Tdap) DTaP/Tdap/Td Vaccines (1 - Tdap) [facility] Start: 12-11-1982 Pneumococcal Vaccine : 50+ Years (1 of 2 - PCV) Pneumococcal Vaccine: 50+ Years (1 of 2 - PCV) [facility] Start: 12-11-1981 Diabetes mellitus screening Diabetes Screening [facility] Start: 12-11-1981 Hepatitis C screening Hepatitis C Sc reening [facility] Start: 1975 Depression Screening Depression Scre ening [facility] Start: 12-11-1964 MMR Vaccines (1 of 1 - Standard series) MMR Vaccines (1 of 1 - Standard series) [facility] Start: 1963 HIV screening HIV Screening [facility] Start: 1963 Lipid panel Lipid Panel [facility] Start: 1965 Screening for malign ant neoplasm of colon [facility] Colonoscopy [facility] Patient referral [facility] Work Phone: [facility] Immunizations Immunization Date Immunization Notes Care Provider Moses foster 12-04-2016 influenza virus vacc ine, unspecified formulation Christy Peacock [employer] 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 2016 Unknown [id number] Unknown [id number] Unknown [id number] Unknown [id number]. 2.462 Unknown [id number]. 2.462 Unknown [id number]. 2.462 Unknown [id number]. 2.462 Unknown [id number]. 2.462 Unknown [id number]. 2.462 Unknown [id number] [id number]. 2.462 Unknown [id number] [id number]. 2.462 Unknown [id number] [id number]. 2.462 Unknown [id number] [id number]. 2.462 Unknown [id number]. 2.462 Unknown [id number]. 2.462 Social History Date Type Detail Facility [facility] Work Phone: Start: 06-23-2021 End: 08-06-2023 Tobacco smoking status AKIS Unknown if ever smoked [facility] Start: 1965 Sex Assigned At Female [facility] Start: 06-09-2024 Tobacco smoking status NHIS Never smoked tobacco (finding) [facility] Start: 11-07-2021 End: 07-07-2024 Sex Female (finding) [facility] Start: 11-07-2024 Alcoholic beverage intake Current drinker of alcohol (finding) [facility] Start: 11-07-2024 History of Social function [facility] Start: 11-07-2024 Tobacco use panel [facility] Start: 11-07-2024 Alcohol Comment social [facility] Start: 1965 Sex assigned at Not on file [facility] NEGATED: Highlighted row [facility] NEGATED: Highlighted row Not [facility] Medical Equipment Procedure Code Equipment Code Equipment Origin al Text Equipment Identifier Dates Vaginal hysterectomy MESH, AXIS DERMIS FDA Start: 06-10-2021 Vaginal hysterectomy SEALANT,JACQUIE SEAL HEMOSTATIC 5ML FDA Start: 06-10-2021 Vaginal hysterectomy SEALANT,JACQUIE SEAL HEMOSTATIC 5ML FDA Start: 06-10-2021 Vaginal hysterectomy SLING, ALTIS VAGINAL FDA Start: 06-10-2021 Vaginal hysterectomy Plant polys accharide haemostatic agent, bioabsorbable [id number] FDA Start: 06-10-2021 Vaginal hysterectomy MESH, AXIS DERMIS FDA Start: 06-10-2021 Vaginal hysterectomy SEALANT,JACQUIE SEAL HEMOSTATIC 5ML FDA Start: 06-10-2021 Vaginal hysterectomy SEALANT,JACQUIE SEAL HEMOSTATIC 5ML FDA Start: 06-10-2021 Vaginal hysterectomy SLING, ALTIS VAGINAL FDA Start: 06-10-2021 Vaginal hysterectomy MESH, AXIS DERMIS FDA Start: 06-10-2021 Vaginal hysterectomy SEALANT,JACQUIE SEAL HEMOSTATIC 5ML FDA Start: 06-10-2021 Vaginal hysterectomy SEALANT,JACQUIE SEAL HEMOSTATIC 5ML FDA Start: 06-10-2021 Vaginal hysterectomy SLING, ALTIS VAGINAL FDA Start: 06-10-2021 Vaginal hysterectomy MESH, AXIS DERMIS FDA Start: 06-10-2021 Vaginal hysterectomy SEALANT,JACQUIE SEAL HEMOSTATIC 5ML FDA Start: 06-10-2021 Vaginal hysterectomy SEALANT,JACQUIE SEAL HEMOSTATIC 5ML FDA Start: 06-10-2021 Vaginal hysterectomy SLING, ALTIS VAGINAL FDA Start: 06-10-2021 Vaginal hysterectomy MESH, AXIS DERMIS FDA Start: 06-10-2021 Vaginal hysterectomy SEALANT,JACQUIE SEAL HEMOSTATIC 5ML FDA Start: 06-10-2021 Vaginal hysterectomy SEALANT,JACQUIE SEAL HEMOSTATIC 5ML FDA Start: 06-10-2021 Vaginal hysterectomy SLING, ALTIS VAGINAL FDA Start: 06-10-2021 Vaginal hysterectomy MESH, AXIS DERMIS FDA Start: 06-10-2021 Vaginal hysterectomy SEALANT,JACQUIE SEAL HEMOSTATIC 5ML FDA Start: 06-10-2021 Vaginal hysterectomy SEALANT,JACQUIE SEAL HEMOSTATIC 5ML FDA Start: 06-10-2021 Vaginal hysterectomy SLING, ALTIS VAGINAL FDA Start: 06-10-2021 Vaginal hysterectomy MESH, AXIS DERMIS FDA Start: 06-10-2021 Vaginal hysterectomy SEALANT,JACQUIE SEAL HEMOSTATIC 5ML FDA Start: 06-10-2021 Vaginal hysterectomy SEALANT,JACQUIE SEAL HEMOSTATIC 5ML FDA Start: 06-10-2021 Vaginal hysterectomy SLING, ALTIS VAGINAL FDA Start: 06-10-2021 Vaginal hysterectomy MESH, AXIS DERMIS FDA Start: 06-10-2021 Vaginal hysterectomy SEALANT,JACQUIE SEAL HEMOSTATIC 5ML FDA Start: 06-10-2021 Vaginal hysterectomy SEALANT,JACQUIE SEAL HEMOSTATIC 5ML FDA Start: 06-10-2021 Vaginal hysterectomy SLING, ALTIS VAGINAL FDA Start: 06-10-2021 Vaginal hysterectomy MESH, AXIS DERMIS FDA Start: 06-10-2021 Vaginal hysterectomy SEALANT,JACQUIE SEAL HEMOSTATIC 5ML FDA Start: 06-10-2021 Vaginal hysterectomy SEALANT,JACQUIE SEAL HEMOSTATIC 5ML FDA Start: 06-10-2021 Vaginal hysterectomy SLING, ALTIS VAGINAL FDA Start: 06-10-2021 Vaginal hysterectomy MESH, AXIS DERMIS FDA Start: 06-10-2021 Vaginal hysterectomy SEALANT,JACQUIE SEAL HEMOSTATIC 5ML FDA Start: 06-10-2021 Vaginal hysterectomy SEALANT,JACQUIE SEAL HEMOSTATIC 5ML FDA Start: 06-10-2021 Vaginal hysterectomy SLING, ALTIS VAGINAL FDA Start: 06-10-2021 Vaginal hysterectomy MESH, AXIS DERMIS FDA Start: 06-10-2021 Vaginal hysterectomy SEALANT,JACQUIE SEAL HEMOSTATIC 5ML FDA Start: 06-10-2021 Vaginal hysterectomy SEALANT,JACQUIE SEAL HEMOSTATIC 5ML FDA Start: 06-10-2021 Vaginal hysterectomy SLING, ALTIS VAGINAL FDA Start: 06-10-2021 Vaginal hysterectomy MESH, AXIS DERMIS FDA Start: 06-10-2021 Vaginal hysterectomy SEALANT,JACQUIE SEAL HEMOSTATIC 5ML FDA Start: 06-10-2021 Vaginal hysterectomy SEALANT,JACQUIE SEAL HEMOSTATIC 5ML FDA Start: 06-10-2021 Vaginal hysterectomy SLING, ALTIS VAGINAL FDA Start: 06-10-2021 Goals Date Patient Goal Desired Activity /State Functional Status Date Assessment Result Facility 06-11-2021 Functional status Ambulates;Chair [facility] Work Phone: Mental Status Date Assessment Result Facility 06-09-2024 Cognitive function Voice/Name [facility] Work Phone: 08-06-2023 Cognitive function Voice/Name [facility] Work Phone: 06-11-2021 Cognitive function Voice/Name [facility] Work Phone: Clinical Notes 08-06-2023 to 11-07-2024 Christy Chang, [employer] - 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 Patient has history of gastric bypass 2012. Medications verified with patient this visit. She is taking oral steroid daily, for nodular vasculitis. She noted she has epigastric discomfort, she has to vomit to feel better. She does vomit food. This occurs with eating any kind of meat. She notes pain sometime to right upper quadrant to back as well. Review of Systems Constitutional: Negative. HENT: Negative. Respiratory: Negative. Cardiovascular: Negative. Gastrointestinal: Positive for abdominal pain. Negative for abdominal distention, anal bleeding, blood in stool, constipation, diarrhea, nausea, rectal pain and vomiting. Genitourinary: Negative. Musculoskeletal: Negative. Skin: Negative. Psychiatric/Behavioral: Negative. Physical Examination: BP 129/82 Pulse 72 Temp 36.4 C (97.5 F) Resp 16 Ht 5' 3 (1.6 m) Comment: bcc Wt 195 lb 3.2 oz (88.5 kg) BMI 34.58 kg/m Physical Exam Constitutional: Appearance: Normal appearance. HENT: Head: Normocephalic and atraumatic. Cardiovascular: Comments: Denies chest pain Pulmonary: Comments: Denies shortness of breath Abdominal: Tenderness: There is abdominal tenderness. Comments: Epigastric abdominal pain radiating to right upper quadrant to back Musculoskeletal: General: Normal range of motion. Skin: General: Skin is warm. Neurological: General: No focal deficit present. Mental Status: She is alert and oriented to person, place, and time. Mental status is at baseline. Psychiatric: Mood and Affect: Mood normal. Behavior: Behavior normal. Thought Content: Thought content normal. Judgment: Judgment normal. Assessment: tenderness felt on exam. Patient to have ultrasound for right upper quadrant pain. Ordered UGI for epigastric pain. Plan: offered medical weight loss this visit. No orders of the defined types were placed in this encounter. Medications ordered during this encounter: Encounter Medications[1] Visit Diagnoses: No diagnosis found. Current Medications: Patient's Medications New Prescriptions No medications on file Previous Medications AZATHIOPRINE (IMURAN) 50 MG TABLET Take 50 mg by mouth 2 times daily. ESOMEPRAZOLE (NEXIUM) [address] CAPSULE Take 20 mg by mouth every morning (before breakfast). Do not open capsule. PREDNISONE (DELTASONE) 2.5 MG TABLET Take 2.5 mg by mouth daily. VENLAFAXINE XR (EFFEXOR XR) 150 MG 24 HR CAPSULE Take 150 mg by mouth daily. Do not crush or chew. Modified Medications No medications on file Discontinued Medications No medications on file [1] Outpatient Encounter Medications as of 11/07/2024 Medication Sig Dispense Refill azaTHIOprine (Imuran) 50 MG tablet Take 50 mg by mouth 2 times daily. esomeprazole (NexIUM) [address] capsule Take 20 mg by mouth every morning (before breakfast). Do not open capsule. predniSONE (Deltasone) 2.5 MG tablet Take 2.5 mg by mouth daily. venlafaxine XR (Effexor XR) 150 MG 24 hr capsule Take 150 mg by mouth daily. Do not crush or chew. No facility-administered encounter medications on file as of 11/07/2024. documented in this encounter [facility] 06-09-2024 Evaluation note Diagnosis Onset Date Resolution Acid reflux acute June 09 7:25am H/O gastric bypass acute June 09, 2024 7:25am [facility] Work Phone: 1(548) 968-223603-03-2025 [facility] Medical Records Department [address] [place] [id number] History Physical Exam 06/09/24 0806 MR#: [id number] Acct: [id number] Name: CORI FU Rep #: [id number] : 1965 58 From: Amanda Robertson MD PCP: Dr. Fabiana Wiley MD Status:[facility] [place] Location: [place] [address] HPI - General General Date of Service: 06/09/24 HPI Narrative CORI FU, is a 58 F who presents for an EGD due to reflux and epigastric discomfort. Patient states it has been well-controlled this weekend. Otherwise denies any changes. Office visit 04/17/2024 HPI HPI: 58-year-old female presents due to reflux and epigastric discomfort. Patient states she has had this for about a year patient has been on generic Nexium 20 mg daily and occasionally twice daily when she has symptoms. Patient denies having EGD however patient did have a gastric bypass in 2012 at [facility] with Dr. Dowling. Patient states she has bowel moods about every other day denies any blood. Patient did have a recent colonoscopy in July 2023-patient had several tubular adenomas of the recommended 3 years for history of colon cancer. [facility] Medical History Low iron Easy bruising Acid reflux Link blood in stool Anemia Hemorrhoids Anxiety Rheumatoid arthritis History of ulceration Gastric reflux Non-smoker Family hx of colon cancer Hx of colonic polyp Ovarian cyst, complex CLAUDETTE (stress urinary incontinence, female) Wears glasses Post-menopausal Depression Alcohol use History of steroid therapy Injury of head and neck Shortness of breath on exertion Nodular vasculitis Cystocele Gastric ulcer Vasculitis of skin Home Medications ???Medication ???Instructions ???Recorded ???Last Taken ???Type prednisone 2.5 mg tablet 5 mg PO DAILY 01/08/18 Unknown His tory esomeprazole magnesium 20 mg 20 mg PO DAILY 06/06/21 06/09/24 0 5:00 History capsule,delayed release venlafaxine 150 mg 150 mg PO DAILY 05/25/23 Unknown H istory capsule,extended release 24 hr (Effexor XR) azathioprine 50 mg tablet 50 mg PO QDAY 04/17/24 Unknown His tory ferrous fumarate 324 mg (106 mg 324 mg PO QODAY 04/17/24 Unknown H istory iron) tablet phentermine 37.5 mg capsule 37.5 mg PO QDAY 04/17/24 04/15/24 History Held on 06/05/24. Instructions: on hold Allergy/AdvReac Type Severity Reaction Status Date / Time No Known Allergies Allergy Verified 06/09/24 07:56 Family History Mother Hypertension Thyroid disorder Brother Seizures Cerebral palsy Brother Colon cancer Surgical History History of bladder surgery H/O gastric bypass Hx of colonoscopy S/P laparoscopic assisted vaginal hysterectomy (LAVH) Hx of foot surgery History of appendectomy History of ovarian cystectomy Heel spur S/P hammer toe correction S/P gastric bypass Social History household members: none current occupational status: employed current occupation: [employer] Smoking Status: Never smoker alcohol intake: current alcohol intake frequency: holidays/special occasions only substance use type: does not use caffeine: Yes do you feel safe at home: Yes 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 Past Medical/Surgical History Planned Operation Planned Operative Procedure(s): EGD S.O.S: No Previous Hospitalizations/Surgeries HX Hospitalizations: No HX of Surgeries: GASTRIC BYPASS 2013 HEEL SPURS BILAT CYST REMOVED FROM OVARY APPENDECTOMY WISDOM TEETH REMOVED HEMMORHOIDECTOMY COLONOSCOPY Any Problems With Anesthesia: No You/Your Family Experience Fever (Hyperthermia) With Anes: No Cholinesterase deficiency: No Cardiovascular Hx Chest Pain within Last 2 months: No Hx of Irregular Heartbeat and/or Afib: No Hx Heart Attack: No Hx Congestive Heart Failure: No Hx Rheumatic Fever: No Hx Hypertension: No Hx Internal Defibrillator: No Hx Pacemaker: No Hx Cardiac Catheterization: No Hx Cardiac Surgery/Stents/Etc.: No Hx Stress Test: Yes ([facility] 08/09/15) Hx Pain in Legs when Walking/Leg Cramps: Yes (LEFT LEG FROM NODULAR VASCULITIS) Respiratory Chronic Cough: No HX of Shortness of Breath: Yes (WITH EXERTION) Hoarseness: No Hx Chronic Obstructive Pulmonary Disease (COPD): No Hx Asthma: No Hx Emphysema: No Hx Sleep Apnea: No CPAP: No Hx Respiratory Tract Infection/Cold (presently): No Do You Snore Loudly (louder than talking or can be heard): No Do You Often Feel Tired/ Fatigued/ Sleepy Dring Daytime?: No Has Anyone Observed You Stop Breathing During Sleep?: No Result (for STOP score): Negative Hx Smoking: No Smoking Status: Never smoker Gastroint (more content not included)...[facility]01-09[facility]2025 Evaluation note* Diagnosis Onset Date Resolution Status Admit Date Acid reflux acute April 17, 2024 8:55am H/O gastric bypass acute 2024 8:55am Acid reflux acute June 09 7:25am H/O gastric bypass acute June 09, 2024 7:25am [facility] Work Phone: 1(214) 360-307904-29-2024 [facility] Chief Complaint EXTRA ORDER NOT RE O CCURING REGIS REFERRAL VAG HYSTER, BSO VAG HYSTER, BSO VAG HYSTER, BSO 2 wk TVHBSO regis combo SCREENING Reason for Visit CLAUDETTE (stress urinary incontinence, female) [facility] Work Phone: evaluation note* Diagnosis Onset Date Resolution Status CLAUDETTE (stress urinary incontinence, female) acute [facility] Work Phone: evaluation noteNo assessment information available [facility] Work Phone: evaluation note* Diagnosis Onset Date Resolution Status Family hx of colon cancer ac sabi Hx of colonic polyp acute [facility] Work Phone: Evaluation note* Diagnosis Class 1 obesity due to excess calories without serious comorbidity with body mass index (BMI) of 34.0 to 34.9 in adult- Primary Status post gastric bypass for obesity Bariatric surgery status Epigastric pain Abdominal pain, epigastric Right upper quadrant pain Abdominal pain, right upper quadrant documented [facility] this [facility] Author Amanda Robertson [facility] August 06, 2023 8:30am Note Date/Time August 06, 2023 8:2 3am [facility] System Medical Records Department [address] [place] [address] History & Physical Exam 08/06/23 0821 MR#: [id number] Acct: [id number] Name: CORI FU Rep #:[id number] : 1965 57 From: Amanda Robertson MD PCP: Dr. Fabiana Wiley MD Status:[facility] Location: [place] [address] HPI - General General Date of Service: 08/06/23 HPI Narrative CORI FU, is a 57 F who presents for a surveillance colonoscopy due to history of colon polyps patient's last colonoscopy was in 2015. Patient had small polyp and hemorrhoids at that time?due in 2020. Patient's brother is alsodiagnosed with colon cancer?at age 55. Patient has bowel movements daily deniesany blood. denies any chronic abdominal pain/nausea/vomiting/reflux. Patient does state that on one of her gluteal cheek she does have possible cyst as it does get smaller or larger patient denies any drainage. [facility] Medical History (Updated 08/06/23 @ 08:[address] Amanda Robertson MD) Alcohol use Anxiety Cystocele Depression Depression Family hx of colon cancer Gastric reflux Gastric ulcer History of edema History of steroid therapy History of ulceration Hx of colonic polyp Injury of head and neck Leg cramps Nodular vasculitis Non-smoker Ovarian cyst, complex Post-menopausal Rheumatoid arthritis Shortness of breath on exertion CLAUDETTE (stress urinary incontinence, female) Vasculitis of skin Wears glasses Home Medications azathioprine 50 mg tablet (Imuran) 50 mg PO DAILY 01/08/18 [History Last Taken Unknown] prednisone 2.5 mg tablet 5 mg PO DAILY 01/08/18 [History Last Taken Unknown] esomeprazole magnesium 20 mg capsule,delayed release 20 mg PO DAILY 06/06/21 [History Last Taken Unknown] cholecalciferol (vitamin D3) 50 mcg (2,000 unit) capsule 50 mcg PO DAILY 05/25/23 [History Last Taken Unknown] multivitamin with minerals-folic acid 200 mcg chewable tablet 1 tab PO DAILY 05/25/23 [History Last Taken Unknown] venlafaxine 150 mg capsule,extended release 24 hr (Effexor XR) 150 mg PO DAILY 05/25/23 [History Last Taken Unknown] Allergy/AdvReac Type Severity Reaction Status Date / Time No Known Allergies Allergy Verified 08/06/23 08:27 Family History (Updated 05/25/23 @ 10:47 by Shea Sandoval) Mother Hypertension Thyroid disorder Brother Seizures Cerebral palsy Brother Colon cancer Surgical History (Updated 05/25/23 @ 10:46 by Shea Sandoval) Heel spur History of appendectomy History of ovarian cystectomy Hx of colonoscopy Hx of foot surgery S/P gastric bypass S/P hammer toe correction S/P laparoscopic assisted vaginal hysterectomy (LAVH) Social History (Updated 05/25/23 @ 10:48 by Shea Sandoval) household members: none current occupational status: employed current occupation: [employer] Smoking Status: Never smoker alcohol intake: current alcohol intake frequency: holidays/special occasions only substance use type: does not use caffeine: Yes do you feel safe at home: Yes 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 Past Medical/Surgical History Planned Operation Planned Operative Procedure/s: COLONOSCOPY S.O.S: No Previous Hospitalizations/Surgeries HX Hospitalizations: No HX of Surgeries: GASTRIC BYPASS 2012 HEEL SPURS BILAT CYST REMOVED FROM OVARY APPENDECTOMY WISDOM TEETH REMOVED HEMMORHOIDECTOMY COLONOSCOPY Any Problems With Anesthesia: No You/Your Family Experience Fever (Hyperthermia) With Anes: No Cholinesterase deficiency: No Cardiovascular Hx Chest Pain within Last 2 months: No Hx of Irregular Heartbeat and/or Afib: No Hx Heart Attack: No Hx Congestive Heart Failure: No Hx Rheumatic Fever: No Hx Hypertension: No Hx Internal Defibrillator: No Hx Pacemaker: No Hx Cardiac Catheterization: No Hx Cardiac Surgery/Stents/Etc.: No Hx Stress Test: Yes ([facility] 08/09/15) Hx Pain in Legs when Walking/Leg Cramps: Yes (LEFT LEG FROM NODULAR VASCULITIS) Respiratory Chronic Cough: No HX of Shortness of Breath: Yes (WITH EXERTION) Hoarseness: No Hx Chronic Obstructive Pulmonary Disease (COPD): No Hx Asthma: No Hx Emphysema: No Hx Sleep Apnea: No Hx Respiratory Tract Infection/Cold (presently): No Do You Snore Loudly (louder than talking or can be heard): No Do You Often Feel Tired/ Fatigued/ Sleepy Dring Daytime?: No Has Anyone Observed You Stop Breathing During Sleep?: No Result (for STOP score): Negative Hx Smoking: No Smoking Status: Never smoker Gastrointestinal Hx Gastrointestinal Disorders: No (HAD GASTRIC BYPASS 2012) Hx Gastrointestinal Bleed: No Hx Ulcer: No Hx Hiatal Hernia: No Difficulty Chewing/Swallowing: No Special diet followed at home: No Hx Unplanned Weight Loss of 20#: No HX Unplanned Weight Gain of 20#: No Neurological Hx Seizures: No HX Syncope/Blackout Spells/Unconsciousness: No Hx Transient Ischemic Attacks (TIA): No Hx Multiple Sclerosis: No Hx Parkinson's Disease: No Hx Head/Neck Injury: No Hx Headaches: No Hx Back Injury/Pain: No Recent Onset of Speech Difficulty: No Restless Legs: No Does patient have nerve stimulator: Yes (INSTRUCTED TO NOT WEAR DOS) Blood Disorder Hx Leukemia: No Bleeding Tendencies: No Hx Deep Vein Thrombosis: No Hx High Cholesterol: No Blood Transmitted Disease: No Hx Hepatitis: No Hx Cirrhosis: No Hx Anemia: No Hx Blood Disorders: No Reproduction : No Is Patient Lactating: No Hx Hysterectomy: No Hx Tubal Ligation: No Are You Post Menopause: Yes Genitourinary Hx Renal Disease: No Musculoskeletal Hx Arthritis: No Hx Rheumatoid Arthritis: No Hx Gout: No Recent Onset of an Orthopedic Problem: Yes (LEFT FOOT) Endocrine Hx Diabetes: No Thyroid Disease: No Hx Steroid Therapy: Yes (DAILY FOR NODULAR VASCULITIS) Psycho/Social Hx Substance Use: No Hx Alcohol Use: No Hx Anxiety: Yes Hx Depression: Yes Mental Illness: No Hx Dementia: No Miscellaneous Hx Cancer: No Recent Exposure to Contagious Disease: No Hx of C-Diff: No Any Loose Teeth: No Allergies No Known Allergies Allergy (Verified 08/06/23 08:27) Discharge Is Pt Admitted From a Longterm, or a Jail: No Who Could Help: FAMILY After D/C, Where Do you Plan to Go: Return Home Physical Exam Const alert, oriented x3 and no apparent distress HEENT normocephalic and head/scalp atraumatic Resp normal respiratory effort Cardio regular rate GI soft to palpation and non-tender; Negative for non-distended Palpation: Negative for guarding Extremity no clubbing, cyanosis or edema Skin no rashes or lesions noted Neuro CN's II-XII intact bilaterally Psych mental status grossly normal Assessment & Plan Assessment/Plan (1) Hx of colonic polyp: (2) Family hx of colon cancer: Surgery Risks - Colonoscopy I discussed with the patient the risks of the procedure: Yes Risks Include but are not Limited To: Risks include but are not limited to: Bleeding, perforation requiring further surgery, inability to complete colonoscopy requiring barium enema. 08/06/23 0830 <Electronically signed by Amanda Robertson MD> Cosigner Signature (if applicable): CC: Dr. Fabiana Wiley MD; Dr. Amanda Robertson MD~ Signed [facility] Work Phone: Reason for referral (narrative)No reason for referral information [facility] Work Phone: Family History Relationship Condition Age at Onset Recorded Date/T jimenez mother Hypertension Unknown Disorder of thyroid Unknown brother Seizure Unknown Relationship Condition Age at Onset Recorded Date/T jimenez mother Hypertension Unknown Disorder of thyroid Unknown brother Seizure Unknown Cerebral palsy Unknown brother Malignant neoplasm of colon Unknown Advance Directives Advance Directive Response Recorded Date/ Time Advance Directives No August 09, 2015 9:49am Living Will No June 10, 2021 4:53pm Power of Director Automotive No June 10 4:53pm Advance Directive Response Recorded Date/ Time Advance Directives No August 09, 2015 8:49am Living Will No June 10, 2021 3:53pm Power of Director Automotive No June 10 3:53pm Advance Directive Response Recorded Date/ Time Advance Directives No August 09, 2015 9:49am Living Will No August 03, 2023 11:40am Power of Director Automotive No August 02 11:40am Advance Directive Response Recorded Date/ Time Living Will No June 05 12:56pm Do you have a Healthcare Power of Director Automotive? No June 05, 2024 12:56pm Living Will No August 03, 2023 11:40am Do you have a Healthcare Power of Director Automotive? No August 03, 2023 11:40am Living Will No April 09 5:50am Do you have a Healthcare Power of Director Automotive? No April 09, 2024 5:50am Advance Directives No August 09, 2015 9:49am Advance Directive Response Recorded Date/ Time Living Will No June 05 12:56pm Do you have a Healthcare Power of Director Automotive? No June 05, 2024 12:56pm Living Will No April 09 5:50am Do you have a Healthcare Power of Director Automotive? No April 09, 2024 5:50am Advance Directives No August 09, 2015 9:49am Advance Directive Response Recorded Date/ Time Advance Directives No August 09, 2015 9:49am Chief Complaint and Reason for Visit Chief Complaint SCREENING EXTRA ORDER NOT RE OCCURING Chief Complaint EXTRA ORDER NOT RE O CCURING Chief Complaint Other specified diso rders of bone density and stru Chief Complaint [id number] Amb Documentation SCREENING Chief Complaint [id number] Amb Documentation SCREENING Reason for Visit Family hx of colon c ancer Hx of colonic polyp Chief Complaint Admit Date [id number] March 10, 2024 3 :42pm MENOPAUSE, CHRONIC PREDNISONE USE, HX OS TEOPENIA March 25, 2024 3:45pm Esophagogastroduodenoscopy April 17, 2024 8:55am [id number] June 11, 2024 3:43 pm Reason for Visit Admit Date Acid reflux April 17, 2024 8: 55am H/O gastric bypass April 17, 2024 8: 55am Acid reflux June 09, 2024 7:25 am H/O gastric bypass June 09, 2024 7:25 am Chief Complaint Admit Date [id number] June 11, 2024 3:43 pm STANDING ORDER EVERY 3 MONTHS September 09, 2024 3:43pm Reason for Visit Admit Date Acid reflux June 09, 2024 7:25 am H/O gastric bypass June 09, 2024 7:25 am Chief Complaint Admit Date STANDING ORDER EVERY 3 MONTHS September 09, 2024 3:43pm Summary Purpose Additional Source Comments Goals (unrecognized section and content) Goals may be documented in a n alternate sectionGoals may be documented in an alternate sectionGoals may be documented in an alternate sectionGoals may be documented in an alternate sectionGoals may be documented in an alternate sectionGoals may be documented in an alternate sectionGoals may be documented in an alternate sectionGoals may be documented in an alternate sectionGoals may be documented in an alternate section Care Teams (unrecognized sec tion and content) Team Status: Active Member Role Status Dates Dr. Fabiana Wiley MD Family Provider Active Dr. Fabiana Wiley MD Primary Care Provider Active Team Status: Inactive Member Role Status Dates Dr. Fabiana Wiley MD Primary Care Provider Active MONSERRAT WEI MD Attending Provider, Referring Provid er Active Team Status: Inactive Member Role Status Dates Dr. Fabiana Wiley MD Primary Care Provider Active MONSERRAT WEI Attending Provider Active Team Status: Active Member Role Status Dates Dr. Fabiana Wiley MD Primary Care Provider Active Shea Sandoval Attending Provider Active Team Status: Active Member Role Status Dates Dr. Fabiana Wiley MD Primary Care Provider Active SANJUANA GERMAN MD Attending Provider, Referring Provid er Active Team Status: Inactive Member Role Status Dates Dr. Fabiana Wiley MD Primary Care Prov ider, Attending Provider, Referring Provider Active Team Status: Inactive Member Role Status Dates Dr. Fabiana Wiley MD Primary Care Provider Active SANJUANA GERMAN MD Attending Provider, Referring Provid er Active Team Status: Active Member Role Status Dates Dr. Fabiana Wiley MD Primary Care Provider, Referrin g Provider Active Dr. Amanda Robertson MD Attending Provider, Other Pro vider Active Team Status: Inactive Member Role Status Dates Dr. Fabiana Wiley MD Primary Care Provider, Referrin g Provider Active Dr. Amanda Robertson MD Attending Provider Active Team Status: Active Member Role Status Dates Dr. Fabiana Wiley MD Primary Care Provider Active Team Status: Inactive Member Role Status Dates Dr. Fabiana Wiley MD Primary Care Provider Active Start: March 10, 2024 End: March 10, 2024 SANJUANA GERMAN MD Attending Provider Active Star t: March 10, 2024 End: March 10, 2024 SANJUANA GERMAN MD Referring Provider Active Star t: March 10, 2024 End: March 10, 2024 Team Status: Inactive Member Role Status Dates Dr. Fabiana Wiley MD Primary Care Provider Active Start: March 25, 2024 End: March 25, 2024 SANJUANA GERMAN MD Attending Provider Active Star t: March 25, 2024 End: March 25, 2024 SANJUANA GERMAN MD Referring Provider Active Star t: March 25, 2024 End: March 25, 2024 Team Status: Inactive Member Role Status Dates Dr. Fabiana Wiley MD Primary Care Provider Active Start: March 27, 2024 End: March 27, 2024 Dr. Fabiana Wiley MD Attending Provider Active Start: March 27, 2024 End: March 27, 2024 Dr. Fabiana Wiley MD Referring Provider Active Start: March 27, 2024 End: March 27, 2024 Team Status: Inactive Member Role Status Dates Dr. Fabiana Wiley MD Primary Care Provider Active Start: April 17, 2024 End: April 17, 2024 Dr. Fabiana Wiley MD Referring Provider Active Start: April 17, 2024 End: April 17, 2024 Dr. Amanda Robertson MD Attending Provider Active Start: April 17, 2024 End: April 17, 2024 Team Status: Inactive Member Role Status Dates Dr. Fabiana Wiley MD Primary Care Provider Active Start: June 09, 2024 End: June 09, 2024 Dr. Fabiana Wiley MD Referring Provider Active Start: June 09, 2024 End: June 09, 2024 Dr. Amanda Robertson MD Attending Provider Active Start: June 09, 2024 End: June 09, 2024 Team Status: Active Member Role Status Dates Dr. Fabiana Wiley MD Primary Care Provider Active Start: June 09, 2024 Dr. Fabiana Wiley MD Referring Provider Active Start: June 09, 2024 Dr. Amanda Robertson MD Attending Provider Active Start: June 09, 2024 Dr. Amanda Robertson MD Other Provider Active S tart: June 09, 2024 Team Status: Inactive Member Role Status Dates Dr. Fabiana Wiley MD Primary Care Provider Active Start: June 11, 2024 End: June 11, 2024 SANJUANA GERMAN MD Attending Provider Active Star t: June 11, 2024 End: June 11, 2024 SANJUANA GERMAN MD Referring Provider Active Star t: June 11, 2024 End: June 11, 2024 Team Status: Active Member Role/Relationship Status Dates Dr. Fabiana Wiley MD Primary Care Provider Active Team Status: Inactive Member Role/Relationship Status Dates Dr. Fabiana Wiley MD Primary Care Provider Active Start: June 09, 2024 End: June 09, 2024 Dr. Fabiana Wiley MD Referring Provider Active Start: June 09, 2024 End: June 09, 2024 Dr. Amanda Robertson MD Attending Provider Active Start: June 09, 2024 End: June 09, 2024 Team Status: Active Member Role/Relationship Status Dates Dr. Fabiana Wiley MD Primary Care Provider Active Start: June 09, 2024 Dr. Fabiana Wiley MD Referring Provider Active Start: June 09, 2024 Dr. Amanda Robertson MD Attending Provider Active Start: June 09, 2024 Dr. Amanda Robertson MD Other Provider Active S tart: June 09, 2024 Team Status: Inactive Member Role/Relationship Status Dates Dr. Fabiana Wiley MD Primary Care Provider Active Start: June 11, 2024 End: June 11, 2024 SANJUANA GERMAN MD Attending Provider Active Star t: June 11, 2024 End: June 11, 2024 SANJUANA GERMAN MD Referring Provider Active Star t: June 11, 2024 End: June 11, 2024 Team Status: Inactive Member Role/Relationship Status Dates Dr. Fabiana Wiley MD Primary Care Provider Active Start: September 09, 2024 End: September 09, 2024 SANJUANA GERMAN MD Attending Provider Active Star t: September 09, 2024 End: September 09, 2024 SANJUANA GERMAN MD Referring Provider Active Star t: September 09, 2024 End: September 09, 2024 Plate Straightener Relationship Specialty Start Date End Date Fabiana Wiley MD [address] [place] [id number] PCP - General Family Medicine 11/07/24 Team Status: Inactive Member Role/Relationship Status Dates Dr. Fabiana Wiley MD Primary Care Provider Active Start: September 09, 2024 End: September 09, 2024 SANJUANA GERMAN MD Attending Provider Active Star t: September 09, 2024 End: September 09, 2024 SANJUANA GERMAN MD Referring Provider Active Star t: September 09, 2024 End: September 09, 2024 Team Status: Inactive Member Role/Relationship Status Dates Dr. Fabiana Wiley MD Primary Care Provider Active Start: October 07, 2024 Dr. Jazmine Stacy MD Attending Provider Active Start: October 07, 2024 Team Status: Inactive Member Role/Relationship Status Dates Dr. Fabiana Wiley MD Primary Care Provider Active Start: November 10, 2024 End: November 10, 2024 CHANG TYLER Attending Provider Active S tart: November 10, 2024 End: November 10, 2024 CHANG TYLER Referring Provider Active S tart: November 10, 2024 End: November 10, 2024 Reason for Visit (unrecogniz ed section and content) Reason Comments Bariatrics Post Op Follow-up Possible ul cer INFORMATION SOURCE (unrecogn ized section and content) DATE CREATED AUTHOR 11/12/2024 [facility] DATE CREATED AUTHOR AUTHOR'S ORGANIZ ATION 11/17/2024 [facility] FOR RECORDS PERTAINING TO PATIENTS WHO ARE OR HAVE BEEN ENROLLED IN A CHEMICAL DEPENDENCY/SUBSTANCEABUSE PROGRAM, SOME INFORMATION MAY BE OMITTED. This clinical summary was aggregated from multiple sources. Caution should be exercised in using it in the provision of clinical care. This summary normalizes information from multiple sources, and as a consequence, information in this document may materially change the coding, format and clinical context of patient data. In addition, data may be omitted in some cases. CLINICAL DECISIONS SHOULD BE BASED ON THE PRIMARY CLINICAL RECORDS. [facility]. provides no warranty or guarantee of the accuracy or completeness of information in this document.
--- NOTE | 2024-11-20 07:50 | RAD_ITS ---
EXAM: Air-contrast esophagram barium swallow. CLINICAL HISTORY: Dysphagia. Prior gastric bypass surgery. COMPARISON: None TECHNIQUE: The patient ingested barium. Fluoroscopic imaging of the esophagus, stomach and duodenum were obtained. Radiation dose: 43.5 seconds of fluoroscopy. 22.1 mGy. FINDINGS: The patient is status post subtotal gastrectomy for gastric bypass surgery. The esophagus is unremarkable. There is evidence of a small hiatal hernia with evidence of gastroesophageal reflux. RAD/Upper GI Single Contrast IMPRESSION: Status post subtotal gastrectomy for gastric bypass surgery. Small hiatal hernia with gastroesophageal reflux. Reading Location: [facility]
== END | disposition home or self-care (01) ==
PROVIDERS: PCP Family Medicine
DX: R10.13 Epigastric pain (principal); R10.11 Right upper quadrant pain
CPT/HCPCS: 74240; 76700

== ENCOUNTER 2024-12-22 15:44 | Outpatient (RCR) | payer BC, SELFPAY ==
[2024-12-22 16:06] LABS: Mucous, Urine 0 SEEN /hpf (<or=2+)
[2024-12-22 17:21] LABS: Hematocrit 37.4 % (37-47); Hemoglobin 12.1 g/dL (12.0-15.0); Immature Granulocytes Count 0.030 X10^3/uL (0.0-0.0); Mean Corp Hgb Conc 32.4 g/dL (32-36); Mean Corpuscular Volume 93.7 fL (81-99); Mean Platelet Vol. 9.2 fl (6.2-12.0); NRBC Flagged by Analyzer 0 % (0-5); Platelet Count 379 K/mm3 (150-450); RBC Distribution Width CV 15.6 % (11.6-14.6); RBC Distribution Width SD 53.4 fl (35.1-43.9); Red Blood Count 3.99 M/mm3 (4.2-5.4); White Blood Count 9.6 K/mm3 (4.4-11.0)
[2024-12-22 17:29] LABS: Color, Urine Yellow (Yellow); Glucose, Dipstick Normal (Normal); Ketone-Dipstick 5 mg/dl (Negative); Leukocyte Esterase-Dipstick Negative /ul (Negative); Nitrite-Dipstick Negative (Negative); Occult Blood-Urine 10 /ul (Negative); Protein-Dipstick 30 mg/dl (Negative); Specific Gravity, Urine 1.025 (1.002-1.030)
[2024-12-22 17:43] LABS: AST(SGOT) 23 U/L (<=31); Alanine Aminotransfer ALT/SGPT 12 U/L (<=34); BUN 20 mg/dL (4-19)
[2024-12-22 17:48] LABS: CRP < 3.00 mg/L (0.0-3.0); Urine Bilirubin Dipstick 1 mg/dL (Negative)
[2024-12-22 18:52] LABS: Calcium Oxalate Crystals Ur 1+ /hpf (<or=2+)
[2024-12-22 18:53] LABS: Red Blood Cells-Urine 0-5 SEEN /hpf (0-5); Squamous Epithelial Cells - UA 0-5 SEEN /hpf (5-10)
== END 2025-01-06 18:00 | disposition home or self-care (01) ==
LOC: LAB 15:44
PROVIDERS: PCP Family Medicine; Referring Provider Internal Medicine Rheumatology; Visit Provider Internal Medicine Rheumatology
DX: Z79.899 Other long term (current) drug therapy (principal); M30.0 Polyarteritis nodosa
CPT/HCPCS: 36415; 81001; 82565; 84450; 84460; 84520; 85025; 85652; 86140

== ENCOUNTER → 2025-02-03 | Outpatient (CLI) | payer BC, SELFPAY ==
--- NOTE | 2025-02-03 16:18 | BI_ITS ---
EXAM: SCRN MAMM (CAD)W/CASEY BILAT DATE: 02/03/2025 CLINICAL HISTORY: F, Age 59 y/o , SCREENING No family history. TECHNIQUE: Procedure Code: [id number] Modality: MG Procedure: SCRN MAMM (CAD)W/CASEY BILAT COMPARISON: Prior exam(s) dated May 28, 2023.. FINDINGS: TISSUE DENSITY: The breasts are almost entirely fatty. Bilateral Breast Mammographic Findings: No significant masses, calcifications or other abnormalities are identified. Stable fat containing axillary lymph nodes. No suspicious masses, areas of developing architectural distortion, or suspicious calcifications. There has been no significant interval change. BI/SCRN MAMM (CAD)W/CASEY BILAT IMPRESSION: Stable bilateral screening mammogram. OVERALL FINAL ASSESSMENT BI-RADS 2: BENIGN RECOMMENDATION: Routine annual follow-up in 1 Year Additional Recommendation none A letter with findings and recommendations will be mailed to the patient. Reading Location: [facility]
== END | disposition home or self-care (01) ==
LOC: OPBI 16:18
PROVIDERS: PCP Family Medicine; Referring Provider Family Medicine; Visit Provider Family Medicine
DX: Z12.31 Encounter for screening mammogram for malignant neoplasm of breast (principal)
CPT/HCPCS: 77063; 77067